=== PATIENT | male | born 1940 | race Caucasian/White ===

== ENCOUNTER 2018-03-02 11:13 | Inpatient (IN) | payer SELFPAY ==
[2018-03-02] VITALS (12 sets, daily range): BP systolic 83–115; BP diastolic 53–70; PULSE 103–160; TEMP 37.1–39.2; O2SAT 93–98; Ht 175.3 cm; Wt 69.4 kg
[~2018-03-02] VITALS: Ht 175.3 cm; Wt 69.4 kg
[2018-03-02] MEDS ORDERED: SODIUM CHLORIDE 0.9% 1000ML 1,000 ML IV STA ×6 (11:33→13:37)
--- NOTE | 2018-03-02 11:37 | EMERGENCY ROOM VISIT NOTE ---
History Report prepared by Ramos: Merline Sawant Under the Supervision of: Dr. Alex Tellez M.D. First contact with patient: 11:31 Chief Complaint: FEVER Stated Complaint: ILLNESS/FEVER History of Present Illness The patient is a 77 year old male who presents to the Emergency Room with complaints of a fever beginning this morning at 0700. Per family, the patient was not talking right this morning and had blood in his urine. His family states that the patient has not had a cough. The patient denies having a headache. Per family, the patient has had a hernia over the last 2-3 years. Per family, the patient has no active medical problems. Source of History: patient, family Onset: this morning at 0700 Position: other (generalized) Quality: other (fever) Associated Symptoms: + urinary symptoms (blood in urine), + weakness (was not talking correctly), No headache, No cough Review of Systems See HPI for pertinent positives and negatives. A total of ten systems were reviewed and were otherwise negative. Past Medical & Surgical Medical Problems: (1) No active medical problems (2) Sepsis Family History Patient reports no known family medical history. Current/Historical Medications No Active Prescriptions or Reported Meds Allergies Coded Allergies: No Known Allergies (Unverified , 03/02/18) Physical Exam Vital Signs Date Time Temp Pulse Resp B/P (MAP) Pulse Ox O2 Delivery O2 Flow Rate FiO2 03/02/18 13:26 109/68 03/02/18 13:23 111 18 93 03/02/18 13:20 99/66 03/02/18 13:19 106/64 03/02/18 13:18 105 28 98 03/02/18 13:16 66/42 03/02/18 13:15 108/59 03/02/18 13:13 102 23 97 03/02/18 13:11 116/61 03/02/18 13:08 113 20 94 03/02/18 13:06 113/62 03/02/18 13:03 154 23 98 03/02/18 13:00 203 03/02/18 12:58 139 22 96 03/02/18 12:53 150 18 94 03/02/18 12:50 152 03/02/18 12:48 116 25 97 03/02/18 12:43 107 23 95 03/02/18 12:40 90 20 114/68 97 Nasal Cannula 2.0 03/02/18 12:38 92 26 97 03/02/18 12:34 161 03/02/18 12:33 88 26 95 03/02/18 12:30 114/69 03/02/18 12:28 84 30 96 03/02/18 12:27 120/65 03/02/18 12:23 84 27 97 03/02/18 12:18 84 27 97 03/02/18 12:13 92 30 96 03/02/18 12:08 87 27 96 03/02/18 12:03 83 21 95 03/02/18 11:58 86 24 95 03/02/18 11:53 85 25 95 03/02/18 11:48 87 26 95 03/02/18 11:43 90 20 95 03/02/18 11:40 93 Nasal Cannula 4.0 03/02/18 11:38 90 29 93 03/02/18 11:33 90 30 93 03/02/18 11:28 92 30 93 03/02/18 11:26 145/70 03/02/18 11:24 40.7 94 24 145/70 93 Nasal Cannula 4.0 03/02/18 11:23 96 23 94 03/02/18 11:21 82 03/02/18 11:15 94 Nasal Cannula 4.0 Physical Exam Physical Exam GENERAL: He does appear distressed. He is alert, not oriented. HENT: Exam performed. Mouth/Throat: The oropharynx is clear and moist. No trismus in the jaw. No dental abscesses or uvula swelling. No oropharyngeal exudate or tonsillar abscesses. EYES: Conjunctivae and EOM are normal. Pupils are equal, round, and reactive to light. Right eye exhibits no discharge. Left eye exhibits no discharge. No scleral icterus. NECK: Normal range of motion. Neck supple. No JVD present. No spinous process tenderness present. No carotid bruit present. No rigidity. No tracheal deviation and normal range of motion present. No Brudzinski's sign and no Kernig 's sign noted. CV: Tachycardic, regular rhythm, normal heart sounds and intact distal pulses. There is no peripheral edema. Palpable radial pulses bue. PULM/CHEST: Effort normal and breath sounds normal. No respiratory distress. No stridor. He has no wheezes. He has no rales. Chest Wall: He exhibits no tenderness. ABD: The abdomen is soft. Bowel sounds are normal. Large left-sided inguinal hernia that is tender to palpation. There is no rebound, no guarding, no Hutton 's sign and no tenderness at McBurney's point. Rovsig negative. MUSC/SKEL: Normal range of motion. There is no peripheral edema, tenderness or deformity. LYMPH: No cervical adenopathy. NEURO: Alert, not oriented. Motor 5 out of 5 bilateral upper and bilateral extremities. Sensation intact. SKIN: Skin is warm and dry. He is not diaphoretic. Medical Decision & Procedures ER Provider Diagnostic Interpretation: Radiology results as stated below per my review and radiologist interpretation: SINGLE VIEW CHEST CLINICAL HISTORY: Sepsis. Fever. FINDINGS: An AP, portable, upright chest radiograph is obtained. No prior studies are available for comparison at the time of dictation. The examination is degraded by portable technique and patient rotation. The heart is enlarged and there is atherosclerotic calcification of the thoracic aorta. The pulmonary vasculature is noncongested. There is minimal dependent atelectasis. No airspace consolidation or large pleural effusion is identified. No pneumothorax is seen. The skeletal structures are osteopenic. The bony thorax is grossly intact. IMPRESSION: Cardiomegaly with no acute cardiopulmonary abnormality. Electronically signed by: Jeanmarie Camacho M.D. 03/02/2018 12:12 PM Dictated Date/Time: 03/02/2018 12:11 PM Laboratory Results 03/02/18 11:25 Red Blood Count 4.85, Mean Corpuscular Volume 92.8, Mean Corpuscular Hemoglobin 31.3, Mean Corpuscular Hemoglobin Concent 33.8, Mean Platelet Volume 9.6, Neutrophils (%) (Auto) 94.7, Lymphocytes (%) (Auto) 4.7, Monocytes (%) (Auto) 0.3, Eosinophils (%) (Auto) 0.0, Basophils (%) (Auto) 0.0, Neutrophils # (Auto) 2.83, Lymphocytes # (Auto) 0.14, Monocytes # (Auto) 0.01, Eosinophils # (Auto) 0.00, Basophils # (Auto) 0.00 03/02/18 11:25 Test 03/02/18 11:25 03/02/18 11:51 03/02/18 11:54 03/02/18 12:00 White Blood Count 2.99 K/uL (4.8-10.8) Red Blood Count 4.85 M/uL (4.7-6.1) Hemoglobin 15.2 g/dL (14.0-18.0) Hematocrit 45.0 % (42-52) Mean Corpuscular Volume 92.8 fL (80-100) Mean Corpuscular Hemoglobin 31.3 pg (25-34) Mean Corpuscular Hemoglobin Concent 33.8 g/dl (32-36) Platelet Count 186 K/uL (130-400) Mean Platelet Volume 9.6 fL (7.4-10.4) Neutrophils (%) (Auto) 94.7 % Lymphocytes (%) (Auto) 4.7 % Monocytes (%) (Auto) 0.3 % Eosinophils (%) (Auto) 0.0 % Basophils (%) (Auto) 0.0 % Neutrophils # (Auto) 2.83 K/uL (1.4-6.5) Lymphocytes # (Auto) 0.14 K/uL (1.2-3.4) Monocytes # (Auto) 0.01 K/uL (0.11-0.59) Eosinophils # (Auto) 0.00 K/uL (0-0.5) Basophils # (Auto) 0.00 K/uL (0-0.2) RDW Standard Deviation 47.6 fL (36.4-46.3) RDW Coefficient of Variation 14.0 % (11.5-14.5) Immature Granulocyte % (Auto) 0.3 % Immature Granulocyte # (Auto) 0.01 K/uL (0.00-0.02) Prothrombin Time 11.6 SECONDS (9.0-12.0) Prothromb Time International Ratio 1.1 (0.9-1.1) Activated Partial Thromboplast Time 25.6 SECONDS (21.0-31.0) Partial Thromboplastin Ratio 1.0 Estimated GFR () 74.4 Estimated GFR (Non- 64.2 BUN/Creatinine Ratio 20.7 (10-20) Calcium Level 8.3 mg/dl (8.5-10.1) Total Bilirubin 0.9 mg/dl (0.2-1) Aspartate Amino Transf (AST/SGOT) 18 U/L (15-37) Alanine Aminotransferase (ALT/SGPT) 16 U/L (12-78) Alkaline Phosphatase 87 U/L (45-117) Total Protein 6.9 gm/dl (6.4-8.2) Albumin 3.0 gm/dl (3.4-5.0) Globulin 3.9 gm/dl (2.5-4.0) Albumin/Globulin Ratio 0.8 (0.9-2) Procalcitonin 29.80 ng/ml (0-0.5) Bedside Lactic Acid Venous 1.60 mmol/L (0.90-1.70) Bedside Hemoglobin 13.3 g/dl (14.0-18.0) Bedside Hematocrit 39 % (42-52) Bedside Sodium 140 mEq/L (135-144) Bedside Potassium 3.9 mEq/L (3.3-5.0) Bedside Chloride 101 mEq/L (101-112) Bedside Total CO2 24 mEq/l (24-31) Anion Gap 20.0 mmol/L (16-25) Bedside Blood Urea Nitrogen 23 mg/dl (7-18) Bedside Creatinine 1.0 mg/dl (0.6-1.3) Bedside Glucose (other) 118 mg/dl (70-99) Bedside Ionized Calcium (Ravinder) 1.10 mmol/l (1.12-1.32) Urine Color YELLOW Urine Appearance CLEAR (CLEAR) Urine pH 6.5 (4.5-7.5) Urine Specific [place] 1.008 (1.000-1.030) Urine Protein NEG (NEG) Urine Glucose (UA) NEG (NEG) Urine Ketones NEG (NEG) Urine Occult Blood 1+ (NEG) Urine Nitrite POS (NEG) Urine Bilirubin NEG (NEG) Urine Urobilinogen NEG (NEG) Urine Leukocyte Esterase LARGE (NEG) Urine WBC (Auto) >30 /hpf (0-5) Urine RBC (Auto) 5-10 /hpf (0-4) Urine Hyaline Casts (Auto) 1-5 /lpf (0-5) Urine Epithelial Cells (Auto) 0-5 /lpf (0-5) Urine Bacteria (Auto) 2+ (NEG) Laboratory results reviewed by me Medications Administered Medications (Trade) Dose Ordered Sig/Mirella Route Start Time Stop Time Status Last Admin Dose Admin Sodium Chloride 1,000 ml @ 999 mls/hr Q1H1M STAT IV 03/02/18 11:33 03/02/18 12:33 DC 03/02/18 11:33 999 MLS/HR Ceftriaxone Sodium (Rocephin Inj) 1 gm NOW STAT IV 03/02/18 12:46 03/02/18 12:47 DC 03/02/18 12:56 1 GM Amiodarone HCl (Cordarone Inj) 150 mg STK-MED ONCE .ROUTE 03/02/18 13:10 03/02/18 13:11 DC 03/02/18 13:13 150 MG Amiodarone HCL/ Dextrose (Nexterone / D5w) 360 mg STK-MED ONCE .ROUTE 03/02/18 13:22 03/02/18 13:23 DC 03/02/18 13:27 360 MG Acetaminophen (Tylenol Tab) 650 mg Q4H PRN PO 03/02/18 13:15 04/01/18 13:14 03/02/18 15:34 650 MG ECG Per My Interpretation Indication: tachycardia Rate (beats per minute): 89 Rhythm: sinus rhythm Findings: RBBB, other (PRN interval is 146, QRS 124, QTC 438, no ST elevation or depression) ED Course 1130: The patient was evaluated in room C9. A complete history and physical exam was performed. Code sepsis and sepsis order set was initiated. 2 large- bore IVs were immediately placed and fluid boluses were immediately initiated. A Blair catheter was placed which removed a large amount of urine. The POC lactate and creatinine were within normal limits. We will obtain a CT scan to rule out an incarcerated hernia. 1133: Ordered Sodium Chloride 1000 ml @ 999 mls/hr IV. 1145: Ordered Tylenol Tab 650 mg PO. Labs show a leukopenia of 2.99 and pro calcitonin of 29.8., further raising the concern for sepsis. POC lactic acid less than 2. 1240: Chest x-ray shows no evidence of pneumonia. I went to go reevaluate the patient. He is in transient atrial fibrillation with RVR on the quality assurance monitor chassis. It is thought to be due to sepsis. His pressure is stable. He received 1.5 L of IV fluid and we will repeat 2 L. His urinalysis is pending. We are sending the patient to CT to rule out any incarcerated hernia. 1246: Urinalysis shows infection. Ordered Rocephin Inj 1 gm IV for urine being the source of sepsis. 1258: Discussed the patient's case with Dr. Clayton-ICU. He agrees that the patient needs to be admitted. He states given that the patient's blood pressure stable, the patient could go to the floor on telemetry however if the hospitalist team prefers that the patient go to ICU he is happy to accept the patient. I discussed with him that given that the patient is in transient atrial fibrillation I prefer that the patient go to the ICU. Dr. Clayton states that he is happy to accept the patient. We will plan on taking the patient to CT prior to bringing the patient to the ICU. 1301: Called to bedside by nursing. Patient's heart rate is fluctuating 140- 200. Rhythm appears narrow on the monitor. EKG shows atrial fibrillation with rapid ventricular rate of 177. Repeat fluid boluses began wide open again as the patients rhythm is thought to be a result of his urosepsis. 1316: Patient's QRS complex on the monitor began to widen and the patient's rate was still elevated. There is concern for the patient developing V. tach as result of his sepsis. Automated blood pressure rate 66/42. Manual blood pressure was repeated and found to be 106/64. Cardioversion was considered however, given that the manual blood pressure was stable, amiodarone 150 milligrams ordered as bolus over 10 minutes. I administered the amiodarone 150mg bolus over 10 mins. 1327: Status post amiodarone bolus, QRS complex narrowed on the monitor. No evidence of V. tach. Repeat EKG status post amiodarone bolus showed narrowing and improvement of the QRS complex. A. fib RVR with a rate of 116. Amiodarone drip ordered for 1 mg/min. Patient's blood pressure stable. IV fluids were continued wide open. Repeat POC lactic acid was less than 2. 1340: Patient continues to be in a narrow complex regular rhythm on the monitor while the amiodarone drip is being continued, appears like A. fib. Blood pressure stable, a total of 5 L of normal saline have been administered with 2 more liters being continued. The blood pressure remains stable with a MAP greater than 65. Given the patient's rhythm control issues we will take the patient to the ICU immediately once the ICU bed is available. Will hold off on sending the patient to CT at this point. Hospitalist was contacted to place admission orders and bed request. Tear Down Man was made aware that the patient will be coming directly to the ICU from the ED. I transported the patient with nursing to the intensive care unit and gave a verbal report to the dietary cook Dr. Clayton who met me at the bedside. He thanked me for helping transport the patient to the ICU and agrees with the decision to defer CT of the abdomen until the patient is more stabilized. Medical Decision 1130: The patient was evaluated in room C9. A complete history and physical exam was performed. Code sepsis and sepsis order set was initiated. 2 large- bore IVs were immediately placed and fluid boluses were immediately initiated. A Blair catheter was placed which removed a large amount of urine. The POC lactate and creatinine were within normal limits. We will obtain a CT scan to rule out an incarcerated hernia. 1133: Ordered Sodium Chloride 1000 ml @ 999 mls/hr IV. 1145: Ordered Tylenol Tab 650 mg PO. Labs show a leukopenia of 2.99 and pro calcitonin of 29.8., further raising the concern for sepsis. POC lactic acid less than 2. 1240: Chest x-ray shows no evidence of pneumonia. I went to go reevaluate the patient. He is in transient atrial fibrillation with RVR on the quality assurance monitor chassis. It is thought to be due to sepsis. His pressure is stable. He received 1.5 L of IV fluid and we will repeat 2 L. His urinalysis is pending. We are sending the patient to CT to rule out any incarcerated hernia. 1246: Urinalysis shows infection. Ordered Rocephin Inj 1 gm IV for urine being the source of sepsis. 1258: Discussed the patient's case with Dr. Clayton-ICU. He agrees that the patient needs to be admitted. He states given that the patient's blood pressure stable, the patient could go to the floor on telemetry however if the hospitalist team prefers that the patient go to ICU he is happy to accept the patient. I discussed with him that given that the patient is in transient atrial fibrillation I prefer that the patient go to the ICU. Dr. Clayton states that he is happy to accept the patient. We will plan on taking the patient to CT prior to bringing the patient to the ICU. 1301: Called to bedside by nursing. Patient's heart rate is fluctuating 140- 200. Rhythm appears narrow on the monitor. EKG shows atrial fibrillation with rapid ventricular rate of 177. Repeat fluid boluses began wide open again as the patients rhythm is thought to be a result of his urosepsis. 1316: Patient's QRS complex on the monitor began to widen and the patient's rate was still elevated. There is concern for the patient developing V. tach as result of his sepsis. Automated blood pressure rate 66/42. Manual blood pressure was repeated and found to be 106/64. Cardioversion was considered however, given that the manual blood pressure was stable, amiodarone 150 milligrams ordered as bolus over 10 minutes. I administered the amiodarone 150mg bolus over 10 mins. 1327: Status post amiodarone bolus, QRS complex narrowed on the monitor. No evidence of V. tach. Repeat EKG status post amiodarone bolus showed narrowing and improvement of the QRS complex. A. fib RVR with a rate of 116. Amiodarone drip ordered for 1 mg/min. Patient's blood pressure stable. IV fluids were continued wide open. Repeat POC lactic acid was less than 2. 1340: Patient continues to be in a narrow complex regular rhythm on the monitor while the amiodarone drip is being continued, appears like A. fib. Blood pressure stable, a total of 5 L of normal saline have been administered with 2 more liters being continued. The blood pressure remains stable with a MAP greater than 65. Given the patient's rhythm control issues we will take the patient to the ICU immediately once the ICU bed is available. Will hold off on sending the patient to CT at this point. Hospitalist was contacted to place admission orders and bed request. Tear Down Man was made aware that the patient will be coming directly to the ICU from the ED. I transported the patient with nursing to the intensive care unit and gave a verbal report to the dietary cook Dr. Clayton who met me at the bedside. He thanked me for helping transport the patient to the ICU and agrees with the decision to defer CT of the abdomen until the patient is more stabilized. Medication Reconcilliation Current Medication List: was personally reviewed by me Blood Pressure Screening Patient's blood pressure: Normal blood pressure Consults Time Called: 1250 Consulting Physician: Dr. Clayton-ICU Returned Call: [phone] Discussed the patient's case with Dr. Clayton-ICU. Additional Consults: Time Called: 1259 Consulted Physician: Dr. Whitman- [facility] Returned Call: [phone] Additional Comments: Discussed the patient's case. The patient will be evaluated for further treatment and disposition. Impression Primary Impression: Sepsis Additional Impressions: Atrial fibrillation with RVR V tach Critical Care I have personally spent greater than 124 minutes of critical care time in the direct management of this patient. This includes bedside care, interpretation of diagnostic studies, and testing, discussion with consultants, patient, and family members, and other required patient management activities. This 124 minutes is in excess of all separately billable procedures. Scribe Attestation The scribe's documentation has been prepared under my direction and personally reviewed by me in its entirety. I confirm that the note above accurately reflects all work, treatment, procedures, and medical decision making performed by me. The chart was completed utilizing [employer] network Speech voice recognition software. Grammatical errors, random word insertions, pronoun errors, and incomplete sentences are an occasional consequence of this system due to software limitations, ambient noise, and hardware issues. Any formal questions or concerns about the content, text, or information contained within the body of this dictation should be directly addressed to the physician for clarification. Departure Information Prescriptions No Active Prescriptions or Reported Meds Patient Instructions My [facility] Sepsis Post Crystalloid Evaluation Date: Mar 02, 2018 Time: 11:30 Capillary Refill Exam Normal (less than 2 seconds) Cardiopulmonary Evaluation Lung Exam: lungs clear Heart Exam: + tachycardia Central Venous Evaluation Pulse Ox %: 98 Peripheral Pulse Evaluation Normal Vitals Last Vital Signs Documentation Date Time Temp Pulse Resp B/P (MAP) Pulse Ox O2 Delivery O2 Flow Rate FiO2 03/02/18 13:26 109/68 03/02/18 13:23 111 18 93 03/02/18 12:40 Nasal Cannula 2.0 03/02/18 11:24 40.7 Presence Of SIRS Problem Qualifiers Primary Impression: Sepsis Sepsis type: sepsis due to unspecified organism Qualified Codes: A41.9 - Sepsis, unspecified organism
[2018-03-02] MEDS ORDERED: ACETAMINOPHEN 325 MG TAB PO ONE (11:45)
[2018-03-02 11:56] LABS: HEMOGLOBIN 15.2 g/dL (14.0-18.0); IG# 0.01 K/uL (0.00-0.02); LYMPH % 4.7 %; LYMPH ABS # 0.14 K/uL (1.2-3.4); MEAN CELL VOLUME 92.8 fL (80-100); MEAN CORPUSCULAR HEMOGLOBIN 31.3 pg (25-34); MEAN CORPUSCULAR HGB CONC 33.8 g/dl (32-36); MEAN PLATELET VOLUME 9.6 fL (7.4-10.4); MONO % 0.3 %; MONO ABS # 0.01 K/uL (0.11-0.59); NEUT % 94.7 %; NEUT ABS # 2.83 K/uL (1.4-6.5); PLATELET COUNT 186 K/uL (130-400); RED CELL DISTRIBUTION WIDTH SD 47.6 fL (36.4-46.3); WHITE BLOOD COUNT 2.99 K/uL (4.8-10.8)
[2018-03-02 12:03] LABS: ISTAT IONIZED CALCIUM 1.1 mmol/l (1.12-1.32); ISTAT POTASSIUM 3.9 mEq/L (3.3-5.0)
[2018-03-02 12:04] LABS: INR 1.1 (0.9-1.1); PTT PATIENT 25.6 SECONDS (21.0-31.0)
--- NOTE | 2018-03-02 12:13 | DIAGNOSTIC IMAGING REPORT ---
SINGLE VIEW CHEST CLINICAL HISTORY: Sepsis. Fever. FINDINGS: An AP, portable, upright chest radiograph is obtained. No prior studies are available for comparison at the time of dictation. The examination is degraded by portable technique and patient rotation. The heart is enlarged and there is atherosclerotic calcification of the thoracic aorta. The pulmonary vasculature is noncongested. There is minimal dependent atelectasis. No airspace consolidation or large pleural effusion is identified. No pneumothorax is seen. The skeletal structures are osteopenic. The bony thorax is grossly intact. IMPRESSION: Cardiomegaly with no acute cardiopulmonary abnormality. Electronically signed by: Jeanmarie Camacho M.D. 03/02/2018 12:12 PM Dictated Date/Time: 03/02/2018 12:11 PM
[2018-03-02 12:22] LABS: ALKALINE PHOSPHATASE 87 U/L (45-117); ALT/SGPT 16 U/L (12-78); AST/SGOT 18 U/L (15-37); BLOOD UREA NITROGEN 23 mg/dl (7-18); CALCIUM 8.3 mg/dl (8.5-10.1); CARBON DIOXIDE 26 mmol/L (21-32); CREATININE 1.11 mg/dl (0.60-1.40); GLUCOSE 106 mg/dl (70-99); POTASSIUM 3.8 mmol/L (3.5-5.1); SODIUM 139 mmol/L (136-145); TOTAL PROTEIN 6.9 gm/dl (6.4-8.2)
[2018-03-02] MEDS ORDERED: OPTIRAY 320 IV PRN (12:45)
[2018-03-02] MEDS ORDERED: CEFTRIAXONE SOD INJ 1 GM ADDVIAL IV STA (12:46)
[2018-03-02] MEDS ORDERED: AMIODARONE HCL INJ 50 MG/ML 3 ML VIAL ONE (13:10)
[2018-03-02] MEDS ORDERED: SODIUM CHLORIDE 0.9% 1000ML 250 ML IV ONE (13:14)
[2018-03-02] MEDS ORDERED: VANCOMYCIN IV 1,000 MG in SODIUM CHLORIDE 0.9% 250ML 250 ML IV ONE (13:14)
[2018-03-02] MEDS ORDERED: CONSULT PHARMACY STA (13:14)
[2018-03-02] MEDS ORDERED: VANCOMYCIN CONSULT ACTIVE PRN (13:15)
[2018-03-02] MEDS ORDERED: MAGNESIUM HYDROXIDE SUSP 30 ML UDC PO PRN (13:15)
[2018-03-02] MEDS ORDERED: ONDANSETRON INJ 2 MG/ML 2 ML VIAL IV PRN (13:15)
[2018-03-02] MEDS ORDERED: NITROGLYCERIN 0.4 MG SL PER TAB CHARGE SL PRN (13:15)
[2018-03-02] MEDS ORDERED: ICU PROTOCOL FOR HYPERGLYCEMIA PRN (13:15)
[2018-03-02] MEDS ORDERED: LORAZEPAM 2 MG/ML 1 ML VIAL ONE (13:19)
[2018-03-02] MEDS ORDERED: AMIODARONE 360MG / 200ML D5W ONE (13:22)
[2018-03-02] MEDS ORDERED: AMIODARONE IV BOLUS / DRIP IV STA (13:23)
[2018-03-02] MEDS ORDERED: AMIODARONE / D5W 200 ML IV SCH (13:30)
[2018-03-02] MEDS: AMIODARONE / D5W 200 ML IV SCH ×2 (13:34→19:25)
[2018-03-02] MEDS ORDERED: PIPERACILL/TAZOBAC CONSULT ACTIVE PRN (13:45)
[2018-03-02] MEDS ORDERED: AMIODARONE HCL INJ 50 MG/ML 3 ML VIAL IV STA (14:05)
[2018-03-02] MEDS ORDERED: AMIODARONE 150MG / 100ML D5W ONE (14:07)
[2018-03-02] MEDS ORDERED: METOPROLOL TARTRATE 1 MG/ML VIAL ONE (14:16)
[2018-03-02] MEDS ORDERED: HEPARIN 25,000 UNIT/500ML D5W 500 ML IV SCH (14:45)
[2018-03-02] MEDS ORDERED: PIPERACILL/TAZOBAC IV 3.375 GM in D5W 100 ML IV ONE (14:45)
[2018-03-02] MEDS ORDERED: VANCOMYCIN IV 1,750 MG in SODIUM CHLORIDE 0.9% 500ML 500 ML IV ONE (14:45)
--- NOTE | 2018-03-02 14:58 | Pharmacy Progress Note ---
Pharmacy Abx Initial Consult Date of Service Mar 02, 2018. Pharmacy Dosing Scope Date of Consult: 03/02/18 Consultation requested by: Dr. Whitman Pharmacy is consulted to initiate Vancomycin & Zosyn IV dosing therapy, order appropriate labs and adjust drug dose/frequency. Subjective The patient is a 77 year old male admitted on Mar 02, 2018 at 13:27. Objective Height (Feet): 5 Height (Inches): 8.00 Weight (Kilograms): 69.000 (BMI 23.1) Vital Signs (Past 12Hrs) Vital Signs Past 12 Hours Date Time Temp Pulse Resp B/P (MAP) Pulse Ox O2 Delivery O2 Flow Rate FiO2 03/02/18 13:58 38.5 78 98 03/02/18 13:55 110/71 03/02/18 13:53 74 88 03/02/18 13:38 114 20 95 03/02/18 13:37 104/75 03/02/18 13:36 108/72 03/02/18 13:33 111 24 95 03/02/18 13:30 109/68 03/02/18 13:28 109 24 94 03/02/18 13:26 109/68 03/02/18 13:23 111 18 93 03/02/18 13:20 99/66 03/02/18 13:19 106/64 03/02/18 13:18 105 28 98 03/02/18 13:16 66/42 03/02/18 13:15 108/59 03/02/18 13:13 102 23 97 03/02/18 13:11 116/61 03/02/18 13:08 113 20 94 03/02/18 13:06 113/62 03/02/18 13:03 154 23 98 03/02/18 13:00 203 03/02/18 12:58 139 22 96 03/02/18 12:53 150 18 94 03/02/18 12:50 152 03/02/18 12:48 116 25 97 03/02/18 12:43 107 23 95 03/02/18 12:40 90 20 114/68 97 Nasal Cannula 2.0 03/02/18 12:38 92 26 97 03/02/18 12:34 161 03/02/18 12:33 88 26 95 03/02/18 12:30 114/69 8/11/18 12:28 84 30 96 03/02/18 12:27 120/65 03/02/18 12:23 84 27 97 03/02/18 12:18 84 27 97 03/02/18 12:13 92 30 96 03/02/18 12:08 87 27 96 03/02/18 12:03 83 21 95 03/02/18 11:58 86 24 95 03/02/18 11:53 85 25 95 03/02/18 11:48 87 26 95 03/02/18 11:43 90 20 95 03/02/18 11:40 93 Nasal Cannula 4.0 03/02/18 11:38 90 29 93 03/02/18 11:33 90 30 93 03/02/18 11:28 92 30 93 03/02/18 11:26 145/70 03/02/18 11:24 40.7 94 24 145/70 93 Nasal Cannula 4.0 03/02/18 11:23 96 23 94 03/02/18 11:21 82 03/02/18 11:15 94 Nasal Cannula 4.0 Lab Results (24Hrs) Laboratory Tests (24 Hours) Test 03/02/18 11:25 03/02/18 14:43 White Blood Count 2.99 K/uL (4.8-10.8) L Red Blood Count 4.85 M/uL (4.7-6.1) Hemoglobin 15.2 g/dL (14.0-18.0) Hematocrit 45.0 % (42-52) Mean Corpuscular Volume 92.8 fL (80-100) Mean Corpuscular Hemoglobin 31.3 pg (25-34) Mean Corpuscular Hemoglobin Concent 33.8 g/dl (32-36) Platelet Count 186 K/uL (130-400) Mean Platelet Volume 9.6 fL (7.4-10.4) Neutrophils (%) (Auto) 94.7 % Lymphocytes (%) (Auto) 4.7 % Monocytes (%) (Auto) 0.3 % Eosinophils (%) (Auto) 0.0 % Basophils (%) (Auto) 0.0 % Neutrophils # (Auto) 2.83 K/uL (1.4-6.5) Lymphocytes # (Auto) 0.14 K/uL (1.2-3.4) L Monocytes # (Auto) 0.01 K/uL (0.11-0.59) L Eosinophils # (Auto) 0.00 K/uL (0-0.5) Basophils # (Auto) 0.00 K/uL (0-0.2) Procalcitonin 29.80 ng/ml (0-0.5) H Item Value Date Time Creatinine 1.11 mg/dl 03/02/18 1125 Micro Results Date/Time Source Procedure Growth Status 03/02/18 11:40 Blood Blood Culture Pending Received 03/02/18 11:25 Blood Blood Culture Pending Received 03/02/18 14:00 Nasal MRSA DNA Surveillance Screen Pending Received 03/02/18 12:00 Urine,Catheterized Urine Culture Pending Received Assessment & Plan Assessment 77 year old male presents with fever beginning this am. Also was weak and had blood in urine. Limited patient history available as of now, other than ER notes. Admitted for complicated UTI (? sepsis) Plan Vancomcyin & Zosyn for treatment of UTI Vancomycin IV * Estimated pkinetic parameters: Vd 0.7L/kg; Johnathan ~0.046 hr-1; T1/2 ~16.1 hr; CrCl ~50 * Loading dose: 1750 mg (~25.4 mg/kg) * Maintenance dose: 1000 mg IV (~14.5 mg/kg) every 20 hours * Goal trough level for UTI(sepsis) : 15 to 20 mcg/mL * Trough/Random level ordered for 03/05/18 Piperacillin/tazobactam * 4.5 g bolus administered over 30 minutes, then 4.5 g IV extended infusion every 8 hours for CrCl greater than 20 mL/min OR every 12 hours for CrCl 20 mL/ min or less and dialysis. * Aggressive dosing selected due to critically ill status/BMI 35 or more/ history of cystic fibrosis. Pharmacy will continue to follow and will adjust dose/frequency as necessary. Thank you.
[2018-03-02] MEDS: SODIUM CHLORIDE 0.9% 1000ML 1,000 ML IV SCH (15:18)
[2018-03-02] MEDS ORDERED: PIPERACILL/TAZOBAC IV 4.5 GM in D5W 100 ML IV ONE (15:30)
[2018-03-02] MEDS: METOPROLOL TARTRATE 1 MG/ML VIAL IV. SCH ×2 (15:34→19:32)
[2018-03-02] MEDS: ACETAMINOPHEN 325 MG TAB PO PRN (15:34)
--- NOTE | 2018-03-02 15:40 | DIAGNOSTIC IMAGING REPORT ---
SINGLE VIEW CHEST CLINICAL HISTORY: PICC placement. FINDINGS: An AP, portable, upright chest radiograph is compared to study performed earlier the same day 03/02/2018. The examination is degraded by portable technique and patient rotation. A right PICC line is been placed. The tip of the catheter projects over the SVC at the level of the melissa. The heart is enlarged and there is atherosclerotic calcification of the thoracic aorta. The pulmonary vasculature is noncongested. Nonspecific interstitial thickening is similar to previous. There is minimal dependent atelectasis. No airspace consolidation or large pleural effusion is identified. No pneumothorax is seen. The skeletal structures are osteopenic. The bony thorax is grossly intact. IMPRESSION: 1. A right PICC line has been placed. The tip of the catheter projects over the superior vena cava. 2. Cardiomegaly with no acute cardiopulmonary abnormality. Electronically signed by: Jeanmarie Camacho M.D. 03/02/2018 3:39 PM Dictated Date/Time: 03/02/2018 3:37 PM
--- NOTE | 2018-03-02 17:49 | DIAGNOSTIC IMAGING REPORT ---
CT SCAN OF THE ABDOMEN AND PELVIS WITH IV CONTRAST CLINICAL HISTORY: Left lower quadrant abdominal pain. COMPARISON STUDY: No priors. TECHNIQUE: Following the IV administration of 115 cc of Optiray 320, CT scan of the abdomen and pelvis is performed from the lung bases to the proximal femora. Images are reviewed in the axial, sagittal, and coronal planes. IV contrast was administered without complication. A dose lowering technique was utilized adhering to the principles of ALARA. The examination is degraded by extensive mesenteric edema. CT DOSE: 370.94 mGy.cm FINDINGS: Lung bases: The heart is enlarged and without pericardial effusion. There are small pleural effusions with bibasilar consolidation. Intralobular septal thickening is noted at the lung bases. Liver: The contrast-enhanced liver is enlarged, measuring 19.3 cm in length. The liver is otherwise normal in contour and attenuation. There is no intrahepatic biliary ductal dilatation. The hepatic veins and portal veins are patent. There is hepatic periportal edema. There is an approximately 9 x 5 cm low-attenuation lesion identified in the right hepatic lobe. Although incompletely characterized, this demonstrates foci of peripheral discontinuous nodular enhancement and almost certainly represents a giant hemangioma. Gallbladder: The gallbladder wall thickening is markedly thickened and edematous. Spleen: Normal in size and attenuation. Pancreas: Moderately atrophic and grossly unremarkable. Adrenal glands: Adrenal glands appear slightly hyperemic. Kidneys: The contrast enhanced kidneys demonstrate mild cortical atrophy and are without hydronephrosis. The kidneys enhance symmetrically. There is nonspecific bilateral perinephric stranding and fluid. Abdominal vasculature: The abdominal aorta is normal in course and caliber noting moderate atherosclerotic calcification. Bowel: A rectal temperature probe is in place. There is rectosigmoid fecal impaction and moderate to severe constipation. No bowel obstruction is identified. There is mild diffuse bowel wall edema. No focally abnormal bowel loops are identified. A large left inguinal hernia contains nonobstructed small bowel loops. The appendix is not identified. Peritoneum: There is diffuse mesenteric edema. Trace abdominopelvic ascites is observed. No intraperitoneal free air is seen. Lymphadenopathy: There are mildly enlarged right external iliac chain lymph nodes which measure up to 2.3 x 1.5 cm as seen on image #[id number]. Prominent right inguinal lymph nodes measure up to 1.4 cm in short axis. Pelvic viscera: The bladder is partially decompressed around a Blair catheter. Foci of internal gas are identified. The bladder wall appears markedly thickened and there is pericystic inflammation. The prostate gland is markedly enlarged and heterogeneous, measuring 6.2 cm transverse diameter. There is a 2.3 cm ovoid low-attenuation lesion within the left aspect of the prostate seen on image #[id number]. There is a large left inguinal hernia which contains bowel. See above. There are scrotal wall edema. Skeletal structures: The skeletal structures are osteopenic. Lumbar sacral spondylosis and scoliosis are observed. No lytic or blastic lesions are seen. IMPRESSION: 1. Cardiomegaly. Intralobular septal thickening is seen at both lung bases and suggests congestive failure. 2. There are small pleural effusions. 3. Bibasilar consolidation is identified. This could represent atelectasis, developing pneumonia, and/or a component of pulmonary edema. Clinical correlation will be essential. 4. There is evidence of fluid overload, including diffuse mesenteric edema, trace abdominopelvic ascites, small pleural effusions, and hepatic periportal edema. 5. There is a large left inguinal hernia which contains nonobstructed small bowel loops. No bowel obstruction is identified. 6. There is nonspecific scrotal wall edema, likely related to volume status. 7. There is mild diffuse mucosal edema of the bowel loops, with no focally abnormal bowel loops identified. 8. The adrenal glands appear hypervascular. This is nonspecific and can be seen in the setting of hypotension. Clinical correlation will be required. 9. There is rectosigmoid fecal impaction and moderate constipation. 10. Although decompressed around a Blair catheter, the bladder wall appears markedly thickened and there is pericystic stranding. Correlate clinically and with urinalysis for evidence of cystitis. 11. The prostate gland is enlarged and heterogeneous. Mild periprostatic stranding is also suggested and nonspecific. Correlate clinically for evidence of prostatitis. 12. There is a 2.3 cm round low-attenuation structure within the left aspect of the prostate gland. This likely represents a utricular cyst. Abscess is considered less likely but would be impossible to exclude. 13. Mildly enlarged right external iliac chain lymph nodes are nonspecific and may be a reactive basis. 14. Hepatomegaly. 15. There is a 9 cm low-attenuation hepatic lesion. Although incompletely characterized, this demonstrates foci of peripheral discontinuous nodular enhancement and almost certainly represents a giant hemangioma. Correlation any prior outside imaging studies is recommended to document stability. If definitive characterization is required a nonemergent follow-up MRI of the liver would be appropriate. 16. There is marked gallbladder wall thickening and edema, likely related to periportal edema and volume status. Clinical correlation will be required. 17. Additional findings as above. Electronically signed by: Jeanmarie Camacho M.D. 03/02/2018 5:48 PM Dictated Date/Time: 03/02/2018 5:29 PM
[2018-03-02] MEDS ORDERED: PIPERACILL/TAZOBAC IV 4.5 GM in DEXTROSE 5% 100ML 100 ML IV SCH (18:00)
--- NOTE | 2018-03-02 18:40 | History and Physical ---
History & Physical Date & Time of Service: Mar 02, 2018 at 18:28 Chief Complaint: Sepsis Primary Care Physician: No Doctor, Assigned History of Present Illness Source: patient, other (alexi) 77 y/o M who was brought to the ED for AMS and urinary issues. Pt was apparently in his usual state of health yesterday. He mowed the lawn last night without issue. Pt was up prior to his wille this AM and had been fine, but suddenly around 7am he became unsteady on his feet and was dribbling urine that had blood in it. Alexi directed him to the bathroom as he was confused. He was incontinent of urine in the bathroom and she noted it was bloody urine. She called the ambulance at that time. Pt apparently had an episode of emesis this AM. He had been tolerating PO without issue yesterday. Pt denies fever, SOB, chest pain, abd pain, n/v/c/d, LE pain or swelling. Pt is s/p IVF and abx. Alexi notes that he is already back to his usual self and has been mentally intact now. Pt states he feels much improved at this time. He does not like hospitals or doctors and is asking when he will be discharged. Alexi says pt has never been to a doctor and takes no medications. He does have a large hernia that he reduces and has no pain. Alexi states that she has pulled many ticks off pt recently. He fell outside about 6 months ago and has redness and swelling that persists on his R LE. Past Medical/Surgical History Medical Problems: (1) No active medical problems (2) Sepsis Family History Family history was reviewed; no changes noted. Social History Smoking Status: Former Smoker (quit at 31 y/o) Alcohol Use: occasionally (a beer a week) Drug Use: none Allergies Coded Allergies: No Known Allergies (Unverified , 03/02/18) Home Medications No Active Prescriptions or Reported Meds Review of Systems Pertinent positives and negatives reviewed in HPI--all others negative Physical Exam Vital Signs Date Time Temp Pulse Resp B/P (MAP) Pulse Ox O2 Delivery O2 Flow Rate FiO2 03/02/18 18:26 38.3 106 20 93/55 (68) 96 Nasal Cannula 2.0 03/02/18 16:00 39.2 114 20 99/57 (71) 95 Nasal Cannula 2.0 03/02/18 15:34 110 97/57 03/02/18 14:00 38.5 160 20 115/61 Nasal Cannula 2.0 03/02/18 13:58 38.5 78 98 03/02/18 13:55 110/71 03/02/18 13:53 74 88 03/02/18 13:38 114 20 95 03/02/18 13:37 104/75 03/02/18 13:36 108/72 03/02/18 13:33 111 24 95 03/02/18 13:30 109/68 03/02/18 13:28 109 24 94 03/02/18 13:26 109/68 03/02/18 13:23 111 18 93 03/02/18 13:20 99/66 03/02/18 13:19 106/64 03/02/18 13:18 105 28 98 03/02/18 13:16 66/42 03/02/18 13:15 108/59 03/02/18 13:13 102 23 97 03/02/18 13:11 116/61 03/02/18 13:08 113 20 94 03/02/18 13:06 113/62 03/02/18 13:03 154 23 98 03/02/18 13:00 203 03/02/18 12:58 139 22 96 03/02/18 12:53 150 18 94 03/02/18 12:50 152 03/02/18 12:48 116 25 97 03/02/18 12:43 107 23 95 03/02/18 12:40 90 20 114/68 97 Nasal Cannula 2.0 03/02/18 12:38 92 26 97 03/02/18 12:34 161 03/02/18 12:33 88 26 95 03/02/18 12:30 114/69 03/02/18 12:28 84 30 96 03/02/18 12:27 120/65 03/02/18 12:23 84 27 97 03/02/18 12:18 84 27 97 03/02/18 12:13 92 30 96 03/02/18 12:08 87 27 96 03/02/18 12:03 83 21 95 03/02/18 11:58 86 24 95 03/02/18 11:53 85 25 95 03/02/18 11:48 87 26 95 03/02/18 11:43 90 20 95 03/02/18 11:40 93 Nasal Cannula 4.0 03/02/18 11:38 90 29 93 03/02/18 11:33 90 30 93 03/02/18 11:28 92 30 93 03/02/18 11:26 145/70 03/02/18 11:24 40.7 94 24 145/70 93 Nasal Cannula 4.0 03/02/18 11:23 96 23 94 03/02/18 11:21 82 03/02/18 11:15 94 Nasal Cannula 4.0 General Appearance: WD/WN, no apparent distress Head: normocephalic, atraumatic Eyes: normal inspection, sclerae normal Respiratory/Chest: normal breath sounds, no respiratory distress Cardiovascular: regular rate, rhythm, normal peripheral pulses Abdomen/GI: non tender, soft Extremities/Musculoskelatal: no calf tenderness, + swelling (R foot) Neurologic/Psych: alert, oriented x 3 Skin: warm/dry, + pertinent finding (R LE redness) Diagnostics Laboratory Results Results Past 24 Hours Test 03/02/18 11:25 03/02/18 11:51 03/02/18 11:54 03/02/18 12:00 Range/Units White Blood Count 2.99 4.8-10.8 K/uL Red Blood Count 4.85 4.7-6.1 M/uL Hemoglobin 15.2 14.0-18.0 g/dL Hematocrit 45.0 42-52 % Mean Corpuscular Volume 92.8 80-100 fL Mean Corpuscular Hemoglobin 31.3 25-34 pg Mean Corpuscular Hemoglobin Concent 33.8 32-36 g/dl Platelet Count 186 130-400 K/uL Mean Platelet Volume 9.6 7.4-10.4 fL Neutrophils (%) (Auto) 94.7 % Lymphocytes (%) (Auto) 4.7 % Monocytes (%) (Auto) 0.3 % Eosinophils (%) (Auto) 0.0 % Basophils (%) (Auto) 0.0 % Neutrophils # (Auto) 2.83 1.4-6.5 K/uL Lymphocytes # (Auto) 0.14 1.2-3.4 K/uL Monocytes # (Auto) 0.01 0.11-0.59 K/uL Eosinophils # (Auto) 0.00 0-0.5 K/uL Basophils # (Auto) 0.00 0-0.2 K/uL RDW Standard Deviation 47.6 36.4-46.3 fL RDW Coefficient of Variation 14.0 11.5-14.5 % Immature Granulocyte % (Auto) 0.3 % Immature Granulocyte # (Auto) 0.01 0.00-0.02 K/uL Prothrombin Time 11.6 9.0-12.0 SECONDS Prothromb Time International Ratio 1.1 0.9-1.1 Activated Partial Thromboplast Time 25.6 21.0-31.0 SECONDS Partial Thromboplastin Ratio 1.0 Sodium Level 139 136-145 mmol/L Potassium Level 3.8 3.5-5.1 mmol/L Chloride Level 106 98-107 mmol/L Carbon Dioxide Level 26 21-32 mmol/L Anion Gap 7.0 20.0 16-25 mmol/L Blood Urea Nitrogen 23 7-18 mg/dl Creatinine 1.11 0.60-1.40 mg/dl Estimated GFR () 74.4 Estimated GFR (Non- 64.2 BUN/Creatinine Ratio 20.7 10-20 Random Glucose 106 70-99 mg/dl Calcium Level 8.3 8.5-10.1 mg/dl Total Bilirubin 0.9 0.2-1 mg/dl Aspartate Amino Transf (AST/SGOT) 18 15-37 U/L Alanine Aminotransferase (ALT/SGPT) 16 12-78 U/L Alkaline Phosphatase 87 45-117 U/L Total Protein 6.9 6.4-8.2 gm/dl Albumin 3.0 3.4-5.0 gm/dl Globulin 3.9 2.5-4.0 gm/dl Albumin/Globulin Ratio 0.8 0.9-2 Procalcitonin 29.80 0-0.5 ng/ml Bedside Lactic Acid Venous 1.60 0.90-1.70 mmol/L Bedside Hemoglobin 13.3 14.0-18.0 g/dl Bedside Hematocrit 39 42-52 % Bedside Sodium 140 135-144 mEq/L Bedside Potassium 3.9 3.3-5.0 mEq/L Bedside Chloride 101 101-112 mEq/L Bedside Total CO2 24 24-31 mEq/l Bedside Blood Urea Nitrogen 23 7-18 mg/dl Bedside Creatinine 1.0 0.6-1.3 mg/dl Bedside Glucose (other) 118 70-99 mg/dl Bedside Ionized Calcium (Ravinder) 1.10 1.12-1.32 mmol/l Urine Color YELLOW Urine Appearance CLEAR CLEAR Urine pH 6.5 4.5-7.5 Urine Specific Keaton 1.008 1.000-1.030 Urine Protein NEG NEG Urine Glucose (UA) NEG NEG Urine Ketones NEG NEG Urine Occult Blood 1+ NEG Urine Nitrite POS NEG Urine Bilirubin NEG NEG Urine Urobilinogen NEG NEG Urine Leukocyte Esterase LARGE NEG Urine WBC (Auto) >30 0-5 /hpf Urine RBC (Auto) 5-10 0-4 /hpf Urine Hyaline Casts (Auto) 1-5 0-5 /lpf Urine Epithelial Cells (Auto) 0-5 0-5 /lpf Urine Bacteria (Auto) 2+ NEG Test 03/02/18 14:10 03/02/18 15:18 Range/Units Lactic Acid Level 1.9 0.4-2.0 mmol/L Microbiology Results 03/02/18 Blood Culture, Received Pending 03/02/18 Blood Culture, Received Pending 03/02/18 MRSA DNA Surveillance Screen - Final, Complete Specimen Negative for MRSA by DNA Probe 03/02/18 Urine Culture, Received Pending CXR normal Impression Assessment and Plan 77 y/o M who was admitted on 03/02 with sepsis/UTI Sepsis/UTI: AMS and hypoTN noted, now improved s/p IVF and abx Vanco/zosyn Elevated WBC, febrile in the ED UA noted, urine and blood cx pending Lactic acid WNL x2, procalcitonin elevated Lyme pending given hx of ticks and LE redness and swelling Afib: noted intermittently in the ED ECHO pending Cardiology c/s pending Amio noted R PICC placed in ICU Diet and DVT proph as per ICU Advanced Directives Existing Living Will: No Existing Power of Sqe: No Resuscitation Status VTE Prophylaxis Will order VTE Prophylaxis: Yes Note Total Time: Critical Care 30 - 74 minutes
[2018-03-02] MEDS ORDERED: PHENYLEPHRINE HCL INJ 20 MG in DEXTROSE 5% 500ML 500 ML IV PRN (18:47)
--- NOTE | 2018-03-02 19:11 | Critical Care Consultation ---
Critical Care Consultation Date of Consultation: Mar 02, 2018. Attending Physician: Meliton Mittal M.D. Reason for Consultation: Sepsis History of Present Illness Dear Dr. Whitman: Thank you for your kind referral Mr. Weiner to critical care service. This is 77-year-old gentleman who has no known past medical history, takes only vitamins and minerals as an outpatient, brought to the hospital due to altered mental status as well as hematuria. The patient was seen by his girlfriend who brought him to the hospital. The patient in the hospital while he was in the ED , went into new onset A. fib with RVR with a rate approximately 150, the patient change his rate of wide-complex requiring placing him on amiodarone. The patient was found also to have retained urine and had a Blair catheter placed which showed over a liter of urinary retention and tested positive for UTI. Patient started empirically on antibiotics and started also on IV fluid to support his blood pressure which was 70 systolic. He responded to the IV fluid but he received total of 5 L of crystalloid while he was in the ED. The patient afterward was transferred to the ICU for further management. In the ICU, the patient was somewhat sarcastic about his answers, he denies any chest pain, shortness of breath, abdominal pain, he does have swelling in his right knee which he claims it has been chronic, for over a year, the patient denies any dysuria, polyuria, denies any history of renal or heart disease, however he feels palpitation occasionally where he was taken on the minerals and magnesium pills according to him. He has not seen a doctor ever in his life. And he has not been placed on prescription medications. No known past medical history at the moment from him. He lives with his girlfriend and he has a daughter but he would like his case to be discussed with his girlfriend first. The patient underwent a workup which include abdominal CT, lab work, which showed leukopenia as well as left inguinal hernia, hemangioma in the liver, diffuse colonic edema as well as minimal ascites with bilateral pleural effusion likely due to aggressive hydration. Family History Patient reports no known family medical history. Social History Smoking Status: Former Smoker (quit at 31 y/o) Alcohol Use: occasionally (a beer a week) Drug Use: none Allergies Coded Allergies: No Known Allergies (Unverified , 03/02/18) Home Medications No Active Prescriptions or Reported Meds Current Inpatient Medications Current Inpatient Medications Medications (Trade) Dose Ordered Sig/Mirella Route Start Time Stop Time Status Last Admin Dose Admin Ioversol (Optiray 320) 100 ml UD PRN IV 03/02/18 12:45 03/06/18 12:44 Amiodarone HCL/ Dextrose 200 ml @ 33.3 mls/hr Q6H1M IV 03/02/18 13:30 03/02/18 19:30 Amiodarone HCL/ Dextrose 200 ml @ 16.7 mls/hr [id number] IV 03/02/18 19:30 04/01/18 19:29 Miscellaneous Information (Consult) 1 ea UD PRN N/A 03/02/18 13:45 04/01/18 13:44 Acetaminophen (Tylenol Tab) 650 mg Q4H PRN PO 03/02/18 13:15 04/01/18 13:14 03/02/18 15:34 650 MG Nitroglycerin (Nitrostat Tab) 0.4 mg UD PRN SL 03/02/18 13:15 04/01/18 13:14 Magnesium Hydroxide (Milk Of Magnesia Susp) 30 ml Q12H PRN PO 03/02/18 13:15 04/01/18 13:14 Ondansetron HCl (Zofran Inj) 4 mg Q6H PRN IV 03/02/18 13:15 04/01/18 13:14 Pantoprazole Sodium 40 mg/ Syringe 10 ml @ 5 mls/min DAILY IV 03/03/18 09:00 04/02/18 08:59 Miscellaneous Information (Icu Protocol For Hyperglycemia) 1 ea PRN PRN N/A 03/02/18 13:15 03/04/18 13:14 Vancomycin HCl (Consult) 1 ea UD PRN N/A 03/02/18 13:15 04/01/18 13:14 Metoprolol Tartrate (Lopressor Iv) 5 mg Q4 IV. 03/02/18 16:00 04/01/18 15:59 Sodium Chloride 1,000 ml @ 150 mls/hr Q6H40M IV 03/02/18 14:15 04/01/18 14:14 03/02/18 15:18 150 MLS/HR Heparin Sodium/ Dextrose 500 ml @ 25 mls/hr Q20H IV 03/02/18 14:45 04/01/18 14:44 03/02/18 15:21 25 MLS/HR Vancomycin HCl 1000 mg/Sodium Chloride 270 ml @ 125 mls/hr Q20H IV 03/03/18 11:00 03/13/18 10:59 Piperacillin Sod/ Tazobactam Sod 4.5 gm/Dextrose 120 ml @ 30 mls/hr Q8H IV 03/02/18 21:00 03/12/18 20:59 Review of Systems Constitutional: No fever, No chills, No sweats, No weight loss, No weakness, No fatigue, No problem reported Eyes: No worsening of vision, No eye pain, No redness, No discharge, No diplopia, No problem reported ENT: No hearing loss, No unusual epistaxis, No nasal symptoms, No sore throat, No tinnitus, No dental problems, No trouble swallowing, No problem reported Respiratory: No cough, No sputum, No wheezing, No shortness of breath, No dyspnea on exertion, No dyspnea at rest, No hemoptysis, No problem reported Cardiovascular: No chest pain, No orthopnea, No PND, No edema, No claudication , No palpitations, No problem reported Abdomen: + problem reported (Chronic inguinal hernia. Not painful and he has no constipation or altered bowel movement.), No pain, No nausea, No vomiting, No diarrhea, No constipation, No GI bleeding Musculoskeletal: + problem reported (Swelling in his right knee according to him for the past year.) Genitourinary - Male: + urinary retention Psychiatric: No depression symptoms, No anhedonism, No anxiety, No insomnia, No substance abuse, No problem reported Endocrine: No fatigue, No excessive thirst, No excessive urination, No problem reported Hematologic / Lymphatic: No abnormal bleeding/bruising, No clotting problems, No swollen lymph nodes, No night sweats, No problem reported Integumentary: No rash, No itch, No new/changing skin lesions, No color change , No bleeding, No problem reported Allergic / Immunologic: No environmental allergies, No seasonal allergies, No pet sensitivities, No food allergies, No hives, No frequent infections, No poor healing, No prolonged convalescence, No problem reported Physical Exam Date Time Temp Pulse Resp B/P (MAP) Pulse Ox O2 Delivery O2 Flow Rate FiO2 03/02/18 18:26 38.3 106 20 93/55 (68) 96 Nasal Cannula 2.0 03/02/18 16:00 39.2 114 20 99/57 (71) 95 Nasal Cannula 2.0 03/02/18 15:34 110 97/57 03/02/18 14:00 38.5 160 20 115/61 Nasal Cannula 2.0 03/02/18 13:58 38.5 78 98 03/02/18 13:55 110/71 03/02/18 13:53 74 88 03/02/18 13:38 114 20 95 03/02/18 13:37 104/75 03/02/18 13:36 108/72 03/02/18 13:33 111 24 95 03/02/18 13:30 109/68 03/02/18 13:28 109 24 94 03/02/18 13:26 109/68 03/02/18 13:23 111 18 93 03/02/18 13:20 99/66 03/02/18 13:19 106/64 03/02/18 13:18 105 28 98 03/02/18 13:16 66/42 03/02/18 13:15 108/59 03/02/18 13:13 102 23 97 03/02/18 13:11 116/61 03/02/18 13:08 113 20 94 03/02/18 13:06 113/62 03/02/18 13:03 154 23 98 03/02/18 13:00 203 03/02/18 12:58 139 22 96 03/02/18 12:53 150 18 94 03/02/18 12:50 152 03/02/18 12:48 116 25 97 03/02/18 12:43 107 23 95 03/02/18 12:40 90 20 114/68 97 Nasal Cannula 2.0 03/02/18 12:38 92 26 97 03/02/18 12:34 161 03/02/18 12:33 88 26 95 03/02/18 12:30 114/69 03/02/18 12:28 84 30 96 03/02/18 12:27 120/65 03/02/18 12:23 84 27 97 03/02/18 12:18 84 27 97 03/02/18 12:13 92 30 96 03/02/18 12:08 87 27 96 03/02/18 12:03 83 21 95 03/02/18 11:58 86 24 95 03/02/18 11:53 85 25 95 03/02/18 11:48 87 26 95 03/02/18 11:43 90 20 95 03/02/18 11:40 93 Nasal Cannula 4.0 03/02/18 11:38 90 29 93 03/02/18 11:33 90 30 93 03/02/18 11:28 92 30 93 03/02/18 11:26 145/70 03/02/18 11:24 40.7 94 24 145/70 93 Nasal Cannula 4.0 03/02/18 11:23 96 23 94 03/02/18 11:21 82 03/02/18 11:15 94 Nasal Cannula 4.0 General Appearance: no apparent distress Eyes: EOMI ENT: normal throat exam, other (Poor dental care) Neck: no tenderness, trachea midline Respiratory: breath sounds normal, clear to auscultation Cardiovasular: normal S1S2, no M/G/R, no murmur Abdomen: non tender, other (Distended with large left-sided inguinal hernia however denies any tenderness, bowel sounds are positive.) Lower Extremities: no edema, other (Suprapatellar right knee large fluid fluctuation noted, the patient claimed he had it for a year.) Neuro: alert, oriented x 3, normal motor exam, normal sensation Psychiatric: normal affect Laboratory Results Last 24 Hours Test 03/02/18 11:25 03/02/18 11:51 03/02/18 11:54 03/02/18 12:00 White Blood Count 2.99 K/uL Red Blood Count 4.85 M/uL Hemoglobin 15.2 g/dL Hematocrit 45.0 % Mean Corpuscular Volume 92.8 fL Mean Corpuscular Hemoglobin 31.3 pg Mean Corpuscular Hemoglobin Concent 33.8 g/dl Platelet Count 186 K/uL Mean Platelet Volume 9.6 fL Neutrophils (%) (Auto) 94.7 % Lymphocytes (%) (Auto) 4.7 % Monocytes (%) (Auto) 0.3 % Eosinophils (%) (Auto) 0.0 % Basophils (%) (Auto) 0.0 % Neutrophils # (Auto) 2.83 K/uL Lymphocytes # (Auto) 0.14 K/uL Monocytes # (Auto) 0.01 K/uL Eosinophils # (Auto) 0.00 K/uL Basophils # (Auto) 0.00 K/uL RDW Standard Deviation 47.6 fL RDW Coefficient of Variation 14.0 % Immature Granulocyte % (Auto) 0.3 % Immature Granulocyte # (Auto) 0.01 K/uL Prothrombin Time 11.6 SECONDS Prothromb Time International Ratio 1.1 Activated Partial Thromboplast Time 25.6 SECONDS Partial Thromboplastin Ratio 1.0 Sodium Level 139 mmol/L Potassium Level 3.8 mmol/L Chloride Level 106 mmol/L Carbon Dioxide Level 26 mmol/L Anion Gap 7.0 mmol/L 20.0 mmol/L Blood Urea Nitrogen 23 mg/dl Creatinine 1.11 mg/dl Estimated GFR () 74.4 Estimated GFR (Non- 64.2 BUN/Creatinine Ratio 20.7 Random Glucose 106 mg/dl Calcium Level 8.3 mg/dl Total Bilirubin 0.9 mg/dl Aspartate Amino Transf (AST/SGOT) 18 U/L Alanine Aminotransferase (ALT/SGPT) 16 U/L Alkaline Phosphatase 87 U/L Total Protein 6.9 gm/dl Albumin 3.0 gm/dl Globulin 3.9 gm/dl Albumin/Globulin Ratio 0.8 Procalcitonin 29.80 ng/ml Bedside Lactic Acid Venous 1.60 mmol/L Bedside Hemoglobin 13.3 g/dl Bedside Hematocrit 39 % Bedside Sodium 140 mEq/L Bedside Potassium 3.9 mEq/L Bedside Chloride 101 mEq/L Bedside Total CO2 24 mEq/l Bedside Blood Urea Nitrogen 23 mg/dl Bedside Creatinine 1.0 mg/dl Bedside Glucose (other) 118 mg/dl Bedside Ionized Calcium (Ravinder) 1.10 mmol/l Urine Color YELLOW Urine Appearance CLEAR Urine pH 6.5 Urine Specific [place] 1.008 Urine Protein NEG Urine Glucose (UA) NEG Urine Ketones NEG Urine Occult Blood 1+ Urine Nitrite POS Urine Bilirubin NEG Urine Urobilinogen NEG Urine Leukocyte Esterase LARGE Urine WBC (Auto) >30 /hpf Urine RBC (Auto) 5-10 /hpf Urine Hyaline Casts (Auto) 1-5 /lpf Urine Epithelial Cells (Auto) 0-5 /lpf Urine Bacteria (Auto) 2+ Test 03/02/18 14:10 03/02/18 15:18 03/02/18 18:35 03/02/18 18:36 Lactic Acid Level mmol/L 1.9 mmol/L Bedside Glucose 129 mg/dl Diagnostic Results His labs were reviewed which were consistent with leukopenia however his lactic acid was normal. His UA was positive sediment. Cultures are pending. Pro calcitonin is 29. CAT scan of the abdomen showed colonic edema as well as adrenal edema all consistent with fluid overload. The patient was hydrated with 5 L of IV fluid. Hemangioma in the liver. Bibasilar atelectasis. Assessment & Plan 1. Septic shock, fluid responsive, the source so far is related to urinary tract infection. 2. Large left-sided inguinal hernia without bowel obstruction. 3. Prostate enlargement with abnormality could represent abscess versus cyst. 4. Large swelling of his right knee the patient claims it has been old but the patient is already on heparin drip and presented with septic picture which would require further investigation. 5. New onset A. fib, although the patient claims having similar palpitations in the past where he took magnesium and [id number] minerals and it helped him. 6. Fluid overload due to aggressive hydration. Plan: 1. Decrease IV fluid to 75 mL an hour of normal saline. 2. Continue with Vanco and Zosyn. 3. Obtain CAT scan to the right lower extremity to rule out abscess versus hematoma. 4. Start heparin drip. 5. Rate controlled with amiodarone. 6. Lopressor every 4 hours. 7. Panculture. 8. Daily labs. 9. Lactic acid appears normal, no ongoing hypoperfusion. 10. Pro-calcitonin is elevated. 11. Obtain serial troponin. 12. Cardiology consult in the morning. 13. Echocardiogram. 14. Clear liquid diet for now. 15. Discussed in details with the staff on rounds, Critical care time spent with the patient was 60 minutes excluding billable procedures time.
--- NOTE | 2018-03-02 19:13 | Procedure Note ---
Procedure Note Procedure Date Mar 02, 2018. Procedure Description Procedure Name: Central line placement. Procedure time out: side/site verified, patient ID confirmed, correct procedure Consent obtained: written Performed by: attending Indications: diagnostic Contraindications: none Description: Central line placement was done. At the bedside. Consent obtained from the patient's risk and benefit explained details, the patient agreed to the procedure. The patient was placed in supine position under strict sterile field using Seldinger technique, the skin was prepped with chlorhexidine, injected with 5 mL 1% lidocaine, a line was placed into the right subclavian area, the tip of the catheter was at the SVC by chest x-ray with no pneumothorax. The line was flushed with normal saline 3 ports, secured with surgical sutures and covered with surgical dressing. The procedure was done under strict sterile field. No immediate complication. The patient tolerated the procedure well. May use a line. Complications: none Patient tolerated procedure: well
[2018-03-02] MEDS ORDERED: PIPERACILL/TAZOBAC IV 3.375 GM in D5W 100ML IV SCH (20:00)
--- NOTE | 2018-03-02 20:11 | Cardiology Consultation ---
Cardiology Consultation Date of Consultation: Mar 02, 2018. Requesting Physician: Forrest Reason for Consultation: Atrial fibrillation, hypotension Pt evaluation today including: conversation w/ patient, physical exam, chart review, lab review, review of studies, review of inpatient medication list, conversation w/ attending History of Present Illness Patient is a 77-year-old gentleman without a known past medical history other than inguinal hernia who presented to [facility] with altered mental status. During his emergency room evaluation the patient was noted be mildly hypotensive and eventually developed a tachycardia. The patient's heart rate became quite elevated at times and he was started on amiodarone infusion for suspected atrial fibrillation. He was transported urgently to the intensive care unit for continued therapy. He was administered significant amount of crystalloid during this period of time. Patient states until yesterday he was in his usual state of health. He claims to be an active individual who was accustomed to routine exercise such as mowing his lawn and carrying heavy objects. He has not report limiting symptoms associated with these activities. He is not reporting limiting dyspnea or dyspnea at rest. He has not had chest pains with exertion or at rest. At 1 point stated he does have occasional palpitations and will take an aspirin. At other times he did not report palpitations. He has not had dizziness or lightheadedness. He cannot recall a syncopal episode. He has not been aware of any lower extremity edema. Past Medical/Surgical History Inguinal hernia Palpitations Family History Patient reports no known family medical history. 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 Patient does feel constipated and wishes to have a bowel movement. Generally does not have abdominal complaints such as nausea or vomiting. He has not noticed any lower extremity edema. He is not sure if he had a fever recently. He does report an inguinal hernia. All Other Systems: Reviewed and Negative Allergies Coded Allergies: No Known Allergies (Unverified , 03/02/18) Medications Current Inpatient Medications Medications (Trade) Dose Ordered Sig/Mirella Route Start Time Stop Time Status Last Admin Dose Admin Ioversol (Optiray 320) 100 ml UD PRN IV 03/02/18 12:45 03/06/18 12:44 Amiodarone HCL/ Dextrose 200 ml @ 16.7 mls/hr [id number] IV 03/02/18 19:30 04/01/18 19:29 03/02/18 19:25 16.7 MLS/HR Miscellaneous Information (Consult) 1 ea UD PRN N/A 03/02/18 13:45 04/01/18 13:44 Acetaminophen (Tylenol Tab) 650 mg Q4H PRN PO 03/02/18 13:15 04/01/18 13:14 03/02/18 15:34 650 MG Nitroglycerin (Nitrostat Tab) 0.4 mg UD PRN SL 03/02/18 13:15 04/01/18 13:14 Magnesium Hydroxide (Milk Of Magnesia Susp) 30 ml Q12H PRN PO 03/02/18 13:15 04/01/18 13:14 Ondansetron HCl (Zofran Inj) 4 mg Q6H PRN IV 03/02/18 13:15 04/01/18 13:14 Pantoprazole Sodium 40 mg/ Syringe 10 ml @ 5 mls/min DAILY IV 03/03/18 09:00 04/02/18 08:59 Miscellaneous Information (Icu Protocol For Hyperglycemia) 1 ea PRN PRN N/A 03/02/18 13:15 03/04/18 13:14 Vancomycin HCl (Consult) 1 ea UD PRN N/A 03/02/18 13:15 04/01/18 13:14 Metoprolol Tartrate (Lopressor Iv) 5 mg Q4 IV. 03/02/18 16:00 04/01/18 15:59 Sodium Chloride 1,000 ml @ 75 mls/hr [id number] IV 03/02/18 14:15 04/01/18 14:14 03/02/18 15:18 150 MLS/HR Heparin Sodium/ Dextrose 500 ml @ 25 mls/hr Q20H IV 03/02/18 14:45 04/01/18 14:44 03/02/18 15:21 25 MLS/HR Vancomycin HCl 1000 mg/Sodium Chloride 270 ml @ 125 mls/hr Q20H IV 03/03/18 11:00 03/13/18 10:59 Piperacillin Sod/ Tazobactam Sod 4.5 gm/Dextrose 120 ml @ 30 mls/hr Q8H IV 03/02/18 21:00 03/12/18 20:59 Phenylephrine HCl 20 mg/Dextrose 502 ml @ 0 mls/hr Q0M PRN IV 03/02/18 18:47 04/01/18 18:46 Pneumococcal Polysaccharide Vaccine (Pneumovax-23 Inj) 25 mcg ONCE ONCE IM. 03/02/18 20:15 03/02/18 20:16 Physical Exam Vital Signs Past 12 Hours Date Time Temp Pulse Resp B/P (MAP) Pulse Ox O2 Delivery O2 Flow Rate FiO2 03/02/18 19:32 107 88/53 03/02/18 18:26 38.3 106 20 93/55 (68) 96 Nasal Cannula 2.0 03/02/18 16:00 39.2 114 20 99/57 (71) 95 Nasal Cannula 2.0 03/02/18 15:34 110 97/57 03/02/18 14:00 38.5 160 20 115/61 Nasal Cannula 2.0 03/02/18 13:58 38.5 78 98 03/02/18 13:55 110/71 03/02/18 13:53 74 88 03/02/18 13:38 114 20 95 03/02/18 13:37 104/75 03/02/18 13:36 108/72 03/02/18 13:33 111 24 95 03/02/18 13:30 109/68 03/02/18 13:28 109 24 94 03/02/18 13:26 109/68 03/02/18 13:23 111 18 93 03/02/18 13:20 99/66 03/02/18 13:19 106/64 03/02/18 13:18 105 28 98 03/02/18 13:16 66/42 03/02/18 13:15 108/59 03/02/18 13:13 102 23 97 03/02/18 13:11 116/61 03/02/18 13:08 113 20 94 03/02/18 13:06 113/62 03/02/18 13:03 154 23 98 03/02/18 13:00 203 03/02/18 12:58 139 22 96 03/02/18 12:53 150 18 94 03/02/18 12:50 152 03/02/18 12:48 116 25 97 03/02/18 12:43 107 23 95 03/02/18 12:40 90 20 114/68 97 Nasal Cannula 2.0 03/02/18 12:38 92 26 97 03/02/18 12:34 161 03/02/18 12:33 88 26 95 03/02/18 12:30 114/69 03/02/18 12:28 84 30 96 03/02/18 12:27 120/65 03/02/18 12:23 84 27 97 03/02/18 12:18 84 27 97 03/02/18 12:13 92 30 96 03/02/18 12:08 87 27 96 03/02/18 12:03 83 21 95 03/02/18 11:58 86 24 95 03/02/18 11:53 85 25 95 03/02/18 11:48 87 26 95 03/02/18 11:43 90 20 95 03/02/18 11:40 93 Nasal Cannula 4.0 03/02/18 11:38 90 29 93 03/02/18 11:33 90 30 93 03/02/18 11:28 92 30 93 03/02/18 11:26 145/70 03/02/18 11:24 40.7 94 24 145/70 93 Nasal Cannula 4.0 03/02/18 11:23 96 23 94 03/02/18 11:21 82 03/02/18 11:15 94 Nasal Cannula 4.0 The patient is alert and oriented. Mood and affect appeared normal. He answered all questions appropriately. HEENT: Pupils are equal and reactive to light and accommodation. Extraocular movements are intact. The sclerae are anicteric. Neuro: Cranial nerves intact Neck: Patient's neck is supple. He has palpable carotid pulses bilaterally without bruits on auscultation. There is no evidence of jugular venous distention. The thyroid is not enlarged. Lungs: Clear to auscultation bilaterally. He has good air movement without use of accessory muscles. No rales wheezes or rhonchi. Cardiac: Heart demonstrates a regular rate and rhythm. Normal S1 and S2. No murmurs on examination. Abdomen: Inguinal hernia noted Pulses: The patient has palpable radial pulses bilaterally that are equal in intensity Extremities: There was no evidence of hypoperfusion. There is no cyanosis or clubbing. There is no edema. Skin: I did not appreciate any rashes on examination today. Data Laboratory Results: Last 24 Hours Test 03/02/18 11:25 03/02/18 11:51 03/02/18 11:54 03/02/18 12:00 White Blood Count 2.99 K/uL Red Blood Count 4.85 M/uL Hemoglobin 15.2 g/dL Hematocrit 45.0 % Mean Corpuscular Volume 92.8 fL Mean Corpuscular Hemoglobin 31.3 pg Mean Corpuscular Hemoglobin Concent 33.8 g/dl Platelet Count 186 K/uL Mean Platelet Volume 9.6 fL Neutrophils (%) (Auto) 94.7 % Lymphocytes (%) (Auto) 4.7 % Monocytes (%) (Auto) 0.3 % Eosinophils (%) (Auto) 0.0 % Basophils (%) (Auto) 0.0 % Neutrophils # (Auto) 2.83 K/uL Lymphocytes # (Auto) 0.14 K/uL Monocytes # (Auto) 0.01 K/uL Eosinophils # (Auto) 0.00 K/uL Basophils # (Auto) 0.00 K/uL RDW Standard Deviation 47.6 fL RDW Coefficient of Variation 14.0 % Immature Granulocyte % (Auto) 0.3 % Immature Granulocyte # (Auto) 0.01 K/uL Prothrombin Time 11.6 SECONDS Prothromb Time International Ratio 1.1 Activated Partial Thromboplast Time 25.6 SECONDS Partial Thromboplastin Ratio 1.0 Sodium Level 139 mmol/L Potassium Level 3.8 mmol/L Chloride Level 106 mmol/L Carbon Dioxide Level 26 mmol/L Anion Gap 7.0 mmol/L 20.0 mmol/L Blood Urea Nitrogen 23 mg/dl Creatinine 1.11 mg/dl Estimated GFR () 74.4 Estimated GFR (Non- 64.2 BUN/Creatinine Ratio 20.7 Random Glucose 106 mg/dl Calcium Level 8.3 mg/dl Total Bilirubin 0.9 mg/dl Aspartate Amino Transf (AST/SGOT) 18 U/L Alanine Aminotransferase (ALT/SGPT) 16 U/L Alkaline Phosphatase 87 U/L Total Protein 6.9 gm/dl Albumin 3.0 gm/dl Globulin 3.9 gm/dl Albumin/Globulin Ratio 0.8 Procalcitonin 29.80 ng/ml Lyme Disease IgG Antibody POS Bedside Lactic Acid Venous 1.60 mmol/L Bedside Hemoglobin 13.3 g/dl Bedside Hematocrit 39 % Bedside Sodium 140 mEq/L Bedside Potassium 3.9 mEq/L Bedside Chloride 101 mEq/L Bedside Total CO2 24 mEq/l Bedside Blood Urea Nitrogen 23 mg/dl Bedside Creatinine 1.0 mg/dl Bedside Glucose (other) 118 mg/dl Bedside Ionized Calcium (Ravinder) 1.10 mmol/l Urine Color YELLOW Urine Appearance CLEAR Urine pH 6.5 Urine Specific [place] 1.008 Urine Protein NEG Urine Glucose (UA) NEG Urine Ketones NEG Urine Occult Blood 1+ Urine Nitrite POS Urine Bilirubin NEG Urine Urobilinogen NEG Urine Leukocyte Esterase LARGE Urine WBC (Auto) >30 /hpf Urine RBC (Auto) 5-10 /hpf Urine Hyaline Casts (Auto) 1-5 /lpf Urine Epithelial Cells (Auto) 0-5 /lpf Urine Bacteria (Auto) 2+ Test 03/02/18 14:10 03/02/18 15:18 03/02/18 18:36 Lactic Acid Level mmol/L 1.9 mmol/L Bedside Glucose 129 mg/dl Imaging: CT scan revealed multiple abnormalities of unclear significance. This included a possible liver hemangioma and prostatic abscess. Number multiple signs of overall volume overload EKG: Initial EKG was normal sinus rhythm with right bundle branch block. Telemetry reviewed: Initially sinus rhythm transitioning to atrial fibrillation and likely 1-1 conducted atrial flutter. Current rhythm appears to be in atrial flutter Assessment & Plan 1. Atrial fibrillation: Patient's presenting rhythm was sinus. He transitioned into an atrial arrhythmia likely atrial fibrillation initially and possibly atrial flutter later on. His extremely high heart rates may have been 1 1 conduction of an atrial flutter. He was placed on amiodarone infusion which may have transitioned him to an atypical flutter. He currently has a very stable heart rate without clear sinus mechanism. I suspect this is an atypical flutter. He would seem reasonable to continue on amiodarone currently. I suspect he will convert at some point. Heparin can be continued but certainly could be stopped if there is any concern about bleeding or need for procedures. The overall chronicity of his atrial arrhythmias and the frequency is unknown. He claims to check his heart rate on occasion without noting any elevation in heart rates. I think we will obtain an echocardiogram. He will likely need some form of ongoing therapy for atrial arrhythmias such as rate control and anticoagulation.
[2018-03-02] MEDS ORDERED: PNEUMOCOCCAL ADMINISTRATION CHARGE ONE (20:15)
[2018-03-02] MEDS ORDERED: PNEUMOCOCCAL POLYSACCHARIDES 25 MCG/0.5 ML VIAL/SYR IM. ONE (20:15)
[2018-03-02] MEDS: PIPERACILL/TAZOBAC IV 4.5 GM in D5W 100 ML IV SCH (20:50)
[2018-03-02] MEDS ORDERED: ETHYL CHLORIDE AER SPR 100 ML CAN EXT STA (21:25)
--- NOTE | 2018-03-02 21:28 | Critical Care Progress Note ---
Critical Care Progress Note Date of Service Mar 02, 2018. Critical Care Progress Note After CT of the lower extremity was obtained, there was concerns listed below per imaging report. I did review the images independently. There is a large area fluid collection concerning for abscess. Given the patient's current presentation with sepsis-like picture and multiple possible locations for source , this certainly needs to be excluded. I did speak with Dr. Shah of [facility] who suggested plain films as well as added labs. He will tap the knee in the morning for further evaluation. I am in agreement with this approach. The patient is maximally treated with antibiotics at this point. We will see how he does throughout the night from a hemodynamic standpoint which, in the setting of possible need for arthrocentesis, it will likely be best to maintain a night of hemodynamic stability prior to proceeding with any intervention. Per discussion with cardiology earlier in the evening, the Heparin drip was discontinued pending large joint arthrocentesis in the AM. I had a lengthy discussion with the patient and family discussing continued management. They are all in agreement.
--- NOTE | 2018-03-02 21:33 | DIAGNOSTIC IMAGING REPORT ---
CT SCAN OF THE RIGHT KNEE WITHOUT IV CONTRAST CLINICAL HISTORY: Suprapatellar fluid collection. Clinical concern for abscess or hematoma. COMPARISON STUDY: No priors. TECHNIQUE: CT scan of the right knee is performed from the distal femur to the proximal tibia and fibula. Images are reviewed in the axial, sagittal, and coronal planes. IV contrast was not administered for this examination. A dose lowering technique was utilized adhering to the principles of ALARA. There is residual IV contrast present from today's earlier abdominal CT scan. CT DOSE: 921.81 mGy.cm FINDINGS: The skeletal structures are osteopenic. No acute fracture is identified. There is mild tricompartmental degenerative joint space narrowing. Large degenerative geodes are present within the medial tibial plateau. Small degenerative cysts are noted within the medial femoral condyle. There is a large complex joint effusion, which measures approximately 14 x 6 x 10 cm. There is complex and layering hyperdense debris within the effusion. Synovial thickening is noted. No gas is seen within the joint space. Numerous tiny calcified joint bodies are seen around the joint spaces. A component of the loculated effusion extends inferiorly to the joint space between the posterior tibia and fibula as seen on axial image #199. This measures 3.5 x 2.4 x 1.1 cm. There is also a large and similar appearing complex popliteal cyst. This measures approximately 8 x 4.5 x 5 cm. No bony erosion or periostitis is clearly identified. The regional musculature demonstrates mild diffuse atrophy. Mild prepatellar soft tissue induration is noted. Foci of atherosclerotic calcification are noted in the popliteal artery. IMPRESSION: 1. No acute bony abnormality is identified in the right knee. 2. The finding of palpable concern corresponds to a large complex joint effusion as detailed above. There is associated synovial thickening, with complex and layering internal hyperdense debris and numerous tiny calcifications. Although this could represent hemarthrosis, the appearance is highly concerning for a septic joint. Surgical assessment is recommended. 3. There is a large and similar appearing complex popliteal cyst. The differential considerations are the same. 4. Osteopenia and degenerative change as above. Electronically signed by: Jeanmarie Camacho M.D. 03/02/2018 8:42 PM Dictated Date/Time: 03/02/2018 8:33 PM
[2018-03-02 21:38] LABS: PTT PATIENT 65.5 SECONDS (21.0-31.0)
--- NOTE | 2018-03-02 21:57 | DIAGNOSTIC IMAGING REPORT ---
RIGHT KNEE 3 VIEWS CLINICAL HISTORY: Right knee swelling. FINDINGS: AP, crosstable lateral, and sunrise views of the right knee are correlated with CT scan of the right knee performed the same day 03/02/2018. The skeletal structures are osteopenic. No fracture is seen. There is mild tricompartment degenerative joint space narrowing, greatest in the medial compartment. Degenerative cyst formation is noted in the medial tibial plateau. No bony erosion or periostitis is identified. Marginal osteophytes and patellar enthesophytes are observed. There is a large joint effusion. Soft tissue edema posterior to the knee is consistent with a large popliteal cyst when correlated with today's CT scan. IMPRESSION: 1. Osteopenia with no acute bony abnormality identified. 2. Large joint effusion and large popliteal cyst. These findings were better characterized on today's CT scan. Electronically signed by: Jeanmarie Camacho M.D. 03/02/2018 9:56 PM Dictated Date/Time: 03/02/2018 9:54 PM
[2018-03-02 22:05] LABS: URIC ACID 3.9 mg/dl (2.6-7.2)
[2018-03-03] VITALS (32 sets, daily range): BP systolic 77–132; BP diastolic 50–89; PULSE 92–111; TEMP 36.4–38.3; O2SAT 91–99
[2018-03-03] MEDS: SODIUM CHLORIDE 0.9% 1000ML 1,000 ML IV SCH ×2 (02:28→18:00)
[2018-03-03] MEDS: AMIODARONE / D5W 200 ML IV SCH ×2 (02:28→13:58)
[2018-03-03] MEDS: METOPROLOL TARTRATE 1 MG/ML VIAL IV. SCH ×6 (04:00→20:54)
[2018-03-03] MEDS: ACETAMINOPHEN 325 MG TAB PO PRN (04:30)
[2018-03-03] MEDS: PIPERACILL/TAZOBAC IV 4.5 GM in D5W 100 ML IV SCH ×3 (04:31→20:56)
[2018-03-03 06:03] LABS: HEMATOCRIT 36.5 % (42-52); HEMOGLOBIN 12.1 g/dL (14.0-18.0); MEAN CELL VOLUME 92.2 fL (80-100); MEAN CORPUSCULAR HEMOGLOBIN 30.6 pg (25-34); MEAN CORPUSCULAR HGB CONC 33.2 g/dl (32-36); MEAN PLATELET VOLUME 10.2 fL (7.4-10.4); PLATELET COUNT 179 K/uL (130-400); RED CELL DISTRIBUTION WIDTH CV 14.7 % (11.5-14.5); RED CELL DISTRIBUTION WIDTH SD 50.2 fL (36.4-46.3); WHITE BLOOD COUNT 20.35 K/uL (4.8-10.8)
[2018-03-03 06:06] LABS: PTT PATIENT 35.2 SECONDS (21.0-31.0)
[2018-03-03 06:18] LABS: CALCIUM 6.7 mg/dl (8.5-10.1); CREATININE 0.95 mg/dl (0.60-1.40); POTASSIUM 3.2 mmol/L (3.5-5.1); TOTAL PROTEIN 5.1 gm/dl (6.4-8.2)
--- NOTE | 2018-03-03 08:33 | Progress Note ---
Subjective Date of Service: Mar 03, 2018. Subjective this pt is without complaints but has lower blood pressure, has some chronic knee effusion on the right s/p arthrocentesis Problem List Medical Problems: (1) Atrial fibrillation with RVR Status: Acute (2) V tach Status: Acute Review of Systems Constitutional: + weakness, No fever, No chills Respiratory: No cough, No shortness of breath Cardiac: No chest pain, No edema Abdomen: No pain, No nausea, No vomiting, No diarrhea Musculoskeletal: + joint pain, + swelling, No muscle pain Neurologic: No memory loss, No weakness Psychiatric: No depression symptoms, No anxiety Objective Vital Signs Date Time Temp Pulse Resp B/P (MAP) Pulse Ox O2 Delivery O2 Flow Rate FiO2 03/03/18 04:14 38.3 109 16 94/57 (69) 96 Nasal Cannula 2.0 03/03/18 04:00 111 96 03/03/18 04:00 111 94/57 03/03/18 03:11 109 100/65 (77) 96 03/03/18 03:01 108 86/58 (67) 96 03/03/18 03:00 108 96 03/03/18 02:01 106 90/51 (64) 91 03/03/18 02:00 111 91 03/03/18 01:14 110 100/66 (77) 93 03/03/18 01:00 108 95 Nasal Cannula 2.0 03/03/18 00:00 37.1 105 16 93/59 (70) 96 Nasal Cannula 2.0 03/03/18 00:00 103 96/59 03/02/18 23:26 109 16 99/69 (79) 94 03/02/18 23:00 105 16 87/56 (66) 94 03/02/18 22:00 37.1 103 16 96/59 (71) 93 Nasal Cannula 2.0 03/02/18 21:00 107 105/67 (80) 96 03/02/18 20:36 113 103/67 (79) 96 03/02/18 20:01 107 102/70 (81) 98 03/02/18 20:00 98 Nasal Cannula 2.0 03/02/18 20:00 106 98 03/02/18 19:32 107 88/53 03/02/18 19:30 38.3 107 88/53 (65) 98 03/02/18 19:00 38.3 108 83/57 (66) 98 03/02/18 18:26 38.3 106 20 93/55 (68) 96 Nasal Cannula 2.0 03/02/18 16:00 39.2 114 20 99/57 (71) 95 Nasal Cannula 2.0 03/02/18 15:34 110 97/57 03/02/18 14:00 38.5 160 20 115/61 Nasal Cannula 2.0 03/02/18 13:58 38.5 78 98 03/02/18 13:55 110/71 03/02/18 13:53 74 88 03/02/18 13:38 114 20 95 03/02/18 13:37 104/75 03/02/18 13:36 108/72 03/02/18 13:33 111 24 95 03/02/18 13:30 109/68 03/02/18 13:28 109 24 94 03/02/18 13:26 109/68 03/02/18 13:23 111 18 93 03/02/18 13:20 99/66 03/02/18 13:19 106/64 03/02/18 13:18 105 28 98 03/02/18 13:16 66/42 03/02/18 13:15 108/59 03/02/18 13:13 102 23 97 03/02/18 13:11 116/61 03/02/18 13:08 113 20 94 03/02/18 13:06 113/62 03/02/18 13:03 154 23 98 03/02/18 13:00 203 03/02/18 12:58 139 22 96 03/02/18 12:53 150 18 94 03/02/18 12:50 152 03/02/18 12:48 116 25 97 03/02/18 12:43 107 23 95 03/02/18 12:40 90 20 114/68 97 Nasal Cannula 2.0 03/02/18 12:38 92 26 97 03/02/18 12:34 161 03/02/18 12:33 88 26 95 03/02/18 12:30 114/69 03/02/18 12:28 84 30 96 03/02/18 12:27 120/65 03/02/18 12:23 84 27 97 03/02/18 12:18 84 27 97 03/02/18 12:13 92 30 96 03/02/18 12:08 87 27 96 03/02/18 12:03 83 21 95 03/02/18 11:58 86 24 95 03/02/18 11:53 85 25 95 03/02/18 11:48 87 26 95 03/02/18 11:43 90 20 95 03/02/18 11:40 93 Nasal Cannula 4.0 03/02/18 11:38 90 29 93 03/02/18 11:33 90 30 93 03/02/18 11:28 92 30 93 03/02/18 11:26 145/70 03/02/18 11:24 40.7 94 24 145/70 93 Nasal Cannula 4.0 03/02/18 11:23 96 23 94 03/02/18 11:21 82 03/02/18 11:15 94 Nasal Cannula 4.0 Physical Exam General Appearance: WD/WN, + mild distress Eyes: normal inspection, sclerae normal Neck: supple, no JVD Respiratory/Chest: chest non-tender, lungs clear, normal breath sounds Cardiovascular: regular rate, rhythm, no murmur Abdomen: normal bowel sounds, non tender, soft Extremities: + pedal edema, + swelling Neurologic/Psychiatric: alert, oriented x 3 Laboratory Results Last 24 Hours Test 03/02/18 11:25 03/02/18 11:51 03/02/18 11:54 03/02/18 12:00 White Blood Count 2.99 K/uL Red Blood Count 4.85 M/uL Hemoglobin 15.2 g/dL Hematocrit 45.0 % Mean Corpuscular Volume 92.8 fL Mean Corpuscular Hemoglobin 31.3 pg Mean Corpuscular Hemoglobin Concent 33.8 g/dl Platelet Count 186 K/uL Mean Platelet Volume 9.6 fL Neutrophils (%) (Auto) 94.7 % Lymphocytes (%) (Auto) 4.7 % Monocytes (%) (Auto) 0.3 % Eosinophils (%) (Auto) 0.0 % Basophils (%) (Auto) 0.0 % Neutrophils # (Auto) 2.83 K/uL Lymphocytes # (Auto) 0.14 K/uL Monocytes # (Auto) 0.01 K/uL Eosinophils # (Auto) 0.00 K/uL Basophils # (Auto) 0.00 K/uL RDW Standard Deviation 47.6 fL RDW Coefficient of Variation 14.0 % Immature Granulocyte % (Auto) 0.3 % Immature Granulocyte # (Auto) 0.01 K/uL Prothrombin Time 11.6 SECONDS Prothromb Time International Ratio 1.1 Activated Partial Thromboplast Time 25.6 SECONDS Partial Thromboplastin Ratio 1.0 Sodium Level 139 mmol/L Potassium Level 3.8 mmol/L Chloride Level 106 mmol/L Carbon Dioxide Level 26 mmol/L Anion Gap 7.0 mmol/L 20.0 mmol/L Blood Urea Nitrogen 23 mg/dl Creatinine 1.11 mg/dl Estimated GFR () 74.4 Estimated GFR (Non- 64.2 BUN/Creatinine Ratio 20.7 Random Glucose 106 mg/dl Calcium Level 8.3 mg/dl Total Bilirubin 0.9 mg/dl Aspartate Amino Transf (AST/SGOT) 18 U/L Alanine Aminotransferase (ALT/SGPT) 16 U/L Alkaline Phosphatase 87 U/L Total Protein 6.9 gm/dl Albumin 3.0 gm/dl Globulin 3.9 gm/dl Albumin/Globulin Ratio 0.8 Procalcitonin 29.80 ng/ml Lyme Disease IgG Antibody POS Bedside Lactic Acid Venous 1.60 mmol/L Bedside Hemoglobin 13.3 g/dl Bedside Hematocrit 39 % Bedside Sodium 140 mEq/L Bedside Potassium 3.9 mEq/L Bedside Chloride 101 mEq/L Bedside Total CO2 24 mEq/l Bedside Blood Urea Nitrogen 23 mg/dl Bedside Creatinine 1.0 mg/dl Bedside Glucose (other) 118 mg/dl Bedside Ionized Calcium (Ravinder) 1.10 mmol/l Urine Color YELLOW Urine Appearance CLEAR Urine pH 6.5 Urine Specific [place] 1.008 Urine Protein NEG Urine Glucose (UA) NEG Urine Ketones NEG Urine Occult Blood 1+ Urine Nitrite POS Urine Bilirubin NEG Urine Urobilinogen NEG Urine Leukocyte Esterase LARGE Urine WBC (Auto) >30 /hpf Urine RBC (Auto) 5-10 /hpf Urine Hyaline Casts (Auto) 1-5 /lpf Urine Epithelial Cells (Auto) 0-5 /lpf Urine Bacteria (Auto) 2+ Test 03/02/18 14:10 03/02/18 15:18 03/02/18 18:36 03/02/18 21:08 Lactic Acid Level mmol/L 1.9 mmol/L Bedside Glucose 129 mg/dl Activated Partial Thromboplast Time 65.5 SECONDS Partial Thromboplastin Ratio 2.5 Troponin I 0.175 ng/ml Test 03/02/18 21:37 03/02/18 21:40 03/03/18 05:24 03/03/18 05:48 Bedside Glucose 93 mg/dl 84 mg/dl Erythrocyte Sedimentation Rate 8 mm/hr Uric Acid 3.9 mg/dl C-Reactive Protein 8.49 mg/dl White Blood Count 20.35 K/uL Red Blood Count 3.96 M/uL Hemoglobin 12.1 g/dL Hematocrit 36.5 % Mean Corpuscular Volume 92.2 fL Mean Corpuscular Hemoglobin 30.6 pg Mean Corpuscular Hemoglobin Concent 33.2 g/dl RDW Standard Deviation 50.2 fL RDW Coefficient of Variation 14.7 % Platelet Count 179 K/uL Mean Platelet Volume 10.2 fL Activated Partial Thromboplast Time 35.2 SECONDS Partial Thromboplastin Ratio 1.4 Sodium Level 138 mmol/L Potassium Level 3.2 mmol/L Chloride Level 108 mmol/L Carbon Dioxide Level 22 mmol/L Anion Gap 8.0 mmol/L Blood Urea Nitrogen 19 mg/dl Creatinine 0.95 mg/dl Est Creatinine Clear Calc Drug Dose 66.2 ml/min Estimated GFR () 89.8 Estimated GFR (Non- 77.4 BUN/Creatinine Ratio 20.3 Random Glucose 83 mg/dl Calcium Level 6.7 mg/dl Magnesium Level 1.5 mg/dl Total Bilirubin 0.4 mg/dl Aspartate Amino Transf (AST/SGOT) 27 U/L Alanine Aminotransferase (ALT/SGPT) 17 U/L Alkaline Phosphatase 50 U/L Troponin I 0.415 ng/ml Total Protein 5.1 gm/dl Albumin 2.0 gm/dl Globulin 3.1 gm/dl Albumin/Globulin Ratio 0.6 Assessment and Plan 77-year-old male admitted with septic shock and metabolic encephalopathy with atrial fibrillation RVR Regard with sepsis determine sources will not found considerations include septic arthritis from his knee swelling, septic from Lyme disease of which he is positive, and possible urinary tract infection or prostatitis as both are abnormal. He is on vancomycin and Zosyn therapy and consideration to initiate either Rocephin or doxycycline for Lyme we discussed with intensive care medicine Atrial fibrillation RVR, the patient was given amiodarone he is now on amiodarone and as needed metoprolol with heparin for thromboembolic prevention Colitis is noted on CT scan this is yet to be determined its impact in this clinical scenario Hypokalemia hypomagnesemia likely impacting the patient's atrial fibrillation these will be replete DVT prevention is heparin drip CODE STATUS will need to be determined
[2018-03-03] MEDS ORDERED: PANTOprazole INJ 40 MG in SYRINGE 0 ML IV SCH (09:00)
[2018-03-03] MEDS ORDERED: CALCIUM GLUCONATE 10% 1,000 MG in SODIUM CHLORIDE 0.9% 50ML 50 ML IV STA (09:12)
[2018-03-03] MEDS: MAGNESIUM SULFATE 1GM / D5W 100 ML IV SCH ×2 (09:27→10:53)
--- NOTE | 2018-03-03 09:53 | ECHOCARDIOGRAM REPORT ---
*NOTICE TO RECEIVING LIBERTARIAN AGENCY This information is strictly Confidential and protected under [place] law. [place] law prohibits you from making any further disclosure of this information unless further disclosure is expressly permitted by the written consent of the person to whom it pertains or is authorized by law. A general authorization for the release of medical or other information is not sufficient for this purpose. Hospital accepts no responsibility if the information is made available to any other person, INCLUDING THE PATIENT. Interpretation Summary * Name: CRISTINA OSEGUERA Study Date: 03/03/2018 06:39 AM BP: 94/57 mmHg * [facility] HR: 106 * : 1940 (M/d/yyyy) Gender: Male Height: 69 in * Age: 77 yrs Ethnicity: [place] Weight: 152 lb * Ordering Physician: Sarabjit Clayton * Referring Physician: Self, Referred * Performed By: Effie Chris RDCS * * Reason For Study: AFIB * BSA: 1.8 m2 * -- Conclusions -- * There is mild concentric left ventricular hypertrophy. * Left ventricular systolic function is normal. * Borderline left atrial enlargement. * The right atrium is severely dilated. * There is mild to moderate tricuspid regurgitation. * Right ventricular systolic pressure is elevated at 30-40mmHg. * The inferior vena cava is mildly dilated. Procedure Details * A complete two-dimensional transthoracic echocardiogram was performed (2D, M-mode, Doppler and color flow Doppler). Left Ventricle * The left ventricle is normal in size. * There is mild concentric left ventricular hypertrophy. * Ejection Fraction = 55-60%. * Left ventricular systolic function is normal. * The left ventricular wall motion is normal. Right Ventricle * The right ventricle is grossly normal size. * The right ventricular systolic function is normal. Atria * Borderline left atrial enlargement. * The right atrium is severely dilated. Mitral Valve * The mitral valve is grossly normal. * Significant mitral regurgitation is absent. Tricuspid Valve * The tricuspid valve is not well visualized, but is grossly normal. * There is mild to moderate tricuspid regurgitation. * Right ventricular systolic pressure is elevated at 30-40mmHg. Aortic Valve * The aortic valve is normal in structure and function. * No hemodynamically significant valvular aortic stenosis. * There is no significant aortic regurgitation. Pulmonic Valve * The pulmonic valve is not well visualized. Great Vessels * The aortic root is normal size. Pericardium/Pleural * There is no pericardial effusion. Great Vessels * The inferior vena cava is mildly dilated. MMode 2D Measurements and Calculations IVSd 1.5 cm IVSs 1.7 cm LVIDd 4.6 cm LVIDs 3.4 cm LVPWd 1.6 cm LVPWs 2.0 cm IVS/LVPW 0.95 FS 25.4 % EDV(Teich) 96.4 ml ESV(Teich) 48.0 ml EF(Teich) 50.2 % EDV(cubed) 96.2 ml ESV(cubed) 39.9 ml EF(cubed) 58.5 % % IVS thick 14.1 % % LVPW thick 26.8 % LV mass(C)d 291.9 grams LV mass(C)dI 158.8 grams/m\S\2 LV mass(C)s 266.4 grams LV mass(C)sI 144.9 grams/m\S\2 SV(Teich) 48.4 ml SI(Teich) 26.3 ml/m\S\2 SV(cubed) 56.3 ml SI(cubed) 30.6 ml/m\S\2 Ao root diam 3.8 cm Ao root area 11.6 cm\S\2 LA dimension 3.7 cm LA/Ao 0.96 LVAd ap4 23.6 cm\S\2 LVLd ap4 7.5 cm EDV(MOD-sp4) 63.7 ml EDV(sp4-el) 62.9 ml LVAs ap4 14.2 cm\S\2 LVLs ap4 6.1 cm ESV(MOD-sp4) 30.7 ml ESV(sp4-el) 28.0 ml EF(MOD-sp4) 51.8 % EF(sp4-el) 55.6 % LVAd ap2 20.2 cm\S\2 LVLd ap2 7.4 cm EDV(MOD-sp2) 46.2 ml EDV(sp2-el) 46.8 ml LVAs ap2 13.1 cm\S\2 LVLs ap2 6.6 cm ESV(MOD-sp2) 26.4 ml ESV(sp2-el) 21.8 ml EF(MOD-sp2) 42.9 % EF(sp2-el) 53.3 % LVLd %diff -1.41 % EDV(MOD-bp) 54.5 ml LVLs %diff 7.5 % ESV(MOD-bp) 28.5 ml EF(MOD-bp) 47.7 % SV(MOD-sp4) 33.0 ml SI(MOD-sp4) 17.9 ml/m\S\2 SV(MOD-sp2) 19.8 ml SI(MOD-sp2) 10.8 ml/m\S\2 SV(MOD-bp) 26.0 ml SI(MOD-bp) 14.1 ml/m\S\2 SV(sp4-el) 35.0 ml SI(sp4-el) 19.0 ml/m\S\2 SV(sp2-el) 24.9 ml SI(sp2-el) 13.6 ml/m\S\2 Doppler Measurements and Calculations MV E max giovanna 63.4 cm/sec MV dec time 0.11 sec Ao V2 max 113.1 cm/sec Ao max PG 5.1 mmHg Ao max PG (full) 2.0 mmHg LV V1 max PG 3.1 mmHg LV V1 max 87.9 cm/sec TR max giovanna 221.5 cm/sec
[2018-03-03] MEDS: POTASSIUM CHLR 20 MEQ / WTR 20 MEQ IV SCH ×2 (09:55→10:53)
[2018-03-03] MEDS ORDERED: LIDOCAINE HCL 1% 20 ML VIAL ONE (10:27)
--- NOTE | 2018-03-03 11:06 | Orthopedic Consultation ---
Orthopedic Consultation Date of Consultation: Mar 03, 2018. Attending Physician: Meliton Mittal M.D. Reason for Consultation: Right knee effusion History of Present Illness 77-year-old male presents with altered mental status subsequently admitted with urosepsis. Doing better however continues to have persistent right knee effusion. Per the patient knee effusion has been present for one years duration. He denies pain or injury. No prior surgery. Denies numbness and tingling right lower extremity. Does have a history of tick bites and a positive Lyme titer. Denies history of gout. Currently denies fevers chills nausea vomiting shortness of breath chest pain. Past Medical/Surgical History Medical Problems: (1) Atrial fibrillation with RVR Status: Acute (2) V tach Status: Acute Family History Patient reports no known family medical history. Social History Smoking Status: Former Smoker (quit at 31 y/o) Alcohol Use: occasionally (a beer a week) Drug Use: none Allergies Coded Allergies: No Known Allergies (Unverified , 03/02/18) Home Medications No Active Prescriptions or Reported Meds Current Inpatient Medications Current Inpatient Medications Medications (Trade) Dose Ordered Sig/Mirella Route Start Time Stop Time Status Last Admin Dose Admin Ioversol (Optiray 320) 100 ml UD PRN IV 03/02/18 12:45 03/06/18 12:44 Amiodarone HCL/ Dextrose 200 ml @ 16.7 mls/hr [id number] IV 03/02/18 19:30 04/01/18 19:29 03/03/18 02:28 16.7 MLS/HR Miscellaneous Information (Consult) 1 ea UD PRN N/A 03/02/18 13:45 04/01/18 13:44 Acetaminophen (Tylenol Tab) 650 mg Q4H PRN PO 03/02/18 13:15 04/01/18 13:14 03/03/18 04:30 650 MG Nitroglycerin (Nitrostat Tab) 0.4 mg UD PRN SL 03/02/18 13:15 04/01/18 13:14 Magnesium Hydroxide (Milk Of Magnesia Susp) 30 ml Q12H PRN PO 03/02/18 13:15 04/01/18 13:14 Ondansetron HCl (Zofran Inj) 4 mg Q6H PRN IV 03/02/18 13:15 04/01/18 13:14 Pantoprazole Sodium 40 mg/ Syringe 10 ml @ 5 mls/min DAILY IV 03/03/18 09:00 04/02/18 08:59 03/03/18 09:27 5 MLS/MIN Miscellaneous Information (Icu Protocol For Hyperglycemia) 1 ea PRN PRN N/A 03/02/18 13:15 03/04/18 13:14 Vancomycin HCl (Consult) 1 ea UD PRN N/A 03/02/18 13:15 04/01/18 13:14 Metoprolol Tartrate (Lopressor Iv) 5 mg Q4 IV. 03/02/18 16:00 04/01/18 15:59 Sodium Chloride 1,000 ml @ 75 mls/hr [id number] IV 03/02/18 14:15 04/01/18 14:14 03/03/18 02:28 75 MLS/HR Vancomycin HCl 1000 mg/Sodium Chloride 270 ml @ 125 mls/hr Q20H IV 03/03/18 11:00 03/13/18 10:59 Piperacillin Sod/ Tazobactam Sod 4.5 gm/Dextrose 120 ml @ 30 mls/hr Q8H IV 03/02/18 21:00 03/12/18 20:59 03/03/18 04:31 30 MLS/HR Phenylephrine HCl 20 mg/Dextrose 502 ml @ 0 mls/hr Q0M PRN IV 03/02/18 18:47 04/01/18 18:46 Potassium Chloride 0 ml @ 0 mls/hr Q2H IV 03/03/18 09:30 03/03/18 11:31 03/03/18 10:53 100 MLS/HR Magnesium Sulfate 100 ml @ 100 mls/hr Q1H IV 03/03/18 09:15 03/03/18 11:14 03/03/18 10:53 100 MLS/HR Review of Systems A complete 10-point Review of Systems was discussed with the patient, with pertinent positives and negatives listed in the History of Present Illness. All remaining Review of Systems questions can be considered negative unless otherwise specified. Physical Exam Date Time Temp Pulse Resp B/P (MAP) Pulse Ox O2 Delivery O2 Flow Rate FiO2 03/03/18 08:01 36.7 109 16 98/63 (75) 97 Room Air 03/03/18 08:00 Room Air 03/03/18 07:01 101 18 108/60 (76) 94 Nasal Cannula 2.0 03/03/18 04:14 38.3 109 16 94/57 (69) 96 Nasal Cannula 2.0 03/03/18 04:00 111 96 03/03/18 04:00 111 94/57 03/03/18 03:11 109 100/65 (77) 96 03/03/18 03:01 108 86/58 (67) 96 03/03/18 03:00 108 96 03/03/18 02:01 106 90/51 (64) 91 03/03/18 02:00 111 91 03/03/18 01:14 110 100/66 (77) 93 03/03/18 01:00 108 95 Nasal Cannula 2.0 03/03/18 00:00 37.1 105 16 93/59 (70) 96 Nasal Cannula 2.0 03/03/18 00:00 103 96/59 03/02/18 23:26 109 16 99/69 (79) 94 03/02/18 23:00 105 16 87/56 (66) 94 03/02/18 22:00 37.1 103 16 96/59 (71) 93 Nasal Cannula 2.0 03/02/18 21:00 107 105/67 (80) 96 03/02/18 20:36 113 103/67 (79) 96 03/02/18 20:01 107 102/70 (81) 98 03/02/18 20:00 98 Nasal Cannula 2.0 03/02/18 20:00 106 98 03/02/18 19:32 107 88/53 03/02/18 19:30 38.3 107 88/53 (65) 98 03/02/18 19:00 38.3 108 83/57 (66) 98 03/02/18 18:26 38.3 106 20 93/55 (68) 96 Nasal Cannula 2.0 03/02/18 16:00 39.2 114 20 99/57 (71) 95 Nasal Cannula 2.0 03/02/18 15:34 110 97/57 03/02/18 14:00 38.5 160 20 115/61 Nasal Cannula 2.0 03/02/18 13:58 38.5 78 98 03/02/18 13:55 110/71 03/02/18 13:53 74 88 03/02/18 13:38 114 20 95 03/02/18 13:37 104/75 03/02/18 13:36 108/72 03/02/18 13:33 111 24 95 03/02/18 13:30 109/68 03/02/18 13:28 109 24 94 03/02/18 13:26 109/68 03/02/18 13:23 111 18 93 03/02/18 13:20 99/66 03/02/18 13:19 106/64 03/02/18 13:18 105 28 98 03/02/18 13:16 66/42 03/02/18 13:15 108/59 03/02/18 13:13 102 23 97 03/02/18 13:11 116/61 03/02/18 13:08 113 20 94 03/02/18 13:06 113/62 03/02/18 13:03 154 23 98 03/02/18 13:00 203 03/02/18 12:58 139 22 96 03/02/18 12:53 150 18 94 03/02/18 12:50 152 03/02/18 12:48 116 25 97 03/02/18 12:43 107 23 95 03/02/18 12:40 90 20 114/68 97 Nasal Cannula 2.0 03/02/18 12:38 92 26 97 03/02/18 12:34 161 03/02/18 12:33 88 26 95 03/02/18 12:30 114/69 03/02/18 12:28 84 30 96 03/02/18 12:27 120/65 03/02/18 12:23 84 27 97 03/02/18 12:18 84 27 97 03/02/18 12:13 92 30 96 03/02/18 12:08 87 27 96 03/02/18 12:03 83 21 95 03/02/18 11:58 86 24 95 03/02/18 11:53 85 25 95 03/02/18 11:48 87 26 95 03/02/18 11:43 90 20 95 03/02/18 11:40 93 Nasal Cannula 4.0 03/02/18 11:38 90 29 93 03/02/18 11:33 90 30 93 03/02/18 11:28 92 30 93 03/02/18 11:26 145/70 03/02/18 11:24 40.7 94 24 145/70 93 Nasal Cannula 4.0 03/02/18 11:23 96 23 94 03/02/18 11:21 82 03/02/18 11:15 94 Nasal Cannula 4.0 No apparent distress, alert and oriented 3 Right lower extremity is neurovascular sensory intact, +2 dorsalis pedis pulse, capillary refill less than 2 seconds, compartments soft nontender, large right knee effusion, no erythema, 0-120 of painless range of motion of the knee. Skin is intact. Laboratory Results Last 24 Hours Test 03/02/18 11:25 03/02/18 11:51 03/02/18 11:54 03/02/18 12:00 White Blood Count 2.99 K/uL Red Blood Count 4.85 M/uL Hemoglobin 15.2 g/dL Hematocrit 45.0 % Mean Corpuscular Volume 92.8 fL Mean Corpuscular Hemoglobin 31.3 pg Mean Corpuscular Hemoglobin Concent 33.8 g/dl Platelet Count 186 K/uL Mean Platelet Volume 9.6 fL Neutrophils (%) (Auto) 94.7 % Lymphocytes (%) (Auto) 4.7 % Monocytes (%) (Auto) 0.3 % Eosinophils (%) (Auto) 0.0 % Basophils (%) (Auto) 0.0 % Neutrophils # (Auto) 2.83 K/uL Lymphocytes # (Auto) 0.14 K/uL Monocytes # (Auto) 0.01 K/uL Eosinophils # (Auto) 0.00 K/uL Basophils # (Auto) 0.00 K/uL RDW Standard Deviation 47.6 fL RDW Coefficient of Variation 14.0 % Immature Granulocyte % (Auto) 0.3 % Immature Granulocyte # (Auto) 0.01 K/uL Prothrombin Time 11.6 SECONDS Prothromb Time International Ratio 1.1 Activated Partial Thromboplast Time 25.6 SECONDS Partial Thromboplastin Ratio 1.0 Sodium Level 139 mmol/L Potassium Level 3.8 mmol/L Chloride Level 106 mmol/L Carbon Dioxide Level 26 mmol/L Anion Gap 7.0 mmol/L 20.0 mmol/L Blood Urea Nitrogen 23 mg/dl Creatinine 1.11 mg/dl Estimated GFR () 74.4 Estimated GFR (Non- 64.2 BUN/Creatinine Ratio 20.7 Random Glucose 106 mg/dl Calcium Level 8.3 mg/dl Total Bilirubin 0.9 mg/dl Aspartate Amino Transf (AST/SGOT) 18 U/L Alanine Aminotransferase (ALT/SGPT) 16 U/L Alkaline Phosphatase 87 U/L Total Protein 6.9 gm/dl Albumin 3.0 gm/dl Globulin 3.9 gm/dl Albumin/Globulin Ratio 0.8 Procalcitonin 29.80 ng/ml Lyme Disease IgG Antibody POS Bedside Lactic Acid Venous 1.60 mmol/L Bedside Hemoglobin 13.3 g/dl Bedside Hematocrit 39 % Bedside Sodium 140 mEq/L Bedside Potassium 3.9 mEq/L Bedside Chloride 101 mEq/L Bedside Total CO2 24 mEq/l Bedside Blood Urea Nitrogen 23 mg/dl Bedside Creatinine 1.0 mg/dl Bedside Glucose (other) 118 mg/dl Bedside Ionized Calcium (Ravinder) 1.10 mmol/l Urine Color YELLOW Urine Appearance CLEAR Urine pH 6.5 Urine Specific [place] 1.008 Urine Protein NEG Urine Glucose (UA) NEG Urine Ketones NEG Urine Occult Blood 1+ Urine Nitrite POS Urine Bilirubin NEG Urine Urobilinogen NEG Urine Leukocyte Esterase LARGE Urine WBC (Auto) >30 /hpf Urine RBC (Auto) 5-10 /hpf Urine Hyaline Casts (Auto) 1-5 /lpf Urine Epithelial Cells (Auto) 0-5 /lpf Urine Bacteria (Auto) 2+ Test 03/02/18 14:10 03/02/18 15:18 03/02/18 18:36 03/02/18 21:08 Lactic Acid Level mmol/L 1.9 mmol/L Bedside Glucose 129 mg/dl Activated Partial Thromboplast Time 65.5 SECONDS Partial Thromboplastin Ratio 2.5 Troponin I 0.175 ng/ml Test 03/02/18 21:37 03/02/18 21:40 03/03/18 05:24 03/03/18 05:48 Bedside Glucose 93 mg/dl 84 mg/dl Erythrocyte Sedimentation Rate 8 mm/hr Uric Acid 3.9 mg/dl C-Reactive Protein 8.49 mg/dl White Blood Count 20.35 K/uL Red Blood Count 3.96 M/uL Hemoglobin 12.1 g/dL Hematocrit 36.5 % Mean Corpuscular Volume 92.2 fL Mean Corpuscular Hemoglobin 30.6 pg Mean Corpuscular Hemoglobin Concent 33.2 g/dl RDW Standard Deviation 50.2 fL RDW Coefficient of Variation 14.7 % Platelet Count 179 K/uL Mean Platelet Volume 10.2 fL Activated Partial Thromboplast Time 35.2 SECONDS Partial Thromboplastin Ratio 1.4 Sodium Level 138 mmol/L Potassium Level 3.2 mmol/L Chloride Level 108 mmol/L Carbon Dioxide Level 22 mmol/L Anion Gap 8.0 mmol/L Blood Urea Nitrogen 19 mg/dl Creatinine 0.95 mg/dl Est Creatinine Clear Calc Drug Dose 66.2 ml/min Estimated GFR () 89.8 Estimated GFR (Non- 77.4 BUN/Creatinine Ratio 20.3 Random Glucose 83 mg/dl Calcium Level 6.7 mg/dl Magnesium Level 1.5 mg/dl Total Bilirubin 0.4 mg/dl Aspartate Amino Transf (AST/SGOT) 27 U/L Alanine Aminotransferase (ALT/SGPT) 17 U/L Alkaline Phosphatase 50 U/L Troponin I 0.415 ng/ml Total Protein 5.1 gm/dl Albumin 2.0 gm/dl Globulin 3.1 gm/dl Albumin/Globulin Ratio 0.6 Test 03/03/18 10:44 03/03/18 10:53 Assessment & Plan Chronic right knee effusion, right knee DJD Given the patient's complicated medical history of recent as well as tick bites , I have indicated the patient for arthrocentesis of the right knee, will send for cell count, Gram stain culture, crystals, Lyme. The risks benefits of the procedure were expanded the patient which include infection, blood loss, injury to surrounding nerves vessels soft tissue bone, need for repeat aspirations, need for additional surgeries. Verbal consent was obtained at this time. The patient is to maintain n.p.o. at this time pending stat labs. Continue IV antibiotics per medical team. With the assistance of a physician graphic design assistant Antwon Rojas PA-C, the patient's right knee was prepped with a combination of Betadine and alcohol. Utilizing sterile techniques, 18 gauge needle and 60cc syringe, an anterolateral arthrocentesis was performed. 100 cc of yellow with sediment synovial fluid was collected. Band-Aid was applied to the knee. The patient tolerated the procedure well. RIGHT KNEE 3 VIEWS CLINICAL HISTORY: Right knee swelling. FINDINGS: AP, crosstable lateral, and sunrise views of the right knee are correlated with CT scan of the right knee performed the same day 03/02/2018. The skeletal structures are osteopenic. No fracture is seen. There is mild tricompartment degenerative joint space narrowing, greatest in the medial compartment. Degenerative cyst formation is noted in the medial tibial plateau. No bony erosion or periostitis is identified. Marginal osteophytes and patellar enthesophytes are observed. There is a large joint effusion. Soft tissue edema posterior to the knee is consistent with a large popliteal cyst when correlated with today's CT scan. IMPRESSION: 1. Osteopenia with no acute bony abnormality identified. 2. Large joint effusion and large popliteal cyst. These findings were better characterized on today's CT scan.
[2018-03-03] MEDS: VANCOMYCIN IV 1,000 MG in SODIUM CHLORIDE 0.9% 250ML 250 ML IV SCH (12:04)
--- NOTE | 2018-03-03 12:34 | Cardiology Follow-Up ---
Subjective Date of Service: Mar 03, 2018. Pt evaluation today including: conversation w/ patient, conversation w/ family , physical exam, chart review, lab review, review of studies, review of inpatient medication list History of Present Illness Today the patient claims to be feeling much better. Denies any breathing difficulty. He denies any pain at any location. He claims if tolerated a regular diet. He is anxious to walk around and go home. Social History Smoking Status: Former Smoker (quit at 31 y/o) History of Alcohol Use: No Review of Systems Respiratory: No cough, No shortness of breath Cardiac: No chest pain, No edema Per HPI. Patient does feel constipated and wishes to have a bowel movement. Generally does not have abdominal complaints such as nausea or vomiting. He has not noticed any lower extremity edema. He is not sure if he had a fever recently. He does report an inguinal hernia. Objective Vital Signs Past 12 Hours Date Time Temp Pulse Resp B/P (MAP) Pulse Ox O2 Delivery O2 Flow Rate FiO2 03/03/18 10:01 99 16 90/50 (63) 94 Room Air 03/03/18 09:01 110 16 92/58 (69) 95 Room Air 03/03/18 08:01 36.7 109 16 98/63 (75) 97 Room Air 03/03/18 08:00 Room Air 03/03/18 07:01 101 18 108/60 (76) 94 Nasal Cannula 2.0 03/03/18 04:14 38.3 109 16 94/57 (69) 96 Nasal Cannula 2.0 03/03/18 04:00 111 96 03/03/18 04:00 111 94/57 03/03/18 03:11 109 100/65 (77) 96 03/03/18 03:01 108 86/58 (67) 96 03/03/18 03:00 108 96 03/03/18 02:01 106 90/51 (64) 91 03/03/18 02:00 111 91 03/03/18 01:14 110 100/66 (77) 93 03/03/18 01:00 108 95 Nasal Cannula 2.0 Last Recorded Weight-Kilograms: 73.700 Intake & Output 8-Hour Column 03/03/18 03/04/18 03/04/18 16:00 00:00 08:00 Output Total 350 ml Balance -350 ml 24-Hour Column 03/04/18 08:00 Output Total 350 ml Balance -350 ml Physical Exam The patient is alert and oriented. Mood and affect appeared normal. He answered all questions appropriately. HEENT: Pupils are equal and reactive to light and accommodation. Extraocular movements are intact. The sclerae are anicteric. Neuro: Cranial nerves intact Neck: Patient's neck is supple. He has palpable carotid pulses bilaterally without bruits on auscultation. There is no evidence of jugular venous distention. The thyroid is not enlarged. Lungs: Clear to auscultation bilaterally. He has good air movement without use of accessory muscles. No rales wheezes or rhonchi. Cardiac: Heart demonstrates a regular rate and rhythm. Normal S1 and S2. No murmurs on examination. Abdomen: Inguinal hernia noted Pulses: The patient has palpable radial pulses bilaterally that are equal in intensity Extremities: There was no evidence of hypoperfusion. There is no cyanosis or clubbing. There is no edema. Skin: I did not appreciate any rashes on examination today. Data Laboratory Results: Last 24 Hours Test 03/02/18 14:10 03/02/18 15:18 03/02/18 18:36 03/02/18 21:08 Lactic Acid Level mmol/L 1.9 mmol/L Bedside Glucose 129 mg/dl Activated Partial Thromboplast Time 65.5 SECONDS Partial Thromboplastin Ratio 2.5 Troponin I 0.175 ng/ml Test 03/02/18 21:37 03/02/18 21:40 03/03/18 05:24 03/03/18 05:48 Bedside Glucose 93 mg/dl 84 mg/dl Erythrocyte Sedimentation Rate 8 mm/hr Uric Acid 3.9 mg/dl C-Reactive Protein 8.49 mg/dl White Blood Count 20.35 K/uL Red Blood Count 3.96 M/uL Hemoglobin 12.1 g/dL Hematocrit 36.5 % Mean Corpuscular Volume 92.2 fL Mean Corpuscular Hemoglobin 30.6 pg Mean Corpuscular Hemoglobin Concent 33.2 g/dl RDW Standard Deviation 50.2 fL RDW Coefficient of Variation 14.7 % Platelet Count 179 K/uL Mean Platelet Volume 10.2 fL Activated Partial Thromboplast Time 35.2 SECONDS Partial Thromboplastin Ratio 1.4 Sodium Level 138 mmol/L Potassium Level 3.2 mmol/L Chloride Level 108 mmol/L Carbon Dioxide Level 22 mmol/L Anion Gap 8.0 mmol/L Blood Urea Nitrogen 19 mg/dl Creatinine 0.95 mg/dl Est Creatinine Clear Calc Drug Dose 66.2 ml/min Estimated GFR () 89.8 Estimated GFR (Non- 77.4 BUN/Creatinine Ratio 20.3 Random Glucose 83 mg/dl Calcium Level 6.7 mg/dl Magnesium Level 1.5 mg/dl Total Bilirubin 0.4 mg/dl Aspartate Amino Transf (AST/SGOT) 27 U/L Alanine Aminotransferase (ALT/SGPT) 17 U/L Alkaline Phosphatase 50 U/L Troponin I 0.415 ng/ml Total Protein 5.1 gm/dl Albumin 2.0 gm/dl Globulin 3.1 gm/dl Albumin/Globulin Ratio 0.6 Test 03/03/18 10:45 03/03/18 11:06 Synovial Fluid Source KNEE Synovial Fluid Color JULISSA Synovial Fluid Appearance HAZY Synovial Fluid WBC 33181 /uL Synovial Fluid RBC 9000 /uL Synovial Fluid Polynuclear WBCs % 75.1 % Synovial Fluid Mononuclear WBCs % 24.9 % Telemetry reviewed: Atrial flutter Echocardiogram performed today revealed preserved LV systolic function with mild -to-moderate tricuspid regurgitation. He has severe dilation of the right atrium. Assessment and Plan 1. Atrial fibrillation: His current rhythm appears to be in atrial flutter. My hope was that he would convert on his own with amiodarone infusion and time. I think there is still a possibility he will convert spontaneously. If he does not I think electro cardioversion is warranted. Will plan on a cardioversion tomorrow morning if he does not convert. Will resume his anticoagulation with oral Eliquis. He has been in the arrhythmia for less than 48 hours and was anticoagulated for good portion of his hospitalization. I think his risk of thromboembolic events with cardioversion is low. Unfortunately, he is at risk of recurrent arrhythmia given his echocardiogram. Very likely will keep him on some form of prophylaxis in the short term. This could include continuation amiodarone for few months. Unclear if he would be a good candidate for catheter based therapy as the current flutter appears somewhat atypical and he did have atrial fibrillation as well.
[2018-03-03] MEDS ORDERED: PROPOFOL IV EMULSION 10 MG/ML 20 ML VIAL ONE ×2 (12:42→14:35)
[2018-03-03] MEDS ORDERED: LIDOCAINE HCL 2% 2 ML VIAL (20MG/ML) ONE ×2 (12:42→15:10)
[2018-03-03] MEDS ORDERED: FENTANYL CITRATE INJ 50 MCG/1 ML 2 ML VIAL ONE (12:43)
[2018-03-03] MEDS ORDERED: MIDAZOLAM HCL 1 MG/ML 2ML VIAL ONE (12:43)
[2018-03-03] MEDS ORDERED: APIXABAN 5 MG TAB PO SCH (12:45)
--- NOTE | 2018-03-03 12:45 | History & Physical Bridge Note ---
H&P Re-Evaluation Bridge Note: I have examined the patient, reviewed the History & Physical and in the interval since the performance of the History & Physical I have noted the following changes of clinical significance: No changes noted
[2018-03-03] MEDS ORDERED: BACITRACIN 50000 UNIT VIAL ONE (13:33)
[2018-03-03] MEDS ORDERED: BUPIVACAINE/EPINEPHRINE 0.5% MPF 1:200,000 30 ML VIAL ONE (13:33)
[2018-03-03] MEDS ORDERED: FENTANYL CITRATE INJ 50 MCG/1 ML 2 ML VIAL IV PRN (13:45)
[2018-03-03] MEDS ORDERED: PHENYLEPHRINE 100MCG/ML 5ML SYR IV PRN (13:45)
[2018-03-03] MEDS ORDERED: ATROPINE SULFATE 0.1 MG/ML 5ML SYR IV PRN (13:45)
[2018-03-03] MEDS ORDERED: LABETALOL HCL IV 5 MG/ML 20ML IV PRN (13:45)
[2018-03-03] MEDS ORDERED: NALOXONE HCL 0.4 MG/1 ML VIAL/CARP IV PRN (13:45)
[2018-03-03] MEDS ORDERED: ONDANSETRON INJ 2 MG/ML 2 ML VIAL IV PRN ×2 (13:45→15:30)
[2018-03-03] MEDS ORDERED: FLUMAZENIL 0.1 MG/1 ML 10 ML VIAL IV PRN (13:45)
[2018-03-03] MEDS ORDERED: EpHEDrine SULFATE INJ 50 MG/ML AMP IV PRN (13:45)
[2018-03-03] MEDS ORDERED: MEPERIDINE HCL 25 MG/ML CARP IV PRN (13:45)
[2018-03-03] MEDS ORDERED: HYDROmorphone INJ 2 MG/ML SYR/VIAL IV PRN (13:45)
[2018-03-03] MEDS ORDERED: ONDANSETRON INJ 2 MG/ML 2 ML VIAL ONE ×2 (14:35→15:10)
--- NOTE | 2018-03-03 15:07 | [facility] Post Operative Brief Note ---
Immediate Operative Summary Operative Date Mar 03, 2018. Pre-Operative Diagnosis Chronic right knee effusion, right knee Degenerative Joint Disease Post-Operative Diagnosis Chronic right knee effusion, right knee Degenerative Joint Disease Procedure(s) Performed Right Knee Arthroscopy, Sub Total Synovectomy, Medial and Lateral partial debridement Surgeon Dr Shah Desktop Operator Surgeon(s) None Estimated Blood Loss 10CC Findings Consistent with Post-Op Diagnosis Fluids (cc crystalloids) 800 Specimens None per surgeon Drains None Anesthesia Type General Complication(s) none Disposition Disposition: Recovery Room / PACU Overlapping Procedure I was present for: the critical portions of procedure. I was immediately available: during the entire case Back up surgeon: was not required during procedure
[2018-03-03] MEDS ORDERED: SUCCINYLCHOLINE CHLORIDE 20 MG/ML 10 ML VIAL IV ONE (15:09)
--- NOTE | 2018-03-03 15:25 | Anesthesiology Progress Note ---
Anesthesia Post Op Note Date & Time Mar 03, 2018 at 15:24 Vital Signs Pain Intensity: 0.0 Vital Signs Past 12 Hours Date Time Temp Pulse Resp B/P (MAP) Pulse Ox O2 Delivery O2 Flow Rate FiO2 03/03/18 14:01 99 18 101/73 (82) 94 Room Air 03/03/18 13:01 108 20 77/67 (70) 98 Room Air 03/03/18 12:01 106 24 84/61 (69) Room Air 03/03/18 10:01 99 16 90/50 (63) 94 Room Air 03/03/18 09:01 110 16 92/58 (69) 95 Room Air 03/03/18 08:01 36.7 109 16 98/63 (75) 97 Room Air 03/03/18 08:00 Room Air 03/03/18 07:01 101 18 108/60 (76) 94 Nasal Cannula 2.0 03/03/18 04:14 38.3 109 16 94/57 (69) 96 Nasal Cannula 2.0 03/03/18 04:00 111 96 03/03/18 04:00 111 94/57 Notes Mental Status: alert / awake / arousable, participated in evaluation Pt Amnestic to Procedure: Yes Nausea / Vomiting: adequately controlled Pain: adequately controlled Airway Patency, RR, SpO2: stable & adequate BP & HR: stable & adequate Hydration State: stable & adequate Anesthetic Complications: no major complications apparent The patient did well. He is being recovered in ICU. His vital signs are stable. I spoke with Dr. Clayton who is following him in the ICU.
[2018-03-03] MEDS ORDERED: OXYCODONE HCL IR 5 MG TAB (IMMEDIATE RELEASE) PO PRN (15:30)
[2018-03-03] MEDS: ACETAMINOPHEN 500 MG TAB PO SCH ×2 (15:30→21:09)
[2018-03-03] MEDS ORDERED: MoRPHine SULFATE 4 MG/ML 1 ML CARP\\VIAL IV PRN (15:30)
[2018-03-03] MEDS ORDERED: MAGNESIUM HYDROXIDE SUSP 30 ML UDC PO PRN (15:30)
[2018-03-03] MEDS ORDERED: POTASSIUM CHLORIDE INJ 10 MEQ in SODIUM CHLORIDE 0.9% 1000ML 1,000 ML IV SCH (16:00)
[2018-03-03] MEDS ORDERED: NURSING VERBAL MED ORDER ONE ×2 (16:00→17:00)
--- NOTE | 2018-03-03 16:10 | Orthopedic Progress Note ---
Orthopedic Progress Note Date of Service Mar 03, 2018. Subjective Additional Notes: Post operative progress note Patient seen in ICU, comfortable, pain well controlled, no acute issues Objective NAD RLE NVSI +EHL/FHL, +2 DP pulse, compartments soft NT, dressing CDI Date Time Temp Pulse Resp B/P (MAP) Pulse Ox O2 Delivery O2 Flow Rate FiO2 03/03/18 15:50 36.3 99 14 118/80 95 Nasal Cannula 2 03/03/18 15:40 36.2 98 15 109/82 98 Nasal Cannula 2 03/03/18 15:30 36.0 98 16 113/81 92 Nasal Cannula 2 03/03/18 15:20 36.3 99 14 104/80 94 Nasal Cannula 2 03/03/18 14:01 99 18 101/73 (82) 94 Room Air 03/03/18 13:01 108 20 77/67 (70) 98 Room Air 03/03/18 12:01 106 24 84/61 (69) Room Air 03/03/18 10:01 99 16 90/50 (63) 94 Room Air 03/03/18 09:01 110 16 92/58 (69) 95 Room Air 03/03/18 08:01 36.7 109 16 98/63 (75) 97 Room Air 03/03/18 08:00 Room Air 03/03/18 07:01 101 18 108/60 (76) 94 Nasal Cannula 2.0 03/03/18 04:14 38.3 109 16 94/57 (69) 96 Nasal Cannula 2.0 03/03/18 04:00 111 96 03/03/18 04:00 111 94/57 03/03/18 03:11 109 100/65 (77) 96 03/03/18 03:01 108 86/58 (67) 96 03/03/18 03:00 108 96 03/03/18 02:01 106 90/51 (64) 91 03/03/18 02:00 111 91 03/03/18 01:14 110 100/66 (77) 93 03/03/18 01:00 108 95 Nasal Cannula 2.0 03/03/18 00:00 37.1 105 16 93/59 (70) 96 Nasal Cannula 2.0 03/03/18 00:00 103 96/59 03/02/18 23:26 109 16 99/69 (79) 94 03/02/18 23:00 105 16 87/56 (66) 94 03/02/18 22:00 37.1 103 16 96/59 (71) 93 Nasal Cannula 2.0 03/02/18 21:00 107 105/67 (80) 96 03/02/18 20:36 113 103/67 (79) 96 03/02/18 20:01 107 102/70 (81) 98 03/02/18 20:00 98 Nasal Cannula 2.0 03/02/18 20:00 106 98 03/02/18 19:32 107 88/53 03/02/18 19:30 38.3 107 88/53 (65) 98 03/02/18 19:00 38.3 108 83/57 (66) 98 03/02/18 18:26 38.3 106 20 93/55 (68) 96 Nasal Cannula 2.0 Laboratory Results 24 Hours: Test 03/03/18 05:24 Hematocrit 36.5 % Hemoglobin 12.1 g/dL Assessment & Plan Assessment: s/p R knee arthroscopy, I+D, partial synovectomy Plan: -continue IV abx per medical team - isatu staton -May restart anticoagulation POD #1, xarelto -WBAT RLE -PT/OT when medially stable -f/u cultures of synovial fluid, crystals, lyme
--- NOTE | 2018-03-03 16:12 | [facility] Operative Report ---
Operative Report Operative Date Mar 03, 2018. Pre-Operative Diagnosis Chronic right knee effusion, right knee Degenerative Joint Disease, septic arthritis Post-Operative Diagnosis Chronic right knee effusion, right knee Degenerative Joint Disease, septic arthritis, degenterative tear medial and lateral mensicus, chronic acl tear/degeneration Procedure(s) Performed Right Knee Arthroscopy, Sub Total Synovectomy, debridement of medial and lateral meniscus Surgeon Dr Shah Baseball Inspector Surgeon(s) None Estimated Blood Loss 10CC Findings see dictated op note Fluids 800 Specimens None per surgeon Drains None Anesthesia Type General Complication(s) none Disposition Recovery Room / PACU Indications 77-year-old male presents with altered mental status subsequently admitted on 06/09 with urosepsis. Doing better however continues to have persistent right knee effusion. Per the patient knee effusion has been present for one years duration. Arthrocentesis performed on 03/03/18. Synovial fluid analysis, Gram stain positive for rare gram-negative bacilli, cell count [id number]. The remaining labs are still pending however due to the presence of gram-negative bacilli on Gram stain which was also found in the patient's blood we can safely assume hematologic seeding of his right knee joint. I have indicated the patient for arthroscopic washout, irrigation and debridement of synovial tissue of the right knee joint. The risks benefits of the procedure were explained to the patient in detail which include but not limited to infection, blood clots, injury to surrounding nerves, vessels, bone, soft tissue, arthrofibrosis, loss of function, need for repeat I&D's, surgery, cardiac and pulmonary events and . The patient wished to proceed with surgical intervention at this time and informed consent was obtained. Description of Procedure The patient was brought to the operating room and placed in supine position and induced into general endotracheal anesthesia per the anesthesia staff. A well- padded tourniquet was placed on the thigh and the Right leg was prepped and draped in the usual standard manner with ChloraPrep. A time out was performed, the patient was on standing IV abx and site tank confirmed. The leg was elevated and tourniquet insufflated to 300 mmHg. I made a standard anterolateral viewing portal made through a stab incision and bluntly entered the suprapatellar pouch. Then under spinal needle localization I established an anteromedial portal. I was immediately met with significant amounts of fibrous synovial tissue, this was chronic in nature. There was significant debris obscuring visualization of the patellofemoral joint, medial and lateral compartments. An extensive synovectomy of hypertrophic fibrous synovium tissue was performed in the suprapatellar pouch, medial and lateral gutters, medial and lateral compartments for improved visualization utilizing the shaver. There was also degenerative tearing and fibrous tissue covering the medial and lateral meniscus which was debrided back utilizing the shaver as well. There was grade 2 cartilage of the patella. There was grade 2 cartilage of the trochlea. There was grade 4 cartilage of the medial femoral condyle. There was grade 3 cartilage of the medial tibial plateau. The ACL was probed which demonstrated some laxity which likely represent an old chronic partial tear versus degeneration and the PCL was probed and was normal. There was grade 1 cartilage of the lateral femoral condyle. There was grade 3 cartilage of the lateral tibial plateau. 6 L of sterile saline solution with bacitracin was ran through the knee in its entirety. All of the instrumentation was removed from the knee. The portal sites were closed with 3-0 nylon. A sterile dressing was applied and the tourniquet was released. All needle and sponge counts were correct at the end of the procedure. The patient was transferred to the PACU in stable condition without apparent complication. I attest to the content of the Intraoperative Record and any orders documented therein. Any exceptions are noted below.
--- NOTE | 2018-03-03 16:26 | Critical Care Progress Note ---
Critical Care Progress Note Date of Service Mar 03, 2018. Attending Dr. Clayton Subjective The patient remains afebrile, off pressors, he continued to be on Vanco and Zosyn, no events occurred overnight, noted that he had swelling in his right knee, status post arthrocentesis done by orthopedic, appreciate input, found to be positive for gram-negative rods, the patient was taken to the OR for arthroscopy and irrigation. Did well postop. And return to the ICU for further management. Heparin has been on hold for several hours prior to the procedure, he would be on hold until tomorrow when this patient started on Eliquis. Objective The patient denies any symptoms as he did in the past as well, no pain, no shortness of breath, no nausea or vomiting, no pain even in his knee after procedure. His physical exam on 03/03/2018 showed no fever, vital signs are stable, O2 sats 97% on nasal cannula, blood pressure 111/82 with heart rate of 99 and respiratory rate is 16. Central line site appears well-maintained. S1-S2 regular rate and rhythm. Distant breath sounds bilaterally and abdomen is benign with large inguinal hernia on the left but nontender and bowel sounds are positive. Right knee surgically wrapped. His labs and imaging were reviewed personally on the day of 03/03/2018. Showing leukocytosis, maintain kidney function, slight hypokalemia was repleted. Assessment & Plan 1. Septic shock. 2. UTI due to urinary retention. 3. Septic joint. 4. Gram-negative bacteremia with comparable finding in the arthritic fluid and the urine. 5. New onset A. fib, rate controlled on amiodarone. 6. Prostate enlargement with small lesion in the which could represent prostatic abscess versus lesion. Can be addressed as an outpatient. 7. Left inguinal hernia, nonincarcerated, no bowel obstruction. 8. Non-ST elevation NE, secondary to above. 9. Hypokalemia, on replacement. Plan: 1. Appreciate orthopedic and cardiology input. 2. We will continue with rate controlled with beta-blockers and amiodarone. 3. Start anticoagulation tomorrow, orthopedic and cardiology in agreement. 4. I will continue with Zosyn and Vanco, likely will stop vancomycin if there is no gram-positive cocci growing in the morning. 5. Continue with IV fluid. 6. Follow the arthritic fluid from the right knee. 7. The patient will need evaluation of the inability to urinate after removing the Blair catheter as he does have prostate enlargement. The prostate showed also a lesion that could represent prostatic abscess versus prostatic nodule. 8. Disposition plan per Dr. Mittal, appreciate his input. 9. The patient wanted to leave the hospital by Sunday however we spoke to him and he is willing to stay until a full course of treatment. The patient recovered from septic shock but he still have significant recovery ahead of him. 10. All labs are reviewed as well as imaging. 11. Case discussed with the staff on rounds and details. Discussed with multiple principles. Critical care time spent with the patient including talking to the family answering their questions was 45 minutes. Data Medications: Current Inpatient Medications Medications (Trade) Dose Ordered Sig/Mirella Route Start Time Stop Time Status Last Admin Dose Admin Ioversol (Optiray 320) 100 ml UD PRN IV 03/02/18 12:45 03/06/18 12:44 Amiodarone HCL/ Dextrose 200 ml @ 16.7 mls/hr [id number] IV 03/02/18 19:30 04/01/18 19:29 03/03/18 13:58 16.7 MLS/HR Miscellaneous Information (Consult) 1 ea UD PRN N/A 03/02/18 13:45 04/01/18 13:44 Acetaminophen (Tylenol Tab) 650 mg Q4H PRN PO 03/02/18 13:15 04/01/18 13:14 Future Hold 03/03/18 04:30 650 MG Nitroglycerin (Nitrostat Tab) 0.4 mg UD PRN SL 03/02/18 13:15 04/01/18 13:14 Miscellaneous Information (Icu Protocol For Hyperglycemia) 1 ea PRN PRN N/A 03/02/18 13:15 03/04/18 13:14 Vancomycin HCl (Consult) 1 ea UD PRN N/A 03/02/18 13:15 04/01/18 13:14 Metoprolol Tartrate (Lopressor Iv) 5 mg Q4 IV. 03/02/18 16:00 04/01/18 15:59 03/03/18 16:07 5 MG Sodium Chloride 1,000 ml @ 75 mls/hr [id number] IV 03/02/18 14:15 04/01/18 14:14 03/03/18 02:28 75 MLS/HR Vancomycin HCl 1000 mg/Sodium Chloride 270 ml @ 125 mls/hr Q20H IV 03/03/18 11:00 03/13/18 10:59 03/03/18 12:04 125 MLS/HR Piperacillin Sod/ Tazobactam Sod 4.5 gm/Dextrose 120 ml @ 30 mls/hr Q8H IV 03/02/18 21:00 03/12/18 20:59 03/03/18 12:04 30 MLS/HR Phenylephrine HCl 20 mg/Dextrose 502 ml @ 0 mls/hr Q0M PRN IV 03/02/18 18:47 04/01/18 18:46 Hydromorphone HCl (Dilaudid Inj) 0.5 mg Q5M PRN IV 03/03/18 13:45 03/03/18 18:45 Fentanyl Citrate (Fentanyl Inj) 25 mcg Q5M PRN IV 03/03/18 13:45 03/03/18 18:45 Naloxone HCl (Narcan Inj) 0.2 mg Q2M PRN IV 03/03/18 13:45 03/03/18 18:45 Meperidine HCl (Demerol Inj) 12.5 mg Q5M PRN IV 03/03/18 13:45 03/03/18 18:45 Ondansetron HCl (Zofran Inj) 4 mg ONE PRN IV 03/03/18 13:45 03/03/18 18:45 Flumazenil (Romazicon Inj) 0.2 mg Q2M PRN IV 03/03/18 13:45 03/03/18 18:45 Labetalol HCl (Normodyne IV) 5 mg Q5M PRN IV 03/03/18 13:45 03/03/18 18:45 Ephedrine Sulfate (EpHEDrine SULFATE INJ) 5 mg Q5M PRN IV 03/03/18 13:45 03/03/18 18:45 Atropine Sulfate (Atropine Sulfate 0.1mg/ml Inj) 0.5 mg Q1M PRN IV 03/03/18 13:45 03/03/18 18:45 Phenylephrine HCl (Shawn-Synephrine 500MCG/5ML Syr) 100 mcg Q5M PRN IV 03/03/18 13:45 03/03/18 18:45 Potassium Chloride 10 meq/ Sodium Chloride 1,005 ml @ 100 mls/hr Q10H3M IV 03/03/18 16:00 04/02/18 15:59 03/03/18 16:06 100 MLS/HR Oxycodone HCl (Roxicodone Immediate Rel Tab) 1-2 TABS FOR PAIN 1 TABLET ... Q4H PRN PO 03/03/18 15:30 03/17/18 15:29 Morphine Sulfate (MoRPHine SULFATE INJ) 3 mg Q4H PRN IV 03/03/18 15:30 03/17/18 15:29 Acetaminophen (Tylenol Tab) 1,000 mg Q8 PO 03/03/18 15:30 04/02/18 15:29 Magnesium Hydroxide (Milk Of Magnesia Susp) 30 ml Q6H PRN PO 03/03/18 15:30 04/02/18 15:29 Docusate Sodium (coLACE CAP) 100 mg BID PO 03/03/18 21:00 04/02/18 20:59 Diphenhydramine HCl (Benadryl Cap) 25 mg Q8H PRN PO 03/03/18 15:30 04/02/18 15:29 Multivitamins (Multivitamin Tab) 1 tab QAM PO 03/04/18 09:00 04/03/18 08:59 Ondansetron HCl (Zofran Inj) 4 mg Q6H PRN IV 03/03/18 15:30 04/02/18 15:29 Pantoprazole Sodium (Protonix Tab) 40 mg QAM PO 03/04/18 09:00 03/07/18 08:59 Apixaban (Eliquis) 5 mg BIDM PO 03/04/18 16:30 04/03/18 16:29 I & O: 24-Hour Column 03/04/18 08:00 Intake Total 1449 ml Output Total 800 ml Balance 649 ml Vital Signs: Date Time Temp Pulse Resp B/P (MAP) Pulse Ox O2 Delivery O2 Flow Rate FiO2 03/03/18 16:07 100 113/85 03/03/18 15:50 36.3 99 14 118/80 95 Nasal Cannula 2 03/03/18 15:40 36.2 98 15 109/82 98 Nasal Cannula 2 03/03/18 15:30 36.0 98 16 113/81 92 Nasal Cannula 2 03/03/18 15:20 36.3 99 14 104/80 94 Nasal Cannula 2 03/03/18 14:01 99 18 101/73 (82) 94 Room Air 03/03/18 13:01 108 20 77/67 (70) 98 Room Air 03/03/18 12:01 106 24 84/61 (69) Room Air 03/03/18 10:01 99 16 90/50 (63) 94 Room Air 03/03/18 09:01 110 16 92/58 (69) 95 Room Air 03/03/18 08:01 36.7 109 16 98/63 (75) 97 Room Air 03/03/18 08:00 Room Air 03/03/18 07:01 101 18 108/60 (76) 94 Nasal Cannula 2.0 03/03/18 04:14 38.3 109 16 94/57 (69) 96 Nasal Cannula 2.0 03/03/18 04:00 111 96 03/03/18 04:00 111 94/57 03/03/18 03:11 109 100/65 (77) 96 03/03/18 03:01 108 86/58 (67) 96 03/03/18 03:00 108 96 03/03/18 02:01 106 90/51 (64) 91 03/03/18 02:00 111 91 03/03/18 01:14 110 100/66 (77) 93 03/03/18 01:00 108 95 Nasal Cannula 2.0 03/03/18 00:00 37.1 105 16 93/59 (70) 96 Nasal Cannula 2.0 03/03/18 00:00 103 96/59 03/02/18 23:26 109 16 99/69 (79) 94 03/02/18 23:00 105 16 87/56 (66) 94 03/02/18 22:00 37.1 103 16 96/59 (71) 93 Nasal Cannula 2.0 03/02/18 21:00 107 105/67 (80) 96 03/02/18 20:36 113 103/67 (79) 96 03/02/18 20:01 107 102/70 (81) 98 03/02/18 20:00 98 Nasal Cannula 2.0 8/11/18 20:00 106 98 03/02/18 19:32 107 88/53 03/02/18 19:30 38.3 107 88/53 (65) 98 03/02/18 19:00 38.3 108 83/57 (66) 98 03/02/18 18:26 38.3 106 20 93/55 (68) 96 Nasal Cannula 2.0 Laboratory Results: Last 24 Hours Test 03/02/18 18:36 03/02/18 21:08 03/02/18 21:37 03/02/18 21:40 Bedside Glucose 129 mg/dl 93 mg/dl Activated Partial Thromboplast Time 65.5 SECONDS Partial Thromboplastin Ratio 2.5 Troponin I 0.175 ng/ml Erythrocyte Sedimentation Rate 8 mm/hr Uric Acid 3.9 mg/dl C-Reactive Protein 8.49 mg/dl Test 03/03/18 05:24 03/03/18 05:48 03/03/18 10:45 03/03/18 11:06 White Blood Count 20.35 K/uL Red Blood Count 3.96 M/uL Hemoglobin 12.1 g/dL Hematocrit 36.5 % Mean Corpuscular Volume 92.2 fL Mean Corpuscular Hemoglobin 30.6 pg Mean Corpuscular Hemoglobin Concent 33.2 g/dl RDW Standard Deviation 50.2 fL RDW Coefficient of Variation 14.7 % Platelet Count 179 K/uL Mean Platelet Volume 10.2 fL Activated Partial Thromboplast Time 35.2 SECONDS Partial Thromboplastin Ratio 1.4 Sodium Level 138 mmol/L Potassium Level 3.2 mmol/L Chloride Level 108 mmol/L Carbon Dioxide Level 22 mmol/L Anion Gap 8.0 mmol/L Blood Urea Nitrogen 19 mg/dl Creatinine 0.95 mg/dl Est Creatinine Clear Calc Drug Dose 66.2 ml/min Estimated GFR () 89.8 Estimated GFR (Non- 77.4 BUN/Creatinine Ratio 20.3 Random Glucose 83 mg/dl Calcium Level 6.7 mg/dl Magnesium Level 1.5 mg/dl Total Bilirubin 0.4 mg/dl Aspartate Amino Transf (AST/SGOT) 27 U/L Alanine Aminotransferase (ALT/SGPT) 17 U/L Alkaline Phosphatase 50 U/L Troponin I 0.415 ng/ml Total Protein 5.1 gm/dl Albumin 2.0 gm/dl Globulin 3.1 gm/dl Albumin/Globulin Ratio 0.6 Bedside Glucose 84 mg/dl Synovial Fluid Source KNEE Synovial Fluid Color JULISSA Synovial Fluid Appearance HAZY Synovial Fluid WBC 81333 /uL Synovial Fluid RBC 9000 /uL Synovial Fluid Polynuclear WBCs % 75.1 % Synovial Fluid Mononuclear WBCs % 24.9 %
[2018-03-03] MEDS: DOCUSATE SODIUM 100 MG CAP PO SCH (21:08)
[2018-03-04] VITALS (25 sets, daily range): BP systolic 114–148; BP diastolic 77–99; PULSE 94–112; TEMP 36.5–37; O2SAT 89–95
[2018-03-04] MEDS: METOPROLOL TARTRATE 1 MG/ML VIAL IV. SCH ×6 (00:11→20:53)
[2018-03-04] MEDS: PIPERACILL/TAZOBAC IV 4.5 GM in D5W 100 ML IV SCH ×3 (04:41→20:52)
[2018-03-04] MEDS: AMIODARONE / D5W 200 ML IV SCH ×2 (04:43→08:58)
[2018-03-04] MEDS: ACETAMINOPHEN 500 MG TAB PO SCH (04:44)
[2018-03-04] MEDS: SODIUM CHLORIDE 0.9% 1000ML 1,000 ML IV SCH (04:44)
[2018-03-04 04:58] LABS: HEMATOCRIT 38.5 % (42-52); MEAN CELL VOLUME 92.1 fL (80-100); MEAN CORPUSCULAR HEMOGLOBIN 31.1 pg (25-34); MEAN CORPUSCULAR HGB CONC 33.8 g/dl (32-36); MEAN PLATELET VOLUME 10.2 fL (7.4-10.4); PLATELET COUNT 160 K/uL (130-400); RED CELL DISTRIBUTION WIDTH CV 14.8 % (11.5-14.5); RED CELL DISTRIBUTION WIDTH SD 50.3 fL (36.4-46.3); WHITE BLOOD COUNT 15.75 K/uL (4.8-10.8)
[2018-03-04 05:06] LABS: INR 1.1 (0.9-1.1); PTT PATIENT 33.7 SECONDS (21.0-31.0)
[2018-03-04 05:24] LABS: CALCIUM 7.6 mg/dl (8.5-10.1); CREATININE 0.88 mg/dl (0.60-1.40); POTASSIUM 3.5 mmol/L (3.5-5.1); TOTAL PROTEIN 5.4 gm/dl (6.4-8.2)
[2018-03-04] MEDS: DOCUSATE SODIUM 100 MG CAP PO SCH ×2 (08:56→20:52)
[2018-03-04] MEDS: MULTIVITAMIN TAB PO SCH (08:56)
[2018-03-04] MEDS: VANCOMYCIN IV 1,000 MG in SODIUM CHLORIDE 0.9% 250ML 250 ML IV SCH (08:56)
[2018-03-04] MEDS: PANTOprazole SOD 40 MG TAB PO SCH (08:56)
--- NOTE | 2018-03-04 09:11 | Cardiology Follow-Up ---
Subjective Date of Service: Mar 04, 2018. Pt evaluation today including: conversation w/ patient, conversation w/ family , physical exam, chart review, lab review, review of studies, conversation w/ chain sales consultant, review of inpatient medication list History of Present Illness Patient is feeling better. He describes minimal pain at his operative site. He denies any breathing difficulty. He is anxious for ambulation. Social History Smoking Status: Former Smoker (quit at 31 y/o) History of Alcohol Use: No Review of Systems Respiratory: No cough, No shortness of breath Cardiac: No chest pain, No edema Per HPI. Patient does feel constipated and wishes to have a bowel movement. Generally does not have abdominal complaints such as nausea or vomiting. He has not noticed any lower extremity edema. He is not sure if he had a fever recently. He does report an inguinal hernia. Objective Vital Signs Past 12 Hours Date Time Temp Pulse Resp B/P (MAP) Pulse Ox O2 Delivery O2 Flow Rate FiO2 03/04/18 08:59 110 125/86 03/04/18 08:00 36.6 112 19 125/86 (99) 94 Nasal Cannula 2.0 03/04/18 08:00 Nasal Cannula 2.0 03/04/18 06:01 96 19 127/81 (96) 91 03/04/18 06:00 94 16 93 03/04/18 05:01 94 14 114/77 (89) 89 03/04/18 05:00 96 10 91 03/04/18 04:14 96 123/86 03/04/18 04:09 108 21 143/99 (114) 95 03/04/18 04:00 36.6 109 20 95 03/04/18 03:01 96 24 123/86 (98) 95 03/04/18 03:00 100 21 95 03/04/18 02:01 97 20 124/89 (101) 94 03/04/18 02:00 97 18 94 03/04/18 01:01 108 17 121/84 (96) 95 03/04/18 01:00 98 24 91 03/04/18 00:11 102 123/80 03/04/18 00:01 105 20 115/78 (90) 95 03/04/18 00:00 36.7 104 20 94 03/03/18 23:01 102 21 123/80 (94) 94 03/03/18 23:00 100 18 94 8/12/18 22:01 92 20 120/79 (93) 97 03/03/18 22:00 94 15 98 Last Recorded Weight-Kilograms: 76.800 Physical Exam The patient is alert and oriented. Mood and affect appeared normal. He answered all questions appropriately. HEENT: Pupils are equal and reactive to light and accommodation. Extraocular movements are intact. The sclerae are anicteric. Neuro: Cranial nerves intact Neck: Patient's neck is supple. He has palpable carotid pulses bilaterally without bruits on auscultation. There is no evidence of jugular venous distention. The thyroid is not enlarged. Lungs: Clear to auscultation bilaterally. He has good air movement without use of accessory muscles. No rales wheezes or rhonchi. Cardiac: Heart demonstrates a regular rate and rhythm. Normal S1 and S2. No murmurs on examination. Pulses: The patient has palpable radial pulses bilaterally that are equal in intensity Extremities: There was no evidence of hypoperfusion. Skin: I did not appreciate any rashes on examination today. Data Laboratory Results: Last 24 Hours Test 03/03/18 10:45 03/03/18 11:06 03/04/18 04:23 Synovial Fluid Source KNEE Synovial Fluid Color JULISSA Synovial Fluid Appearance HAZY Synovial Fluid WBC 56010 /uL Synovial Fluid RBC 9000 /uL Synovial Fluid Polynuclear WBCs % 75.1 % Synovial Fluid Mononuclear WBCs % 24.9 % White Blood Count 15.75 K/uL Red Blood Count 4.18 M/uL Hemoglobin 13.0 g/dL Hematocrit 38.5 % Mean Corpuscular Volume 92.1 fL Mean Corpuscular Hemoglobin 31.1 pg Mean Corpuscular Hemoglobin Concent 33.8 g/dl RDW Standard Deviation 50.3 fL RDW Coefficient of Variation 14.8 % Platelet Count 160 K/uL Mean Platelet Volume 10.2 fL Prothrombin Time 11.8 SECONDS Prothromb Time International Ratio 1.1 Activated Partial Thromboplast Time 33.7 SECONDS Partial Thromboplastin Ratio 1.3 Sodium Level 135 mmol/L Potassium Level 3.5 mmol/L Chloride Level 105 mmol/L Carbon Dioxide Level 20 mmol/L Anion Gap 10.0 mmol/L Blood Urea Nitrogen 18 mg/dl Creatinine 0.88 mg/dl Est Creatinine Clear Calc Drug Dose 71.4 ml/min Estimated GFR () 96.7 Estimated GFR (Non- 83.4 BUN/Creatinine Ratio 20.2 Random Glucose 80 mg/dl Calcium Level 7.6 mg/dl Magnesium Level 1.9 mg/dl Total Bilirubin 0.5 mg/dl Aspartate Amino Transf (AST/SGOT) 26 U/L Alanine Aminotransferase (ALT/SGPT) 16 U/L Alkaline Phosphatase 67 U/L Troponin I 0.163 ng/ml Total Protein 5.4 gm/dl Albumin 2.0 gm/dl Globulin 3.4 gm/dl Albumin/Globulin Ratio 0.6 Procalcitonin 73.30 ng/ml Telemetry reviewed: Persistent atrial flutter Assessment and Plan 1. Atrial fibrillation: His current rhythm appears to be in atrial flutter. He is not very symptomatic. Hemodynamically he is doing much better likely due to treatment of his infection. Yesterday we need to interrupt his anticoagulation to facilitate his operative intervention. We will reinitiate his anticoagulation to day. If he does not convert to sinus over the course of the evening will plan on a cardioversion tomorrow morning. He can be transitioned from intravenous to oral amiodarone. 400 mg daily would seem to be a reasonable starting dose. 2. Elevated cardiac biomarkers: This was in the setting of mild hypotension, acidosis and extreme tachycardia. Do not believe this represents an acute coronary syndrome. The better opportunity to evaluate the patient and his symptoms once his infection and rhythm has resolved.
[2018-03-04] MEDS ORDERED: [UNRECOGNIZED DRUG - REMARK] ONE (10:15)
[2018-03-04] MEDS ORDERED: AMIODARONE 200 MG TAB PO ONE (10:15)
[2018-03-04] MEDS ORDERED: POTASSIUM CHLORIDE 20 MEQ TABCR PO SCH (10:30)
--- NOTE | 2018-03-04 13:47 | Orthopedic Progress Note ---
Orthopedic Progress Note Date of Service Mar 04, 2018. Subjective Post OP Day: 1 Reports: feeling well, pain controlled w PO medications, Denies: complaints, chest pain, SOB, nausea / vomiting, light headedness, calf pain, using SLIP FEEDER Additional Notes: The patient was seen sitting in bed, comfortable, pain well controlled, no acute issues. Objective No apparent distress, alert and oriented 3 Right lower extremity is neurovascular sensory intact, compartments soft nontender, +2 dorsalis pedis pulse, dressing clean dry and intact. Painless range of motion. Date Time Temp Pulse Resp B/P (MAP) Pulse Ox O2 Delivery O2 Flow Rate FiO2 03/04/18 13:06 110 137/68 03/04/18 10:00 100 21 95 03/04/18 09:01 111 23 137/93 (108) 95 03/04/18 09:00 111 21 94 03/04/18 08:59 110 125/86 03/04/18 08:01 104 23 125/86 (99) 94 03/04/18 08:00 36.6 112 19 125/86 (99) 94 Nasal Cannula 2.0 03/04/18 08:00 110 20 94 03/04/18 08:00 Nasal Cannula 2.0 03/04/18 07:01 110 13 137/94 (108) 94 03/04/18 07:00 102 10 95 03/04/18 06:01 96 19 127/81 (96) 91 03/04/18 06:00 94 16 93 03/04/18 05:01 94 14 114/77 (89) 89 03/04/18 05:00 96 10 91 03/04/18 04:14 96 123/86 03/04/18 04:09 108 21 143/99 (114) 95 03/04/18 04:00 36.6 109 20 95 03/04/18 03:01 96 24 123/86 (98) 95 03/04/18 03:00 100 21 95 03/04/18 02:01 97 20 124/89 (101) 94 03/04/18 02:00 97 18 94 03/04/18 01:01 108 17 121/84 (96) 95 03/04/18 01:00 98 24 91 03/04/18 00:11 102 123/80 03/04/18 00:01 105 20 115/78 (90) 95 03/04/18 00:00 36.7 104 20 94 03/03/18 23:01 102 21 123/80 (94) 94 03/03/18 23:00 100 18 94 03/03/18 22:01 92 20 120/79 (93) 97 03/03/18 22:00 94 15 98 03/03/18 21:01 107 17 132/89 (103) 97 03/03/18 21:00 107 20 98 03/03/18 20:54 102 111/81 03/03/18 20:01 105 15 118/82 (94) 96 03/03/18 20:00 98 Nasal Cannula 2.0 03/03/18 20:00 36.9 104 23 97 03/03/18 19:01 102 20 112/79 (90) 97 03/03/18 19:00 103 18 98 03/03/18 18:01 102 17 111/81 (91) 98 Nasal Cannula 2.0 03/03/18 17:01 101 18 112/85 (94) 99 Nasal Cannula 2.0 03/03/18 16:11 36.4 100 19 111/82 (92) 97 Nasal Cannula 2.0 03/03/18 16:07 100 113/85 03/03/18 16:06 100 11 113/85 (94) 97 Nasal Cannula 2.0 03/03/18 16:01 100 14 121/81 (94) 99 Nasal Cannula 2.0 03/03/18 16:00 Room Air 03/03/18 15:50 36.3 99 14 118/80 95 Nasal Cannula 2 03/03/18 15:40 36.2 98 15 109/82 98 Nasal Cannula 2 03/03/18 15:30 36.0 98 16 113/81 92 Nasal Cannula 2 03/03/18 15:20 36.3 99 14 104/80 94 Nasal Cannula 2 03/03/18 14:01 99 18 101/73 (82) 94 Room Air Laboratory Results 24 Hours: Test 03/04/18 04:23 Hematocrit 38.5 % Hemoglobin 13.0 g/dL Prothromb Time International Ratio 1.1 Prothrombin Time 11.8 SECONDS Assessment & Plan Assessment: Right knee septic arthritis, pseudogout s/p R knee arthroscopy, I+D, partial synovectomy Postoperative day #1 Plan: -continue IV abx per medical team - isatu staton -May restart anticoagulation POD #1, xarelto -WBAT RLE -PT/OT when medially stable -f/u cultures of synovial fluid, lyme. Synovial fluid aspirate positive for pseudogout. Treatment per medical team. -Change dressing postoperative day #2
--- NOTE | 2018-03-04 14:49 | Progress Note ---
Subjective Date of Service: Mar 04, 2018. Subjective Pt evaluation today including: conversation w/ patient, conversation w/ family , physical exam, chart review, lab review, review of studies, conversation w/ professional services consultant, review of inpatient medication list Doing okay, out of bed and walk, right knee index, reports generally getting better, denies spiking fever, Problem List Medical Problems: (1) Atrial fibrillation with RVR Status: Acute (2) V tach Status: Acute Review of Systems Constitutional: + weakness, + fatigue, No fever, No chills, No sweats, No weight loss, No problem reported Eyes: No worsening of vision, No eye pain, No redness, No discharge, No diplopia ENT: No hearing loss, No unusual epistaxis, No nasal symptoms, No sore throat, No tinnitus, No dental problems, No trouble swallowing Respiratory: No cough, No sputum, No wheezing, No shortness of breath, No dyspnea on exertion, No dyspnea at rest, No hemoptysis Cardiac: No chest pain, No orthopnea, No PND, No edema, No claudication, No palpitations Abdomen: No pain, No nausea, No vomiting, No diarrhea, No constipation Musculoskeletal: + joint pain, No muscle pain, No swelling, No calf pain Male : No dysuria, No urinary frequency, No incontinence, No nocturia more than once/night, No slowing stream, No hematuria Neurologic: No memory loss, No paralysis, No weakness, No numbness/tingling, No vertigo, No balance problems Psychiatric: No depression symptoms, No anhedonism, No anxiety, No insomnia, No substance abuse Heme: No abnormal bleeding/bruising, No clotting problems, No swollen lymph nodes, No night sweats Endo: No fatigue, No excessive thirst, No excessive urination Skin: No rash, No itch, No new/changing skin lesions, No color change, No bleeding Objective Vital Signs Date Time Temp Pulse Resp B/P (MAP) Pulse Ox O2 Delivery O2 Flow Rate FiO2 03/04/18 13:06 110 137/68 03/04/18 10:00 100 21 95 03/04/18 09:01 111 23 137/93 (108) 95 03/04/18 09:00 111 21 94 03/04/18 08:59 110 125/86 03/04/18 08:01 104 23 125/86 (99) 94 03/04/18 08:00 Nasal Cannula 03/04/18 08:00 36.6 112 19 125/86 (99) 94 Nasal Cannula 2.0 03/04/18 08:00 110 20 94 03/04/18 08:00 Nasal Cannula 2.0 03/04/18 07:01 110 13 137/94 (108) 94 03/04/18 07:00 102 10 95 03/04/18 06:01 96 19 127/81 (96) 91 03/04/18 06:00 94 16 93 03/04/18 05:01 94 14 114/77 (89) 89 03/04/18 05:00 96 10 91 03/04/18 04:14 96 123/86 03/04/18 04:09 108 21 143/99 (114) 95 03/04/18 04:00 36.6 109 20 95 03/04/18 03:01 96 24 123/86 (98) 95 03/04/18 03:00 100 21 95 03/04/18 02:01 97 20 124/89 (101) 94 03/04/18 02:00 97 18 94 03/04/18 01:01 108 17 121/84 (96) 95 03/04/18 01:00 98 24 91 03/04/18 00:11 102 123/80 03/04/18 00:01 105 20 115/78 (90) 95 03/04/18 00:00 36.7 104 20 94 03/03/18 23:01 102 21 123/80 (94) 94 03/03/18 23:00 100 18 94 03/03/18 22:01 92 20 120/79 (93) 97 03/03/18 22:00 94 15 98 03/03/18 21:01 107 17 132/89 (103) 97 03/03/18 21:00 107 20 98 03/03/18 20:54 102 111/81 03/03/18 20:01 105 15 118/82 (94) 96 03/03/18 20:00 98 Nasal Cannula 2.0 03/03/18 20:00 36.9 104 23 97 03/03/18 19:01 102 20 112/79 (90) 97 03/03/18 19:00 103 18 98 03/03/18 18:01 102 17 111/81 (91) 98 Nasal Cannula 2.0 03/03/18 17:01 101 18 112/85 (94) 99 Nasal Cannula 2.0 03/03/18 16:11 36.4 100 19 111/82 (92) 97 Nasal Cannula 2.0 03/03/18 16:07 100 113/85 03/03/18 16:06 100 11 113/85 (94) 97 Nasal Cannula 2.0 03/03/18 16:01 100 14 121/81 (94) 99 Nasal Cannula 2.0 03/03/18 16:00 Room Air 03/03/18 15:50 36.3 99 14 118/80 95 Nasal Cannula 2 03/03/18 15:40 36.2 98 15 109/82 98 Nasal Cannula 2 03/03/18 15:30 36.0 98 16 113/81 92 Nasal Cannula 2 03/03/18 15:20 36.3 99 14 104/80 94 Nasal Cannula 2 Physical Exam General Appearance: WD/WN, no apparent distress, + thin Eyes: normal inspection, PERRL ENT: normal ENT inspection, hearing grossly normal, TMs normal Neck: supple, no adenopathy, thyroid normal Respiratory/Chest: chest non-tender, + decreased breath sounds Cardiovascular: regular rate, rhythm, no edema Abdomen: normal bowel sounds, non tender, soft, no organomegaly Extremities: normal range of motion (Right knee interest,) Neurologic/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: 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, no motor/sensory deficits, alert, normal mood/affect, oriented x 3, + abnormal cerebellar tests Skin: normal color, warm/dry, no rash Laboratory Results Last 24 Hours Test 03/04/18 04:23 White Blood Count 15.75 K/uL Red Blood Count 4.18 M/uL Hemoglobin 13.0 g/dL Hematocrit 38.5 % Mean Corpuscular Volume 92.1 fL Mean Corpuscular Hemoglobin 31.1 pg Mean Corpuscular Hemoglobin Concent 33.8 g/dl RDW Standard Deviation 50.3 fL RDW Coefficient of Variation 14.8 % Platelet Count 160 K/uL Mean Platelet Volume 10.2 fL Prothrombin Time 11.8 SECONDS Prothromb Time International Ratio 1.1 Activated Partial Thromboplast Time 33.7 SECONDS Partial Thromboplastin Ratio 1.3 Sodium Level 135 mmol/L Potassium Level 3.5 mmol/L Chloride Level 105 mmol/L Carbon Dioxide Level 20 mmol/L Anion Gap 10.0 mmol/L Blood Urea Nitrogen 18 mg/dl Creatinine 0.88 mg/dl Est Creatinine Clear Calc Drug Dose 71.4 ml/min Estimated GFR () 96.7 Estimated GFR (Non- 83.4 BUN/Creatinine Ratio 20.2 Random Glucose 80 mg/dl Calcium Level 7.6 mg/dl Magnesium Level 1.9 mg/dl Total Bilirubin 0.5 mg/dl Aspartate Amino Transf (AST/SGOT) 26 U/L Alanine Aminotransferase (ALT/SGPT) 16 U/L Alkaline Phosphatase 67 U/L Troponin I 0.163 ng/ml Total Protein 5.4 gm/dl Albumin 2.0 gm/dl Globulin 3.4 gm/dl Albumin/Globulin Ratio 0.6 Procalcitonin 73.30 ng/ml Assessment and Plan 77-year-old male admitted with septic shock and metabolic encephalopathy associated with with atrial fibrillation RVR sepsis possible from septic arthritis, Gram-negative bacteremia 2 out of 2, possible from septic arthritis, also pseudogout s/p R knee arthroscopy, I+D, partial synovectomy Postoperative day #1, cont vanc, zosyn plan to restart anticoagulation POD #1,Eliquis per ortho WBAT RLE -PT/OT when medially stable -f/u cultures of synovial fluid, lyme. Synovial fluid aspirate positive for pseudogout. 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, possible urinary tract infection or prostatitis as both are abnormal. Continue vancomycin and Zosyn therapy Lyme IgG positive, IgM is pending, consideration to initiate either Rocephin or doxycycline for Lyme we discussed with intensive care medicine Atrial fibrillation RVR, Continue amiodarone and as needed metoprolol Input appreciated, will start Eliquis for thromboembolic prevention Mild elevated troponin, possible demand ischemia, will continue watch Colitis is noted on CT scan this is yet to be determined its impact in this clinical scenario Hypokalemia hypomagnesemia likely impacting the patient's atrial fibrillation these will be replete DVT prevention is eliquis CODE STATUS will need to be determined Transfer to PCU, increase activity, PT OT, Continued [facility] stay due to: multiple IV medications needed Discharge planning: uncertain
[2018-03-04] MEDS: APIXABAN 5 MG TAB PO SCH (16:33)
--- NOTE | 2018-03-04 17:29 | Critical Care Progress Note ---
Critical Care Progress Note Date of Service Mar 04, 2018. Attending Dr. Chaves Subjective No overnight events, significantly improved, desires to do more activities Objective General: Alert. nontoxic. Skin: Warm, dry, Head: Atraumatic Ears, nose, mouth and throat: airway patent Cardiovascular: Normal peripheral perfusion Respiratory: no respiratory distress Gastrointestinal: Non distended Musculoskeletal: Bandage in place Assessment & Plan 1. Septic shock. 2. UTI due to urinary retention. 3. Septic joint. 4. Gram-negative bacteremia with comparable finding in the arthritic fluid and the urine.: Pansensitive E. coli 5. New onset A. fib, rate controlled on amiodarone. 6. Prostate enlargement with small lesion in the which could represent prostatic abscess versus lesion. Can be addressed as an outpatient. 7. Left inguinal hernia, nonincarcerated, no bowel obstruction. 8. Non-ST elevation IA, secondary to above. 9. Hypokalemia, on replacement.: Resolved Plan: 1. Appreciate orthopedic and cardiology input. 2. Transitioned to oral metoprolol and oral amiodarone 400 mg daily. 3. Start anticoagulation later today, orthopedic and cardiology in agreement. 4. I will continue with Zosyn discontinue vancomycin. 5. discontinue with IV fluid. 6. Follow the arthritic fluid from the right knee.: Gram-negative on Gram stain 7. The patient will need evaluation of the inability to urinate after removing the Blair catheter as he does have prostate enlargement. The prostate showed also a lesion that could represent prostatic abscess versus prostatic nodule. 9. The patient wanted to leave the hospital by Sunday however we spoke to him and he is willing to stay until a full course of treatment. The patient recovered from septic shock but he still have significant recovery ahead of him. 9. All labs are reviewed as well as imaging. 10. Case discussed with the staff on rounds and details. 11. Stable for downgrade out of ICU Data Medications: Current Inpatient Medications Medications (Trade) Dose Ordered Sig/Mirella Route Start Time Stop Time Status Last Admin Dose Admin Ioversol (Optiray 320) 100 ml UD PRN IV 03/02/18 12:45 03/06/18 12:44 Miscellaneous Information (Consult) 1 ea UD PRN N/A 03/02/18 13:45 04/01/18 13:44 Nitroglycerin (Nitrostat Tab) 0.4 mg UD PRN SL 03/02/18 13:15 04/01/18 13:14 Metoprolol Tartrate (Lopressor Iv) 5 mg Q4 IV. 03/02/18 16:00 04/01/18 15:59 03/04/18 16:34 5 MG Piperacillin Sod/ Tazobactam Sod 4.5 gm/Dextrose 120 ml @ 30 mls/hr Q8H IV 03/02/18 21:00 03/12/18 20:59 03/04/18 12:32 30 MLS/HR Oxycodone HCl (Roxicodone Immediate Rel Tab) 1-2 TABS FOR PAIN 1 TABLET ... Q4H PRN PO 03/03/18 15:30 03/17/18 15:29 Morphine Sulfate (MoRPHine SULFATE INJ) 3 mg Q4H PRN IV 03/03/18 15:30 03/17/18 15:29 Magnesium Hydroxide (Milk Of Magnesia Susp) 30 ml Q6H PRN PO 03/03/18 15:30 04/02/18 15:29 Docusate Sodium (coLACE CAP) 100 mg BID PO 03/03/18 21:00 04/02/18 20:59 03/04/18 08:56 100 MG Diphenhydramine HCl (Benadryl Cap) 25 mg Q8H PRN PO 03/03/18 15:30 04/02/18 15:29 Multivitamins (Multivitamin Tab) 1 tab QAM PO 03/04/18 09:00 04/03/18 08:59 03/04/18 08:56 1 TAB Ondansetron HCl (Zofran Inj) 4 mg Q6H PRN IV 03/03/18 15:30 04/02/18 15:29 Pantoprazole Sodium (Protonix Tab) 40 mg QAM PO 03/04/18 09:00 03/07/18 08:59 03/04/18 08:56 40 MG Apixaban (Eliquis) 5 mg BIDM PO 03/04/18 16:30 04/03/18 16:29 03/04/18 16:33 5 MG Heparin Sodium (Porcine) (Heparin 10 Unit/ ml 5 ml Flush) 5 ml PRN PRN FLUSH 03/04/18 00:15 04/03/18 00:14 Amiodarone HCl (Cordarone Tab) 400 mg DAILY PO 03/05/18 09:00 04/04/18 08:59 I & O: 24-Hour Column 03/05/18 08:00 Intake Total 963 ml Output Total 300 ml Balance 663 ml Vital Signs: Date Time Temp Pulse Resp B/P (MAP) Pulse Ox O2 Delivery O2 Flow Rate FiO2 03/04/18 16:34 110 136/78 03/04/18 15:40 37.0 108 17 132/87 (102) 94 Room Air 03/04/18 13:06 110 137/68 03/04/18 10:00 100 21 95 03/04/18 09:01 111 23 137/93 (108) 95 03/04/18 09:00 111 21 94 03/04/18 08:59 110 125/86 03/04/18 08:01 104 23 125/86 (99) 94 03/04/18 08:00 Nasal Cannula 03/04/18 08:00 36.6 112 19 125/86 (99) 94 Nasal Cannula 2.0 03/04/18 08:00 110 20 94 03/04/18 08:00 Nasal Cannula 2.0 03/04/18 07:01 110 13 137/94 (108) 94 03/04/18 07:00 102 10 95 03/04/18 06:01 96 19 127/81 (96) 91 03/04/18 06:00 94 16 93 03/04/18 05:01 94 14 114/77 (89) 89 03/04/18 05:00 96 10 91 03/04/18 04:14 96 123/86 03/04/18 04:09 108 21 143/99 (114) 95 03/04/18 04:00 36.6 109 20 95 03/04/18 03:01 96 24 123/86 (98) 95 03/04/18 03:00 100 21 95 03/04/18 02:01 97 20 124/89 (101) 94 03/04/18 02:00 97 18 94 03/04/18 01:01 108 17 121/84 (96) 95 03/04/18 01:00 98 24 91 03/04/18 00:11 102 123/80 03/04/18 00:01 105 20 115/78 (90) 95 03/04/18 00:00 36.7 104 20 94 03/03/18 23:01 102 21 123/80 (94) 94 03/03/18 23:00 100 18 94 03/03/18 22:01 92 20 120/79 (93) 97 03/03/18 22:00 94 15 98 03/03/18 21:01 107 17 132/89 (103) 97 03/03/18 21:00 107 20 98 03/03/18 20:54 102 111/81 03/03/18 20:01 105 15 118/82 (94) 96 03/03/18 20:00 98 Nasal Cannula 2.0 03/03/18 20:00 36.9 104 23 97 03/03/18 19:01 102 20 112/79 (90) 97 03/03/18 19:00 103 18 98 03/03/18 18:01 102 17 111/81 (91) 98 Nasal Cannula 2.0 Laboratory Results: Last 24 Hours Test 03/04/18 04:23 White Blood Count 15.75 K/uL Red Blood Count 4.18 M/uL Hemoglobin 13.0 g/dL Hematocrit 38.5 % Mean Corpuscular Volume 92.1 fL Mean Corpuscular Hemoglobin 31.1 pg Mean Corpuscular Hemoglobin Concent 33.8 g/dl RDW Standard Deviation 50.3 fL RDW Coefficient of Variation 14.8 % Platelet Count 160 K/uL Mean Platelet Volume 10.2 fL Prothrombin Time 11.8 SECONDS Prothromb Time International Ratio 1.1 Activated Partial Thromboplast Time 33.7 SECONDS Partial Thromboplastin Ratio 1.3 Sodium Level 135 mmol/L Potassium Level 3.5 mmol/L Chloride Level 105 mmol/L Carbon Dioxide Level 20 mmol/L Anion Gap 10.0 mmol/L Blood Urea Nitrogen 18 mg/dl Creatinine 0.88 mg/dl Est Creatinine Clear Calc Drug Dose 71.4 ml/min Estimated GFR () 96.7 Estimated GFR (Non- 83.4 BUN/Creatinine Ratio 20.2 Random Glucose 80 mg/dl Calcium Level 7.6 mg/dl Magnesium Level 1.9 mg/dl Total Bilirubin 0.5 mg/dl Aspartate Amino Transf (AST/SGOT) 26 U/L Alanine Aminotransferase (ALT/SGPT) 16 U/L Alkaline Phosphatase 67 U/L Troponin I 0.163 ng/ml Total Protein 5.4 gm/dl Albumin 2.0 gm/dl Globulin 3.4 gm/dl Albumin/Globulin Ratio 0.6 Procalcitonin 73.30 ng/ml
[2018-03-05] VITALS (9 sets, daily range): BP systolic 100–145; BP diastolic 63–102; PULSE 56–113; TEMP 36.4–36.7; O2SAT 2–96
[2018-03-05] MEDS: METOPROLOL TARTRATE 1 MG/ML VIAL IV. SCH ×4 (00:38→10:20)
[2018-03-05] MEDS ORDERED: VANCOMYCIN TROUGH ONE (02:30)
[2018-03-05] MEDS: PIPERACILL/TAZOBAC IV 4.5 GM in D5W 100 ML IV SCH (04:15)
[2018-03-05 06:08] LABS: HEMATOCRIT 39.6 % (42-52); HEMOGLOBIN 13.5 g/dL (14.0-18.0); MEAN CELL VOLUME 90.8 fL (80-100); MEAN CORPUSCULAR HGB CONC 34.1 g/dl (32-36); MEAN PLATELET VOLUME 10.2 fL (7.4-10.4); PLATELET COUNT 179 K/uL (130-400); RED CELL DISTRIBUTION WIDTH CV 14.6 % (11.5-14.5)
[2018-03-05 06:16] LABS: PTT PATIENT 29.9 SECONDS (21.0-31.0)
[2018-03-05 06:47] LABS: ALBUMIN 2.1 gm/dl (3.4-5.0); CREATININE 0.92 mg/dl (0.60-1.40); POTASSIUM 3.2 mmol/L (3.5-5.1); TOTAL PROTEIN 5.8 gm/dl (6.4-8.2)
[2018-03-05] MEDS ORDERED: PROPOFOL IV EMULSION 10 MG/ML 20 ML VIAL ONE (07:23)
--- NOTE | 2018-03-05 07:41 | [facility] Operative Report ---
Operative Report Date of Service Mar 05, 2018. Operative Report Procedure performed: Cardioversion Indication: Atrial flutter Staff construction project administrator: Zeus Raza MD Procedure in detail: The patient was informed of the risks benefits and alternatives to the intended procedure. He understood such which proceed. He was taken to the cardiac catheterization suite holding area. A general anesthetic was administered by the Anesthesiology Service. Once appropriately anesthetized, the patient was cardioverted using 30 joules delivered in a biphasic fashion. This returned the patient to sinus rhythm. The patient tolerated procedure well, there were no immediate complications. Patient was neurologically intact subsequent to the procedure. Impression: Successful cardioversion from atrial flutter to normal sinus rhythm I attest to the content of the Intraoperative Record and any orders documented therein. Any exceptions are noted below.
[2018-03-05] MEDS ORDERED: POTASSIUM CHLORIDE 10 MEQ TABCR PO STA (07:47)
--- NOTE | 2018-03-05 07:51 | Anesthesiology Progress Note ---
Anesthesia Post Op Note Date & Time Mar 05, 2018 at 07:50 Vital Signs Pain Intensity: 0 Vital Signs Past 12 Hours Date Time Temp Pulse Resp B/P (MAP) Pulse Ox O2 Delivery O2 Flow Rate FiO2 03/05/18 07:45 60 15 99/70 (80) 96 Room Air 03/05/18 07:40 61 24 100/63 2 Nasal Cannula 03/05/18 07:37 36.4 113 20 141/102 (115) 94 Room Air 03/05/18 07:35 62 24 112/76 6 Nasal Cannula 03/05/18 07:30 112 24 134/102 6 Nasal Cannula 03/05/18 04:10 109 148/89 03/05/18 03:39 36.7 110 17 139/93 (108) 93 Room Air 03/05/18 00:38 109 148/89 03/04/18 23:04 36.5 109 17 148/89 (108) 95 Room Air 03/04/18 20:53 112 117/82 03/04/18 20:00 95 Room Air Notes Mental Status: alert / awake / arousable, participated in evaluation Pt Amnestic to Procedure: Yes Nausea / Vomiting: adequately controlled Pain: adequately controlled Airway Patency, RR, SpO2: stable & adequate BP & HR: stable & adequate Hydration State: stable & adequate Anesthetic Complications: no major complications apparent
[2018-03-05] MEDS ORDERED: ATROPINE SULFATE 0.1 MG/ML 5ML SYR IV PRN (08:00)
[2018-03-05] MEDS ORDERED: EpHEDrine SULFATE INJ 50 MG/ML AMP IV PRN (08:00)
[2018-03-05] MEDS: AMIODARONE 200 MG TAB PO SCH (09:03)
[2018-03-05] MEDS: APIXABAN 5 MG TAB PO SCH ×2 (09:04→16:27)
[2018-03-05] MEDS: DOCUSATE SODIUM 100 MG CAP PO SCH ×2 (09:04→20:11)
[2018-03-05] MEDS: POTASSIUM CHLR 10 MEQ / WTR 100 ML IV SCH ×2 (09:04→10:00)
[2018-03-05] MEDS: PANTOprazole SOD 40 MG TAB PO SCH (09:04)
[2018-03-05] MEDS: MULTIVITAMIN TAB PO SCH (09:04)
--- NOTE | 2018-03-05 11:20 | Orthopedic Progress Note ---
Orthopedic Progress Note Date of Service Mar 05, 2018. Subjective Post OP Day: 2 Reports: feeling well, Denies: complaints Objective calves soft nontender, N/V intact, A&O x3, toes mobile Dressings removed. Wounds benign. No erythema or swelling. Good ROM of the right knee without pain. redressed with 4x3 gauze and conrado wrap. Date Time Temp Pulse Resp B/P (MAP) Pulse Ox O2 Delivery O2 Flow Rate FiO2 03/05/18 08:00 Room Air 03/05/18 08:00 58 03/05/18 07:59 59 15 97/63 (74) 96 Room Air 03/05/18 07:55 60 15 100/63 (75) 96 Room Air 03/05/18 07:45 60 15 99/70 (80) 96 Room Air 03/05/18 07:40 61 24 100/63 2 Nasal Cannula 03/05/18 07:37 36.4 113 20 141/102 (115) 94 Room Air 03/05/18 07:35 62 24 112/76 6 Nasal Cannula 03/05/18 07:30 112 24 134/102 6 Nasal Cannula 03/05/18 04:10 109 148/89 03/05/18 03:39 36.7 110 17 139/93 (108) 93 Room Air 03/05/18 00:38 109 148/89 03/04/18 23:04 36.5 109 17 148/89 (108) 95 Room Air 03/04/18 20:53 112 117/82 03/04/18 20:00 95 Room Air 03/04/18 19:32 36.8 112 18 117/82 (94) 95 Room Air 03/04/18 16:34 110 136/78 03/04/18 15:40 37.0 108 17 132/87 (102) 94 Room Air 03/04/18 13:06 110 137/68 Laboratory Results 24 Hours: Test 03/05/18 05:21 Hematocrit 39.6 % Hemoglobin 13.5 g/dL Prothromb Time International Ratio 1.0 Prothrombin Time 10.7 SECONDS Assessment & Plan Assessment: Right knee septic arthritis, pseudogout s/p R knee arthroscopy, I+D, partial synovectomy Postoperative day #2 Plan: -continue IV abx per medical team - isatu staton -May restart anticoagulation POD #1, xarelto -WBAT RLE -PT/OT when medially stable -f/u cultures of synovial fluid, lyme. Synovial fluid aspirate positive for pseudogout. Treatment per medical team. May change dressing tomorrow and switch to Band Aids if wounds are dry. Patient seen and examined, agree with above assessment. No further intervention surgically at this time. Patient will need sutures removed in 10- 14 days upon discharge.
--- NOTE | 2018-03-05 12:13 | Progress Note ---
Progress Note Date of Service Mar 05, 2018. Progress Note ID Consult Dictated #[id number] A/P: 1. E. coli Sepsis 2. E. coli UTI 3. Septic arthritis right knee - lyme pcr pending 4. Leukocytosis - resolved -Continue IV abx for now, suggest unasyn -Pt declined further IV abx at d/c would suggest upon d/c change to keflex 500mg po tid x 14 days and doxy 100mg po bid x 28 days -thank you
--- NOTE | 2018-03-05 13:40 | INFECT. DISEASE CONSULTATION ---
DATE OF CONSULTATION: 03/05/2018 HISTORY OF PRESENT ILLNESS: This is a 77-year-old gentleman who was brought to the hospital for acute mental status change and urinary incontinence at home. He did have blood cultures and urine cultures as part of his workup. In the ER, his UA had greater than 30 WBCs and +2 bacteria. His urine cultures as well as his initial blood cultures grew pansensitive E. coli. Repeat blood cultures yesterday are pending. He was initially found to have a low white blood cell count of 2.9, which in 24 hours increased to 20,000 and it was down to 10.8. He has been on Zosyn since admission to the hospital and is tolerating this well. He additionally had high fevers upon admission with a T-max of 40.7 on the . He was persistently febrile throughout the day on the and on the had an intermittent fever of 38.3. Since that time, he has been afebrile. He states he is feeling significantly better. He currently denies any urinary symptoms. He denies any fevers or chills. He denies any chest pain, cough or shortness of breath. He is eating well. He is tolerating Zosyn well. He does admit to an unknown PENICILLIN ALLERGY, but has not had any difficulty with Zosyn during this admission. He also had complaints of a right swollen leg with pain after a fall 6 months prior. An aspiration was obtained on the and had 11,788 white blood cells with 75% neutrophils and aspiration did show pseudogout. Cultures are negative; however, his Gram stain had rare gram-negative rods. An AFB smear is negative. A Lyme PCR is pending. A Lyme screen, however, was positive. He did undergo a CAT scan of the leg in the ER which showed a large complex joint effusion which measured 14 x 6 x 10 cm with popliteal cyst as well. His CAT scan of the abdomen and pelvis on the showed bladder wall thickening with enlarged prostate and a cyst which could not rule out abscess. There was no hydronephrosis or stones. He currently is feeling much better and states he would like to be discharged to home. Also, he states he does not have medical insurance and is not interested in pursuing any additional treatment with intravenous antibiotics upon discharge from the hospital. REVIEW OF SYSTEMS: His remaining review of systems is reviewed and unremarkable. PAST MEDICAL AND SURGICAL HISTORY: He denies any past medical or surgical history. PAST FAMILY HISTORY: Noncontributory. ALLERGIES: He has no known drug allergies recorded, but states he did have a REACTION TO PENICILLIN as a child, but is tolerating Zosyn without difficulty. SOCIAL HISTORY: Significant for history of tobacco use. He occasionally drinks alcohol. He denies any drug use. CURRENT MEDICATIONS: Eliquis, multivitamins, Protonix, subQ heparin, Colace, oxycodone, morphine, milk of magnesia, Benadryl, Zofran, Zosyn, Lopressor. PHYSICAL EXAMINATION: VITAL SIGNS: He is currently afebrile, pulse 56, respiratory rate 19, blood pressure 115/68, oxygen saturation is 96% on room air. GENERAL: He is awake, alert and oriented x3. He is in no acute distress. HEENT: Mucous membranes are moist. Extraocular muscles are intact. Dentition is poor. HEART: Regular. LUNGS: Clear. ABDOMEN: Soft, nontender and nondistended. EXTREMITIES: There is no lower extremity edema. Right knee dressing is clean, dry and intact. LABORATORY STUDIES: CBC today, white blood cell count 10.5, hemoglobin 13.5, platelets 179. Chemistry panel: Sodium 141, potassium 3.2, chloride 107, bicarbonate 23, BUN 19, creatinine 0.9, glucose 77. LFTs are within normal limits. Procalcitonin is 73. UA is as above. Lyme screen is positive. Western blot is pending. Joint PCR is pending. Initial blood cultures from the are growing pansensitive E. coli. Urine culture is growing the same. Aspiration of the knee does have gram-negative rods on Gram stain, but no growth to date. Repeat blood cultures from the are pending. IMAGING DATA: Reviewed as above. ASSESSMENT AND PLAN: 1. Escherichia coli septicemia, likely secondary to urinary source. 2. Septic arthritis versus pseudogout of the right knee. At this time, he will be continued on intravenous antibiotics. I will place him on Rocephin as this will treat the E. coli infection and also any underlying Lyme disease that may be present. His PCR is pending. We did have a long discussion regarding outpatient intravenous antibiotics and he has declined any additional therapy with IV antibiotics secondary to insurance issues and he would like to be transitioned to oral antibiotics on discharge. My recommendation would be oral Keflex 500 mg 3 times daily to complete a 14-day course and on doxycycline 100 mg twice daily to complete a 28-day course for the possibility of underlying Lyme arthritis. Thank you for this consultation.
--- NOTE | 2018-03-05 14:47 | Progress Note ---
Subjective Date of Service: Mar 05, 2018. Subjective Pt evaluation today including: conversation w/ patient, conversation w/ family , physical exam, chart review, lab review, review of studies, conversation w/ senior billing consultant, review of inpatient medication list Feeling good, eating breakfast, no complaint, conversational, denies fever Problem List Medical Problems: (1) Atrial fibrillation with RVR Status: Acute (2) V tach Status: Acute Review of Systems Constitutional: + weakness, + fatigue, No fever, No chills, No sweats, No weight loss, No problem reported Eyes: No worsening of vision, No eye pain, No redness, No discharge, No diplopia ENT: No hearing loss, No unusual epistaxis, No nasal symptoms, No sore throat, No tinnitus, No dental problems, No trouble swallowing Respiratory: + shortness of breath, No cough, No sputum, No wheezing, No dyspnea on exertion, No dyspnea at rest, No hemoptysis Cardiac: No chest pain, No orthopnea, No PND, No edema, No claudication, No palpitations Abdomen: No pain, No nausea, No vomiting, No diarrhea, No constipation Musculoskeletal: + joint pain, No muscle pain, No swelling, No calf pain Male : No dysuria, No urinary frequency, No incontinence, No nocturia more than once/night, No slowing stream, No hematuria Neurologic: No memory loss, No paralysis, No weakness, No numbness/tingling, No vertigo, No balance problems Psychiatric: No depression symptoms, No anhedonism, No anxiety, No insomnia, No substance abuse Heme: No abnormal bleeding/bruising, No clotting problems, No swollen lymph nodes, No night sweats Endo: No fatigue, No excessive thirst, No excessive urination Skin: No rash, No itch, No new/changing skin lesions, No color change, No bleeding Objective Vital Signs Date Time Temp Pulse Resp B/P (MAP) Pulse Ox O2 Delivery O2 Flow Rate FiO2 03/05/18 11:44 36.5 56 19 115/68 (84) 96 Room Air 03/05/18 10:20 80 03/05/18 08:00 Room Air 03/05/18 07:59 59 15 97/63 (74) 96 Room Air 03/05/18 07:55 60 15 100/63 (75) 96 Room Air 03/05/18 07:45 60 15 99/70 (80) 96 Room Air 03/05/18 07:40 61 24 100/63 2 Nasal Cannula 03/05/18 07:37 36.4 113 20 141/102 (115) 94 Room Air 03/05/18 07:35 62 24 112/76 6 Nasal Cannula 03/05/18 07:30 112 24 134/102 6 Nasal Cannula 03/05/18 04:10 109 148/89 03/05/18 03:39 36.7 110 17 139/93 (108) 93 Room Air 03/05/18 00:38 109 148/89 03/04/18 23:04 36.5 109 17 148/89 (108) 95 Room Air 03/04/18 20:53 112 117/82 03/04/18 20:00 95 Room Air 03/04/18 19:32 36.8 112 18 117/82 (94) 95 Room Air 03/04/18 16:34 110 136/78 03/04/18 15:40 37.0 108 17 132/87 (102) 94 Room Air Physical Exam General Appearance: WD/WN, no apparent distress, + thin Eyes: normal inspection, PERRL, EOMI, sclerae normal ENT: normal ENT inspection, hearing grossly normal, pharynx normal Neck: supple, no adenopathy, thyroid normal, no JVD, no carotid bruits, trachea midline Respiratory/Chest: chest non-tender, normal breath sounds, no respiratory distress, no accessory muscle use, + decreased breath sounds Cardiovascular: regular rate, rhythm, no edema, no gallop, no JVD, no murmur Abdomen: normal bowel sounds, non tender, soft, no organomegaly, no pulsatile mass Extremities: non-tender, normal inspection, no pedal edema, normal capillary refill, pelvis stable, + pertinent finding (Right knee in dress) Neurologic/Psychiatric: home health specialist II-XII nml as tested, no motor/sensory deficits, alert, normal mood/affect, oriented x 3 Skin: normal color, warm/dry, no rash Lymphatic: no adenopathy Laboratory Results Last 24 Hours Test 03/05/18 05:21 White Blood Count 10.50 K/uL Red Blood Count 4.36 M/uL Hemoglobin 13.5 g/dL Hematocrit 39.6 % Mean Corpuscular Volume 90.8 fL Mean Corpuscular Hemoglobin 31.0 pg Mean Corpuscular Hemoglobin Concent 34.1 g/dl RDW Standard Deviation 49.0 fL RDW Coefficient of Variation 14.6 % Platelet Count 179 K/uL Mean Platelet Volume 10.2 fL Prothrombin Time 10.7 SECONDS Prothromb Time International Ratio 1.0 Activated Partial Thromboplast Time 29.9 SECONDS Partial Thromboplastin Ratio 1.2 Sodium Level 141 mmol/L Potassium Level 3.2 mmol/L Chloride Level 107 mmol/L Carbon Dioxide Level 23 mmol/L Anion Gap 10.0 mmol/L Blood Urea Nitrogen 19 mg/dl Creatinine 0.92 mg/dl Est Creatinine Clear Calc Drug Dose 68.3 ml/min Estimated GFR () 93.3 Estimated GFR (Non- 80.5 BUN/Creatinine Ratio 20.5 Random Glucose 77 mg/dl Calcium Level 8.0 mg/dl Magnesium Level 1.9 mg/dl Total Bilirubin 0.5 mg/dl Aspartate Amino Transf (AST/SGOT) 17 U/L Alanine Aminotransferase (ALT/SGPT) 16 U/L Alkaline Phosphatase 80 U/L Total Protein 5.8 gm/dl Albumin 2.1 gm/dl Globulin 3.7 gm/dl Albumin/Globulin Ratio 0.6 Assessment and Plan 77-year-old male admitted with septic shock and metabolic encephalopathy associated with with atrial fibrillation RVR sepsis , Sepsis possible from E. coli bacteremia, E. coli UTI possible septic arthritis, or, pseudogout s/p R knee arthroscopy, I+D, partial synovectomy Postoperative day #2 cont vanc, zosyn plan to restart anticoagulation POD #1,Eliquis per ortho WBAT RLE -f/u cultures of synovial fluid, lyme. Synovial fluid aspirate positive for pseudogout. 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, Has been on continue vancomycin and Zosyn therapy, will switch to Unasyn per infectious disease recommendation, Lyme IgG positive, IgM is pending, Planning to discharge home with oral Keflex and oral doxycycline Atrial fibrillation RVR, Continue amiodarone and as needed metoprolol started Eliquis for thromboembolic prevention Mild elevated troponin, possible demand ischemia, will continue watch Colitis is noted on CT scan this is yet to be determined its impact in this clinical scenario Hypokalemia hypomagnesemia likely impacting the patient's atrial fibrillation these will be replete DVT prevention is eliquis CODE STATUS will need to be determined increase activity, PT OT done, PT recommended outpatient PT, possible discharge home tomorrow Continued [facility] stay due to: multiple IV medications needed Discharge planning: home
--- NOTE | 2018-03-05 16:16 | Cardiology Follow-Up ---
Subjective Date of Service: Mar 05, 2018. Pt evaluation today including: conversation w/ patient, conversation w/ family , physical exam, chart review, lab review, review of studies, review of inpatient medication list History of Present Illness Patient underwent successful cardioversion this morning. He is currently denying pain. He states that his breathing is normal. He is anxious to ambulate and go home. Social History Smoking Status: Former Smoker (quit at 31 y/o) History of Alcohol Use: No Review of Systems Respiratory: + shortness of breath, No cough, No sputum, No wheezing, No dyspnea on exertion, No dyspnea at rest, No hemoptysis Cardiac: No chest pain, No orthopnea, No PND, No edema, No claudication, No palpitations Per HPI. Patient does feel constipated and wishes to have a bowel movement. Generally does not have abdominal complaints such as nausea or vomiting. He has not noticed any lower extremity edema. He is not sure if he had a fever recently. He does report an inguinal hernia. Objective Vital Signs Past 12 Hours Date Time Temp Pulse Resp B/P (MAP) Pulse Ox O2 Delivery O2 Flow Rate FiO2 03/05/18 11:44 36.5 56 19 115/68 (84) 96 Room Air 03/05/18 10:20 80 03/05/18 08:00 Room Air 03/05/18 07:59 59 15 97/63 (74) 96 Room Air 03/05/18 07:55 60 15 100/63 (75) 96 Room Air 03/05/18 07:45 60 15 99/70 (80) 96 Room Air 03/05/18 07:40 61 24 100/63 2 Nasal Cannula 03/05/18 07:37 36.4 113 20 141/102 (115) 94 Room Air 03/05/18 07:35 62 24 112/76 6 Nasal Cannula 03/05/18 07:30 112 24 134/102 6 Nasal Cannula Last Recorded Weight-Kilograms: 76.600 Intake & Output 8-Hour Column 03/05/18 03/06/18 03/06/18 16:00 00:00 08:00 Intake Total 744 ml Output Total 175 ml Balance 569 ml 24-Hour Column 03/06/18 08:00 Intake Total 744 ml Output Total 175 ml Balance 569 ml Physical Exam The patient is alert and oriented. Mood and affect appeared normal. He answered all questions appropriately. HEENT: Pupils are equal and reactive to light and accommodation. Extraocular movements are intact. The sclerae are anicteric. Neuro: Cranial nerves intact Neck: Patient's neck is supple. He has palpable carotid pulses bilaterally without bruits on auscultation. There is no evidence of jugular venous distention. The thyroid is not enlarged. Lungs: Clear to auscultation bilaterally. He has good air movement without use of accessory muscles. No rales wheezes or rhonchi. Cardiac: Heart demonstrates a regular rate and rhythm. Normal S1 and S2. No murmurs on examination. Pulses: The patient has palpable radial pulses bilaterally that are equal in intensity Extremities: There was no evidence of hypoperfusion. Skin: I did not appreciate any rashes on examination today. Data Laboratory Results: Last 24 Hours Test 03/05/18 05:21 White Blood Count 10.50 K/uL Red Blood Count 4.36 M/uL Hemoglobin 13.5 g/dL Hematocrit 39.6 % Mean Corpuscular Volume 90.8 fL Mean Corpuscular Hemoglobin 31.0 pg Mean Corpuscular Hemoglobin Concent 34.1 g/dl RDW Standard Deviation 49.0 fL RDW Coefficient of Variation 14.6 % Platelet Count 179 K/uL Mean Platelet Volume 10.2 fL Prothrombin Time 10.7 SECONDS Prothromb Time International Ratio 1.0 Activated Partial Thromboplast Time 29.9 SECONDS Partial Thromboplastin Ratio 1.2 Sodium Level 141 mmol/L Potassium Level 3.2 mmol/L Chloride Level 107 mmol/L Carbon Dioxide Level 23 mmol/L Anion Gap 10.0 mmol/L Blood Urea Nitrogen 19 mg/dl Creatinine 0.92 mg/dl Est Creatinine Clear Calc Drug Dose 68.3 ml/min Estimated GFR () 93.3 Estimated GFR (Non- 80.5 BUN/Creatinine Ratio 20.5 Random Glucose 77 mg/dl Calcium Level 8.0 mg/dl Magnesium Level 1.9 mg/dl Total Bilirubin 0.5 mg/dl Aspartate Amino Transf (AST/SGOT) 17 U/L Alanine Aminotransferase (ALT/SGPT) 16 U/L Alkaline Phosphatase 80 U/L Total Protein 5.8 gm/dl Albumin 2.1 gm/dl Globulin 3.7 gm/dl Albumin/Globulin Ratio 0.6 EKG: Sinus bradycardia Telemetry reviewed: Sinus rhythm and sinus bradycardia Assessment and Plan 1. Atrial fibrillation: He was cardioverted from atrial flutter normal sinus rhythm this morning. He has not required any additional beta-karen. He is on amiodarone I think would be reasonable to continue him on low-dose amiodarone for at least 6 weeks possibly a little longer and attempt to prevent recurrent atrial flutter as he recovers from this hospitalization. Long-term this is not a great option for him due to the potential side effects. I think if he has recurrent arrhythmia is we would consider catheter based therapies. He should be continued on Eliquis for at least 1 month. He should follow-up in the Cardiology Clinic around that time for re-evaluation and discussion regarding ongoing treatment for this arrhythmia. 2. Elevated cardiac biomarkers: This was in the setting of mild hypotension, acidosis and extreme tachycardia. Do not believe this represents an acute coronary syndrome. We will consider an outpatient evaluation for coronary disease once he has resolved his acute illness.
[2018-03-05] MEDS: AMPICILLIN/SULBACTAM SOD INJ 3,000 MG in SODIUM CHLORIDE 0.9% 100ML 100 ML IV SCH ×2 (16:27→22:00)
[2018-03-06] VITALS (15 sets, daily range): BP systolic 121–173; BP diastolic 73–107; PULSE 59–110; TEMP 36.4–36.8; O2SAT 92–96
[2018-03-06] MEDS ORDERED: METOPROLOL TARTRATE 1 MG/ML VIAL IV STA (02:05)
[2018-03-06] MEDS ORDERED: METOPROLOL TARTRATE 1 MG/ML VIAL ONE (02:12)
[2018-03-06] MEDS: AMPICILLIN/SULBACTAM SOD INJ 3,000 MG in SODIUM CHLORIDE 0.9% 100ML 100 ML IV SCH (04:24)
[2018-03-06 06:30] LABS: PTT PATIENT 28.3 SECONDS (21.0-31.0)
[2018-03-06 06:43] LABS: CALCIUM 8.1 mg/dl (8.5-10.1); CREATININE 0.97 mg/dl (0.60-1.40); POTASSIUM 3.6 mmol/L (3.5-5.1)
[2018-03-06] MEDS: APIXABAN 5 MG TAB PO SCH (08:57)
[2018-03-06] MEDS: DOCUSATE SODIUM 100 MG CAP PO SCH ×2 (08:58→21:06)
[2018-03-06] MEDS: AMIODARONE 200 MG TAB PO SCH (08:58)
[2018-03-06] MEDS: CEPHALEXIN MONOHYDRATE 500 MG CAP PO SCH ×4 (08:58→21:06)
[2018-03-06] MEDS: METOPROLOL TARTRATE 25 MG TAB PO SCH ×2 (08:59→21:06)
[2018-03-06] MEDS: DOXYCYCLINE HYCLATE 100 MG CAP PO SCH ×2 (08:59→21:06)
[2018-03-06] MEDS: PANTOprazole SOD 40 MG TAB PO SCH (08:59)
[2018-03-06] MEDS: MULTIVITAMIN TAB PO SCH (08:59)
--- NOTE | 2018-03-06 09:10 | Anesthesiology Progress Note ---
Anesthesia Post Op Note Date & Time Mar 06, 2018 at 09:10 Vital Signs Pain Intensity: 0.0 Vital Signs Past 12 Hours Date Time Temp Pulse Resp B/P (MAP) Pulse Ox O2 Delivery O2 Flow Rate FiO2 03/06/18 07:16 36.7 110 18 131/94 (106) 94 Room Air 03/06/18 03:10 36.6 104 17 150/102 (118) 94 03/06/18 02:57 105 148/105 (119) 03/06/18 02:42 104 152/107 (122) 03/06/18 02:30 103 145/98 (114) 03/06/18 02:23 102 16 153/102 (119) 92 Room Air 03/06/18 02:16 105 146/95 03/06/18 01:54 108 160/101 (120) 03/06/18 01:53 36.8 109 19 173/106 (128) 93 Room Air 03/06/18 00:16 36.8 59 17 129/76 (93) 94 Room Air 03/06/18 00:00 Room Air Notes Mental Status: alert / awake / arousable, participated in evaluation Pt Amnestic to Procedure: Yes Nausea / Vomiting: adequately controlled Pain: adequately controlled Airway Patency, RR, SpO2: stable & adequate BP & HR: stable & adequate Hydration State: stable & adequate Anesthetic Complications: no major complications apparent
--- NOTE | 2018-03-06 12:00 | Cardiology Follow-Up ---
Subjective Date of Service: Mar 06, 2018. Pt evaluation today including: conversation w/ patient, conversation w/ family , physical exam, chart review, lab review, review of studies, review of inpatient medication list History of Present Illness Patient is feeling well this morning. He did have recurrence of his atrial flutter early this morning. He is not overtly aware of racing heartbeat. He has been ambulatory without significant dyspnea. He denies any symptoms of chest discomfort. He has not had dizziness or lightheadedness. He is anxious to go home. Social History Smoking Status: Former Smoker (quit at 31 y/o) History of Alcohol Use: No Review of Systems Respiratory: + shortness of breath, No cough, No sputum, No wheezing, No dyspnea on exertion, No dyspnea at rest, No hemoptysis Cardiac: No chest pain, No orthopnea, No PND, No edema, No claudication, No palpitations Per HPI. Patient does feel constipated and wishes to have a bowel movement. Generally does not have abdominal complaints such as nausea or vomiting. He has not noticed any lower extremity edema. He is not sure if he had a fever recently. He does report an inguinal hernia. Objective Vital Signs Past 12 Hours Date Time Temp Pulse Resp B/P (MAP) Pulse Ox O2 Delivery O2 Flow Rate FiO2 03/06/18 11:20 36.6 109 22 134/92 (106) 96 Room Air 03/06/18 08:00 94 Room Air 03/06/18 07:16 36.7 110 18 131/94 (106) 94 Room Air 03/06/18 03:10 36.6 104 17 150/102 (118) 94 03/06/18 02:57 105 148/105 (119) 03/06/18 02:42 104 152/107 (122) 03/06/18 02:30 103 145/98 (114) 03/06/18 02:23 102 16 153/102 (119) 92 Room Air 03/06/18 02:16 105 146/95 03/06/18 01:54 108 160/101 (120) 03/06/18 01:53 36.8 109 19 173/106 (128) 93 Room Air 03/06/18 00:16 36.8 59 17 129/76 (93) 94 Room Air 03/06/18 00:00 Room Air Last Recorded Weight-Kilograms: 74.400 Physical Exam The patient is alert and oriented. Mood and affect appeared normal. He answered all questions appropriately. HEENT: Pupils are equal and reactive to light and accommodation. Extraocular movements are intact. The sclerae are anicteric. Neuro: Cranial nerves intact Neck: Patient's neck is supple. He has palpable carotid pulses bilaterally without bruits on auscultation. There is no evidence of jugular venous distention. The thyroid is not enlarged. Lungs: Clear to auscultation bilaterally. He has good air movement without use of accessory muscles. No rales wheezes or rhonchi. Cardiac: Heart demonstrates a regular rate and rhythm. Normal S1 and S2. No murmurs on examination. Pulses: The patient has palpable radial pulses bilaterally that are equal in intensity Extremities: There was no evidence of hypoperfusion. Skin: I did not appreciate any rashes on examination today. Data Laboratory Results: Last 24 Hours Test 03/06/18 05:17 Prothrombin Time 10.9 SECONDS Prothromb Time International Ratio 1.0 Activated Partial Thromboplast Time 28.3 SECONDS Partial Thromboplastin Ratio 1.1 Sodium Level 142 mmol/L Potassium Level 3.6 mmol/L Chloride Level 108 mmol/L Carbon Dioxide Level 27 mmol/L Anion Gap 6.0 mmol/L Blood Urea Nitrogen 18 mg/dl Creatinine 0.97 mg/dl Est Creatinine Clear Calc Drug Dose 64.8 ml/min Estimated GFR () 87.5 Estimated GFR (Non- 75.5 BUN/Creatinine Ratio 18.1 Random Glucose 87 mg/dl Calcium Level 8.1 mg/dl Phosphorus Level 2.0 mg/dl Magnesium Level 1.9 mg/dl EKG: Atrial flutter with rapid ventricular response Telemetry reviewed: Sinus rhythm converting atrial flutter and approximately 1: 30 a.m. Assessment and Plan 1. Atrial fibrillation: Patient did undergo cardioversion yesterday but has recurrence of his atrial flutter to day. We discussed additional options for treatment of this atrial flutter. One option would be continuation of the amiodarone for longer period of time with reassessment of his rhythm in the outpatient setting. There is a possibility will convert after being on amiodarone for a slightly longer. If he has is not return to sinus rhythm spontaneously on medical therapy he will require another cardioversion. With more amiodarone there is a higher chance that he will maintain sinus rhythm. However, he is known to have severely enlarged right atrium is likely the origin of his atrial flutter. I did discuss with him the option of ablation for a permanent 6 of his arrhythmia. Undergoing ablation with successful treatment would obviate the need for continued antiarrhythmic and anticoagulation. Patient seems very intent on going home today. If he elects to go home I would recommend continuing on amiodarone and Eliquis with follow- up in our clinic in the next week or 2 for assessment of his rhythm. Tolerates the arrhythmia quite well and generally does not have severely elevated ventricular rates. .
--- NOTE | 2018-03-06 14:40 | Progress Note ---
Subjective Date of Service: Mar 06, 2018. Subjective Pt evaluation today including: conversation w/ patient, conversation w/ family , physical exam, chart review, lab review, review of studies, conversation w/ customer service consultant, review of inpatient medication list Generally doing okay no fevers, was having cardioversion yesterday but today back to arrhythmia, with A. fib, heart rate has been up to 104 -110, patient is asymptomatic, denies chest pain palpitation, Problem List Medical Problems: (1) Atrial fibrillation with RVR Status: Acute (2) V tach Status: Acute Review of Systems Constitutional: + weakness, + fatigue, No fever, No chills, No sweats, No weight loss, No problem reported Eyes: No worsening of vision, No eye pain, No redness, No discharge, No diplopia ENT: No hearing loss, No unusual epistaxis, No nasal symptoms, No sore throat, No tinnitus, No dental problems, No trouble swallowing Respiratory: No cough, No sputum, No wheezing, No shortness of breath, No dyspnea on exertion, No dyspnea at rest, No hemoptysis Cardiac: No chest pain, No orthopnea, No PND, No edema, No claudication, No palpitations Abdomen: No pain, No nausea, No vomiting, No diarrhea, No constipation Musculoskeletal: No joint pain, No muscle pain, No swelling, No calf pain Male : No dysuria, No urinary frequency, No incontinence, No nocturia more than once/night, No slowing stream, No hematuria Neurologic: No memory loss, No paralysis, No weakness, No numbness/tingling, No vertigo, No balance problems Psychiatric: No depression symptoms, No anhedonism, No anxiety, No insomnia, No substance abuse Heme: No abnormal bleeding/bruising, No clotting problems, No swollen lymph nodes, No night sweats Endo: No fatigue, No excessive thirst, No excessive urination Skin: No rash, No itch, No new/changing skin lesions, No color change, No bleeding Objective Vital Signs Date Time Temp Pulse Resp B/P (MAP) Pulse Ox O2 Delivery O2 Flow Rate FiO2 03/06/18 11:20 36.6 109 22 134/92 (106) 96 Room Air 03/06/18 08:00 94 Room Air 03/06/18 07:16 36.7 110 18 131/94 (106) 94 Room Air 03/06/18 03:10 36.6 104 17 150/102 (118) 94 03/06/18 02:57 105 148/105 (119) 03/06/18 02:42 104 152/107 (122) 03/06/18 02:30 103 145/98 (114) 03/06/18 02:23 102 16 153/102 (119) 92 Room Air 03/06/18 02:16 105 146/95 03/06/18 01:54 108 160/101 (120) 03/06/18 01:53 36.8 109 19 173/106 (128) 93 Room Air 03/06/18 00:16 36.8 59 17 129/76 (93) 94 Room Air 03/06/18 00:00 Room Air 03/05/18 20:00 94 Room Air 03/05/18 19:23 36.4 60 20 145/85 (105) 95 Room Air 03/05/18 16:42 36.6 57 16 134/77 (96) 96 Room Air 03/05/18 16:00 Room Air Physical Exam General Appearance: WD/WN, no apparent distress, + thin Eyes: normal inspection, PERRL, EOMI, sclerae normal ENT: normal ENT inspection, hearing grossly normal, pharynx normal Neck: supple, no adenopathy, thyroid normal, no JVD, no carotid bruits, trachea midline Respiratory/Chest: chest non-tender, normal breath sounds, no respiratory distress, no accessory muscle use, + decreased breath sounds Cardiovascular: regular rate, rhythm, no edema, no gallop, no JVD, no murmur, + irregularly irregular Abdomen: normal bowel sounds, non tender, soft, no organomegaly, no pulsatile mass Extremities: normal range of motion, non-tender, normal inspection, no pedal edema, no calf tenderness, normal capillary refill, pelvis stable, + pertinent finding (Two places with 2 stitches each in the right anterior knee) Neurologic/Psychiatric: 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 as tested, no motor/sensory deficits, alert, normal mood/affect, oriented x 3 Skin: normal color, warm/dry, no rash Lymphatic: no adenopathy Laboratory Results Last 24 Hours Test 03/06/18 05:17 Prothrombin Time 10.9 SECONDS Prothromb Time International Ratio 1.0 Activated Partial Thromboplast Time 28.3 SECONDS Partial Thromboplastin Ratio 1.1 Sodium Level 142 mmol/L Potassium Level 3.6 mmol/L Chloride Level 108 mmol/L Carbon Dioxide Level 27 mmol/L Anion Gap 6.0 mmol/L Blood Urea Nitrogen 18 mg/dl Creatinine 0.97 mg/dl Est Creatinine Clear Calc Drug Dose 64.8 ml/min Estimated GFR () 87.5 Estimated GFR (Non- 75.5 BUN/Creatinine Ratio 18.1 Random Glucose 87 mg/dl Calcium Level 8.1 mg/dl Phosphorus Level 2.0 mg/dl Magnesium Level 1.9 mg/dl Assessment and Plan 77-year-old male admitted with septic shock and metabolic encephalopathy associated with with atrial fibrillation RVR sepsis , Sepsis possible from E. coli bacteremia, E. coli UTI possible septic arthritis, or, pseudogout s/p R knee arthroscopy, I+D, partial synovectomy Postoperative day #3 per ortho WBAT RLE f/u cultures of synovial fluid, lyme. Synovial fluid aspirate positive for pseudogout. 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, Has been on vancomycin and Zosyn therapy, has switched to oral Keflex, Lyme IgG positive, IgM is pending, has started doxycycline per ID recommendation Atrial fibrillation RVR, had a cardioversion yesterday however back to a flutter / A. fib Cardiology on the case, possible treat medication and anticoagulation for up. Then try cardioversion again, will talk to behavioral health specialist Continue amiodarone and metoprolol , Continue Eliquis for thromboembolic prevention Mild elevated troponin, possible demand ischemia, will continue watch Colitis is noted on CT scan We will follow-up cardiology for the discharge plan DVT prevention is eliquis CODE STATUS will need to be determined increase activity, PT OT done, PT recommended outpatient PT, possible discharge home tomorrow Continued [facility] stay due to: home environment unsafe for pt Discharge planning: uncertain
--- NOTE | 2018-03-06 16:01 | Consultant Recommendations ---
Shoemaking Finisher Recommendations Date of Service Mar 06, 2018. Shoemaking Finisher Recommendations ACTIVITY RECOMMENDATIONS: * You may walk on the leg with or without crutches as comfort permits. * Bending of the knee should start at once. * Do not shower for 48 hours following surgery. SPECIAL CARE INSTRUCTIONS: * You may cleanse the skin adjacent to the small wounds with soap and water at the time of the first dressing change. * The application of an ice bag to the front and sides of the knee will decrease swelling and discomfort for the first 48 hours. * The small incisions may be sore and develop bruising. This bruising does not require any special care. SPECIAL PRECAUTIONS: * If you experience unusual pain unrelieved by prescriptions, temperature elevation (100 degrees F. or above) or progressive swelling or bleeding, you should contact our office at for further evaluation. * You may have been prescribed pain medication. If you experience nausea and/or fine skin rash, discontinue this medication and contact our office at for an alternate medication. DRESSING: * Dressing should be comfortable and absorb any leakage of fluid and/or blood. * The dressing may become moist or bloodstained. * Dressing may be removed at this time and bandaids placed over the small surgical incisions. If can be removed sooner if it becomes very soiled or loose. * Bandaids may be used over next several days as needed and can be discontinued when there is not further drainage from the wounds. FOLLOW UP VISIT: If appointment is not already scheduled: Please call [facility] to make a follow-up appointment to see Dr Shah 10-14 days after the day of your surgery at .
[2018-03-07] VITALS (14 sets, daily range): BP systolic 122–169; BP diastolic 81–116; PULSE 56–114; TEMP 36.3–36.9; O2SAT 93–98
[2018-03-07 05:54] LABS: HEMATOCRIT 38.5 % (42-52); MEAN CELL VOLUME 90.2 fL (80-100); MEAN CORPUSCULAR HEMOGLOBIN 30.4 pg (25-34); MEAN CORPUSCULAR HGB CONC 33.8 g/dl (32-36); MEAN PLATELET VOLUME 9.9 fL (7.4-10.4); PLATELET COUNT 226 K/uL (130-400); RED CELL DISTRIBUTION WIDTH CV 14.6 % (11.5-14.5); RED CELL DISTRIBUTION WIDTH SD 48.1 fL (36.4-46.3); WHITE BLOOD COUNT 6.09 K/uL (4.8-10.8)
[2018-03-07 06:05] LABS: INR 1.1 (0.9-1.1); PTT PATIENT 27.2 SECONDS (21.0-31.0)
[2018-03-07] MEDS: MULTIVITAMIN TAB PO SCH (08:37)
[2018-03-07] MEDS: CEPHALEXIN MONOHYDRATE 500 MG CAP PO SCH ×4 (08:38→20:44)
[2018-03-07] MEDS: DOXYCYCLINE HYCLATE 100 MG CAP PO SCH ×2 (08:38→20:44)
[2018-03-07] MEDS: DOCUSATE SODIUM 100 MG CAP PO SCH ×2 (08:39→20:44)
[2018-03-07] MEDS: PANTOprazole SOD 40 MG TAB PO SCH (08:39)
[2018-03-07] MEDS: METOPROLOL TARTRATE 25 MG TAB PO SCH (08:40)
[2018-03-07] MEDS ORDERED: FENTANYL CITRATE INJ 50 MCG/1 ML 2 ML VIAL ONE ×2 (09:27→10:31)
[2018-03-07] MEDS ORDERED: MIDAZOLAM HCL 5 MG/ML 1 ML VIAL ONE ×2 (09:27→10:47)
[2018-03-07] MEDS ORDERED: HEPARIN SOD (PORCINE) 1000 UNIT/ML 10 ML VIAL ONE (09:44)
--- NOTE | 2018-03-07 09:45 | Pre Sedation Assessment ---
Pre Sedation Assessment General Date of Sedation: Mar 07, 2018. Vital Signs Past 12 Hours Date Time Temp Pulse Resp B/P (MAP) Pulse Ox O2 Delivery O2 Flow Rate FiO2 03/07/18 08:40 56 03/07/18 08:00 36.9 56 20 157/85 (109) 95 Room Air 03/07/18 03:48 36.4 59 17 122/81 (95) 98 Room Air 03/06/18 23:29 36.5 96 18 121/73 (89) 95 Room Air 03/06/18 23:22 Room Air Review Cardiovascular: regular rate, rhythm Lungs: lungs clear Pre-Sedation Airway Assessment Smoking Status: Former Smoker (quit at 31 y/o) Hx of Sleep Apnea: No Short Thick Neck: No Thyro-mental Distance: > 3 Finger Breadths Oral Cavity: Dental Abnormalities Mallampati Classification: Class IV ASA Classification: Class III NPO Status Date of Last Intake of Fluids: Mar 06, 2018 Time of Last Intake of Fluids: 1900 Date of Last Intake of Solids: Mar 06, 2018 Time of Last Intake of Solids: 1899 Procedure Planning Contraindications for Sedation: None Current Medications Reviewed: Yes Notes The planned sedation has been discussed with the patient. Informed Consent was obtained. I have identified the patient, determined the appropriateness of sedation and have assessed the patient immediately prior to the procedure. All medicine(s) and interventions are by my order.
--- NOTE | 2018-03-07 11:01 | Cardiology Procedure Brief Nt ---
Preliminary Cardiology Note Procedure Date Mar 07, 2018. Pre-Procedure Diagnosis Atrial flutter Post-Procedure Diagnosis Atrial flutter, atrial fibrillation, ectopic atrial tachycardia Procedure(s) Performed Electrophysiologic testing, 3D electro anatomical mapping, ablation, cardioversion x2 Semiconductor Engineer Luz Marina Web Machine Tender(s) None Estimated Blood Loss 10 cc Medication(s) Versed, fentanyl Preliminary Findings Multiple atrial arrhythmias Recommendations Continue medical therapy Specimens None Complication(s) None Disposition PCU
[2018-03-07] MEDS ORDERED: AMIODARONE 200 MG TAB PO ONE (11:30)
--- NOTE | 2018-03-07 15:02 | Progress Note ---
Subjective Date of Service: Mar 07, 2018. Subjective Pt evaluation today including: conversation w/ patient, conversation w/ family , physical exam, chart review, lab review, review of studies, conversation w/ bridal stylist sales consultant, review of inpatient medication list Cardioversion done, feeling weak, denies chest pain Problem List Medical Problems: (1) Atrial fibrillation with RVR Status: Acute (2) V tach Status: Acute Review of Systems Constitutional: No fever, No chills, No sweats, No weight loss, No weakness, No fatigue, No problem reported Eyes: No worsening of vision, No eye pain, No redness, No discharge, No diplopia ENT: No hearing loss, No unusual epistaxis, No nasal symptoms, No sore throat, No tinnitus, No dental problems, No trouble swallowing Respiratory: No cough, No sputum, No wheezing, No shortness of breath, No dyspnea on exertion, No dyspnea at rest, No hemoptysis Cardiac: + chest pain, No orthopnea, No PND, No edema, No claudication, No palpitations Abdomen: No pain, No nausea, No vomiting, No diarrhea, No constipation Musculoskeletal: No joint pain, No muscle pain, No swelling, No calf pain Male : No dysuria, No urinary frequency, No incontinence, No nocturia more than once/night, No slowing stream, No hematuria Neurologic: No memory loss, No paralysis, No weakness, No numbness/tingling, No vertigo, No balance problems Psychiatric: No depression symptoms, No anhedonism, No anxiety, No insomnia, No substance abuse Heme: No abnormal bleeding/bruising, No clotting problems, No swollen lymph nodes, No night sweats Endo: No fatigue, No excessive thirst, No excessive urination Skin: No rash, No itch, No new/changing skin lesions, No color change, No bleeding Objective Vital Signs Date Time Temp Pulse Resp B/P (MAP) Pulse Ox O2 Delivery O2 Flow Rate FiO2 03/07/18 14:24 108 18 158/107 (124) 98 03/07/18 13:38 110 163/101 (121) 97 03/07/18 13:02 111 161/105 (123) 95 03/07/18 12:28 111 154/109 (124) 98 03/07/18 11:43 111 169/116 (133) 03/07/18 11:37 36.3 111 18 152/105 (121) 94 8/16/18 11:28 111 18 156/104 (121) 93 03/07/18 11:15 105 16 145/75 (98) 96 Room Air 03/07/18 08:40 56 03/07/18 08:00 36.9 56 20 157/85 (109) 95 Room Air 03/07/18 08:00 Room Air 03/07/18 03:48 36.4 59 17 122/81 (95) 98 Room Air 03/06/18 23:29 36.5 96 18 121/73 (89) 95 Room Air 03/06/18 23:22 Room Air 03/06/18 21:00 96 130/80 (97) 03/06/18 19:52 36.8 90 18 134/84 (101) 95 Room Air 03/06/18 19:30 Room Air 03/06/18 15:34 36.4 109 18 136/92 (107) 96 Room Air Physical Exam General Appearance: WD/WN, no apparent distress, + thin, + pertinent finding ( Mild anxious,) Eyes: normal inspection, PERRL, EOMI, sclerae normal ENT: normal ENT inspection, hearing grossly normal, pharynx normal Neck: supple, no adenopathy, thyroid normal, no JVD, no carotid bruits, trachea midline Respiratory/Chest: chest non-tender, lungs clear, normal breath sounds, no respiratory distress, no accessory muscle use Cardiovascular: regular rate, rhythm, no edema, no gallop, no JVD, no murmur Abdomen: normal bowel sounds, non tender, soft, no organomegaly, no pulsatile mass Extremities: normal range of motion, non-tender, normal inspection, no pedal edema, no calf tenderness, normal capillary refill, pelvis stable Neurologic/Psychiatric: director business travel II-XII nml as tested, no motor/sensory deficits, alert, normal mood/affect, oriented x 3 Skin: normal color, warm/dry, no rash Lymphatic: no adenopathy Laboratory Results Last 24 Hours Test 03/07/18 05:28 White Blood Count 6.09 K/uL Red Blood Count 4.27 M/uL Hemoglobin 13.0 g/dL Hematocrit 38.5 % Mean Corpuscular Volume 90.2 fL Mean Corpuscular Hemoglobin 30.4 pg Mean Corpuscular Hemoglobin Concent 33.8 g/dl RDW Standard Deviation 48.1 fL RDW Coefficient of Variation 14.6 % Platelet Count 226 K/uL Mean Platelet Volume 9.9 fL Prothrombin Time 11.2 SECONDS Prothromb Time International Ratio 1.1 Activated Partial Thromboplast Time 27.2 SECONDS Partial Thromboplastin Ratio 1.0 Assessment and Plan 77-year-old male admitted with septic shock and metabolic encephalopathy associated with with atrial fibrillation RVR sepsis upon admission, stable improving resolved Sepsis possible from E. coli bacteremia, E. coli UTI possible septic arthritis, or, pseudogout s/p R knee arthroscopy, I+D, partial synovectomy Postoperative day #4 per ortho WBAT RLE f/u cultures of synovial fluid, lyme. Synovial fluid aspirate positive for pseudogout. 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, Has been on vancomycin and Zosyn therapy, has switched to oral Keflex since March 06, 2018 will continue Lyme IgG positive, IgM is pending, has started doxycycline per ID recommendation started March 06, 2018 will continue Atrial fibrillation RVR, had a cardioversion Currently has accelerated hypertension and tachycardia, Cardiology adjust medication, Continue Eliquis for thromboembolic prevention Mild elevated troponin, possible demand ischemia, will continue watch Colitis is noted on CT scan We will follow-up cardiology for the discharge plan DVT prevention is eliquis CODE STATUS will need to be determined increase activity, PT OT done, PT recommended outpatient PT, possible discharge home tomorrow Continued [facility] stay due to: home environment unsafe for pt Discharge planning: uncertain
--- NOTE | 2018-03-07 18:10 | Cardiology Follow-Up ---
Subjective Date of Service: Mar 07, 2018. Pt evaluation today including: conversation w/ patient, conversation w/ family , physical exam, chart review, lab review, review of studies, review of inpatient medication list History of Present Illness Overall the patient is feeling well. He is convinced that a change in his diet and a higher sodium intake may improve his clinical situation. He is not aware of palpitations. He has been ambulatory without symptoms of dizziness. He has not report chest pain or breathing trouble.. Social History Smoking Status: Former Smoker (quit at 31 y/o) History of Alcohol Use: No Review of Systems Respiratory: No cough, No sputum, No wheezing, No shortness of breath, No dyspnea on exertion, No dyspnea at rest, No hemoptysis Cardiac: + chest pain, No orthopnea, No PND, No edema, No claudication, No palpitations Per HPI. Patient does feel constipated and wishes to have a bowel movement. Generally does not have abdominal complaints such as nausea or vomiting. He has not noticed any lower extremity edema. He is not sure if he had a fever recently. He does report an inguinal hernia. Objective Vital Signs Past 12 Hours Date Time Temp Pulse Resp B/P (MAP) Pulse Ox O2 Delivery O2 Flow Rate FiO2 03/07/18 16:05 36.5 114 18 157/107 (124) 98 Room Air 03/07/18 16:00 Room Air 03/07/18 14:24 108 18 158/107 (124) 98 03/07/18 13:38 110 163/101 (121) 97 03/07/18 13:02 111 161/105 (123) 95 03/07/18 12:28 111 154/109 (124) 98 03/07/18 11:43 111 169/116 (133) 03/07/18 11:37 36.3 111 18 152/105 (121) 94 03/07/18 11:28 111 18 156/104 (121) 93 03/07/18 11:15 105 16 145/75 (98) 96 Room Air 03/07/18 08:40 56 03/07/18 08:00 36.9 56 20 157/85 (109) 95 Room Air 03/07/18 08:00 Room Air Last Recorded Weight-Kilograms: 75.000 Intake & Output 8-Hour Column 03/07/18 03/08/18 03/08/18 16:00 00:00 08:00 Output Total 525 ml Balance -525 ml 24-Hour Column 03/08/18 08:00 Output Total 525 ml Balance -525 ml Physical Exam The patient is alert and oriented. Mood and affect appeared normal. He answered all questions appropriately. HEENT: Pupils are equal and reactive to light and accommodation. Extraocular movements are intact. The sclerae are anicteric. Neuro: Cranial nerves intact Neck: Patient's neck is supple. He has palpable carotid pulses bilaterally without bruits on auscultation. There is no evidence of jugular venous distention. The thyroid is not enlarged. Lungs: Clear to auscultation bilaterally. He has good air movement without use of accessory muscles. No rales wheezes or rhonchi. Cardiac: Heart demonstrates a regular rate and rhythm. Normal S1 and S2. No murmurs on examination. Pulses: The patient has palpable radial pulses bilaterally that are equal in intensity Extremities: There was no evidence of hypoperfusion. Right groin access site without hematoma or bleeding Skin: I did not appreciate any rashes on examination today. Data Laboratory Results: Last 24 Hours Test 03/07/18 05:28 White Blood Count 6.09 K/uL Red Blood Count 4.27 M/uL Hemoglobin 13.0 g/dL Hematocrit 38.5 % Mean Corpuscular Volume 90.2 fL Mean Corpuscular Hemoglobin 30.4 pg Mean Corpuscular Hemoglobin Concent 33.8 g/dl RDW Standard Deviation 48.1 fL RDW Coefficient of Variation 14.6 % Platelet Count 226 K/uL Mean Platelet Volume 9.9 fL Prothrombin Time 11.2 SECONDS Prothromb Time International Ratio 1.1 Activated Partial Thromboplast Time 27.2 SECONDS Partial Thromboplastin Ratio 1.0 EKG: Atypical atrial flutter Telemetry reviewed: Patient did convert from an atrial flutter to normal sinus rhythm this morning. During his ablation he has additional episodes of atrial arrhythmias now appears to be in atrial flutter. Assessment and Plan 1. Atrial fibrillation: After the patient's cardioversion earlier this week he had transitioned back to an atrial flutter. We discussed options yesterday and he elected to undergo an electrophysiologic study and ablation today. However, the patient did convert to a sinus rhythm overnight. We took him to the EP lab with the intention of treating what was believed to be a typical isthmus dependent right atrial flutter. However, in the EP lab without any provocation the patient demonstrated several different atrial arrhythmias. For a good portion of the study he was in atrial fibrillation. This compromised our efforts to elucidate the true clinical arrhythmia. Patient did undergo an ablation through the caval tricuspid isthmus. However, due to persistent atrial fibrillation despite 2 cardioversions in the lab could not evaluate the success of the procedure. Patient left the laboratory in atrial flutter. At this point is not clear catheter based therapy will be successful in the oil heaterman given the variety of atrial arrhythmias seen during his EP study. I think we will continue him on amiodarone currently. Will continue on anticoagulation. He appears to be asymptomatic. Two options would include rate control or continued antiarrhythmic with monitoring of the arrhythmia.. .
[2018-03-07] MEDS: APIXABAN 5 MG TAB PO SCH (20:44)
[2018-03-08 03:40] VITALS: BP 158/74; PULSE 58; TEMP 36.5; O2SAT 93
[2018-03-08 07:36] LABS: INR 1.1 (0.9-1.1)
[2018-03-08] MEDS: APIXABAN 5 MG TAB PO SCH ×2 (07:47→21:06)
[2018-03-08] MEDS: DOCUSATE SODIUM 100 MG CAP PO SCH ×2 (07:47→21:07)
[2018-03-08] MEDS: DOXYCYCLINE HYCLATE 100 MG CAP PO SCH ×2 (07:48→21:06)
[2018-03-08] MEDS: MULTIVITAMIN TAB PO SCH (07:48)
[2018-03-08] MEDS: CEPHALEXIN MONOHYDRATE 500 MG CAP PO SCH ×4 (07:48→21:05)
[2018-03-08 07:59] VITALS: BP 166/86; PULSE 61; TEMP 36.7; O2SAT 97
[2018-03-08] MEDS ORDERED: TAMSULOSIN HCL 0.4 MG CAP PO SCH (09:00)
--- NOTE | 2018-03-08 10:13 | Cardiology Follow-Up ---
Subjective Date of Service: Mar 08, 2018. Pt evaluation today including: conversation w/ patient, physical exam, chart review, lab review, review of studies, review of inpatient medication list, conversation w/ attending History of Present Illness This morning patient claims to be feeling well. He reports being ambulatory without significant dizziness or lightheadedness. He has no symptoms and his access site from yesterday. No sense of palpitation. Social History Smoking Status: Former Smoker (quit at 31 y/o) History of Alcohol Use: No Review of Systems Respiratory: No cough, No sputum, No wheezing, No shortness of breath, No dyspnea on exertion, No dyspnea at rest, No hemoptysis Cardiac: + chest pain, No orthopnea, No PND, No edema, No claudication, No palpitations Per HPI. Patient does feel constipated and wishes to have a bowel movement. Generally does not have abdominal complaints such as nausea or vomiting. He has not noticed any lower extremity edema. He is not sure if he had a fever recently. He does report an inguinal hernia. Objective Vital Signs Past 12 Hours Date Time Temp Pulse Resp B/P (MAP) Pulse Ox O2 Delivery O2 Flow Rate FiO2 03/08/18 08:00 Room Air 03/08/18 07:59 36.7 61 20 166/86 (112) 97 03/08/18 03:40 36.5 58 19 158/74 (102) 93 Room Air 03/07/18 23:32 36.4 63 16 164/89 (114) 94 Room Air Last Recorded Weight-Kilograms: 74.800 Physical Exam The patient is alert and oriented. Mood and affect appeared normal. He answered all questions appropriately. HEENT: Pupils are equal and reactive to light and accommodation. Extraocular movements are intact. The sclerae are anicteric. Neuro: Cranial nerves intact Neck: Patient's neck is supple. He has palpable carotid pulses bilaterally without bruits on auscultation. There is no evidence of jugular venous distention. The thyroid is not enlarged. Lungs: Clear to auscultation bilaterally. He has good air movement without use of accessory muscles. No rales wheezes or rhonchi. Cardiac: Heart demonstrates a regular rate and rhythm. Normal S1 and S2. No murmurs on examination. Pulses: The patient has palpable radial pulses bilaterally that are equal in intensity Extremities: There was no evidence of hypoperfusion. Right groin access site without hematoma or bleeding. Skin: I did not appreciate any rashes on examination today. Data Laboratory Results: Last 24 Hours Test 03/07/18 18:51 03/08/18 06:17 Prostate Specific Antigen 9.870 ng/ml Free Prostate Specific Antigen 0.87 ng/ml Percent Free Prostate Specific Ag 8.8 % Prothrombin Time 11.4 SECONDS Prothromb Time International Ratio 1.1 Activated Partial Thromboplast Time 28.0 SECONDS Partial Thromboplastin Ratio 1.1 Imaging: EKG: Telemetry reviewed: Assessment and Plan 1. Atrial fibrillation: The patient underwent the EP study and attempted ablation yesterday. The our efforts to limit his arrhythmias were frustrated by recurrent atrial fibrillation in the lab. I do not think that his rhythm problems could be successfully eliminated with catheter based therapy based on the variety of rhythm abnormalities we saw during his study. However, he has returned to a sinus rhythm. I think we will maintain him on amiodarone for the time being. He will stay on Eliquis as well. We will reassess his rhythm and need for continued antiarrhythmic therapy in the outpatient setting. No lifting anything over 10 lb or strenuous activity for the next 5 days. .
[2018-03-08] MEDS: AMIODARONE 200 MG TAB PO SCH (10:38)
[2018-03-08 12:46] VITALS: BP 180/94; PULSE 63; TEMP 36.6; O2SAT 99
--- NOTE | 2018-03-08 14:42 | Progress Note ---
Subjective Date of Service: Mar 08, 2018. Subjective Pt evaluation today including: conversation w/ patient, conversation w/ family , physical exam, chart review, lab review, review of studies, review of inpatient medication list Voiding: no voiding problems Blood pressure was high, patient anxious, otherwise doing okay, Problem List Medical Problems: (1) Atrial fibrillation with RVR Status: Acute (2) V tach Status: Acute Review of Systems Constitutional: No fever, No chills, No sweats, No weight loss, No weakness, No fatigue, No problem reported Eyes: No worsening of vision, No eye pain, No redness, No discharge, No diplopia ENT: No hearing loss, No unusual epistaxis, No nasal symptoms, No sore throat, No tinnitus, No dental problems, No trouble swallowing Respiratory: No cough, No sputum, No wheezing, No shortness of breath, No dyspnea on exertion, No dyspnea at rest, No hemoptysis Cardiac: No chest pain, No orthopnea, No PND, No edema, No claudication, No palpitations Abdomen: No pain, No nausea, No vomiting, No diarrhea, No constipation Musculoskeletal: No joint pain, No muscle pain, No swelling, No calf pain Male : No dysuria, No urinary frequency, No incontinence, No nocturia more than once/night, No slowing stream, No hematuria Neurologic: No memory loss, No paralysis, No weakness, No numbness/tingling, No vertigo, No balance problems Psychiatric: No depression symptoms, No anhedonism, No anxiety, No insomnia, No substance abuse Heme: No abnormal bleeding/bruising, No clotting problems, No swollen lymph nodes, No night sweats Endo: No fatigue, No excessive thirst, No excessive urination Skin: No rash, No itch, No new/changing skin lesions, No color change, No bleeding Objective Vital Signs Date Time Temp Pulse Resp B/P (MAP) Pulse Ox O2 Delivery O2 Flow Rate FiO2 03/08/18 12:46 36.6 63 20 180/94 (122) 99 03/08/18 08:00 Room Air 03/08/18 07:59 36.7 61 20 166/86 (112) 97 03/08/18 03:40 36.5 58 19 158/74 (102) 93 Room Air 03/07/18 23:32 36.4 63 16 164/89 (114) 94 Room Air 03/07/18 20:00 Room Air 03/07/18 19:36 36.7 61 20 158/89 (112) 96 Room Air 03/07/18 18:37 63 159/89 (112) 03/07/18 16:05 36.5 114 18 157/107 (124) 98 Room Air 03/07/18 16:00 Room Air Physical Exam General Appearance: WD/WN, no apparent distress, + thin Eyes: normal inspection, PERRL, EOMI, sclerae normal ENT: normal ENT inspection, hearing grossly normal, pharynx normal Neck: supple, no adenopathy, thyroid normal, no JVD, no carotid bruits, trachea midline Respiratory/Chest: chest non-tender, lungs clear, normal breath sounds, no respiratory distress, no accessory muscle use Cardiovascular: regular rate, rhythm, no edema, no gallop, no JVD, no murmur Abdomen: normal bowel sounds, non tender, soft, no organomegaly, no pulsatile mass, + pertinent finding (Left scrotal peak hernia) Extremities: normal range of motion, non-tender, normal inspection, no pedal edema, no calf tenderness, normal capillary refill, pelvis stable Neurologic/Psychiatric: escort service attendant II-XII nml as tested, no motor/sensory deficits, alert, normal mood/affect, oriented x 3 Skin: normal color, warm/dry, no rash Lymphatic: no adenopathy Laboratory Results Last 24 Hours Test 03/07/18 18:51 03/08/18 06:17 Prostate Specific Antigen 9.870 ng/ml Free Prostate Specific Antigen 0.87 ng/ml Percent Free Prostate Specific Ag 8.8 % Prothrombin Time 11.4 SECONDS Prothromb Time International Ratio 1.1 Activated Partial Thromboplast Time 28.0 SECONDS Partial Thromboplastin Ratio 1.1 Assessment and Plan 77-year-old male admitted with septic shock and metabolic encephalopathy associated with with atrial fibrillation RVR sepsis upon admission, resolved Sepsis possible from E. coli bacteremia, E. coli UTI Was thinking possible septic arthritis, synovial fluid culture finalized no growth, therefore no septic arthritis, Possible pseudogout in the right knee s/p R knee arthroscopy, I+D, partial synovectomy Postoperative day #5 per ortho WBAT RLE Synovial fluid aspirate positive for pseudogout. Synovial fluid culture no growth for now Orthopedic has special instructions, will need to print out upon discharge, need to call [facility] to make a follow-up appointment to see Dr Shah 10-14 days after the day of your surgery at . 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, Had been on vancomycin and Zosyn therapy, has switched to oral Keflex since March 06, 2018 will continue Lyme IgG positive, IgM is pending, has started doxycycline per ID recommendation started March 06, 2018 will continue Keflex need to be 14 days total and doxycycline need to be total 28 days Atrial fibrillation RVR, had a cardioversion which was done March 06, 2018 Currently has accelerated hypertension and tachycardia, Cardiology adjust medication, Continue Eliquis for thromboembolic prevention Mild elevated troponin, possible demand ischemia, will continue watch BPH, elevated PSA, possible prostate abscess, cystitis, UTI upon admission, which cause the bacteremia upon admission, start Flomax, continue antibiotic, follow-up urology consultation left inguinal significant hernia, recommend patient to be seen by surgeon and procedure if needed, patient declined and he is think about it Colitis is noted on CT scan DVT prevention is eliquis CODE STATUS will need to be determined increase activity, PT OT done, PT recommended outpatient PT, possible discharge home tomorrow Continued [facility] stay due to: home environment unsafe for pt Discharge planning: home
[2018-03-08 15:23] VITALS: BP 167/83; PULSE 66; TEMP 36.4; O2SAT 98
[2018-03-08 16:00] VITALS: O2SAT 98
--- NOTE | 2018-03-08 19:53 | Urology Consultation ---
History General Date of Service: Mar 08, 2018. Primary Care Physician: [facility] Pt seen a urologist before?: No History of Present Illness 77-year-old male admitted with septic shock and metabolic encephalopathy associated with with atrial fibrillation RVR. Urine and Blood Cx upon admission grew E. Coli. CT scan done. Pertinent findings include: The bladder is partially decompressed around a Blair catheter. Foci of internal gas are identified. The bladder wall appears markedly thickened and there is pericystic inflammation. The prostate gland is markedly enlarged and heterogeneous, measuring 6.2 cm transverse diameter. There is a 2.3 cm ovoid low-attenuation lesion within the left aspect of the prostate seen on image #370. There is a large left inguinal hernia which contains bowel. See above. There are scrotal wall edema. Prior to this admission pt states that he rarely saw doctors. He had a slow urinary stream, but overall felt like he was emptying his bladder. Occ dysuria. Urge. Freq. Nocturia. No urinary incont. NO hx of kidney stones. NO hx of UTIs prior to this. Currently he is voiding well and feels like he is emptying his bladder. No dysuria. PSA checked at this visit. 9 - Free 8% Imaging Imaging: CT Laboratory Labs were reviewed and are within normal limits unless listed below. Labs are available in the chart and at [facility] Problem List Medical Problems: (1) Atrial fibrillation with RVR Status: Acute (2) V tach Status: Acute Past History A Fib, other Pt had a problem w anesthesia?: No Past Surgical History: other Family History Patient reports no known family medical history. Social History Hx Tobacco Use In Past Year?: No Smoking: other Alcohol: other Marital status: in relationship Allergies Coded Allergies: No Known Allergies (Unverified , 03/02/18) Medications Home Medications: Home Meds and Scripts Medications Dose Route/Sig Max Daily Dose Days Date Category No Active Prescriptions or Reported Medications Rx Inpatient Medications: Current Inpatient Medications Medications (Trade) Dose Ordered Sig/Mirella Route Start Time Stop Time Status Last Admin Dose Admin Nitroglycerin (Nitrostat Tab) 0.4 mg UD PRN SL 03/02/18 13:15 04/01/18 13:14 Oxycodone HCl (Roxicodone Immediate Rel Tab) 1-2 TABS FOR PAIN 1 TABLET ... Q4H PRN PO 03/03/18 15:30 8/26/18 15:29 Morphine Sulfate (MoRPHine SULFATE INJ) 3 mg Q4H PRN IV 03/03/18 15:30 03/17/18 15:29 Magnesium Hydroxide (Milk Of Magnesia Susp) 30 ml Q6H PRN PO 03/03/18 15:30 04/02/18 15:29 Docusate Sodium (coLACE CAP) 100 mg BID PO 03/03/18 21:00 04/02/18 20:59 03/08/18 07:47 100 MG Diphenhydramine HCl (Benadryl Cap) 25 mg Q8H PRN PO 03/03/18 15:30 04/02/18 15:29 Multivitamins (Multivitamin Tab) 1 tab QAM PO 03/04/18 09:00 04/03/18 08:59 03/08/18 07:48 1 TAB Ondansetron HCl (Zofran Inj) 4 mg Q6H PRN IV 03/03/18 15:30 04/02/18 15:29 Heparin Sodium (Porcine) (Heparin 10 Unit/ ml 5 ml Flush) 5 ml PRN PRN FLUSH 03/04/18 00:15 04/03/18 00:14 Cephalexin Monohydrate (Keflex Cap) 500 mg QID PO 03/06/18 09:00 03/16/18 08:59 03/08/18 16:29 500 MG Doxycycline Hyclate (Vibramycin Cap) 100 mg BID PO 03/06/18 09:00 03/16/18 08:59 03/08/18 07:48 100 MG Apixaban (Eliquis) 5 mg BID PO 03/07/18 21:00 04/06/18 20:59 03/08/18 07:47 5 MG Tamsulosin HCl (Flomax Cap) 0.4 mg QAM PO 03/08/18 09:00 04/07/18 08:59 Amiodarone HCl (Cordarone Tab) 400 mg QAM PO 03/08/18 10:15 04/07/18 10:14 03/08/18 10:38 400 MG Review of Systems Review of Systems All Other Systems: Reviewed and Negative Physical Exam Vital Signs: Vital Signs Past 12 Hours Date Time Temp Pulse Resp B/P (MAP) Pulse Ox O2 Delivery O2 Flow Rate FiO2 03/08/18 16:00 98 Room Air 03/08/18 15:23 36.4 66 18 167/83 (111) 98 Room Air 03/08/18 12:46 36.6 63 20 180/94 (122) 99 03/08/18 08:00 Room Air 03/08/18 07:59 36.7 61 20 166/86 (112) 97 Physical Exam: General Appearance: WD/WN ENT: normal ENT inspection Neck: supple Respiratory/Chest: lungs clear Cardiovascular: regular rate, rhythm, no edema Extremities: non-tender Neurologic/Psychiatric: no motor/sensory deficits, alert, oriented x 3 Skin: normal color Lymphatic: no adenopathy Assessment & Plan Assessment & Plan (1) BPH (benign prostatic hyperplasia) (2) Sepsis Pt is currently voiding well. UTI w/ sepsis. Treated with abx. On Flomax. Min lower urinary tract sxs. Rec discharge home on Flomax 0.4mg daily. Continue therapy until seen as outpatient. At that time we will perform PVR to eval bladder emptying. PSA slightly elevated for age, but this is expected given UTI. Prostatic Cyst likely benign and non infectious. If it appears to continue to inhibit his flow and cause additional infx, will then consider cysto and possible TURP.
[2018-03-08 23:21] VITALS: BP 167/88; PULSE 59; TEMP 36.5; O2SAT 93
[2018-03-09 04:00] VITALS: BP 178/94; PULSE 59; TEMP 36.7; O2SAT 94
[2018-03-09 05:36] VITALS: BP 180/91; PULSE 64
[2018-03-09 06:06] LABS: HEMATOCRIT 38.5 % (42-52); HEMOGLOBIN 12.9 g/dL (14.0-18.0); MEAN CELL VOLUME 90.6 fL (80-100); MEAN CORPUSCULAR HEMOGLOBIN 30.4 pg (25-34); MEAN CORPUSCULAR HGB CONC 33.5 g/dl (32-36); MEAN PLATELET VOLUME 9.9 fL (7.4-10.4); PLATELET COUNT 269 K/uL (130-400); RED CELL DISTRIBUTION WIDTH CV 14.3 % (11.5-14.5); RED CELL DISTRIBUTION WIDTH SD 47.2 fL (36.4-46.3); WHITE BLOOD COUNT 5.34 K/uL (4.8-10.8)
[2018-03-09 06:18] LABS: PTT PATIENT 28.6 SECONDS (21.0-31.0)
[2018-03-09 07:21] VITALS: BP 155/78; PULSE 57; TEMP 36.8; O2SAT 98
[2018-03-09 08:15] VITALS: PULSE 64
[2018-03-09] MEDS: APIXABAN 5 MG TAB PO SCH (08:20)
[2018-03-09] MEDS: CEPHALEXIN MONOHYDRATE 500 MG CAP PO SCH (08:21)
[2018-03-09] MEDS: AMIODARONE 200 MG TAB PO SCH (08:21)
[2018-03-09] MEDS: DOCUSATE SODIUM 100 MG CAP PO SCH (08:21)
[2018-03-09] MEDS: DOXYCYCLINE HYCLATE 100 MG CAP PO SCH (08:22)
[2018-03-09] MEDS: MULTIVITAMIN TAB PO SCH (08:22)
[2018-03-09] MEDS ORDERED: DXY100 PO (08:32)
[2018-03-09] MEDS ORDERED: KFL500 PO (08:32)
[2018-03-09] MEDS ORDERED: CRD200 PO (08:32)
[2018-03-09] MEDS ORDERED: FLM4 PO (08:32)
[2018-03-09] MEDS ORDERED: RXC5 PO (08:32)
[2018-03-09] MEDS ORDERED: CLC100 PO (08:32)
[2018-03-09] MEDS ORDERED: APIX1TAB3 PO (08:32)
--- NOTE | 2018-03-09 08:32 | Discharge Instructions ---
Discharge Instructions Date of Service Mar 09, 2018. Admission Reason for Admission: Sepsis Discharge Discharge Diagnosis / Problem: Sepsis possible from E. coli bacteremia, E. coli UTI Discharge Goals Goal(s): Decrease discomfort, Improve function, Increase independence, Improve disease control, Improve nutritional status, Learn about illness, Diagnostic testing, Therapeutic intervention, Prevent Disease Progression, Specific goals Activity Recommendations Activity Limitations: per Instructions/Follow-up section . Instructions / Follow-Up Instructions / Follow-Up you have Sepsis possible from E. coli bacteremia, E. coli UTI Possible pseudogout in the right knee you had R knee arthroscopy, I+D, partial synovectomy , Postoperative day #6 you need follow up with the Orthopedic they have special instructions, they need to be print out upon discharge, you need to call [facility] [place] to make a follow-up appointment to see Dr Shah 10-14 days after the day of your surgery at . you possible have Lyme disease Keflex need to be 1o days more and doxycycline need to be total 24 days more you have Atrial fibrillation RVR, had a cardioversion which was done March 06, 2018, need to follow up with Dr. Raza as instructed you have possible BPH/elevated PSA, you need to follow up with urology as instructed, RN please give phone number for pt to call to get appt - you need to follow up with your primary care physician in 1 week, - take medication as instructed, never overdose or any misuse, or take with alcohol, because misuse of medicine may cause organ damage or , call me , or your primary care physician if have questions of discharge medicaitons. - call your primary care physician, or go to local emergency room if has any fever/chill, chest pain, shortness of breathing, nausea/vomiting/abdominal pain , facial droop/slurry speech/local weakness, or if has any questions. - fall precaution - diet as instructed - you need to follow up with your subspecialists as mentioned in the above Current Hospital Diet Patient's current hospital diet: AHA Diet (Heart Healthy), Regular Diet Discharge Diet Recommended Diet: Regular Diet Procedures Procedures Performed: Right Knee Arthroscopy, Sub Total Synovectomy, debridement of medial and lateral meniscus Pending Studies Studies pending at discharge: no Laboratory Results Meds Administered (Past 24Hrs) Medications (Trade) Dose Ordered Sig/Mirella Route Start Time Stop Time Status Last Admin Dose Admin Amiodarone HCl (Cordarone Tab) 400 mg 1130 ONCE PO 03/07/18 11:30 03/07/18 11:31 DC 03/07/18 12:02 400 MG Hydralazine HCl (Apresoline Tab) 50 mg NOW ONCE PO 03/07/18 18:15 03/07/18 18:32 DC 03/07/18 19:09 50 MG Apixaban (Eliquis) 5 mg BID PO 03/07/18 21:00 04/06/18 20:59 03/09/18 08:20 5 MG Tamsulosin HCl (Flomax Cap) 0.4 mg QAM PO 03/08/18 09:00 04/07/18 08:59 03/09/18 08:21 0.4 MG Amiodarone HCl (Cordarone Tab) 400 mg QAM PO 03/08/18 10:15 04/07/18 10:14 03/09/18 08:21 400 MG Medical Emergencies . Who to Call and When: Medical Emergencies: If at any time you feel your situation is an emergency, please call 911 immediately. . Non-Emergent Contact Non-Emergency issues call your: Primary Care Provider . . "Provider Documentation" section prepared by Maged Jean. . Pot Fisher Recommendations Pot Fisher Recommendations: ACTIVITY RECOMMENDATIONS: * You may walk on the leg with or without crutches as comfort permits. * Bending of the knee should start at once. * Do not shower for 48 hours following surgery. SPECIAL CARE INSTRUCTIONS: * You may cleanse the skin adjacent to the small wounds with soap and water at the time of the first dressing change. * The application of an ice bag to the front and sides of the knee will decrease swelling and discomfort for the first 48 hours. * The small incisions may be sore and develop bruising. This bruising does not require any special care. SPECIAL PRECAUTIONS: * If you experience unusual pain unrelieved by prescriptions, temperature elevation (100 degrees F. or above) or progressive swelling or bleeding, you should contact our office at for further evaluation. * You may have been prescribed pain medication. If you experience nausea and/or fine skin rash, discontinue this medication and contact our office at for an alternate medication. DRESSING: * Dressing should be comfortable and absorb any leakage of fluid and/or blood. * The dressing may become moist or bloodstained. * Dressing may be removed at this time and bandaids placed over the small surgical incisions. If can be removed sooner if it becomes very soiled or loose. * Bandaids may be used over next several days as needed and can be discontinued when there is not further drainage from the wounds. FOLLOW UP VISIT: If appointment is not already scheduled: Please call [facility] [place] to make a follow-up appointment to see Dr Shah 10-14 days after the day of your surgery at .
[2018-03-09 09:11] VITALS: BP 155/78; PULSE 64; TEMP 36.8; O2SAT 98
--- NOTE | 2018-03-09 15:12 | Discharge Summary ---
Discharge Summary Date of Service Mar 09, 2018. Discharge Summary Admission Date: Mar 02, 2018 at 13:27 Discharge Date: Mar 09, 2018 Discharge Disposition: Home Principal Diagnosis: Sepsis possible from E. coli bacteremia, E. coli UTI Problems/Secondary Diagnoses: Sepsis possible from E. coli bacteremia, E. coli UTI Possible pseudogout in the right knee R knee arthroscopy, I+D, partial synovectomy , possible have Lyme disease Atrial fibrillation RVR, possible BPH/elevated PSA, Procedures: Right knee I&D Consultations: Cardiology, orthopedic, urologist, Medication Reconciliation New Medications: Amiodarone HCl (Amiodarone HCl) 200 Mg Tab 400 MG PO QAM for 30 Days, #60 TAB Apixaban (Eliquis) 5 Mg Tab 5 MG PO BID for 30 Days, #60 TAB Cephalexin Monohydrate (Cephalexin) 500 Mg Cap 500 MG PO QID for 10 Days, #40 CAP Docusate Sodium (Docusate Sodium) 100 Mg Cap 100 MG PO BID for 30 Days, #60 CAP Doxycycline Hyclate (Doxycycline Hyclate) 100 Mg Cap 100 MG PO BID for 24 Days, #48 CAP Oxycodone HCl (Oxycodone HCl) 5 Mg Tab 5-10 MG PO Q4H PRN for Pain for 3 Days, #6 TAB Tamsulosin HCl (Tamsulosin HCl) 0.4 Mg Cap 0.4 MG PO QAM for 30 Days, #30 CAP Discharge Exam Feeling good, up and walk, no complaint, Review of Systems: Constitutional: No fever, No chills, No sweats, No weight loss, No weakness , No fatigue, No problem reported Eyes: No worsening of vision, No eye pain, No redness, No discharge, No diplopia, No problem reported ENT: No hearing loss, No unusual epistaxis, No nasal symptoms, No sore throat, No tinnitus, No dental problems, No trouble swallowing, No problem reported Respiratory: No cough, No sputum, No wheezing, No shortness of breath, No dyspnea on exertion, No dyspnea at rest, No hemoptysis, No problem reported Cardiovascular: No chest pain, No orthopnea, No PND, No edema, No claudication, No palpitations, No problem reported Abdomen: No pain, No nausea, No vomiting, No diarrhea, No constipation, No GI bleeding, No problem reported Musculoskeletal: No joint pain, No muscle pain, No swelling, No calf pain, No problem reported Genitourinary - Male: No hematuria, No dysuria, No urinary frequency, No urinary urgency, No urinary hesitancy, No urinary retention, No urinary incontinence, No penile discharge, No lesions, No impotence, No problem reported Neurologic: No memory loss, No paralysis, No weakness, No numbness/tingling , No vertigo, No balance problems, No problem reported Psychiatric: No depression symptoms, No anhedonism, No anxiety, No insomnia , No substance abuse, No problem reported Physical Exam: General Appearance: WD/WN, no apparent distress, + thin Eyes: normal inspection, PERRL ENT: normal ENT inspection, hearing grossly normal Neck: supple, no adenopathy, thyroid normal Respiratory/Chest: chest non-tender, lungs clear, normal breath sounds Cardiovascular: regular rate, rhythm, no edema, no gallop Abdomen / GI: normal bowel sounds, non tender, soft, no organomegaly, no pulsatile mass Extremities: normal inspection, no calf tenderness, normal capillary refill 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 coli bacteremia, E. coli UTI Was thinking possible septic arthritis, synovial fluid culture finalized no growth, therefore no septic arthritis, Possible pseudogout in the right knee s/p R knee arthroscopy, I+D, partial synovectomy Postoperative day #5 per ortho WBAT RLE Synovial fluid aspirate positive for pseudogout. Synovial fluid culture no growth for now Orthopedic has special instructions, will need to print out upon discharge, need to call [facility] [place] to make a follow-up appointment to see Dr Shah 10-14 days after the day of your surgery at . 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, Had been on vancomycin and Zosyn therapy, has switched to oral Keflex since March 06, 2018 will continue Lyme IgG positive, IgM is pending, has started doxycycline per ID recommendation started March 06, 2018 will continue Keflex need to be 14 days total and doxycycline need to be total 28 days Atrial fibrillation RVR, had a cardioversion which was done March 06, 2018 Currently has accelerated hypertension and tachycardia, Cardiology adjust medication, Continue Eliquis for thromboembolic prevention Mild elevated troponin, possible demand ischemia, BPH, elevated PSA, possible prostate abscess, cystitis, UTI upon admission, which cause the bacteremia upon admission, start Flomax, continue antibiotic, Urologist saw patient, continue current care, outpatient follow-up Colitis is noted on CT scan DVT prevention is eliquis CODE STATUS will need to be determined increase activity, PT OT done, PT recommended outpatient PT, Discharge patient home today in stable condition, Instructions / Follow-Up you have Sepsis possible from E. coli bacteremia, E. coli UTI Possible pseudogout in the right knee you had R knee arthroscopy, I+D, partial synovectomy , Postoperative day #6 you need follow up with the Orthopedic they have special instructions, they need to be print out upon discharge, you need to call [facility] [place] to make a follow-up appointment to see Dr Shah 10-14 days after the day of your surgery at . you possible have Lyme disease Keflex need to be 1o days more and doxycycline need to be total 24 days more you have Atrial fibrillation RVR, had a cardioversion which was done March 06, 2018, need to follow up with Dr. Raza as instructed you have possible BPH/elevated PSA, you need to follow up with urology as instructed, RN please give phone number for pt to call to get appt - you need to follow up with your primary care physician in 1 week, - take medication as instructed, never overdose or any misuse, or take with alcohol, because misuse of medicine may cause organ damage or , call me , or your primary care physician if have questions of discharge medicaitons. - call your primary care physician, or go to local emergency room if has any fever/chill, chest pain, shortness of breathing, nausea/vomiting/abdominal pain , facial droop/slurry speech/local weakness, or if has any questions. - fall precaution - diet as instructed - you need to follow up with your subspecialists as mentioned in the above Total Time Spent: Greater than 30 minutes This includes examination of the patient, discharge planning, medication reconciliation, and communication with other providers. Discharge Instructions Please refer to the electronic Patient Visit Report (Discharge Instructions) for additional information. Additional Copies To Mati Shah D.O.; [facility]; Meliton Samson MD ; Zeus Raza MD
--- NOTE | 2018-03-10 07:23 | [facility] Operative Report ---
Operative Report Date of Service Mar 07, 2018. Operative Report Procedure performed: EP testing, 3-D electro-anatomical mapping, ablation of SVT , cardioversion x2 Findings: Multipla atrial arrhythmias including atrial fibrillation I attest to the content of the Intraoperative Record and any orders documented therein. Any exceptions are noted below.
== END 2018-03-09 12:54 | disposition home or self-care (01) | DRG 853 ==
LOC: C.EDC 11:16 → C.MSICU 13:27 → ENRESERV 13:35 → C.2T 03-04 11:56
PROVIDERS: ADMIT Family Medicine; ATTEND Hospitalist
PROC: 02HV33Z Insertion of Infusion Device into Superior Vena Cava, Percutaneous Approach (ICD-10-PCS; 2018-03-02)
PROC: 0MBN4ZZ Excision of Right Knee Bursa and Ligament, Percutaneous Endoscopic Approach (ICD-10-PCS; principal; 2018-03-03 13:30)
PROC: 5A2204Z Restoration of Cardiac Rhythm, Single (ICD-10-PCS; 2018-03-05)
PROC: 02K83ZZ Map Conduction Mechanism, Percutaneous Approach (ICD-10-PCS; 2018-03-07)
PROC: 5A2204Z Restoration of Cardiac Rhythm, Single (ICD-10-PCS; 2018-03-07)
PROC: 02583ZZ Destruction of Conduction Mechanism, Percutaneous Approach (ICD-10-PCS; 2018-03-07)
DX: A41.51 Sepsis due to Escherichia coli [E. coli] (principal); R65.21 Severe sepsis with septic shock; N39.0 Urinary tract infection, site not specified; I48.92 Unspecified atrial flutter; I47.2 Ventricular tachycardia; Z87.891 Personal history of nicotine dependence; G93.41 Metabolic encephalopathy; M11.061 Hydroxyapatite deposition disease, right knee; M00.861 Arthritis due to other bacteria, right knee; A69.20 Lyme disease, unspecified; N40.1 Benign prostatic hyperplasia with lower urinary tract symptoms; K52.9 Noninfective gastroenteritis and colitis, unspecified; R32 Unspecified urinary incontinence; K40.90 Unilateral inguinal hernia, without obstruction or gangrene, not specified as recurrent; I48.91 Unspecified atrial fibrillation; M25.461 Effusion, right knee; M17.11 Unilateral primary osteoarthritis, right knee; E87.6 Hypokalemia; E83.42 Hypomagnesemia; N41.2 Abscess of prostate

== ENCOUNTER 2019-02-21 21:19 | Inpatient (IN) ==
[2019-02-21 21:53] LABS: Basophils % (auto) 0.8 %; Eosinophils % (auto) 2.8 %; Hematocrit (blood only) 47.9 % (42-52); Lymphocytes % (auto) 42.9 %; Mean Corpuscular Hgb Conc 33.4 g/dL (32-36); Mean Corpuscular Volume 92.6 fL (80-100); Mean Platelet Volume 10.5 fL (7.4-10.4); Monocytes % (auto) 7.6 %; Neutrophils % (auto) 45.9 %; Platelet Count 230 K/uL (130-400); RDW Coefficient of Variation 14.5 % (11.5-14.5); RDW Standard Deviation 49.2 fL (36.4-46.3); Red Blood Count 5.17 M/uL (4.7-6.1); White Blood Count 3.94 K/uL (4.8-10.8)
[2019-02-21 21:54] LABS: Basophils # (auto) 0.03 K/uL (0-0.2); Eosinophils # (auto) 0.11 K/uL (0-0.5); Lymphocytes # (auto) 1.69 K/uL (1.2-3.4); Neutrophils # (auto) 1.81 K/uL (1.4-6.5)
[2019-02-21] MEDS ORDERED: SODIUM CHLORIDE 0.9% 500 ML IV SCH (22:00)
[2019-02-21 22:02] LABS: INR 1.1 (0.9-1.1); Prothrombin Time 11.5 Seconds (9.0-12.0)
[2019-02-21 22:10] LABS: Alanine Aminotransferase 52 U/L (12-78); Albumin Level 3.1 gm/dl (3.4-5.0); Aspartate Aminotransferase 21 U/L (15-37); BUN Creatinine Ratio 15.9 (10-20); Blood Urea Nitrogen 19 mg/dl (7-18); Calcium 9.2 mg/dl (8.5-10.1); Carbon Dioxide 29 mmol/L (21-32); Chloride 110 mmol/L (98-107); Creatinine Clr Calc Pharmacy 48.5 ml/min; Est GFR (African American) 67.2; Glucose 144 mg/dl (70-99); Magnesium 2.3 mg/dl (1.8-2.4); Potassium 3.9 mmol/L (3.5-5.1); Sodium 143 mmol/L (136-145)
--- NOTE | 2019-02-21 22:15 | XRay Report ---
XR chest 1V portable HISTORY: near syncope COMPARISON: Chest 01/26/2019. FINDINGS: The lungs are mildly hyperexpanded. The heart is normal in size. No focal lung consolidatio ns to suggest pneumonia. No evidence for pulmonary edema. No pleural effusions. No pneumothorax. IMPRESSION: No acute process. Electronically signed by: Abdoul Tucker M.D. 02/21/2019 10:13 PM
[2019-02-21 22:20] LABS: Albumin Globulin Ratio 0.9 (0.9-2); Alkaline Phosphatase 108 U/L (45-117); Bilirubin,Total 0.5 mg/dl (0.2-1); Creatine Kinase 131 U/L (39-308); Globulin 3.3 gm/dl (2.5-4.0); Total Protein 6.4 gm/dl (6.4-8.2); Troponin I < 0.015 ng/ml (0-0.045)
--- NOTE | 2019-02-21 23:29 | Emergency Department Note ---
Entered by Leigh Arora acting as a scribe for History of Present Illness General Chief complaint: Syncope (Near Syncope) Stated complaint: FEELING FAINT Time Seen by Provider: 02/21/19 21:34 Source: patient and family ( ) History of Present Illness Provider complaint: Near syncope/faint Onset (ago): day(s) (All day) Location: head (faint) Pain Consistency: + intermittent Quality: + constant Associated symptoms: + syncope (near syncope) and + other (positive: feeling faint) The patient is a 78 year old male who presents to the ED with complaints of intermittent near syncope episodes that have been happening all day long. The patient notes he has never felt faint before. The reports she called the doctors office and was told to go to the care center and ended up going to [facility]. She reports his heart would go fast then slow at the care center. The reports she called cardiology and was told it could either be due to a side effect from the Multaq, low blood pressure, or mini stroke at the back of his brain. Home Medications Home Medications Medication Instructions Recorded Confirmed Type Probiotic 2 cap PO PM 10/25/18 02/21/19 History atorvastatin 10 mg PO PM 10/25/18 02/21/19 History coenzyme Q10 [Co Q-10] 100 mg PO BID 10/25/18 02/21/19 History cyanocobalamin (vitamin B-12) 1,000 mcg PO QAM 10/25/18 02/21/19 History [Vitamin B-12] docusate sodium [Colace] 100 mg PO BID 10/25/18 02/21/19 History apixaban [Eliquis] 5 mg PO BID 11/19/18 02/21/19 History cholecalciferol (vitamin D3) 1,000 unit PO PM 01/26/19 02/21/19 History [Vitamin D3] levothyroxine 88 mcg PO QAM 01/26/19 02/21/19 History ascorbic acid (vitamin C) [Vitamin 500 mg PO QPM 02/17/19 02/21/19 History C] dronedarone [Multaq] 400 mg PO BID 02/17/19 02/21/19 History folic acid 400 mcg PO DAILY 02/21/19 02/21/19 History vitamin A 2,400 mcg PO QAM 02/21/19 02/21/19 History Allergies Allergy/AdvReac Type Severity Reaction Status Date / Time No Known Allergies Allergy Verified 02/21/19 23:32 Past Med/Surg History Medical History Hyperlipidemia Atrial fibrillation Dyslipidemia History of sepsis 02/2018 "RESOLVED" STARTED IN LEG BPH (benign prostatic hyperplasia) Hypothyroidism Hernia "LARGE" UMBILICAL/VENTRAL HERNIA PER PT Systolic heart failure Mildly reduced EF of 48% per 01/2019 echo Surgical History History of transurethral resection of prostate 11/06/18 = LMA #5 x 1 attempt, good seal, atraumatic. History of cystoscopy History of arthroscopy RT KNEE H/O cardiac radiofrequency ablation Attempted CTI ablation, 02/2018 BY MAHENDRA History of tooth extraction Family History Other No significant family history Social History Preferred Language: Georgian Communication Ability: Effective Racebook Writer Required: No Beliefs That Will Affect Care: None Current Living Situation: Significant Other Feels Safe at Home: Yes Smoking Status: Never smoker Tobacco Type: cigarettes ; Cigarettes Per Day: QUIT 40 YEARS AGO. ; Second Hand Exposure: No ; Hx Alcohol Use: No Hx Substance Use: No Review of Systems See HPI for pertinent positives & negatives. and A total of 10 systems reviewed and were otherwise negative Physical Exam Vital Signs Vital Signs - 24 hr 02/21/19 21:27 02/21/19 21:36 02/21/19 21:47 Temperature 36.4 C L Temperature Source Oral Sepsis Recent Fever Within 48 Hours No Sepsis Action Taken by Nursing No Action Required Pulse Rate - Lying Pulse Rate - Sitting Pulse Rate 163 H 104 H 117 H Pulse Rate from SpO2 Sensor 53 L 40 L Respiratory Rate 18 19 14 Respiratory Effort / Characteristics Non-Labored Spontaneous Respiratory Depth Normal Blood Pressure - Lying Blood Pressure - Sitting Blood Pressure 97/66 L 126/74 Blood Pressure Mean 76 91 Blood Pressure Position Sitting Pulse Oximetry 100 96 96 Oxygen Delivery Method Room Air 02/21/19 21:51 02/21/19 21:52 02/21/19 21:54 Temperature Temperature Source Sepsis Recent Fever Within 48 Hours Sepsis Action Taken by Nursing Pulse Rate - Lying 83 Pulse Rate - Sitting 158 H Pulse Rate 115 H 136 H 107 H Pulse Rate from SpO2 Sensor 132 H 49 L Respiratory Rate 16 17 20 Respiratory Effort / Characteristics Respiratory Depth Blood Pressure - Lying 113/67 Blood Pressure - Sitting 69/50 L Blood Pressure 113/67 69/50 L 116/63 Blood Pressure Mean 82 56 80 Blood Pressure Position Pulse Oximetry 96 97 95 Oxygen Delivery Method Room Air 02/21/19 21:56 02/21/19 22:00 02/21/19 22:02 Temperature Temperature Source Sepsis Recent Fever Within 48 Hours Sepsis Action Taken by Nursing Pulse Rate - Lying Pulse Rate - Sitting Pulse Rate 105 H 122 H 105 H Pulse Rate from SpO2 Sensor 52 L 47 L 53 L Respiratory Rate 15 15 18 Respiratory Effort / Characteristics Respiratory Depth Blood Pressure - Lying Blood Pressure - Sitting Blood Pressure 105/65 113/62 126/80 Blood Pressure Mean 78 79 95 Blood Pressure Position Pulse Oximetry 95 99 95 Oxygen Delivery Method 02/21/19 22:15 02/21/19 22:30 02/21/19 22:45 Temperature Temperature Source Sepsis Recent Fever Within 48 Hours Sepsis Action Taken by Nursing Pulse Rate - Lying Pulse Rate - Sitting Pulse Rate 103 H 102 H 77 Pulse Rate from SpO2 Sensor 53 L 59 L 76 Respiratory Rate 16 16 13 Respiratory Effort / Characteristics Respiratory Depth Blood Pressure - Lying Blood Pressure - Sitting Blood Pressure 107/71 109/73 110/73 Blood Pressure Mean 83 85 85 Blood Pressure Position Pulse Oximetry 95 95 94 Oxygen Delivery Method 02/21/19 23:00 02/21/19 23:16 02/21/19 23:30 Temperature Temperature Source Sepsis Recent Fever Within 48 Hours Sepsis Action Taken by Nursing Pulse Rate - Lying Pulse Rate - Sitting Pulse Rate 77 103 H 78 Pulse Rate from SpO2 Sensor 77 74 Respiratory Rate 21 20 17 Respiratory Effort / Characteristics Respiratory Depth Blood Pressure - Lying Blood Pressure - Sitting Blood Pressure 120/80 144/74 H 126/81 Blood Pressure Mean 93 97 96 Blood Pressure Position Pulse Oximetry 96 96 Oxygen Delivery Method 02/21/19 23:45 02/22/19 00:00 02/22/19 00:15 Temperature Temperature Source Sepsis Recent Fever Within 48 Hours Sepsis Action Taken by Nursing Pulse Rate - Lying Pulse Rate - Sitting Pulse Rate 79 78 78 Pulse Rate from SpO2 Sensor 79 79 78 Respiratory Rate 17 19 18 Respiratory Effort / Characteristics Respiratory Depth Blood Pressure - Lying Blood Pressure - Sitting Blood Pressure 129/88 133/90 143/94 H Blood Pressure Mean 101 104 110 Blood Pressure Position Pulse Oximetry 96 95 96 Oxygen Delivery Method CONSTITUTIONAL/VITAL SIGNS: Reviewed / noted above. GENERAL: Non-toxic in appearance. INTEGUMENTARY: Warm, dry, and [place]. HEAD: Normocephalic. EYES: without scleral icterus or trauma. ENT/OROPHARYNX: clear and moist. LYMPHADENOPATHY/NECK: Is supple without lymphadenopathy or meningismus. RESPIRATORY: Lungs clear and equal. CARDIOVASCULAR: Regular rate and rhythm. GI/ABDOMEN: Soft and nontender. No organomegaly or pulsatile mass. No rebound or guarding. Normal bowel sounds. EXTREMITIES: Warm and well perfused. BACK: No CVA tenderness. NEUROLOGICAL: Intact without focal deficits. PSYCHIATRIC: normal affect. MUSCULOSKELETAL: Normally developed with good muscle tone. Course 2135: The patient was evaluated in room C10. A complete history and physical exam was performed. 4: Upon reevaluation, the patient is resting comfortably. I discussed laboratory and radiographic results with him. The patient verbalized agreement of the treatment plan. The patient will be evaluated for further management and care. 2334: I discussed the patients case with Dr. Hall, [facility] Hospitalist. He will evaluate the patient for further management. Administered Medications Discontinued Medications Sodium Chloride (Nss) 500 mls @ 999 mls/hr IV .Q31M MIGUEL ANGEL Stop: 02/21/19 22:30 Last Infusion: 02/21/19 22:43 Dose: 0 mls/hr Documented by: [id number] Admin: 02/21/19 22:04 Dose: 999 mls/hr Documented by: [id number] Medical Decision Making Differential Diagnosis Differential diagnosis: Etiologies such as vasovagal event, infection, anemia, hypoglycemia, hypovolemia, electrolyte abnormalities, dysrhythmias, cardiac ischemia, cardiac tamponade, valvular heart disease, structural heart disease, seizure, vascular stenosis/dissection, pulmonary embolism, intracerebral event, toxicological process, neurologic event, as well as others were entertained. Medical Records Attestation: I reviewed the patient's medical records. Home Medications Current Medication List: was personally reviewed by me Laboratory Data Attestation: I reviewed the patient's lab results. Result diagrams: 02/21/19 21:40 02/21/19 21:40 Lab Results 02/21/19 02/21/19 02/21/19 Range/Units 21:40 21:40 21:40 WBC 3.94 L (4.8-10.8) K/uL RBC 5.17 (4.7-6.1) M/uL Hgb 16.0 (14.0-18.0) g/dL Hct 47.9 (42-52) % MCV 92.6 (80-100) fL MCH 30.9 (25-34) pg MCHC 33.4 (32-36) g/dL RDW Std Deviation 49.2 H (36.4-46.3) fL RDW Coeff of Cheng 14.5 (11.5-14.5) % Plt Count 230 (130-400) K/uL MPV 10.5 H (7.4-10.4) fL Immature Gran % (Auto) 0.0 % Neut % (Auto) 45.9 % Lymph % (Auto) 42.9 % [place] % (Auto) 7.6 % Eos % (Auto) 2.8 % Baso % (Auto) 0.8 % Immature Gran # (Auto) 0.00 (0.00-0.02) K/uL Neut # (Auto) 1.81 (1.4-6.5) K/uL Lymph # (Auto) 1.69 (1.2-3.4) K/uL [place] # (Auto) 0.30 (0.11-0.59) K/uL Eos # (Auto) 0.11 (0-0.5) K/uL Baso # (Auto) 0.03 (0-0.2) K/uL PT 11.5 (9.0-12.0) Seconds INR 1.1 (0.9-1.1) Sodium 143 (136-145) mmol/L Potassium 3.9 (3.5-5.1) mmol/L Chloride 110 H (98-107) mmol/L Carbon Dioxide 29 (21-32) mmol/L Anion Gap 4.0 (3-11) BUN 19 H (7-18) mg/dl Creatinine 1.20 (0.6-1.4) mg/dl Est Cr Clr Drug Dosing 48.5 ml/min Est GFR ( Amer) 67.2 Est GFR (Non-Af Amer) 58.0 BUN/Creatinine Ratio 15.9 (10-20) Glucose 144 H (70-99) mg/dl Calcium 9.2 (8.5-10.1) mg/dl Magnesium 2.3 (1.8-2.4) mg/dl Total Bilirubin 0.5 (0.2-1) mg/dl AST 21 (15-37) U/L ALT 52 (12-78) U/L Alkaline Phosphatase 108 (45-117) U/L Total Creatine Kinase 131 (39-308) U/L Troponin I < 0.015 (0-0.045) ng/ml Total Protein 6.4 (6.4-8.2) gm/dl Albumin 3.1 L (3.4-5.0) gm/dl Globulin 3.3 (2.5-4.0) gm/dl Albumin/Globulin Ratio 0.9 (0.9-2) TSH 7.350 H (0.300-4.500) uIu/ml Free T4 1.20 (0.8-1.6) ng/dl Imaging Data Radiologist's Impression: Radiology results as stated below per my review and the radiologist's interpretation: XR chest 1V portable HISTORY: near syncope COMPARISON: Chest 01/26/2019. FINDINGS: The lungs are mildly hyperexpanded. The heart is normal in size. No focal lung consolidations to suggest pneumonia. No evidence for pulmonary edema. No pleural effusions. No pneumothorax. IMPRESSION: No acute process. Electronically signed by: Abdoul Tucker M.D. 02/21/2019 10:13 PM ECG Data Attestation: I personally reviewed and interpreted this ECG as follows: Indication: syncope Rate (beats per minute): 89 Rhythm: sinus rhythm Findings: + other (Second degree heart block type 2); no PAC and no ST elevation Blood Pressure Blood Pressure Findings: Normal blood pressure Blood Pressure Disposition: did not require urgent referral MDM Narrative This is an 81-year-old male who presents to the ED with a chief complaint of feeling faint all day. The patient has recently been started on Multaque. The patient was started on this recently for A. fib. About 1 or 2 weeks ago. The patient reports that he has been feeling lightheaded and faint all day today. He went to a walk-in clinic where he was found to have a rapid heart rate and then a short while later a slow heart rate. The patient was referred here for further evaluation and care. The patient initially had a heart rate of 163 on triage. When I saw him in the ED, his heart rate was 108 and he appears to have a second-degree heart block with 2-1 conduction. The patient then had an SVT with a rate of 160 while sitting up doing orthostatics. His blood pressure dropped to around 70 systolic. The patient was then laid flat and his heart rate improved. His CBC is unremarkable. The BUN is 19, glucose is 144, troponin was negative. Thyroid function appears to be normal. Chest x-ray was negative for acute disease. The patient was treated with normal saline IV. Was given 500 cc bolus. Because the erratic heart rates associated with hypotension and near syncope, the patient will be seen by the hospitalist for further inpatient evaluation and care. The symptoms could be related to the Multaque. Impression & Plan SVT (supraventricular tachycardia), Second degree heart block, Acute hypotension, Near syncope Discharge Plan Visit Data Chief Complaint: Syncope (Near Syncope) Stated Complaint: FEELING FAINT ED Provider: Farhan Tavares Discharge Problem: SVT (supraventricular tachycardia), Second degree heart block, Acute hypotension, Near syncope Forms Stand Alone Forms: My [facility] Prescriptions Prescriptions: No Action atorvastatin 10 mg Tablet 10 mg PO PM RF: 0 cyanocobalamin (vitamin B-12) [Vitamin B-12] 1,000 mcg Tablet 1,000 mcg PO QAM RF: 0 docusate sodium [Colace] 100 mg Capsule 100 mg PO BID RF: 0 coenzyme Q10 [Co Q-10] 100 mg Capsule 100 mg PO BID RF: 0 Probiotic 10 billion cell Capsule 2 cap PO PM RF: 0 Eliquis 5 mg Tablet 5 mg PO BID RF: 0 levothyroxine 88 mcg tablet 88 mcg PO QAM RF: 0 cholecalciferol (vitamin D3) [Vitamin D3] 1,000 unit Capsule 1,000 unit PO PM RF: 0 vitamin A 2,400 mcg PO QAM RF: 0 folic acid 400 mcg Tablet 400 mcg PO DAILY RF: 0 Multaq 400 mg Tablet 400 mg PO BID RF: 0 ascorbic acid (vitamin C) [Vitamin C] 500 mg Tablet 500 mg PO QPM RF: 0 The scribe's documentation has been prepared under my direction and personally reviewed by me in its entirety. I confirm that the note above accurately reflects all work, treatment, procedures, and medical decision making performed by me.
--- NOTE | 2019-02-22 00:46 | History & Physical Report ---
Date of Service February 22, 2019 Assessment & Plan (1) Dizziness: Episodic near syncopal episodes hx A. fib/a flutter status post ablation on Eliquis ? Secondary to recent Multaq Rx ? Tachybrady syndrome Patient currently NSR and asymptomatic post IVF administration at the ER. hypothyroidism, TSH slightly elevated Home levothyroxine currently on hold by PCP given possible adverse reaction ("fuzzy head sensation" as per patient account) hyperlipidemia, home statin currently on hold due to possible adverse reaction Hyperglycemia rule out DM past tobacco abuse Lyme arthritis status post Rx OBS PCU Hold Multaq for now Cardiology consult RE episodic bradycardia, hx AFib/AFl Check hemoglobin A1c DVT prophylaxis. IV heparin while Eliquis on hold until SSS ruled out (PPM procedure may be required) Full code History of Present Illness Chief Complaint: Lightheadedness Primary Care Provider: Pricilla Rojas MD History obtained from patient, family, and records. Medical history significant for A. fib/a flutter status post ablation on Eliquis, hypothyroidism, hyperlipidemia, past tobacco abuse, history Lyme arthritis status post Rx. Recent confinement February 2018 for sepsis secondary to E. coli UTI. Patient also found to have new onset A. fib during confinement. Patient sent home on Amiodarone and Eliquis on discharge. Patient weaned off amiodarone about 3 months ago with normal sinus rhythm. 3 weeks ago, patient started on diltiazem for uncontrolled heart rate. 2 weeks ago, patient started on Multitak in place of Diltiazem by range examiner following [facility] ER visit for tachycardia. Patient hesitant to resume prior amiodarone given side effect profile. Home statin and levothyroxine medications held recently by PCP due to patient concerns about fuzzy head sensation noted by patient as a possible medication side effect profile. Yesterday morning, patient noted intermittent dizziness described as ligh theadedness especially on getting up, near syncopal episodes at home associated with palpitations - heartbeat noted to be going fast and later slow. Patient denies chest pain, S OB, headache. Cardiac rate noted to be 50s at urgent care center. Patient directed to the emergency room from urgent care center. At the ER, patient initially noted to be in SVT, cardiac rate 160s. Patient later noted to have second-degree AV block on the monitor as per ER provider. Recurrent SVT cardiac rate 160s, SBP 70s noted on orthostatic vitals. IV fluid bolus administered. Patient SBP 140s, cardiac rate 70s currently. Patient comfortable. 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 Allergies Allergy/AdvReac Type Severity Reaction Status Date / Time No Known Allergies Allergy Verified 02/21/19 23:32 Home Medications Home Medications Medication Instructions Recorded Confirmed Type Probiotic 2 cap PO PM 10/25/18 02/21/19 History atorvastatin 10 mg PO PM 10/25/18 02/21/19 History coenzyme Q10 [Co Q-10] 100 mg PO BID 10/25/18 02/21/19 History cyanocobalamin (vitamin B-12) 1,000 mcg PO QAM 10/25/18 02/21/19 History [Vitamin B-12] docusate sodium [Colace] 100 mg PO BID 10/25/18 02/21/19 History apixaban [Eliquis] 5 mg PO BID 11/19/18 02/21/19 History cholecalciferol (vitamin D3) 1,000 unit PO PM 01/26/19 02/21/19 History [Vitamin D3] levothyroxine 88 mcg PO QAM 01/26/19 02/21/19 History ascorbic acid (vitamin C) [Vitamin 500 mg PO QPM 02/17/19 02/21/19 History C] dronedarone [Multaq] 400 mg PO BID 02/17/19 02/21/19 History folic acid 400 mcg PO DAILY 02/21/19 02/21/19 History vitamin A 2,400 mcg PO QAM 02/21/19 02/21/19 History Past Med/Surg History Medical History Hyperlipidemia Atrial fibrillation Dyslipidemia History of sepsis 02/2018 "RESOLVED" STARTED IN LEG BPH (benign prostatic hyperplasia) Hypothyroidism Hernia "LARGE" UMBILICAL/VENTRAL HERNIA PER PT Systolic heart failure Mildly reduced EF of 48% per 01/2019 echo Surgical History History of transurethral resection of prostate 11/06/18 = LMA #5 x 1 attempt, good seal, atraumatic. History of cystoscopy History of arthroscopy RT KNEE H/O cardiac radiofrequency ablation Attempted CTI ablation, 02/2018 BY MAHENDRA History of tooth extraction Family History Other No significant family history Social History Preferred Language: Sami Communication Ability: Effective Director Of Event Management Required: No Beliefs That Will Affect Care: None Current Living Situation: Spouse Current Living Situation Comment: lives with fiance Feels Safe at Home: Yes Safety Concerns: Feels Safe At This Time Smoking Status: Former smoker Tobacco Type: cigarettes ; Cigarettes Per Day: QUIT 40 YEARS AGO. ; Smoking End Date: 1969 ; Second Hand Exposure: No ; Hx Alcohol Use: Yes Alcohol type: beer Hx Substance Use: No Review of Systems Review of Systems: As per HPI, all 10 systems reviewed, all other ROS negative Physical Exam Physical Exam: GENERAL: Comfortable, no respiratory distress SKIN: Normal color, warm HEENT: [place] palpebral conjunctivae, no ptosis, dry buccal mucosa NECK : Supple, no tenderness CHEST : CTA, no tenderness HEART : RRR, no obvious murmurs ABDOMEN: No overt distention , nontender EXTREMITIES : No LE swelling/tenderness, no other conspicuous deformities noted NEUROLOGIC : Coherent, no facial asymmetry, no other gross focality Results & Data Vital Signs (Past 12 Hours) Vital Signs Temp Pulse Resp BP Pulse Ox 02/22/19 00:15 78 18 143/94 H 96 02/22/19 00:00 78 19 133/90 95 02/21/19 23:45 79 17 129/88 96 02/21/19 23:30 78 17 126/81 96 02/21/19 23:16 103 H 20 144/74 H 02/21/19 23:00 77 21 120/80 96 02/21/19 22:45 77 13 110/73 94 02/21/19 22:30 102 H 16 109/73 95 02/21/19 22:15 103 H 16 107/71 95 02/21/19 22:02 105 H 18 126/80 95 02/21/19 22:00 122 H 15 113/62 99 02/21/19 21:56 105 H 15 105/65 95 02/21/19 21:54 107 H 20 116/63 95 02/21/19 21:52 136 H 17 69/50 L 97 02/21/19 21:51 115 H 16 113/67 96 02/21/19 21:47 117 H 14 96 02/21/19 21:36 104 H 19 126/74 96 02/21/19 21:27 36.4 C L 163 H 18 97/66 L 100 Laboratory Results Laboratory Results WBC 3.94 K/uL (4.8-10.8) L 02/21/19 21:40 RBC 5.17 M/uL (4.7-6.1) 02/21/19 21:40 Hgb 16.0 g/dL (14.0-18.0) 02/21/19 21:40 Hct 47.9 % (42-52) 02/21/19 21:40 MCV 92.6 fL (80-100) 02/21/19 21:40 MCH 30.9 pg (25-34) 02/21/19 21:40 MCHC 33.4 g/dL (32-36) 02/21/19 21:40 RDW Std Deviation 49.2 fL (36.4-46.3) H 02/21/19 21:40 RDW Coeff of Cheng 14.5 % (11.5-14.5) 02/21/19 21:40 Plt Count 230 K/uL (130-400) 02/21/19 21:40 MPV 10.5 fL (7.4-10.4) H 02/21/19 21:40 Immature Gran % (Auto) 0.0 % 02/21/19 21:40 Neut % (Auto) 45.9 % 02/21/19 21:40 Lymph % (Auto) 42.9 % 02/21/19 21:40 Sac % (Auto) 7.6 % 02/21/19 21:40 Eos % (Auto) 2.8 % 02/21/19 21:40 Baso % (Auto) 0.8 % 02/21/19 21:40 Immature Gran # (Auto) 0.00 K/uL (0.00-0.02) 02/21/19 21:40 Neut # (Auto) 1.81 K/uL (1.4-6.5) 02/21/19 21:40 Lymph # (Auto) 1.69 K/uL (1.2-3.4) 02/21/19 21:40 Sac # (Auto) 0.30 K/uL (0.11-0.59) 02/21/19 21:40 Eos # (Auto) 0.11 K/uL (0-0.5) 02/21/19 21:40 Baso # (Auto) 0.03 K/uL (0-0.2) 02/21/19 21:40 PT 11.5 Seconds (9.0-12.0) 02/21/19 21:40 INR 1.1 (0.9-1.1) 02/21/19 21:40 Sodium 143 mmol/L (136-145) 02/21/19 21:40 Potassium 3.9 mmol/L (3.5-5.1) 02/21/19 21:40 Chloride 110 mmol/L (98-107) H 02/21/19 21:40 Carbon Dioxide 29 mmol/L (21-32) 02/21/19 21:40 Anion Gap 4.0 (3-11) 02/21/19 21:40 BUN 19 mg/dl (7-18) H 02/21/19 21:40 Creatinine 1.20 mg/dl (0.6-1.4) 02/21/19 21:40 Est Cr Clr Drug Dosing 48.5 ml/min 02/21/19 21:40 Est GFR ( Amer) 67.2 02/21/19 21:40 Est GFR (Non-Af Amer) 58.0 02/21/19 21:40 BUN/Creatinine Ratio 15.9 (10-20) 02/21/19 21:40 Glucose 144 mg/dl (70-99) H 02/21/19 21:40 Calcium 9.2 mg/dl (8.5-10.1) 02/21/19 21:40 Magnesium 2.3 mg/dl (1.8-2.4) 02/21/19 21:40 Total Bilirubin 0.5 mg/dl (0.2-1) 02/21/19 21:40 AST 21 U/L (15-37) 02/21/19 21:40 ALT 52 U/L (12-78) 02/21/19 21:40 Alkaline Phosphatase 108 U/L (45-117) 02/21/19 21:40 Total Creatine Kinase 131 U/L (39-308) 02/21/19 21:40 Troponin I < 0.015 ng/ml (0-0.045) 02/21/19 21:40 Total Protein 6.4 gm/dl (6.4-8.2) 02/21/19 21:40 Albumin 3.1 gm/dl (3.4-5.0) L 02/21/19 21:40 Globulin 3.3 gm/dl (2.5-4.0) 02/21/19 21:40 Albumin/Globulin Ratio 0.9 (0.9-2) 02/21/19 21:40 TSH 7.350 uIu/ml (0.300-4.500) H 02/21/19 21:40 Free T4 1.20 ng/dl (0.8-1.6) 02/21/19 21:40 Diagnostic Findings Chest x-ray showed no acute process EKG as per my interpretation : Rate 105, sinus tachycardia, 1 AVB, incomplete right bundle branch block, T wave flattening lateral leads CT head initial read: No acute intracranial process; involutional change
[2019-02-22 01:35] LABS: Lyme Ab IgM w/WB Rflx Negative (Negative)
[2019-02-22] MEDS ORDERED: NITROGLYCERIN SL 0.4 MG/TAB TAB SL PRN (01:46)
[2019-02-22] MEDS ORDERED: ACETAMINOPHEN 325 MG TAB PO PRN (01:46)
[2019-02-22] MEDS ORDERED: LACTATED RINGER'S 1,000 ML IV ONE (01:46)
[2019-02-22 02:09] LABS: Lyme Ab IgG w/WB Rflx Positive (Negative)
[2019-02-22 06:26] LABS: Estimated Average Glucose 120 mg/dl; Hemoglobin A1C 5.8 % (4.5-5.6)
[2019-02-22 06:49] LABS: Basophils # (auto) 0.02 K/uL (0-0.2); Basophils % (auto) 0.6 %; Eosinophils # (auto) 0.15 K/uL (0-0.5); Eosinophils % (auto) 4.3 %; Hematocrit (blood only) 45.3 % (42-52); Hemoglobin 15.2 g/dL (14.0-18.0); Lymphocytes # (auto) 1.46 K/uL (1.2-3.4); Lymphocytes % (auto) 41.8 %; Mean Corpuscular Hgb Conc 33.6 g/dL (32-36); Mean Corpuscular Volume 92.3 fL (80-100); Mean Platelet Volume 10.4 fL (7.4-10.4); Monocytes # (auto) 0.31 K/uL (0.11-0.59); Monocytes % (auto) 8.9 %; Neutrophils # (auto) 1.55 K/uL (1.4-6.5); Neutrophils % (auto) 44.4 %; Platelet Count 210 K/uL (130-400); RDW Coefficient of Variation 14.4 % (11.5-14.5); RDW Standard Deviation 48.6 fL (36.4-46.3); Red Blood Count 4.91 M/uL (4.7-6.1); White Blood Count 3.49 K/uL (4.8-10.8)
[2019-02-22 07:00] LABS: Partial Thromboplastin Time 27.7 Seconds (21.0-31.0)
--- NOTE | 2019-02-22 07:04 | CT Scan Report ---
HEAD CT NONCONTRAST CT DOSE: 614.27 mGy.cm HISTORY: dizziness, eliquis use TECHNIQUE: Multiaxial CT images of the head were performed without the use of intravenous contrast. A utomated exposure control was utilized for this study. A dose lowering technique was utilized adheri ng to the principles of ALARA. Comparison: None. Findings: The paranasal sinuses and mastoid air cells are clear. The calvarium and skull base are int act. There is no mass, hematoma, midline shift, acute infarct. White matter hypodensity is nonspecifi c but suggestive of microvascular ischemic change. The ventricles and sulci demonstrate mild age-rela mateus involutional changes. Impression: No acute intracranial abnormality. Atrophy and microvascular ischemic changes. Electronically signed by: Abdoul Tucker M.D. 02/22/2019 7:02 AM
[2019-02-22] MEDS ORDERED: Heparin IV Standard *NO* Bolus IV SCH (07:44)
[2019-02-22] MEDS ORDERED: HEPARIN SODIUM/DEXTROSE 25,000 UNITS/500 ML BAG IV SCH (08:45)
[2019-02-22] MEDS ORDERED: APIXABAN 5 MG TABLET PO SCH (09:00)
[2019-02-22] MEDS: DOCUSATE SODIUM 100 MG CAP PO SCH ×2 (09:56→20:47)
[2019-02-22] MEDS: FOLIC ACID 400 MCG TAB PO SCH (09:57)
[2019-02-22] MEDS: CYANOCOBALAMIN 500 MCG TABLET (VITAMIN B-12) PO SCH (09:57)
--- NOTE | 2019-02-22 14:25 | Hospitalist Progress Note ---
Date of Service February 22, 2019 Assessment & Plan (1) Dizziness: Near Syncope AV Diane Block ? Tachybradycardia syndrome H/O A. fib/flutter S/P ablation Was on Eliquis for anticoagulation Recently completed doxycycline course for Lyme's disease 1 month ago Multaq on hold Held Eliquis as well for possible intervention Continue IV heparin Heart rate is controlled Monitor on Telemetry Await for Cardiology recommendations Hypothyroidism Levothyroxine currently held by PCP due to possible adverse reaction TSH: 7.35 Free T4: 1.20 Continue to hold levothyroxine Hyperlipidemia Atorvastatin held by PCP due to possible adverse reaction Prediabetes Hemoglobin A1c: 5.8 Land [employer] diet/exercise Lyme arthritis Completed doxycycline course recently DVT Px: IV Heparin Code Status Full code Disposition: Expect to discharge home when stable Subjective Patient is seen and examined at bedside Less dizzy today Reports chronic perioral paresthesias Denies any chest pain, SOB, nausea, abd pain On IV Heparin Family at bedside No other complaints Review of Systems Review of Systems: All systems reviewed & are unremarkable except as noted in HPI & below Physical Exam Physical Exam: Physical Exam: Vitals signs as noted above General Appearance:Thin, no apparent distress Head: normocephalic, Atraumatic Eyes: normal inspection, EOMI Neck: supple, Trachea midline Respiratory/Chest: Normal breath sounds, CTA Cardiovascular: S1, S2, No murmur Abdomen/GI:Soft, Non tender, Bowel sounds present Extremities/Musculoskelatal:normal inspection, no edema Neurologic/Psych:AAOX3, grossly no focal neurological deficits Skin: normal color, warm Results & Data Vital Signs (Past 12 Hours) Vital Signs Temp Pulse Resp BP Pulse Ox 02/22/19 11:13 36.7 C 74 17 137/105 H 96 02/22/19 08:00 36.6 C 63 18 123/89 97 Laboratory Results Short CBC 02/21/19 02/22/19 Range/Units 21:40 06:26 WBC 3.94 L 3.49 L (4.8-10.8) K/uL Hgb 16.0 15.2 (14.0-18.0) g/dL Hct 47.9 45.3 (42-52) % Plt Count 230 210 (130-400) K/uL BMP 02/21/19 21:40 Sodium 143 Potassium 3.9 Chloride 110 H Carbon Dioxide 29 BUN 19 H Creatinine 1.20 Glucose 144 H Calcium 9.2 Cardiac Enzymes 02/21/19 Range/Units 21:40 Total Creatine Kinase 131 (39-308) U/L Troponin I < 0.015 (0-0.045) ng/ml Liver Function 02/21/19 Range/Units 21:40 Total Bilirubin 0.5 (0.2-1) mg/dl AST 21 (15-37) U/L ALT 52 (12-78) U/L Alkaline Phosphatase 108 (45-117) U/L Albumin 3.1 L (3.4-5.0) gm/dl
[2019-02-22] MEDS ORDERED: METOPROLOL TARTRATE 25 MG TAB PO ONE (16:48)
[2019-02-22] MEDS ORDERED: METOPROLOL TARTRATE 1 MG/ML VIAL IV PRN (16:52)
[2019-02-22] MEDS ORDERED: METOPROLOL TARTRATE 1 MG/ML VIAL IV ONE (16:57)
[2019-02-22] MEDS: APIXABAN 5 MG TABLET PO SCH (18:48)
[2019-02-22] MEDS ORDERED: ATORVASTATIN 10 MG TAB PO SCH (21:00)
[2019-02-22] MEDS ORDERED: METOPROLOL TARTRATE 25 MG TAB PO SCH (21:00)
--- NOTE | 2019-02-23 03:22 | Hospitalist Progress Note ---
Date of Service February 23, 2019 Subjective Made aware by RN around 3 AM of cardiac rate 40s lasting 40 seconds while patient asleep. SBP currently 150s. AP Episodic bradycardia hx AFib/flutter ? SSS Hold Metoprolol for now. Initiate lisinopril for BP control. Will relay to AM provider. Results & Data Vital Signs (Past 12 Hours) Vital Signs Temp Pulse Pulse Pulse Resp BP Pulse Ox 02/23/19 01:46 02/22/19 23:12 36.5 C 66 17 137/94 97 02/22/19 22:59 67 02/22/19 20:00 36.8 C 63 18 121/77 94 02/22/19 16:36 36.6 C 72 20 187/93 H 95 Pulse Ox 02/23/19 01:46 97 02/22/19 23:12 02/22/19 22:59 02/22/19 20:00 02/22/19 16:36
[2019-02-23] MEDS ORDERED: ACETAMINOPHEN 325 MG TAB PO STA (05:24)
[2019-02-23] MEDS ORDERED: LACTATED RINGER'S 1,000 ML IV ONE (05:26)
[2019-02-23] MEDS: APIXABAN 5 MG TABLET PO SCH ×2 (05:39→17:13)
[2019-02-23 06:21] LABS: Hematocrit (blood only) 47.3 % (42-52); Mean Corpuscular Hgb Conc 33.8 g/dL (32-36); Mean Corpuscular Volume 92.2 fL (80-100); Mean Platelet Volume 10.4 fL (7.4-10.4); Platelet Count 206 K/uL (130-400); RDW Coefficient of Variation 14.3 % (11.5-14.5); RDW Standard Deviation 48.1 fL (36.4-46.3); Red Blood Count 5.13 M/uL (4.7-6.1); White Blood Count 3.39 K/uL (4.8-10.8)
[2019-02-23] MEDS: LISINOPRIL 2.5 MG TAB PO SCH (06:34)
[2019-02-23 06:54] LABS: BUN Creatinine Ratio 20.7 (10-20); Calcium 8.6 mg/dl (8.5-10.1); Creatinine Clr Calc Pharmacy 58.3 ml/min; Est GFR (African American) 83.8; Est GFR (Non-African American) 72.3; Magnesium 2.2 mg/dl (1.8-2.4); Potassium 4.1 mmol/L (3.5-5.1)
[2019-02-23] MEDS: DOCUSATE SODIUM 100 MG CAP PO SCH ×2 (08:23→20:16)
[2019-02-23] MEDS: CYANOCOBALAMIN 500 MCG TABLET (VITAMIN B-12) PO SCH (08:23)
[2019-02-23] MEDS: FOLIC ACID 400 MCG TAB PO SCH (08:23)
[2019-02-23] MEDS ORDERED: LISINOPRIL 2.5 MG TAB PO SCH (09:00)
--- NOTE | 2019-02-23 11:27 | Hospitalist Progress Note ---
Date of Service February 23, 2019 Assessment & Plan (1) Dizziness: Near Syncope AV Diane Block Possible Tachybradycardia syndrome H/O A. fib/flutter S/P ablation On Eliquis for anticoagulation Recently completed doxycycline course for Lyme's disease 1 month ago Rctaraul discontinued IV heparin>>> Resumed to Eliquis Heart rate is controlled currently Monitor on Telemetry Cardiology consulted Metoprolol held for now due to bradycardia Dizziness resolved Fever: No obvious source of infection Chest x-ray: No acute process UA not suggestive of UTI, denies dysuria Blood cultures: Pending No plan to start antibiotics for now Normal procalcitonin Hypothyroidism Levothyroxine currently held by PCP due to possible adverse reaction TSH: 7.35 Free T4: 1.20 Continue to hold levothyroxine as per patient's preference Hyperlipidemia Atorvastatin held by PCP due to possible adverse reaction Prediabetes Hemoglobin A1c: 5.8 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 Lyme arthritis Completed doxycycline course recently Serological work up pending DVT Px: Eliquis Code Status Full code Disposition: Expect to discharge home when stable Subjective Patient is seen and examined at bedside Febrile this morning which currently resolved Dizziness resolved Bradycardic in 40s overnight while asleep Currently rate controlled, sinus Metoprolol held for now Denies any chest pain, SOB, nausea, abd pain, diarrhea, dysuria Eager to get discharged Offers no other complaints Review of Systems Review of Systems: All systems reviewed & are unremarkable except as noted in HPI & below Physical Exam Physical Exam: Physical Exam: Vitals signs as noted above General Appearance:Thin, no apparent distress Head: normocephalic, Atraumatic Eyes: normal inspection, EOMI Neck: supple, Trachea midline Respiratory/Chest: Normal breath sounds, CTA Cardiovascular: S1, S2, No murmur Abdomen/GI:Soft, Non tender, Bowel sounds present Extremities/Musculoskelatal:normal inspection, no edema Neurologic/Psych:AAOX3, grossly no focal neurological deficits Skin: normal color, warm Results & Data Vital Signs (Past 12 Hours) Vital Signs Temp Pulse Pulse Resp BP Pulse Ox Pulse Ox 02/23/19 08:12 37.1 C 69 18 136/93 97 02/23/19 08:00 62 02/23/19 04:14 37.6 C H 64 18 153/92 H 95 02/23/19 01:46 97 Laboratory Results Short CBC 02/23/19 Range/Units 05:59 WBC 3.39 L (4.8-10.8) K/uL Hgb 16.0 (14.0-18.0) g/dL Hct 47.3 (42-52) % Plt Count 206 (130-400) K/uL BMP 02/23/19 05:59 Sodium 143 Potassium 4.1 Chloride 110 H Carbon Dioxide 28 BUN 21 H Creatinine 1.00 Glucose 86 Calcium 8.6
--- NOTE | 2019-02-23 13:00 | Consultation Report ---
DATE OF CONSULTATION: 02/23/2019 REQUESTING: Dr. Hall. HEALTH AND SAFETY TECHNICIAN: Rojas De La Cruz DO, [facility] for Dr. 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 REASON FOR CONSULTATION: Atrial arrhythmias. Dear Dr. Hall: Thank you for requesting cardiology consultation on Bradford with regards to his atrial arrhythmias. He underwent EP study by Dr. Raza and at that time he was found to have not only atrial flutter, but also atrial fibrillation and his EKGs here looked like atrial flutter as well as even runs of paroxysmal atrial tachycardia. His outpatient note was reviewed from 01/31/2019. He was having ongoing atrial arrhythmias. He previously was on amiodarone. There was a concern about side effects related to amiodarone and it sounds like the patient became hypothyroid secondary to amiodarone. He was started on Multaq. He had been on it about 2 weeks or so. His called Sunday night, noting that he was lightheaded and dizzy and did not feel well and thought it may be related to the Multaq. He also had a borderline low blood pressure. He came to the Emergency Room. His initial EKGs suggest atrial flutter, frequent PACs, what looks like periods of atrial fibrillation and even possible paroxysmal atrial tachycardia. He is on chronic anticoagulation. He is feeling better overall. He was started on beta blockers as his Multaq was discontinued. His nighttime metoprolol dose was held last night for a low heart rate. This morning, the patient feels better. He denies any chest pain or chest pressure, lightheadedness or dizziness. He is unaware of any palpitations or fluttering. He denies any lower extremity edema. He is known to have a mild ischemic cardiomyopathy. He describes his functional capacity is relatively stable in the last couple of weeks before Brayden's episode. The rest of a complete review of systems is otherwise negative. PAST MEDICAL HISTORY: 1. Multiple atrial arrhythmias including atrial flutter, atrial fibrillation, and possible paroxysmal atrial tachycardia. 2. Lightheadedness, dizziness and presyncope, possibly related to Multaq, possibly related to his underlying atrial arrhythmias. 3. Hypothyroidism. 4. Hyperlipidemia. 5. History of tobacco abuse. 6. History of Lyme arthritis. 7. Mild nonischemic cardiomyopathy. FAMILY HISTORY: Negative for heart disease. SOCIAL HISTORY: He smoked in the past. He denies any alcohol. 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 ALLERGIES: No known drug allergies. OUTPATIENT MEDICATIONS: Reviewed in detail. PHYSICAL EXAMINATION: GENERAL: He is awake, alert, oriented x3. He is in no acute distress. He looks much younger than his stated age. VITAL SIGNS: His heart rate is 69, respirations 18, blood pressure 136/93, his temperature 37.1, his sats 97% on room air. HEENT: Mild to moderately reduced carotid upstrokes, no evidence of carotid bruits. Jugular venous pressure appeared normal. His sclerae is anicteric. His hearing is normal. LUNGS: Clear to auscultation bilaterally. No rales, rhonchi or wheezing. HEART: Regular rate and rhythm with occasional ectopy. No appreciable murmurs, rubs or gallops. ABDOMEN: Soft, nontender, nondistended. Positive bowel sounds. EXTREMITIES: No clubbing, cyanosis or edema. PSYCHIATRIC: His affect appeared appropriate. DIAGNOSTIC STUDIES: As discussed above, head CT, no acute abnormalities. LABORATORY DATA: Hemoglobin of 16, platelet count of 206. Sodium 143, potassium 4.1, BUN 21, creatinine 1. Troponins are negative. TSH is 7.35. Free T4 is normal at 1.2. IMPRESSION: 1. Lightheadedness, dizziness, possibly related to recurrent atrial arrhythmias, possibly related to Multaq, now resolved. 2. History of multiple atrial arrhythmias including atrial flutter and atrial fibrillation and possibly runs of PAT. 3. Chronic anticoagulation with apixaban. 4. Mild nonischemic cardiomyopathy. I did discuss with Bradford whether he wanted to consider going back on amiodarone to suppress his atrial arrhythmias, he is rather adamant that he does not, as he is upset that amiodarone causes hypothyroidism. It does not appear Multaq was effective for him. He was started on low-dose beta blockers, 25 mg of metoprolol b.i.d. As long as his heart rate is above 50 while awake, I would not hold his beta blockers. If his heart rates in the 40s at night, I would not be concerned unless he is lightheaded or dizzy. Ultimately, he likely will have recurrent atrial arrhythmias and this is just a short term solution as Dr. Raza discussed in his last note, he may need to consider a different antiarrhythmic specifically Tikosyn with his LV dysfunction or an Afib ablation. Thank you for allowing me to participate in his care. MORTEZA
[2019-02-23] MEDS: METOPROLOL TARTRATE 25 MG TAB PO SCH ×2 (13:20→20:16)
[2019-02-24 05:50] LABS: Hemoglobin 14.8 g/dL (14.0-18.0); Mean Corpuscular Hgb Conc 33.6 g/dL (32-36); Mean Corpuscular Volume 93.4 fL (80-100); Mean Platelet Volume 10.1 fL (7.4-10.4); Platelet Count 197 K/uL (130-400); RDW Coefficient of Variation 14.1 % (11.5-14.5); RDW Standard Deviation 48.1 fL (36.4-46.3); Red Blood Count 4.71 M/uL (4.7-6.1); White Blood Count 3.99 K/uL (4.8-10.8)
[2019-02-24] MEDS: APIXABAN 5 MG TABLET PO SCH ×2 (05:58→17:15)
[2019-02-24 06:24] LABS: BUN Creatinine Ratio 18.9 (10-20); Calcium 8.5 mg/dl (8.5-10.1); Creatinine Clr Calc Pharmacy 59.4 ml/min; Est GFR (African American) 86.9; Potassium 3.9 mmol/L (3.5-5.1)
[2019-02-24] MEDS ORDERED: METOPROLOL TARTRATE 1 MG/ML VIAL IV ONE (07:52)
[2019-02-24] MEDS: LISINOPRIL 2.5 MG TAB PO SCH (08:06)
[2019-02-24] MEDS: CYANOCOBALAMIN 500 MCG TABLET (VITAMIN B-12) PO SCH (08:06)
[2019-02-24] MEDS: METOPROLOL TARTRATE 25 MG TAB PO SCH ×2 (08:06→20:52)
[2019-02-24] MEDS: FOLIC ACID 400 MCG TAB PO SCH (08:06)
[2019-02-24] MEDS: DOCUSATE SODIUM 100 MG CAP PO SCH ×2 (08:07→20:52)
--- NOTE | 2019-02-24 08:27 | Hospitalist Progress Note ---
Date of Service February 24, 2019 Assessment & Plan (1) Atrial fibrillation: Continue metoprolol for rate control strategy per discussion with cardiology will be seeing him today and deciding on a more long-term plan. Heart rate was controlled with Lopressor 5 mg IV this morning. Continue to monitor on telemetry. Multitak has been discontinued. Continue Eliquis. (2) Elevated blood pressure reading: Blood pressure elevated to the 140s to 150 systolic. Per cardiology discussion the patient is sticking to a high salt diet. He was placed on lisinopril 2.5 mill grams p.o. daily this hospitalization. Will discuss with cardiology if they think this is needed going home. (3) Lyme disease: History of Lyme disease 1 year ago and again reinfected this year. Recently finished a course of doxycycline. Serology is pending. Of note patient was febrile on admission. No antibiotics were administered. He is doing well clinically today. (4) Hyperlipidemia: On atorvastatin at home, however, held by PCP as outpatient for potential for adverse reaction. Continue to hold atorvastatin. (5) Hypothyroidism: Levothyroxine has been held by primary care doctor to rule out adverse reaction by the medication. Continue to hold levothyroxine at this time. (6) DVT prophylaxis: Eliquis Full code Disposition-continue PCU monitoring. Awaiting definitive cardiology plan. Rose Elizabeth DO [facility] Hospitalist Subjective 78-year-old man presented with lightheadedness and dizziness known to have atrial fibrillation/atrial flutter with both bradycardia and tachycardia this hospitalization. This morning I was notified by the nurse and his heart rate was in the 180s. EKG revealed sinus tachycardia and blood pressure was 125/80. At the bedside he was well-appearing but reported feeling somewhat lightheaded and dizzy. He denied any chest pain and was mentating normally. Carotid massage was attempted unsuccessfully. Lopressor 5 mg IV was administered and his heart rate returned to approximately 100 and maintained around 100-1 15. Symptoms resolved and he again denied chest pain, shortness of breath or other issue. He reported feeling back to baseline. Metoprolol 25 mg p.o. was administered. A repeat EKG was performed revealing sinus rhythm. Overnight his heart rate was in the 30s and he was asymptomatic per nursing report. Cardiology was made aware of the event. Review of Systems Review of Systems: All systems reviewed & are unremarkable except as noted in HPI & below Physical Exam Physical Exam: CONSTITUTIONAL: WNWD, vitals as above, generally well- appearing EYES: normal conjunctivae, no scleral icterus ENT: MMM RESPIRATORY: clear to auscultation bilaterally, no crackles, rales or wheezes, normal respiratory effort CARDIOVASCULAR: tachy rate and reg rhythm, S1 and 2 heard without murmurs, gallops or rubs, no JVD GASTROINTESTINAL: soft, nontender, nondistended MUSCULOSKELETAL: head is normocephalic and atraumatic, no gross focal deficits. SKIN: warm and dry NEUROLOGIC: CN 2-12 grossly intact, no sensory deficit, normal cognition, normal speech, no tremor, no gross focal deficits. PSYCHIATRIC: alert cooperative and oriented Results & Data Vital Signs (Past 12 Hours) Vital Signs Temp Pulse Pulse Resp BP Pulse Ox 02/24/19 08:06 180 H 02/24/19 07:08 36.5 C 85 16 155/102 H 95 02/24/19 03:35 36.7 C 61 18 136/90 96 02/23/19 23:18 36.5 C 60 18 130/92 94 02/23/19 22:20 64 Laboratory Results Short CBC 02/24/19 Range/Units 05:33 WBC 3.99 L (4.8-10.8) K/uL Hgb 14.8 (14.0-18.0) g/dL Hct 44.0 (42-52) % Plt Count 197 (130-400) K/uL BMP 02/24/19 05:33 Sodium 142 Potassium 3.9 Chloride 109 H Carbon Dioxide 27 BUN 18 Creatinine 0.97 Glucose 79 Calcium 8.[address] NONCONTRAST CT DOSE: 614.27 mGy.cm HISTORY: dizziness, eliquis use TECHNIQUE: Multiaxial CT images of the head were performed without the use of intravenous contrast. Automated exposure control was utilized for this study. A dose lowering technique was utilized adhering to the principles of ALARA. Comparison: None. Findings: The paranasal sinuses and mastoid air cells are clear. The calvarium and skull base are intact. There is no mass, hematoma, midline shift, acute infarct. White matter hypodensity is nonspecific but suggestive of microvascular ischemic change. The ventricles and sulci demonstrate mild age-related involutional changes. Impression: No acute intracranial abnormality. Atrophy and microvascular ischemic changes. Medications Administered Current Inpatient Medications Acetaminophen (Tylenol) 650 mg PO Q4H PRN PRN Reason: Pain or Fever Stop: 03/24/19 01:45 Apixaban (Eliquis) 5 mg PO DAILY@0600,1800 [facility] Stop: 03/24/19 17:59 Last Admin: 02/24/19 05:58 Dose: 5 mg Documented by: Cyanocobalamin (Vitamin B-12) 1,000 mcg PO QAM [facility] Stop: 03/24/19 08:59 Last Admin: 02/24/19 08:06 Dose: 1,000 mcg Documented by: Docusate Sodium (Colace) 100 mg PO BID [facility] Stop: 03/24/19 08:59 Last Admin: 02/24/19 08:07 Dose: 100 mg Documented by: Folic Acid (Folvite) 400 mcg PO DAILY [facility] Stop: 03/24/19 08:59 Last Admin: 02/24/19 08:06 Dose: 400 mcg Documented by: Sodium Chloride (Nss) 500 mls @ 100 mls/hr IV .Q5H [facility] Stop: 02/24/19 13:29 Lisinopril (Zestril) 2.5 mg PO QAM [facility] Stop: 03/25/19 05:29 Last Admin: 02/24/19 08:06 Dose: 2.5 mg Documented by: Metoprolol Tartrate (Lopressor) 25 mg PO BID [facility] Stop: 03/25/19 12:59 Last Admin: 02/24/19 08:06 Dose: 25 mg Documented by: Nitroglycerin (Nitrostat) 0.4 mg SL UD PRN PRN Reason: Chest Pain Stop: 03/24/19 01:45
[2019-02-24] MEDS ORDERED: SODIUM CHLORIDE 0.9% 500 ML IV SCH (08:30)
[2019-02-24] MEDS ORDERED: METOPROLOL TARTRATE 1 MG/ML VIAL IV STA (14:42)
--- NOTE | 2019-02-24 15:57 | Cardiology Progress Note ---
Date of Service February 24, 2019 Assessment & Plan (1) Atrial fibrillation: He has a variety of atrial arrhythmias. He cycles between sinus bradycardia, multiple forms of atrial flutter and possibly atrial fibrillation. His heart rate is high at times likely due to increased adrenergic tone as well as a change in rhythm. We have had great difficulty on outpatient basis controlling his rhythm and rates lately. I would agree with discontinuation of the Multaq as it does not appear to have had any significant efficacy. I did discuss several options with the patient and his fiancee. I think that consideration of a pacemaker would be a good idea. He clearly has episodes of bradycardia when in sinus rhythm and was known to have episodes of bradycardia 1 year ago when he initially presented with atrial arrhythmias. I think placement of a pacemaker would make more aggressive rate control a possibility and may obviate the need for any form of rhythm control. The patient is contemplating this option. I provided him with some literature today will continue to discuss this topic hopefully proceeding with implantation during this hospitalization. Alternatively, a more complete catheter ablation could prove efficacious in this setting. However, he does have multiple arrhythmias in whether a pulmonary vein isolation or left atrial flutter ablation would help is unclear. I would agree with continue on his current dose of beta-karen and some form of anticoagulation. May need to temporarily interrupt his Eliquis in order to facilitate pacemaker implantation. (2) Cardiomyopathy: He is known to have mildly reduced LV systolic function. He appears to be well compensated currently. The thought has been that his LV function is reduced due to recurrent and sustained episodes of tachycardia. Hopefully with better control of his rhythm issues we will see improvement in his LV function. I think we can wait and see what he decides regarding treatment of his atrial arrhythmias before recommending any additional agents for his cardiomyopathy. Subjective This morning the patient did report some episodes of dizziness associated with activity. According to his fiancee who was present for the interview was heart rate was quite high when he attempted ambulate out of bed earlier this morning. Currently he is feeling well. He denies significant breathing difficulty. No symptoms of chest discomfort. No sense of palpitation. Review of Systems Review of Systems: Per HPI Physical Exam Physical Exam: The patient is alert and oriented. Mood and affect appeared normal. He answered all questions appropriately. HEENT: Pupils are equal and reactive to light and accommodation. Extraocular movements are intact. The sclerae are anicteric. Neuro: Cranial nerves intact Neck: Patient's neck is supple. He has palpable carotid pulses bilaterally without bruits on auscultation. There is Lungs: Clear to auscultation bilaterally. He has good air movement without use of accessory muscles. No rales wheezes or rhonchi. Cardiac: Regular rhythm but tachycardic Pulses: The patient has palpable radial pulses bilaterally that are equal in intensity Extremities: There was no evidence of hypoperfusion. There is no cyanosis or clubbing. There is no edema. Skin: I did not appreciate any rashes on examination today. Results & Data Vital Signs (Past 12 Hours) Vital Signs Temp Pulse Pulse Resp BP Pulse Ox 02/24/19 10:53 36.8 C 99 H 17 121/78 94 02/24/19 08:06 180 H 02/24/19 08:00 180 H 02/24/19 07:08 36.5 C 85 16 155/102 H 95 Laboratory Results Abnormal Lab Results 02/24/19 02/24/19 05:33 05:33 WBC 3.99 L RBC 4.71 Hgb 14.8 Hct 44.0 MCV 93.4 MCH 31.4 MCHC 33.6 RDW Std Deviation 48.1 H RDW Coeff of Cheng 14.1 Plt Count 197 MPV 10.1 Sodium 142 Potassium 3.9 Chloride 109 H Carbon Dioxide 27 Anion Gap 6.0 BUN 18 Creatinine 0.97 Est Cr Clr Drug Dosing 59.4 Est GFR ( Amer) 86.9 Est GFR (Non-Af Amer) 75.0 BUN/Creatinine Ratio 18.9 Glucose 79 Calcium 8.5
--- NOTE | 2019-02-24 17:26 | Discharge Summary ---
Date of Service February 24, 2019 Admission HPI Per Admitting Provider History obtained from patient, family, and records. Medical history significant for A. fib/a flutter status post ablation on Eliquis, hypothyroidism, hyperlipidemia, past tobacco abuse, history Lyme arthritis status post Rx. Recent confinement February 2018 for sepsis secondary to E. coli UTI. Patient also found to have new onset A. fib during confinement. Patient sent home on Amiodarone and Eliquis on discharge. Patient weaned off amiodarone about 3 months ago with normal sinus rhythm. 3 weeks ago, patient started on diltiazem for uncontrolled heart rate. 2 weeks ago, patient started on Multitak in place of Diltiazem by wool batting worker following [facility] ER visit for tachycardia. Patient hesitant to resume prior amiodarone given side effect profile. Home statin and levothyroxine medications held recently by PCP due to patient concerns about fuzzy head sensation noted by patient as a possible medication side effect profile. Yesterday morning, patient noted intermittent dizziness described as lightheadedness especially on getting up, near syncopal episodes at home associated with palpitations - heartbeat noted to be going fast and later slow. Patient denies chest pain, S OB, headache. Cardiac rate noted to be 50s at urgent care center. Patient directed to the emergency room from urgent care center. At the ER, patient initially noted to be in SVT, cardiac rate 160s. Patient later noted to have second-degree AV block on the monitor as per ER provider. Recurrent SVT cardiac rate 160s, SBP 70s noted on orthostatic vitals. IV fluid bolus administered. Patient SBP 140s, cardiac rate 70s currently. Patient comfortable. 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 Admission Exam Per Admitting Provider GENERAL: Comfortable, no respiratory distress SKIN: Normal color, warm HEENT: [place] palpebral conjunctivae, no ptosis, dry buccal mucosa NECK : Supple, no tenderness CHEST : CTA, no tenderness HEART : RRR, no obvious murmurs ABDOMEN: No overt distention , nontender EXTREMITIES : No LE swelling/tenderness, no other conspicuous deformities noted NEUROLOGIC : Coherent, no facial asymmetry, no other gross focality Principal Diagnosis atrial fibrillation tachycardia bradycardia cardiomyopathy dizziness Discharge Data Allergies Allergy/AdvReac Type Severity Reaction Status Date / Time No Known Allergies Allergy Verified 02/21/19 23:32 Consultations 02/21/19 23:36 ED Decision to Admit Stat 02/22/19 01:46 Consult Cardiology Routine Ordered Studies 02/22/19 00:39 CT head/brain wo con Stat Hospital Course (1) Dizziness: (2) Atrial fibrillation: (3) Cardiomyopathy: (4) Lyme disease: (5) Hyperlipidemia: (6) Bradycardia: (7) Hypothyroidism: 78-year-old man with a history of atrial fibrillation and systolic heart failure presented to the emergency room reporting lightheadedness. He had been hospitalized in February 2018 for sepsis secondary to an E. coli UTI. He had been found at that time to have new onset atrial fibrillation and was sent home on amiodarone and Eliquis at discharge. He had been weaned off amiodarone 3 months ago and was started on diltiazem when heart rate became uncontrolled. One week later he was started on Multaq in place of diltiazem by a wool batting worker following a [facility] ER visit for tachycardia. However, the patient was hesitant of this drug given side the effect profile. Notably the primary care stefanie aguillon had seen him for lightheadedness and it held his Lipitor and Synthroid for concerns of side effects. Subsequently the patient was noticing intermittent dizziness and lightheadedness especially with changing position, and having near syncopal episodes associated with palpitations. In the ER he was initially noted to be in SVT with a heart rate in the 160s and later noted to have second-degree AV block on the monitor per ER provider. Recurrent SVT was noted and hypotension was seen with an IV fluid bolus administered an improvement in blood pressure while in the ER. He was admitted to the hospitalist service and cardiology was consulted. Presyncopal episodes were thought related to recurrent atrial arrhythmias versus Multaq. Runs of paroxysmal atrial tachycardia were noted on telemetry. Second degree block resolved and became sinus rhythm with intermittent sinus bradycardia. Discussion ensued about going back on amiodarone and the patient declined. He was started on a low-dose beta- karen, metoprolol 25 mg p.o. twice daily. Heart rates were lower than 40 at night and although asymptomatic, metoprolol was held at some points during the hospitalization per protocol. The next day his heart rate spiked up into the 190s and he was given Lopressor 5 mgs IV with return of heart rate into the low 100s. He was in sinus rhythm at this time. Metoprolol was continued. Several treatment options were reviewed with him including consideration of pacemaker placement. He clearly had episodes of bradycardia when in sinus rhythm and was noted to have episodes of bradycardia 1 year ago when he initially presented with atrial arrhythmias. Placement of the pacemaker would allow more aggressive rate control and may obviate the need for any form of rhythm control. Additio yasir, his reduced LV systolic function was likely from recurrent and sustained episodes of tachycardia. Better control of his rhythm issues would likely improve this LV function. Further medical management for systolic heart failure was not given at this juncture while he was contemplating his next step in treatment. Alternative options including a more complete catheter ablation could prove efficacious. However, he does have multiple arrhythmias and it is unclear whether a pulmonary vein isolation or left atrial flutter ablation would help him. All these options were explained to the patient by cardiology and he was given literature regarding these options. At time of discharge the wool batting worker explained we did not have good control of his rhythm at this point and he was likely to have recurrent episodes of dizziness, bradycardia and high heart rates which may lead to a return to the hospital. Additionally, he strongly recommended against driving while he was still having or at high risk for these symptoms. The patient was anxious to go home and decided to follow-up with cardiology as an outpatient. He will go home on metoprolol twice daily and indefinite anticoagulation. At time of discharge he was mentating and ambulating at baseline and tolerating p.o. He was hemodynamically stable and afebrile for 24 hours prior to discharge. Physical exam was unremarkable inc luding clear lungs to auscultation and normal heart sounds including S1 and S2 heard with no evidence of murmurs, gallops or rubs. A regular rate and rhythm was auscultated. The patient was euvolemic on exam. He was discharged in stable condition with close primary care follow-up recommended. Of note, a repeat Lyme panel was pending at discharge after recent treatment for active Lyme. However, IgM was negative and IgG was positive indicating known prior, but not active, infection. Also of note, he was put on lisinopril 2.5mg daily for a couple of days while he was here for elevated blood pressure. This was not continued at discharge, and will defer to the PCP to monitor and treat his blood pressure moving forward. Total Time Total Time Spent Total Time Spent (In Minutes): 60 Total Time Includes: Examination of the Patient, Discharge Planning, Medication Reconciliation, Communication With Other Providers and Other (Follow-up with primary care appointment arranged) Discharge Plan Discharge Items Patient Disposition: Home - Self-Care Reason For Visit: FEELING FAINT Discharge Diagnosis: atrial fibrillation tachycardia bradycardia cardiomyopathy dizziness Condition: Good Discharge Goals: Improve disease control Activity: Resume your previous activity Driving/Machine Use Comment: Driving not recommended while symptoms persist Non-emergency contact: Primary Care Provider Call non-emergency contact if: you have any medication questions and your symptoms worsen Follow-up/Referrals: Prciilla Rojas MD [Primary Care Provider] - Diet: Heart Healthy Addtl Provider Instructions: Please take all medications as instructed on discharge list below. You are being started on a beta-karen to better control your heart rate called METOPROLOL. You will need to have a close follow-up with [facility] Cardiology group regarding your decision to undergo pacemaker or not. Please make a follow-up appointment with them in the next two weeks to discuss this further. You have the following appointment: 03/04/2019 1:00 PM Pricilla Rojas MD General Internal Medicine [facility] Lyme disease panel is pending at time of discharge. This can be reviewed at t his follow-up appointment. It was a pleasure taking care of you! Please call if you have any questions or problems. You can reach a [facility] hospitalist on duty at [facility] 24 hours a day by calling [phone]. Take care of yourself. Rose Elizabeth, DO [facility] Hospitalist Prescriptions: New metoprolol tartrate 25 mg Tablet 25 mg PO BID Qty: 60 RF: 1 Continued cyanocobalamin (vitamin B-12) [Vitamin B-12] 1,000 mcg Tablet 1,000 mcg PO QAM RF: 0 docusate sodium [Colace] 100 mg Capsule 100 mg PO BID RF: 0 coenzyme Q10 [Co Q-10] 100 mg Capsule 100 mg PO BID RF: 0 Probiotic 10 billion cell Capsule 2 cap PO PM RF: 0 Eliquis 5 mg Tablet 5 mg PO BID RF: 0 cholecalciferol (vitamin D3) [Vitamin D3] 1,000 unit Capsule 1,000 unit PO PM RF: 0 vitamin A 2,400 mcg PO QAM RF: 0 folic acid 400 mcg Tablet 400 mcg PO DAILY RF: 0 ascorbic acid (vitamin C) [Vitamin C] 500 mg Tablet 500 mg PO QPM RF: 0 Discontinued atorvastatin 10 mg Tablet 10 mg PO PM RF: 0 levothyroxine 88 mcg tablet 88 mcg PO QAM RF: 0 Multaq 400 mg Tablet 400 mg PO BID RF: 0 Stand-Alone Forms: [facility]/Other Patient Handouts: Pacemaker, AFL/Afib Discharge Orders: Discharge Order (Routine); Ordered 02/25/19 Ordered By: Rose Elizabeth Admission Data Admit Date/Time: 02/24/19 08:37 Attending Provider: Rose Elizabeth Admit Provider: Eliud Hall Primary Care Provider: Priiclla Rojas Other Providers: Eliud Hall ; Mathew Raza Service: Telemetry Other Interventions: Discharge Summary Assessment (RN) Last Done: 02/25/19 11:02 DC Date/Time DO NOT enter until pt leaves facility: 02/25/19 12:06
[2019-02-25] MEDS: APIXABAN 5 MG TABLET PO SCH (05:11)
[2019-02-25 07:10] LABS: BUN Creatinine Ratio 25.2 (10-20); Creatinine Clr Calc Pharmacy 52.9 ml/min; Est GFR (African American) 77.2; Est GFR (Non-African American) 66.6; Potassium 3.6 mmol/L (3.5-5.1)
[2019-02-25] MEDS: METOPROLOL TARTRATE 25 MG TAB PO SCH (09:00)
[2019-02-25] MEDS: CYANOCOBALAMIN 500 MCG TABLET (VITAMIN B-12) PO SCH (09:00)
[2019-02-25] MEDS: DOCUSATE SODIUM 100 MG CAP PO SCH (09:00)
[2019-02-25] MEDS: FOLIC ACID 400 MCG TAB PO SCH (09:00)
--- NOTE | 2019-02-25 09:24 | Cardiology Progress Note ---
Date of Service February 25, 2019 Assessment & Plan (1) Atrial fibrillation: He has a variety of atrial arrhythmias. For the past 24 hours he has done better. He seems to be in unusual atrial flutter versus fibrillation. Overall rate control has been better recently. He has not had significant bradycardia although he has not been in sinus rhythm since yesterday. He is anxious to go home today. I explained to the patient and his fiancee that I do not believe we have good control his rhythm problem at this point. I do believe he is likely to have recurrent episodes of dizziness, bradycardia and high heart rates. I encouraged him to consider pacemaker implantation and provided him with literature yesterday. I think with the pacemaker we may have good success at controlling his heart rates and this may be an adequate solution given his multiple atrial arrhythmias. Again, he was adamant about leaving the hospital today. Do not believe this poses a threat to his life although it is likely that he will have recurrent symptoms and possibly readmission at some point. I encouraged him not to drive given the episodes of dizziness he has had. Pacemaker could be implanted on an outpatient basis and I encouraged the patient to consider this option. Will continue anticoagulation indefinitely. (2) Cardiomyopathy: He is known to have mildly reduced LV systolic function. He appears to be well compensated currently. The thought has been that his LV function is reduced due to recurrent and sustained episodes of tachycardia. Hopefully with better control of his rhythm issues we will see improvement in his LV function. I think we can wait and see what he decides regarding treatment of his atrial arrhythmias before recommending any additional agents for his cardiomyopathy. I think we can continue his current dose of metoprolol tartrate at this point. In the long we could consider switch to us long-acting agent such as succinate. Subjective This morning the patient claims to be feeling well. He did notice a slight increase in his heart rate after he drank some juice this morning. He has been monitoring his heart rate since he had some coffee this morning. Claims to have ambulated frequently yesterday without symptoms of recurrent dizziness or sense of palpitation. Review of Systems Review of Systems: Per HPI Physical Exam Physical Exam: The patient is alert and oriented. Mood and affect appeared normal. He answered all questions appropriately. HEENT: Pupils are equal and reactive to light and accommodation. Extraocular movements are intact. The sclerae are anicteric. Neuro: Cranial nerves intact Lungs: Clear to auscultation bilaterally. He has good air movement without use of accessory muscles. No rales wheezes or rhonchi. Cardiac: Heart demonstrates an irregular rate and rhythm. Normal S1 and S2. No murmurs on examination. Pulses: The patient has palpable radial pulses bilaterally that are equal in intensity Extremities: There was no evidence of hypoperfusion. There is no cyanosis or clubbing. Skin: I did not appreciate any rashes on examination today. Results & Data Vital Signs (Past 12 Hours) Vital Signs Temp Pulse Pulse Resp BP Pulse Ox 02/25/19 07:10 36.5 C 69 18 114/73 97 02/25/19 03:32 36.5 C 78 18 102/68 95 02/25/19 00:00 36.5 C 68 18 111/65 97 02/24/19 22:46 68 Laboratory Results Abnormal Lab Results 02/25/19 06:05 Sodium 142 Potassium 3.6 Chloride 110 H Carbon Dioxide 27 Anion Gap 6.0 BUN 27 H Creatinine 1.07 Est Cr Clr Drug Dosing 52.9 Est GFR ( Amer) 77.2 Est GFR (Non-Af Amer) 66.6 BUN/Creatinine Ratio 25.2 H Glucose 87 Calcium 9.0 ECG Additional Comments: Time to demonstrated persistent atrial flutter versus fibrillation and variable ventricular rates.
[2019-02-28 04:40] LABS: 18KDIGG Band REACTIVE (NONREACTIVE); 23KDIGG Band REACTIVE (NONREACTIVE); 23KDIGM Band NONREACTIVE (NONREACTIVE); 28KDIGG Band REACTIVE (NONREACTIVE); 30KDIGG Band REACTIVE (NONREACTIVE); 39KDIGG Band REACTIVE (NONREACTIVE); 39KDIGM Band NONREACTIVE (NONREACTIVE); 41KDIGG Band REACTIVE (NONREACTIVE); 41KDIGM Band NONREACTIVE (NONREACTIVE); 45KDIGG Band REACTIVE (NONREACTIVE); 58KDIGG Band REACTIVE (NONREACTIVE); 66KDIGG Band REACTIVE (NONREACTIVE); 93KDIGG Band REACTIVE (NONREACTIVE); Lyme Antibodies, WB IgG POSITIVE (NEGATIVE); Lyme Antibodies, WB IgM NEGATIVE (NEGATIVE)
== END 2019-02-25 12:06 | disposition home or self-care (01) | DRG 309 ==
LOC: ED 21:19 → 2E 21:19 → SUATTDRO 02-22 01:07 → 2E 02-22 01:27

== ENCOUNTER 2019-04-02 09:33 | Inpatient (IN) ==
[2019-04-02] MEDS ORDERED: SODIUM CHLORIDE 0.9% 1000ML 1,000 ML IV SCH ×2 (10:00→14:15)
[2019-04-02 10:14] LABS: Basophils # (auto) 0.02 K/uL (0-0.2); Basophils % (auto) 0.7 %; Eosinophils # (auto) 0.08 K/uL (0-0.5); Eosinophils % (auto) 2.7 %; Hematocrit (blood only) 46.3 % (42-52); Hemoglobin 15.4 g/dL (14.0-18.0); Lymphocytes # (auto) 0.78 K/uL (1.2-3.4); Lymphocytes % (auto) 26.1 %; Mean Corpuscular Hgb Conc 33.3 g/dL (32-36); Mean Corpuscular Volume 93.5 fL (80-100); Mean Platelet Volume 10.7 fL (7.4-10.4); Monocytes # (auto) 0.31 K/uL (0.11-0.59); Monocytes % (auto) 10.4 %; Neutrophils % (auto) 60.1 %; Platelet Count 201 K/uL (130-400); RDW Coefficient of Variation 14.5 % (11.5-14.5); RDW Standard Deviation 49.3 fL (36.4-46.3); Red Blood Count 4.95 M/uL (4.7-6.1); White Blood Count 2.99 K/uL (4.8-10.8)
--- NOTE | 2019-04-02 10:28 | XRay Report ---
XR chest 1V portable CLINICAL HISTORY: Chest Pain dyspnea COMPARISON STUDY: 03/30/2019 FINDINGS: Mild stable cardiomegaly. Mild stable emphysematous change. No focal infiltrate. Diaphragms are slightly flattened. IMPRESSION: Chronic change. No acute process. The above report was generated using voice recognition software. It may contain grammatical, syntax or spelling errors. Electronically signed by: Calderon Cunha M.D. 04/02/2019 10:27 AM
[2019-04-02 10:32] LABS: Alanine Aminotransferase 45 U/L (12-78); Aspartate Aminotransferase 20 U/L (15-37); BUN Creatinine Ratio 18.9 (10-20); Blood Urea Nitrogen 19 mg/dl (7-18); Carbon Dioxide 27 mmol/L (21-32); Chloride 109 mmol/L (98-107); Est GFR (African American) 83.8; Est GFR (Non-African American) 72.3; Glucose 103 mg/dl (70-99); Potassium 4.3 mmol/L (3.5-5.1); Sodium 142 mmol/L (136-145)
[2019-04-02 10:36] LABS: Albumin Globulin Ratio 0.9 (0.9-2); Alkaline Phosphatase 109 U/L (45-117); Bilirubin,Total 0.7 mg/dl (0.2-1); Globulin 3.3 gm/dl (2.5-4.0); Total Protein 6.3 gm/dl (6.4-8.2); Troponin I < 0.015 ng/ml (0-0.045)
--- NOTE | 2019-04-02 12:20 | Emergency Department Note ---
Entered by Maru Guo acting as a scribe for Farahn Tavares DO History of Present Illness General Chief complaint: Tachycardia Stated complaint: TACHYCARDIA Time Seen by Provider: 04/02/19 09:35 Source: patient and family (fiance ) History of Present Illness Onset (ago): minute(s) (prior to arrival) Location: chest Pain Consistency: + other (episode) Maximum Pain Intensity: 0 Quality: + other (increased heart rate) Associated symptoms: + denies other symptoms The patient is a 78 year old male who presents to the Emergency Room with complaints of an episode of increased heart rate that began prior to arrival. The finance of the patient notes the patient's blood pressure was good this morning, but she states the patient's heart rate was at 143. The fiance reports they have been checking the patient's blood pressure multiple times a day for the last few weeks under the advice of Dr. Raza. The fiance states the patient is scheduled to have a pacemaker placed in tomorrow due to the patient having issues with increased heart rate in the past. The fiance states the patient did not take his normal dosage of Eliquis today due to the scheduled pacemaker tomorrow. The fiance reports the patient is originally on Eliquis due to A Fib. The patient does not report any other symptoms. Home Medications Home Medications Medication Instructions Recorded Confirmed Type Eliquis 5 mg PO BID 11/19/18 04/02/19 History folic acid 400 mcg PO DAILY 02/21/19 04/02/19 History metoprolol tartrate 25 mg PO BID #60 tab 02/24/19 04/02/19 Rx ascorbic acid (vitamin C) [Vitamin 500 mg PO HS 03/30/19 04/02/19 History C] cholecalciferol (vitamin D3) 1,000 unit PO HS 03/30/19 04/02/19 History [Vitamin D3] coenzyme Q10 [CoQ-10] 100 mg PO BID 03/30/19 04/02/19 History cyanocobalamin (vitamin B-12) 1,000 mcg PO DAILY 03/30/19 04/02/19 History [Vitamin B-12] docusate sodium 100 mg PO BID 03/30/19 04/02/19 History hydralazine 10 mg PO QID PRN #20 tab 03/30/19 04/02/19 Rx lactobacillus combination no.4 3,000 mmu cells PO DAILY 03/30/19 04/02/19 History [Probiotic] vitamin A 2,400 unit PO DAILY 03/30/19 04/02/19 History levothyroxine 44 mcg PO DAILY 04/02/19 04/02/19 History losartan 50 mg PO PM 04/02/19 04/02/19 History Allergies Allergy/AdvReac Type Severity Reaction Status Date / Time No Known Allergies Allergy Verified 03/30/19 13:14 Past Med/Surg History Medical History Hyperlipidemia Atrial fibrillation Dyslipidemia History of sepsis 02/2018 "RESOLVED" STARTED IN LEG BPH (benign prostatic hyperplasia) Hypothyroidism Hernia "LARGE" UMBILICAL/VENTRAL HERNIA PER PT Systolic heart failure Mildly reduced EF of 48% per 01/2019 echo Surgical History History of transurethral resection of prostate 11/06/18 = LMA #5 x 1 attempt, good seal, atraumatic. History of cystoscopy History of arthroscopy RT KNEE H/O cardiac radiofrequency ablation Attempted CTI ablation, 02/2018 BY MAHENDRA History of tooth extraction Family History Other No significant family history Social History Preferred Language: Latvian Communication Ability: Effective Equipment Inspector Required: No Beliefs That Will Affect Care: None Current Living Situation: Spouse Current Living Situation Comment: lives with fiance Feels Safe at Home: Yes Smoking Status: Never smoker Tobacco Type: cigarettes ; Cigarettes Per Day: QUIT 40 YEARS AGO. ; Second Hand Exposure: No ; Hx Alcohol Use: Yes Alcohol type: beer Hx Substance Use: No Review of Systems See HPI for pertinent positives & negatives. and A total of 10 systems reviewed and were otherwise negative Physical Exam Vital Signs Vital Signs - 24 hr 04/02/19 09:39 04/02/19 09:50 04/02/19 09:53 Temperature 36.6 C Temperature Source Oral Sepsis Recent Fever Within 48 Hours No Sepsis Action Taken by Nursing No Action Required Pulse Rate 130 H 130 H Pulse Rate from SpO2 Sensor 130 H Pulse Rhythm Regular Pulse Strength Normal Respiratory Rate 20 15 Respiratory Effort / Characteristics Non-Labored Spontaneous Respiratory Depth Normal Respiratory Pattern Regular Blood Pressure 90/62 L 92/68 L Blood Pressure Mean 71 76 Blood Pressure Position Sitting Pulse Oximetry 97 94 96 Oxygen Delivery Method Room Air Room Air Room Air 04/02/19 10:06 04/02/19 10:55 04/02/19 11:01 Temperature Temperature Source Sepsis Recent Fever Within 48 Hours Sepsis Action Taken by Nursing Pulse Rate 128 H 129 H Pulse Rate from SpO2 Sensor 128 H 130 H Pulse Rhythm Pulse Strength Respiratory Rate 17 21 Respiratory Effort / Characteristics Respiratory Depth Respiratory Pattern Blood Pressure 86/68 L 85/69 L Blood Pressure Mean 74 74 Blood Pressure Position Pulse Oximetry 96 95 98 Oxygen Delivery Method Room Air 04/02/19 11:31 Temperature Temperature Source Sepsis Recent Fever Within 48 Hours Sepsis Action Taken by Nursing Pulse Rate 128 H Pulse Rate from SpO2 Sensor 132 H Pulse Rhythm Pulse Strength Respiratory Rate 13 Respiratory Effort / Characteristics Respiratory Depth Respiratory Pattern Blood Pressure 86/66 L Blood Pressure Mean 72 Blood Pressure Position Pulse Oximetry 97 Oxygen Delivery Method CONSTITUTIONAL/VITAL SIGNS: Reviewed / noted above. GENERAL: Non-toxic in appearance. INTEGUMENTARY: Warm, dry, and [place]. HEAD: Normocephalic. EYES: without scleral icterus or trauma. ENT/OROPHARYNX: clear and moist. LYMPHADENOPATHY/NECK: Is supple without lymphadenopathy or meningismus. RESPIRATORY: Lungs clear and equal. CARDIOVASCULAR: Tachycardic rate and regular rhythm. GI/ABDOMEN: Soft and nontender. No organomegaly or pulsatile mass. No rebound or guarding. Normal bowel sounds. EXTREMITIES: Warm and well perfused. BACK: No CVA tenderness. NEUROLOGICAL: Intact without focal deficits. PSYCHIATRIC: normal affect. MUSCULOSKELETAL: Normally developed with good muscle tone. Course 947: Past medical records reviewed. The patient was evaluated in room A3. A complete history and physical exam was performed. 1130: I reevaluated and updated the patient on the patient's case. 1150: I discussed the case with Dr. Raza-Cardiology. Dr. Raza states he will evaluate the patient tomorrow when the patient is scheduled to have a pacemaker put in. 1205: I reviewed the patient's case with Hermila Guerrero. Dr. Wild- Shirin Guerrero will evaluate the patient for further management. Consultations Consultation #1: I discussed the case with Dr. Raza-Cardiology. Dr. Raza states he will evaluate the patient tomorrow when the patient is scheduled to have a pacemaker put in. Time: 11:50 Consultation #2: I reviewed the patient's case with Hermila Aleman-CONCEPCION Guerrero. Dr. Wild-Hospitalist Yolanda will evaluate the patient for further management. Time: 12:05 Administered Medications Discontinued Medications Sodium Chloride (Nss 1000ml) 1,000 mls @ 999 mls/hr IV .Q1H1M MIGUEL ANGEL Stop: 04/02/19 11:00 Last Infusion: 04/02/19 11:27 Dose: 0 mls/hr Documented by: [id number] Admin: 04/02/19 10:12 Dose: 999 mls/hr Documented by: [id number] Medical Decision Making Differential Diagnosis Differential diagnosis: Etiologies such as cardiac ischemia, aortic dissection, pulmonary embolism, pneumonia, pneumothorax, musculoskeletal, infections, pericarditis, myocarditis, esophageal rupture, gastrointestinal, as well as others were entertained. Medical Records Attestation: I reviewed the patient's medical records. Home Medications Current Medication List: was personally reviewed by me Laboratory Data Attestation: I reviewed the patient's lab results. Result diagrams: 04/02/19 10:02 04/02/19 10:02 Lab Results 04/02/19 04/02/19 Range/Units 10:02 10:02 WBC 2.99 L (4.8-10.8) K/uL RBC 4.95 (4.7-6.1) M/uL Hgb 15.4 (14.0-18.0) g/dL Hct 46.3 (42-52) % MCV 93.5 (80-100) fL MCH 31.1 (25-34) pg MCHC 33.3 (32-36) g/dL RDW Std Deviation 49.3 H (36.4-46.3) fL RDW Coeff of Cheng 14.5 (11.5-14.5) % Plt Count 201 (130-400) K/uL MPV 10.7 H (7.4-10.4) fL Immature Gran % (Auto) 0.0 % Neut % (Auto) 60.1 % Lymph % (Auto) 26.1 % [place] % (Auto) 10.4 % Eos % (Auto) 2.7 % Baso % (Auto) 0.7 % Immature Gran # (Auto) 0.00 (0.00-0.02) K/uL Neut # (Auto) 1.80 (1.4-6.5) K/uL Lymph # (Auto) 0.78 L (1.2-3.4) K/uL [place] # (Auto) 0.31 (0.11-0.59) K/uL Eos # (Auto) 0.08 (0-0.5) K/uL Baso # (Auto) 0.02 (0-0.2) K/uL Sodium 142 (136-145) mmol/L Potassium 4.3 (3.5-5.1) mmol/L Chloride 109 H (98-107) mmol/L Carbon Dioxide 27 (21-32) mmol/L Anion Gap 6.0 (3-11) BUN 19 H (7-18) mg/dl Creatinine 1.00 (0.6-1.4) mg/dl Est Cr Clr Drug Dosing 59.0 ml/min Est GFR ( Amer) 83.8 Est GFR (Non-Af Amer) 72.3 BUN/Creatinine Ratio 18.9 (10-20) Glucose 103 H (70-99) mg/dl Calcium 9.0 (8.5-10.1) mg/dl Total Bilirubin 0.7 (0.2-1) mg/dl AST 20 (15-37) U/L ALT 45 (12-78) U/L Alkaline Phosphatase 109 (45-117) U/L Troponin I < 0.015 (0-0.045) ng/ml Total Protein 6.3 L (6.4-8.2) gm/dl Albumin 3.0 L (3.4-5.0) gm/dl Globulin 3.3 (2.5-4.0) gm/dl Albumin/Globulin Ratio 0.9 (0.9-2) Lipase 103 (73-393) U/L Imaging Data Radiologist's Impression: Radiology results as stated below per my review and the radiologist's interpretation: XR chest 1V portable CLINICAL HISTORY: Chest Pain dyspnea COMPARISON STUDY: 03/30/2019 FINDINGS: Mild stable cardiomegaly. Mild stable emphysematous change. No focal infiltrate. Diaphragms are slightly flattened. IMPRESSION: Chronic change. No acute process. The above report was generated using voice recognition software. It may contain grammatical, syntax or spelling errors. Electronically signed by: Calderon Cunha M.D. 04/02/2019 10:27 AM ECG Data Attestation: I personally reviewed and interpreted this ECG as follows: Indication: tachycardia Rate (beats per minute): 130 Rhythm: sinus tachycardia Findings: + RBBB; no PAC, no PVC, no ST elevation and no ectopy Blood Pressure Blood Pressure Findings: Elevated blood pressure Blood Pressure Disposition: further management by hospitalist MAYE Narrative This is a 78-year-old male who presents to the ED with a chief complaint of tachycardia. The patient checked his blood pressure and heart rate this morning and his heart rate was 143. He came in to be evaluated for this. The patient's twelve-lead EKG here shows what appears to be a sinus tach at a rate of 130, however I believe this is likely atrial flutter the 2-1 conduction. The patient's blood pressure initially was 90 systolic. I did provide 1 L of normal saline for the patient. This did not decrease the heart rate or improve the blood pressure. His repeat blood pressure and vital signs looked similar to the first. The patient does report that he took an extra dose of losartan last night. His PCP recommended that he take 50 mg as opposed to his typical 25 mg of losartan for his blood pressure as his blood pressure has been running high at home. The patient also is due to have a pacemaker tomorrow by Dr. Raza. He did not take his Eliquis this morning. The patient's blood work including a CBC and chemistry panel was unremarkable. The BUN was 19. Troponin was negative and lipase was negative. Chest x-ray did not show acute process. I reassessed the patient after the liter of normal saline. He is asymptomatic at this time. Denies any chest pains, lightheadedness or dizziness. I spoke with Dr. Raza about the patient who recommends the patient be admitted to the hospital. He did not recommend any additional rate control medication of blood pressure medication as the patient is asymptomatic. He will see the patient when the patient is in the hospital. Impression & Plan Atrial flutter, Acute hypotension, Atrial flutter with rapid ventricular response Discharge Plan Visit Data Chief Complaint: Tachycardia Stated Complaint: TACHYCARDIA ED Provider: Farhan Tavares Discharge Problem: Atrial flutter, Acute hypotension, Atrial flutter with rapid ventricular response Patient Disposition: Being Evaluated by Hospitalist Forms Stand Alone Forms: My [facility] Prescriptions Prescriptions: No Action Eliquis 5 mg Tablet 5 mg PO BID RF: 0 folic acid 400 mcg Tablet 400 mcg PO DAILY RF: 0 metoprolol tartrate 25 mg Tablet 25 mg PO BID Qty: 60 RF: 1 vitamin A 8,000 unit Capsule 2,400 unit PO DAILY RF: 0 cyanocobalamin (vitamin B-12) [Vitamin B-12] 1,000 mcg Tablet 1,000 mcg PO DAILY RF: 0 ascorbic acid (vitamin C) [Vitamin C] 500 mg Tablet 500 mg PO HS RF: 0 docusate sodium 100 mg Capsule 100 mg PO BID RF: 0 cholecalciferol (vitamin D3) [Vitamin D3] 1,000 unit Capsule 1,000 unit PO HS RF: 0 coenzyme Q10 [CoQ-10] 100 mg Capsule 100 mg PO BID RF: 0 Probiotic 3 billion cell Capsule 3,000 mmu cells PO DAILY RF: 0 hydralazine 10 mg tablet 10 mg PO QID PRN (Reason: hypertension) Qty: 20 RF: 0 levothyroxine 88 mcg tablet 44 mcg PO DAILY RF: 0 losartan 50 mg tablet 50 mg PO PM RF: 0 Referrals Referrals: Pricilla Rojas MD [Primary Care Provider] - Discharge Problem: Atrial flutter Qualifiers: Atrial flutter type: unspecified Qualified Code(s): I48.92 - Unspecified atrial flutter The scribe's documentation has been prepared under my direction and personally reviewed by me in its entirety. I confirm that the note above accurately reflects all work, treatment, procedures, and medical decision making performed by me.
--- NOTE | 2019-04-02 12:24 | History & Physical Report ---
Date of Service April 02, 2019 Assessment & Plan (1) Atrial flutter with rapid ventricular response: This is a 78 yo M with a PMH of A fib/flutter on Eliquis with h/o ablation in Feb 2018, systolic heart failure 2/2 cardiomyopathy, hypothyroidism, HLD, BPH s/p TURP and other medical problems listed below who presents with atrial tachycardia was found to have a flutter with RVR. -HR variable from 70s to 140s since arrival, EKG with sinus tachycardia with 1st degree AV block at 130 but rhythm on monitor more variable rhythm, evidence of transient 2nd degree heart block -Scheduled pacemaker implantation tomorrow per Dr. Raza. Since patient is currently asymptomatic, will not change time of procedure -Currently with HR of 133, BP of 104/75. Monitor closely on telemetry. Holding home Lopressor now, appreciate cardiology recommendations -NPO after midnight, gentle IV fluids (2) Acute hypotension: Initially SBP high 80s-low 90s but improved to 104/75 after 1 L NSS bolus -Will continue with gentle IV fluids -Holding Lopressor, Losartan and hydralazine for now (3) Systolic heart failure: Noted to have mild cardiomyopathy with EF 48% on January 22 2D echo -Thought to be due to recurrent sustained episodes of tachycardia -Appears euvolemic on exam (4) BPH (benign prostatic hyperplasia): S/p TURP in October 2018, follows with Dr. Bowman -Denies any urinary symptoms or decreased output -UA pending. Bladder scan PRN DVT Ppx: Did not take morning Eliquis dose due to pacemaker procedure tomorrow Code status: FULL PCP: Bob Dispo: Admitted to telemetry. Plan to return home once medically stable. Patient seen in collaboration with Dr. Wild. Please see addendum. History of Present Illness Chief Complaint: tachycardia Primary Care Provider: Pricilla Rojas MD This is a 78 yo M with a PMH of A fib/flutter on Eliquis with h/o ablation in Feb 2018, systolic heart failure 2/2 cardiomyopathy, hypothyroidism, HLD, BPH s/p TURP and other medical problems listed below who presents with atrial tachycardia. Was recently admitted from 02/22-02/24 for pre-syncope and was found to have SVT with HR in 160s with some second degree AV block with intermittent hypotension. Had variable heart rate from 40s to 160s during inpatient and Dr. Raza discussed possibility of pacemaker placement to allow for more aggressive rate control. Was also noted to have mild cardiomyopathy thought to be due to recurrent sustained episodes of tachycardia. He was discharged home on indefinite anticoagulation on Eliquis and Lopressor twice daily. Multaq, Atorvastatin and Levothyroxine were discontinued upon discharge. Since discharge, patient was encouraged to keep a daily log of blood pressure and heart rate. At PCP follow up appointment, patient's Losartan dose was increased to 50mg at bedtime and levothyroxine was resumed at 44 mcg daily. Was also seen in the ED on March 30 for continued hypertension and was started on hydralazine 10 mg QID with instructions to take only if systolic blood pressure above 150. Patient took this medication twice since then, in the morning of 03/31 and 04/01. This morning, patient's blood pressure was normal but pulse was 142. Patient was asymptomatic. Denies any lightheadedness, visual changes, palpitations or chest pain. Bryan brought patient into ED for further evaluation in setting of pacemaker placement scheduled for tomorrow. In ED, BP was initially 90/62 but improved to 104/75 after 1 L NSS. EKG with sinus tachycardia with 1st degree AV block at 130 but rhythm on monitor more variable. CXR with chronic process, no acute changes. No leukocytosis or electrolyte abnormalities. TSH, magnesium and UA added. Allergies Allergy/AdvReac Type Severity Reaction Status Date / Time No Known Allergies Allergy Verified 03/30/19 13:14 Home Medications Home Medications Medication Instructions Recorded Confirmed Type Eliquis 5 mg PO BID 11/19/18 04/02/19 History folic acid 400 mcg PO DAILY 02/21/19 04/02/19 History metoprolol tartrate 25 mg PO BID #60 tab 02/24/19 04/02/19 Rx ascorbic acid (vitamin C) [Vitamin 500 mg PO HS 03/30/19 04/02/19 History C] cholecalciferol (vitamin D3) 1,000 unit PO HS 03/30/19 04/02/19 History [Vitamin D3] coenzyme Q10 [CoQ-10] 100 mg PO BID 03/30/19 04/02/19 History cyanocobalamin (vitamin B-12) 1,000 mcg PO DAILY 03/30/19 04/02/19 History [Vitamin B-12] docusate sodium 100 mg PO BID 03/30/19 04/02/19 History hydralazine 10 mg PO QID PRN #20 tab 03/30/19 04/02/19 Rx lactobacillus combination no.4 3,000 mmu cells PO DAILY 03/30/19 04/02/19 History [Probiotic] vitamin A 2,400 unit PO DAILY 03/30/19 04/02/19 History levothyroxine 44 mcg PO DAILY 04/02/19 04/02/19 History losartan 50 mg PO PM 04/02/19 04/02/19 History Past Med/Surg History Medical History Systolic heart failure (Chronic) Mildly reduced EF of 48% per 01/2019 echo Atrial fibrillation (Chronic) Dyslipidemia (Chronic) BPH (benign prostatic hyperplasia) (Chronic) Hypothyroidism (Chronic) Hernia (Chronic) "LARGE" UMBILICAL/VENTRAL HERNIA PER PT Surgical History H/O cardiac radiofrequency ablation (Resolved) Attempted CTI ablation, 02/2018 BY MAHENDRA History of transurethral resection of prostate (Chronic) 11/06/18 = LMA #5 x 1 attempt, good seal, atraumatic. History of arthroscopy (Chronic) RT KNEE History of tooth extraction (Chronic) Family History Other No significant family history Social History Preferred Language: Montserratian Communication Ability: Effective Break Out Worker Required: No Beliefs That Will Affect Care: None Current Living Situation: Significant Other Current Living Situation Comment: lives with fijudit Other Information That Helps Us Care for You: No Feels Safe at Home: Yes Safety Concerns: Feels Safe At This Time Smoking Status: Former smoker Tobacco Type: cigarettes ; Cigarettes Per Day: QUIT 40 YEARS AGO. ; Do You Dip or Chew Tobacco: No ; Second Hand Exposure: No ; Tobacco Cessation Education Requested by Patient: No Hx Alcohol Use: Yes Alcohol type: beer Hx Substance Use: No Review of Systems Review of Systems: At least ten systems reviewed and negative except as noted in the HPI. Physical Exam Physical Exam: General Appearance: WD/WN, vitals as above, NAD, sitting up in bed, appears fatigued but pleasant and alert Head: normocephalic, atraumatic Eyes: normal inspection, PERRL, conjunctivae normal, anicteric sclerae ENT: external ear and nose normal, oropharynx normal Neck: trachea midline, no thyromegaly normal visual inspection Respiratory: normal respiratory effort, lungs clear to auscultation, no wheeze, rales, rhonchi. Normal insp/exp effort, no accessory muscle use Cardiovascular: irregular rate & rhythm, no murmur appreciated, normal peripheral pulses. Vessels: no JVD or carotid bruit Chest: normal inspection of chest Abdomen/GI: normal bowel sounds, soft, nontender, no hepatosplenomegaly Extremities/Musculoskelatal: no cyanosis or clubbing, extremities motor strength 5/5 Neurologic: PERRL, EOMI, accommodation nl, no face palsy, no dysarthria CN's II-XI intact bilaterally and moves all extremities Psychiatric: A+Ox3, euthymic affect Skin: no rashes, normal color, warm/dry Results & Data Vital Signs (Past 12 Hours) Vital Signs Temp Pulse Resp BP Pulse Ox 04/02/19 11:31 128 H 13 86/66 L 97 04/02/19 11:01 129 H 21 85/69 L 98 04/02/19 10:55 128 H 17 86/68 L 95 04/02/19 10:06 96 04/02/19 09:53 130 H 15 92/68 L 96 04/02/19 09:50 94 04/02/19 09:39 36.6 C 130 H 20 90/62 L 97 Laboratory Results Short CBC 04/02/19 Range/Units 10:02 WBC 2.99 L (4.8-10.8) K/uL Hgb 15.4 (14.0-18.0) g/dL Hct 46.3 (42-52) % Plt Count 201 (130-400) K/uL BMP 04/02/19 10:02 Sodium 142 Potassium 4.3 Chloride 109 H Carbon Dioxide 27 BUN 19 H Creatinine 1.00 Glucose 103 H Calcium 9.0 Cardiac Enzymes 04/02/19 Range/Units 10:02 Troponin I < 0.015 (0-0.045) ng/ml Liver Function 04/02/19 Range/Units 10:02 Total Bilirubin 0.7 (0.2-1) mg/dl AST 20 (15-37) U/L ALT 45 (12-78) U/L Alkaline Phosphatase 109 (45-117) U/L Albumin 3.0 L (3.4-5.0) gm/dl Diagnostic Findings CXR: IMPRESSION: Chronic change. No acute process. Supervising Physician Co-Signing Physician Notes I, Dr. Chris Wild, have seen and examined the patient with physician medical assistant internal medicine and agree with the assessment and plan and would like to comment that patient currently under telemetry monitoring and is tachycardic with heart rates becoming more consistent between 120 to 130s beats per minutes. Despite this heart rate, while the patient's blood pressure is low to low normotensive the patient is appears comfortable, baseline mental status, not in distress, speaking in full sentences and mentating well. He does not express acute chest discomfort or of unease of palpitations. breathing on room air. no shortness of breath. and able to eat the lunch which circular knitter helper Dr. Raza permitted after nurse discussed with him. Patient is awaiting evaluation by Dr. Raza and likely patient may need pacemaker device for tomorrow on 04/03/19. will give IV fluids to support blood pressure and perhaps hydration may slow down the heart rate. holding anti-hypertensives. a concern on review of the patient's telemetry and EKGs is whether or not there is a heart block for which AV rashaad blocking a gents may be potentially detrimental. hospitalist medicine team awaiting further cardiology recommendations on further heart rate control strategy in the interim while patient may be due for cardiology procedure. Patient has been anticoagulated on Eliquis but he had held his dosing prior to hospital presentation because he had previously anticipated pacemaker placement on an outpatient basis. Patient also has history of HYPOTHYROIDISM but TSH is normal which suggests patient's thyroid regimen is not contributory to the tachycardia and patient has been on less Levothyroxine compared to the recent past by his family medical doctor. Will add on total T4 and free T [address] Elizabeth will be taking over the care of the patient as hospitalist physician starting tomorrow on 04/03/19. agree with assessment of plan of physician medical assistant internal medicine for other health issues as described in the history and physical
[2019-04-02 12:47] LABS: Magnesium 2.2 mg/dl (1.8-2.4)
[2019-04-02] MEDS ORDERED: ACETAMINOPHEN 325 MG TAB PO PRN (13:08)
[2019-04-02] MEDS ORDERED: ONDANSETRON INJ 2 MG/ML 2 ML VIAL IV PRN (13:08)
[2019-04-02] MEDS ORDERED: POLYETHYLENE (MIRALAX) 17 GM PACK PO PRN (13:08)
[2019-04-02 14:33] LABS: Appearance Urine Clear (Clear); Bacteria Urine Automated Negative (Negative); Bilirubin Urine Negative (Negative); Blood Urine Negative (Negative); Color Urine Yellow; Glucose Urine UA Negative (Negative); Ketones Urine Trace (Negative); Leukocyte Esterase Urine Negative (Negative); Nitrite Urine Negative (Negative); Protein Urine Trace (Negative); RBC Urine Automated 0-4 /hpf (0-4); Specific Gravity Urine 1.015 (1.000-1.030); Urobilinogen Urine Negative (Negative); pH Urine 6.5 (4.5-7.5)
--- NOTE | 2019-04-02 19:44 | Cardiology Progress Note ---
Date of Service April 02, 2019 Assessment & Plan (1) Atrial flutter with rapid ventricular response: He has had frequent episodes of atrial arrhythmias and associated high ventricular rates. I think we can start dofetilide in addition to more aggressive rate control. Additional catheter-based therapy may be an option if all else is not efficacious. 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 (3) Cardiomyopathy: He is known to have reduced LV systolic function. Likely related to his high heart rates at times. Well-compensated currently. Subjective The patient is well known to me form the outpatient setting. He has a long history of multiple atrial arrhythmias. He has been on amiodarone in the past with good result, but this was an unsatisfactory long-term treatment due to the potential for toxicity. Off of amiodarone he continues to have rapid periods of SVT (both atypical atrial flutters, atrial fibrillation and atrial tachycardias). He also has periods of sinus bradycardia. We have elected to pursue a more aggressive rate control strategy subsequent to pacemaker placement which was previously scheduled for tomorrow. Today, he was noticed by his partner to have an elevated heart rate. He was not symptomatic, but based on the high heart rates he was brought to [facility] and admitted due to some lower BP and high heart rates. He continues to feel well. No dizziness. No chest pain. No dyspnea. He reports working outside yesterday without exertional sx. Review of Systems Review of Systems: Per HPI. He continues to have some tingling and "fuzziness" on his face throughout the morning. This resolves in the afternoon. Some anorexia yesterday. Results & Data Vital Signs (Past 12 Hours) Vital Signs Temp Pulse Pulse Resp BP BP BP 04/02/19 19:03 36.6 C 137 H 18 109/81 04/02/19 15:42 36.6 C 132 H 16 111/88 04/02/19 14:19 135 H 04/02/19 13:00 36.5 C 127 H 19 79/65 L 95/77 L 04/02/19 12:34 133 H 23 104/75 04/02/19 12:01 137 H 25 H 86/66 L 04/02/19 11:31 128 H 13 86/66 L 04/02/19 11:01 129 H 21 85/69 L 04/02/19 10:55 128 H 17 86/68 L 04/02/19 10:06 04/02/19 09:53 130 H 15 92/68 L 04/02/19 09:50 04/02/19 09:39 36.6 C 130 H 20 90/62 L Pulse Ox Pulse Ox 04/02/19 19:03 94 04/02/19 15:42 96 96 04/02/19 14:19 04/02/19 13:00 96 04/02/19 12:34 95 04/02/19 12:01 93 04/02/19 11:31 97 04/02/19 11:01 98 04/02/19 10:55 95 04/02/19 10:06 96 04/02/19 09:53 96 04/02/19 09:50 94 04/02/19 09:39 97 Laboratory Results Abnormal Lab Results 04/02/19 04/02/19 04/02/19 10:02 10:02 10:02 WBC 2.99 L RBC 4.95 Hgb 15.4 Hct 46.3 MCV 93.5 MCH 31.1 MCHC 33.3 RDW Std Deviation 49.3 H RDW Coeff of Cheng 14.5 Plt Count 201 MPV 10.7 H Immature Gran % (Auto) 0.0 Neut % (Auto) 60.1 Lymph % (Auto) 26.1 [place] % (Auto) 10.4 Eos % (Auto) 2.7 Baso % (Auto) 0.7 Immature Gran # (Auto) 0.00 Neut # (Auto) 1.80 Lymph # (Auto) 0.78 L [place] # (Auto) 0.31 Eos # (Auto) 0.08 Baso # (Auto) 0.02 Sodium 142 Potassium 4.3 Chloride 109 H Carbon Dioxide 27 Anion Gap 6.0 BUN 19 H Creatinine 1.00 Est Cr Clr Drug Dosing 59.0 Est GFR ( Amer) 83.8 Est GFR (Non-Af Amer) 72.3 BUN/Creatinine Ratio 18.9 Glucose 103 H Calcium 9.0 Magnesium 2.2 Total Bilirubin 0.7 AST 20 ALT 45 Alkaline Phosphatase 109 Troponin I < 0.015 Total Protein 6.3 L Albumin 3.0 L Globulin 3.3 Albumin/Globulin Ratio 0.9 Lipase 103 TSH 2.890 Free T4 Thyroxine (T4) Urine Color Urine Appearance Urine pH Ur Specific [place] Urine Protein Urine Glucose (UA) Urine Ketones Urine Blood Urine Nitrite Urine Bilirubin Urine Urobilinogen Ur Leukocyte Esterase Urine WBC (Auto) Urine RBC (Auto) U Hyaline Cast (Auto) U Epithel Cells (Auto) Urine Bacteria (Auto) 04/02/19 04/02/19 04/02/19 12:28 14:51 14:51 WBC RBC Hgb Hct MCV MCH MCHC RDW Std Deviation RDW Coeff of Cheng Plt Count MPV Immature Gran % (Auto) Neut % (Auto) Lymph % (Auto) [place] % (Auto) Eos % (Auto) Baso % (Auto) Immature Gran # (Auto) Neut # (Auto) Lymph # (Auto) [place] # (Auto) Eos # (Auto) Baso # (Auto) Sodium Potassium Chloride Carbon Dioxide Anion Gap BUN Creatinine Est Cr Clr Drug Dosing Est GFR ( Amer) Est GFR (Non-Af Amer) BUN/Creatinine Ratio Glucose Calcium Magnesium Total Bilirubin AST ALT Alkaline Phosphatase Troponin I Total Protein Albumin Globulin Albumin/Globulin Ratio Lipase TSH Free T4 1.11 Thyroxine (T4) 7.6 Urine Color Yellow Urine Appearance Clear Urine pH 6.5 Ur Specific [place] 1.015 Urine Protein Trace H Urine Glucose (UA) Negative Urine Ketones Trace H Urine Blood Negative Urine Nitrite Negative Urine Bilirubin Negative Urine Urobilinogen Negative Ur Leukocyte Esterase Negative Urine WBC (Auto) 1-5 Urine RBC (Auto) 0-4 U Hyaline Cast (Auto) 1-5 U Epithel Cells (Auto) 10-20 H Urine Bacteria (Auto) Negative ECG Additional Comments: Atrial flutter. Telemetry reveals likely atrial tachycardia. PG Care Time/CCT Total # of Minutes Spent Total Time Spent with Patient: Total time spent is greater than 50% in coordination of care (as documented) at patient's floor/unit and/or counseling patient:
[2019-04-02] MEDS: ASCORBIC ACID 500 MG TAB PO SCH (19:51)
[2019-04-02] MEDS: DOCUSATE SODIUM 100 MG CAP PO SCH (19:51)
[2019-04-02] MEDS: CHOLECALCIFEROL 1,000 UNITS TAB PO SCH (19:51)
[2019-04-02] MEDS: DOFETILIDE 125 MCG CAPSULE PO SCH (21:43)
[2019-04-03] MEDS: LEVOTHYROXINE SODIUM 88 MCG TABLET PO SCH (06:11)
[2019-04-03 07:13] LABS: Hematocrit (blood only) 47.8 % (42-52); Mean Corpuscular Hgb Conc 33.5 g/dL (32-36); Mean Corpuscular Volume 94.1 fL (80-100); Mean Platelet Volume 10.9 fL (7.4-10.4); Platelet Count 193 K/uL (130-400); RDW Coefficient of Variation 14.5 % (11.5-14.5); RDW Standard Deviation 50.2 fL (36.4-46.3); Red Blood Count 5.08 M/uL (4.7-6.1); White Blood Count 6.31 K/uL (4.8-10.8)
[2019-04-03 07:49] LABS: BUN Creatinine Ratio 19.8 (10-20); Calcium 8.4 mg/dl (8.5-10.1); Creatinine Clr Calc Pharmacy 63.5 ml/min; Est GFR (African American) 92.7; Est GFR (Non-African American) 79.9
[2019-04-03] MEDS: DOFETILIDE 125 MCG CAPSULE PO SCH ×2 (09:00→20:56)
--- NOTE | 2019-04-03 09:16 | Pre Anesthesia Assessment ---
Date of Service April 03, 2019 Pre Sedation Assessment Vital Signs Temp Pulse Pulse Resp BP BP BP 04/03/19 08:16 36.5 C 64 18 138/77 04/03/19 04:19 36.8 C 139 H 16 104/76 04/02/19 23:00 36.5 C 67 16 109/75 04/02/19 19:03 36.6 C 137 H 18 109/81 04/02/19 15:42 36.6 C 132 H 16 111/88 04/02/19 14:19 135 H 04/02/19 13:00 36.5 C 127 H 19 79/65 L 95/77 L 04/02/19 12:34 133 H 23 104/75 04/02/19 12:01 137 H 25 H 86/66 L 04/02/19 11:31 128 H 13 86/66 L 04/02/19 11:01 129 H 21 85/69 L 04/02/19 10:55 128 H 17 86/68 L 04/02/19 10:06 04/02/19 09:53 130 H 15 92/68 L 04/02/19 09:50 04/02/19 09:39 36.6 C 130 H 20 90/62 L Pulse Ox Pulse Ox 04/03/19 08:16 99 04/03/19 04:19 94 04/02/19 23:00 94 04/02/19 19:03 94 04/02/19 15:42 96 96 04/02/19 14:19 04/02/19 13:00 96 04/02/19 12:34 95 04/02/19 12:01 93 04/02/19 11:31 97 04/02/19 11:01 98 04/02/19 10:55 95 04/02/19 10:06 96 04/02/19 09:53 96 04/02/19 09:50 94 04/02/19 09:39 97 Cardiovascular + regular rate Respiratory + respiratory effort normal Pre-Sedation Airway Assessment Smoking Status: Former smoker Hx Sleep Apnea: No Hx Difficult Intubation: No Short, Thick Neck: No Thyromental Distance: > or= 3.5 Finger Breadths Oral Cavity: + WNL Mallampati Class: III ASA: ASA3 Procedure Planning Contraindications for Sedation: none Current Medications Reviewed: Yes Notes The planned sedation has been discussed with the patient. Informed Consent was obtained. I have identified the patient, determined the appropriateness of sedation and have assessed the patient immediately prior to the procedure. All medicine(s) and interventions are by my order.
[2019-04-03] MEDS ORDERED: fentaNYL citrate 100 MCG/2 ML VIAL ONE (09:38)
[2019-04-03] MEDS ORDERED: BACITRACIN INJ 50,000 UNIT VIAL ONE (09:38)
[2019-04-03] MEDS ORDERED: LIDOCAINE HCL 1% 20 ML VIAL ONE (09:38)
[2019-04-03] MEDS ORDERED: CEFAZOLIN 250 MG/ML 1 GM VIAL ONE (09:38)
[2019-04-03] MEDS ORDERED: MIDAZOLAM HCL 5 MG/ML 1 ML VIAL IV ONE (10:00)
[2019-04-03] MEDS ORDERED: Nursing to Pharmacy Communication ONE (10:23)
[2019-04-03] MEDS ORDERED: ACETAMINOPHEN 325 MG TAB PO PRN (10:27)
[2019-04-03] MEDS ORDERED: OXYCODONE HCL IR 5 MG TAB (IMMEDIATE RELEASE) PO PRN (10:27)
--- NOTE | 2019-04-03 10:27 | Procedure Note ---
Procedure Note Date of Service April 03, 2019 Coding
--- NOTE | 2019-04-03 10:29 | Post Anesthesia Assessment ---
Date of Service April 03, 2019 Post Sedation Assessment Vital Signs Temp Pulse Pulse Resp BP BP BP 04/03/19 08:16 36.5 C 64 18 138/77 04/03/19 06:20 66 04/03/19 04:19 36.8 C 139 H 16 104/76 04/02/19 23:00 36.5 C 67 16 109/75 04/02/19 19:03 36.6 C 137 H 18 109/81 04/02/19 15:42 36.6 C 132 H 16 111/88 04/02/19 14:19 135 H 04/02/19 13:00 36.5 C 127 H 19 79/65 L 95/77 L 04/02/19 12:34 133 H 23 104/75 04/02/19 12:01 137 H 25 H 86/66 L 04/02/19 11:31 128 H 13 86/66 L 04/02/19 11:01 129 H 21 85/69 L 04/02/19 10:55 128 H 17 86/68 L Pulse Ox Pulse Ox 04/03/19 08:16 99 04/03/19 06:20 04/03/19 04:19 94 04/02/19 23:00 94 04/02/19 19:03 94 04/02/19 15:42 96 96 04/02/19 14:19 04/02/19 13:00 96 04/02/19 12:34 95 04/02/19 12:01 93 04/02/19 11:31 97 04/02/19 11:01 98 04/02/19 10:55 95 Recovery Score Activity: Moves 4 extremities Respiration: Deep Breath/Cough Circulation: +/-20% PreAnes Value Consciousness: Fully Awake Oxygen Saturation: > 92% On Room Air Post Sedation Plan On clinical assessment, the patient appears to have tolerated the sedation without complications. Patient is recovering as anticipated. Patient will continue to be monitored by nursing and may be discharged when sedation discharge criteria are met per below protocol. Upon Completions of procedure and additional 15 minutes continue every 5 minute vital signs and the P.A.R. score; then discharge to a Phase I or Fast Track to Phase II per the following guidelines: * Discharge Patient to appropriate Phase II area if PAR is 8 or greater or return to pre- procedure baseline. The post - procedure orders will be as directed. * If PAR score is less than 8 or not return to pre-procedure baseline then patient will follow Phase I monitoring till PAR is reached for Phase II. The Phase I may be done in procedure room or may call to secure a Phase I area. * If naloxone or flumazenil are used for reversal, hold in Phase I for continued monitoring from when last reversal dose was given for a minimum of 60 minutes or longer pending the nurse and/or physician discretion of patient condition before discharge to Phase II. Please call the Sedation Physician to re-evaluate and complete post-note for discharge to Phase II area. Do NOT discharge from procedure sedation or Phase 1 until post- sedation evaluation note is complete by procedure /sedation MD Sedation Discharge Instructions to be given to the patient at discharge to home.
[2019-04-03] MEDS ORDERED: MIDAZOLAM HCL 5 MG/ML 1 ML VIAL IV SCH (10:30)
[2019-04-03] MEDS: LACTOBACILLUS ACIDOPHILUS (FLORANEX) TAB PO SCH (10:50)
[2019-04-03] MEDS: DOCUSATE SODIUM 100 MG CAP PO SCH ×2 (10:50→20:56)
[2019-04-03] MEDS: FOLIC ACID 400 MCG TAB PO SCH (10:50)
[2019-04-03] MEDS: CYANOCOBALAMIN 500 MCG TABLET (VITAMIN B-12) PO SCH (10:50)
--- NOTE | 2019-04-03 11:26 | Procedure Note ---
Procedure Note Date of Service April 03, 2019 Note Procedure performed: Implantation of dual-chamber permanent pacemaker Staff popcorn attendant: Zeus Raza MD Indication: The patient is a 78-year-old gentleman with a history of atrial tach arrhythmias and sinus bradycardia. He does require more aggressive rate control and also be a good candidate for permanent pacemaker due to tachybradycardia syndrome. Pacemaker being implanted for symptomatic nonreversible sinus node dy sfunction. A dual-chamber device was selected as the patient is currently in sinus rhythm and wish to maintain AV synchrony. Procedure in detail: The patient was informed of the risks benefits and alternatives to the intended procedure and she wished to proceed. He was taken to the electrophysiology suite in a fasting state. A preoperative antibiotic had been administered. The patient was monitored electrocardiographically throughout today's procedure and conscious sedation was administered per protocol. The left upper pectoral area is prepped and draped in usual sterile fashion. This area was anesthetized using subcutaneous administration of a xylocaine solution. An incision was made at this site and carried down to the prepectoralis fascia using sharp dissection. Electrocautery was also employed for dissection as well as for hemostasis. A device pocket was fashioned tissues above the pectoralis muscle. Subsequent to this maneuver the left axillary vein was accessed using modified Seldinger technique. Sheaths were placed over guidewires at this site and used to facilitate passage of the pacing leads to the respective chambers under fluoroscopic guidance. This included right atrial and right ventricular leads. Adequate sensing and threshold parameters were obtained prior to Active fixation of the leads to the endocardial surface. The proximal portion leads were then sutured the prepectoral fascia using nonabsorbable suture. The device pocket was irrigated with antibiotic solution. The leads were then attached to the device. The device and leads were then placed in the pocket and pocket was closed in 3 layers of absorbable suture. Steri-Strips and sterile dressing were applied. The device was tested noninvasively prior to conclusion the procedure. The patient tolerated procedure well there no immediate complications. Equipment used: New pulse generator: Zookeeper [employer]Rocke[employer]. Model number: [id number] serial number [id number] Right atrial lead: Zookeeper [employer]RockeTalk. Model number: 5076 serial number [id number] Right ventricular lead: Zookeeper Medtronic. Model number: 5076 serial number [id number] Measured data: Right atrial lead: P waves measured 2.1 mV. Pacing threshold 1.25 V at 0.4 ms with a pacing impedance of 475 ohms Right ventricular lead: R waves measured 2.9 V. Pacing threshold 1 V at 0.4 ms with a pacing impedance of 722 ohms Impression: Successful implantation of dual-chamber permanent pacemaker Coding
--- NOTE | 2019-04-03 12:18 | Hospitalist Progress Note ---
Date of Service April 03, 2019 Assessment & Plan (1) Atrial flutter with rapid ventricular response: Pacemaker placement today per cardiology. Eliquis on hold joseph- procedurally. BB increased per Cardiology. Dofetilide load with trial on discharge of this. (2) Acute hypotension: Losartan and hydralazine per home regimen are on hold. (3) Systolic heart failure: Noted to have mild cardiomyopathy with EF 48% on January 22 2D echo -Thought to be due to recurrent sustained episodes of tachycardia -Appears euvolemic on exam (4) Tachy-joseph syndrome: s/p pacemaker. (5) DVT prophylaxis: SCDs for now post-procedure. Full Code Dispo-to home when medically stable. Rose Elizabeth DO [facility] Hospitalist Subjective doing well post PM placement. HR around 110-120 bpm and patient has no symptoms denies pain tolerating PO Review of Systems Review of Systems: All systems reviewed & are unremarkable except as noted in HPI & below Physical Exam Physical Exam: CONSTITUTIONAL: WNWD, vitals as above, generally well- appearing EYES: normal conjunctivae, no scleral icterus ENT: MMM RESPIRATORY: clear to auscultation bilaterally, no crackles, rales or wheezes, normal respiratory effort CARDIOVASCULAR: regular rate and rhythm, S1 and 2 heard without murmurs, gallops or rubs, no JVD, no peripheral edema CHEST:Left anterior chest covered with dressing that is clean, dry and intact GASTROINTESTINAL: soft, nontender, nondistended MUSCULOSKELETAL: strength 5/5 throughout, head is normocephalic and atraumatic, ambulatory SKIN: warm and dry, incision site above not visualized as dressing is in place. NEUROLOGIC: CN 2-12 grossly intact, normal cognition, normal speech, no tremor, no gross focal deficits. PSYCHIATRIC: alert cooperative and oriented to person, place and time. LYMPHATIC: no LAD Results & Data Vital Signs (Past 12 Hours) Vital Signs Temp Pulse Pulse Resp BP Pulse Ox 04/03/19 12:03 71 19 171/103 H 98 04/03/19 11:32 85 23 149/93 H 04/03/19 11:30 64 20 156/100 H 96 04/03/19 11:12 36.6 C 76 18 158/98 H 98 04/03/19 10:47 69 16 147/93 H 98 04/03/19 08:16 36.5 C 64 18 138/77 99 04/03/19 06:20 66 04/03/19 04:19 36.8 C 139 H 16 104/76 94 Laboratory Results Short CBC 04/03/19 Range/Units 06:46 WBC 6.31 (4.8-10.8) K/uL Hgb 16.0 (14.0-18.0) g/dL Hct 47.8 (42-52) % Plt Count 193 (130-400) K/uL BMP 04/03/19 06:46 Sodium 142 Potassium 4.0 Chloride 109 H Carbon Dioxide 25 BUN 18 Creatinine 0.92 Glucose 84 Calcium 8.4 L Urine 04/02/19 Range/Units 12:28 Urine Color Yellow Urine Appearance Clear (Clear) Urine pH 6.5 (4.5-7.5) Ur Specific [place] 1.015 (1.000-1.030) Urine Protein Trace H (Negative) Urine Glucose (UA) Negative (Negative) Medications Administered Current Inpatient Medications Acetaminophen (Tylenol) 650 mg PO Q4H PRN PRN Reason: Mild pain (rating 1,2,3) Stop: 05/03/19 10:26 Ascorbic Acid (Vitamin C) 500 mg PO HS [facility] Stop: 05/02/19 20:59 Last Admin: 04/02/19 19:51 Dose: 500 mg Documented by: Cyanocobalamin (Vitamin B-12) 1,000 mcg PO DAILY [facility] Stop: 05/03/19 08:59 Last Admin: 04/03/19 10:50 Dose: 1,000 mcg Documented by: Docusate Sodium (Colace) 100 mg PO BID [facility] Stop: 05/02/19 20:59 Last Admin: 04/03/19 10:50 Dose: 100 mg Documented by: Dofetilide (Tikosyn) 500 mcg PO BID [facility] Stop: 05/02/19 20:59 Last Admin: 04/02/19 21:43 Dose: 500 mcg Documented by: Folic Acid (Folvite) 400 mcg PO DAILY [facility] Stop: 05/03/19 08:59 Last Admin: 04/03/19 10:50 Dose: 400 mcg Documented by: Cefazolin Sodium (Ancef 1000mg) 1,000 mg in 7.5 mls @ 2.5 mls/min IV Q8H [facility]; Protocol Stop: 04/04/19 17:59 Lactobacillus Acidophilus (Floranex) 4 tab PO DAILY [facility] Stop: 05/03/19 08:59 Last Admin: 04/03/19 10:50 Dose: 4 tab Documented by: Levothyroxine Sodium (Synthroid) 44 mcg PO DAILYBB [facility] Stop: 05/03/19 06:29 Last Admin: 04/03/19 06:11 Dose: 44 mcg Documented by: Metoprolol Tartrate (Lopressor) 25 mg PO Q6 [facility] Stop: 05/03/19 11:59 Oxycodone HCl (Roxicodone Immediate Rel) 5 mg PO Q4 PRN PRN Reason: Pain Stop: 04/17/19 10:26 Polyethylene Glycol (Miralax Powder Packet) 17 gm PO DAILY PRN PRN Reason: Constipation Stop: 05/02/19 13:07 Vitamin D (Vitamin D3) 1,000 units PO HS [facility] Stop: 05/02/19 20:59 Last Admin: 04/02/19 19:51 Dose: 1,000 units Documented by:
[2019-04-03] MEDS: METOPROLOL TARTRATE 25 MG TAB PO SCH ×3 (12:44→23:45)
--- NOTE | 2019-04-03 16:59 | Cardiology Progress Note ---
Date of Service April 03, 2019 Assessment & Plan (1) Atrial flutter with rapid ventricular response: He continue to cycle in and out of sinus rhythm and atrial arrhythmias. Will continue dofetilide load. QTC appears adequate for continuation of 500 mcg daily. Will also intensify his beta-karen regimen now that he has a pacemaker placed. (2) Tachy-joseph syndrome: Status post successful placement of dual-chamber permanent pacemaker today (3) Cardiomyopathy: He is known to have reduced LV systolic function. Will attempt more aggressive rate control with increased beta-karen dose. Will convert him to Toprol XL prior to discharge. He appears well compensated currently. (4) Hypertension: His blood pressures were slightly low at the time of admission. Today they are much higher. His losartan has been held yesterday. I think his blood pressure continues to be elevated reinstitution of losartan at 25 mg daily could be considered. Subjective This afternoon the patient did complain of some mild discomfort at the device implant site. Otherwise he claims to be feeling well. He is anxious to get out of bed and uses are more vigorously. Review of Systems Review of Systems: Per HPI Physical Exam Physical Exam: Device implant site without hematoma or significant erythema. Results & Data Vital Signs (Past 12 Hours) Vital Signs Temp Pulse Pulse Resp BP Pulse Ox 04/03/19 16:27 102 H 147/105 H 96 04/03/19 16:14 36.7 C 111 H 18 147/106 H 97 04/03/19 14:15 77 04/03/19 12:41 68 18 165/99 H 97 04/03/19 12:03 71 19 171/103 H 98 04/03/19 11:32 85 23 149/93 H 04/03/19 11:30 64 20 156/100 H 96 04/03/19 11:12 36.6 C 76 18 158/98 H 98 04/03/19 10:47 69 16 147/93 H 98 04/03/19 08:16 36.5 C 64 18 138/77 99 04/03/19 06:20 66 Laboratory Results Abnormal Lab Results 04/03/19 04/03/19 06:46 06:46 WBC 6.31 RBC 5.08 Hgb 16.0 Hct 47.8 MCV 94.1 MCH 31.5 MCHC 33.5 RDW Std Deviation 50.2 H RDW Coeff of Cheng 14.5 Plt Count 193 MPV 10.9 H Sodium 142 Potassium 4.0 Chloride 109 H Carbon Dioxide 25 Anion Gap 8.0 BUN 18 Creatinine 0.92 Est Cr Clr Drug Dosing 63.5 Est GFR ( Amer) 92.7 Est GFR (Non-Af Amer) 79.9 BUN/Creatinine Ratio 19.8 Glucose 84 Calcium 8.4 L (1) Hypertension Hypertension type: unspecified Qualified Code(s): I10 - Essential (primary) hypertension
[2019-04-03] MEDS: CEFAZOLIN 1000MG 1,000 MG/7.5 ML SYR IV SCH (18:39)
[2019-04-03] MEDS: CHOLECALCIFEROL 1,000 UNITS TAB PO SCH (20:56)
[2019-04-03] MEDS: ASCORBIC ACID 500 MG TAB PO SCH (20:56)
[2019-04-04] MEDS: CEFAZOLIN 1000MG 1,000 MG/7.5 ML SYR IV SCH ×2 (02:26→10:43)
[2019-04-04] MEDS: METOPROLOL TARTRATE 25 MG TAB PO SCH (06:05)
[2019-04-04] MEDS: LEVOTHYROXINE SODIUM 88 MCG TABLET PO SCH (06:06)
[2019-04-04 06:26] LABS: Hematocrit (blood only) 46.7 % (42-52); Hemoglobin 16.1 g/dL (14.0-18.0); Mean Corpuscular Hgb Conc 34.5 g/dL (32-36); Mean Corpuscular Volume 91.4 fL (80-100); Mean Platelet Volume 10.4 fL (7.4-10.4); Platelet Count 178 K/uL (130-400); Red Blood Count 5.11 M/uL (4.7-6.1); White Blood Count 4.06 K/uL (4.8-10.8)
[2019-04-04 06:55] LABS: BUN Creatinine Ratio 17.7 (10-20); Calcium 8.7 mg/dl (8.5-10.1); Creatinine Clr Calc Pharmacy 64.9 ml/min; Est GFR (African American) 95.1; Est GFR (Non-African American) 82.1; Potassium 3.9 mmol/L (3.5-5.1)
--- NOTE | 2019-04-04 07:17 | XRay Report ---
TWO VIEW CHEST CLINICAL HISTORY: Status post pacemaker implantation. FINDINGS: PA and lateral chest radiographs are compared to study dated 04/02/2019. A 2-lead cardiac pa cemaker has been placed and partially obscures the left upper chest. Leads project over the right atr ial appendage and the right ventricle. The heart is enlarged and there is atherosclerotic calcificati on of the thoracic aorta. The pulmonary vasculature is noncongested. Emphysematous change and chronic interstitial thickening are similar to previous. No airspace consolidation is seen typical for pneum onia. Trace pleural effusions are noted on the lateral projection. There is no pneumothorax. The skel etal structures are osteopenic. The bony thorax appears intact. IMPRESSION: 1. A 2-lead cardiac pacemaker has been placed as detailed above. No pneumothorax is identified post p rocedure. 2. Cardiomegaly and emphysema. There is no radiographic evidence of congestive failure. 3. Trace pleural effusions are noted. Electronically signed by: Jeanmarie Camacho M.D. 04/04/2019 7:16 AM
[2019-04-04] MEDS: LACTOBACILLUS ACIDOPHILUS (FLORANEX) TAB PO SCH (09:32)
[2019-04-04] MEDS: DOCUSATE SODIUM 100 MG CAP PO SCH (09:32)
[2019-04-04] MEDS: DOFETILIDE 125 MCG CAPSULE PO SCH (09:32)
[2019-04-04] MEDS: FOLIC ACID 400 MCG TAB PO SCH (09:33)
[2019-04-04] MEDS: CYANOCOBALAMIN 500 MCG TABLET (VITAMIN B-12) PO SCH (09:33)
--- NOTE | 2019-04-04 11:03 | Cardiology Progress Note ---
Date of Service April 04, 2019 Assessment & Plan (1) Atrial flutter with rapid ventricular response: He continues to have some episodes of atrial arrhythmia. Most of this appears to be atrial ectopy possibly atrial tachycardia. I think we can continue his current medical therapy at the time of discharge I would recommend dofetilide 500 milligrams twice daily and Toprol XL 100 milligrams daily. He can restart his Eliquis at 5 milligrams twice daily tomorrow morning He should refrain from lifting left arm above the shoulder behind the neck for 6 weeks. He should keep the wound dry in the Steri-Strips intact until follow-up in our clinic next week (2) Tachy-joseph syndrome: Status post successful placement of dual-chamber permanent pacemaker (3) Cardiomyopathy: He is known to have reduced LV systolic function. Will attempt more aggressive rate control with increased beta-karen dose. I think can be discharged on Toprol XL 100 milligrams daily (4) Hypertension: For persistently high blood pressures we could consider reinstitution of his losartan. Subjective This morning the patient claims to be feeling well. The pacemaker implant site does not hurt much. He is anxious for discharge. Review of Systems Review of Systems: Per HPI Physical Exam Physical Exam: Device implant site appears to be healing well. No hematoma or significant erythema. No significant ecchymosis. No drainage. Results & Data Vital Signs (Past 12 Hours) Vital Signs Temp Pulse Resp BP Pulse Ox 04/04/19 07:27 36.7 C 73 19 144/103 H 96 04/04/19 03:00 37.1 C 78 20 142/95 H 95 04/03/19 23:50 36.7 C 89 20 149/89 H 96 Laboratory Results Abnormal Lab Results 04/04/19 04/04/19 06:11 06:11 WBC 4.06 L RBC 5.11 Hgb 16.1 Hct 46.7 MCV 91.4 MCH 31.5 MCHC 34.5 RDW Std Deviation 47.0 H RDW Coeff of Cheng 14.0 Plt Count 178 MPV 10.4 Sodium 139 Potassium 3.9 Chloride 107 Carbon Dioxide 25 Anion Gap 7.0 BUN 16 Creatinine 0.90 Est Cr Clr Drug Dosing 64.9 Est GFR ( Amer) 95.1 Est GFR (Non-Af Amer) 82.1 BUN/Creatinine Ratio 17.7 Glucose 87 Calcium 8.7 Diagnostic Findings Chest x-ray this morning demonstrated good lead position without evidence of pneumothorax Device interrogation revealed slightly small R-waves in the bipolar sensing configuration but good sensing in the unipolar configuration. There was normal function. (1) Hypertension Hypertension type: unspecified Qualified Code(s): I10 - Essential (primary) hypertension
--- NOTE | 2019-04-04 11:05 | Discharge Summary ---
Date of Service April 04, 2019 Admission HPI Per Admitting Provider This is a 78 yo M with a PMH of A fib/flutter on Eliquis with h/o ablation in Feb 2018, systolic heart failure 2/2 cardiomyopathy, hypothyroidism, HLD, BPH s/p TURP and other medical problems listed below who presents with atrial tachycardia. Was recently admitted from 02/22-02/24 for pre-syncope and was found to have SVT with HR in 160s with some second degree AV block with intermittent hypotension. Had variable heart rate from 40s to 160s during inpatient and Dr. Raza discussed possibility of pacemaker placement to allow for more aggressive rate control. Was also noted to have mild cardiomyopathy thought to be due to recurrent sustained episodes of tachycardia. He was discharged home on indefinite anticoagulation on Eliquis and Lopressor twice daily. Multaq, Atorvastatin and Levothyroxine were discontinued upon discharge. Since discharge, patient was encouraged to keep a daily log of blood pressure and heart rate. At PCP follow up appointment, patient's Losartan dose was increased to 50mg at bedtime and levothyroxine was resumed at 44 mcg daily. Was also seen in the ED on March 30 for continued hypertension and was started on hydralazine 10 mg QID with instructions to take only if systolic blood pressure above 150. Patient took this medication twice since then, in the morning of 03/31 and 04/01. This morning, patient's blood pressure was normal but pulse was 142. Patient was asymptomatic. Denies any lightheadedness, visual changes, palpitations or chest pain. Bryan brought patient into ED for further evaluation in setting of pacemaker placement scheduled for tomorrow. In ED, BP was initially 90/62 but improved to 104/75 after 1 L NSS. EKG with sinus tachycardia with 1st degree AV block at 130 but rhythm on monitor more variable. CXR with chronic process, no acute changes. No leukocytosis or electrolyte abnormalities. TSH, magnesium and UA added. Admission Exam Per Admitting Provider General Appearance: WD/WN, vitals as above, NAD, sitting up in bed, appears fatigued but pleasant and alert Head: normocephalic, atraumatic Eyes: normal inspection, PERRL, conjunctivae normal, anicteric sclerae ENT: external ear and nose normal, oropharynx normal Neck: trachea midline, no thyromegaly normal visual inspection Respiratory: normal respiratory effort, lungs clear to auscultation, no wheeze, rales, rhonchi. Normal insp/exp effort, no accessory muscle use Cardiovascular: irregular rate & rhythm, no murmur appreciated, normal peripheral pulses. Vessels: no JVD or carotid bruit Chest: normal inspection of chest Abdomen/GI: normal bowel sounds, soft, nontender, no hepatosplenomegaly Extremities/Musculoskelatal: no cyanosis or clubbing, extremities motor strength 5/5 Neurologic: PERRL, EOMI, accommodation nl, no face palsy, no dysarthria CN's II-XI intact bilaterally and moves all extremities Psychiatric: A+Ox3, euthymic affect Skin: no rashes, normal color, warm/dry Principal Diagnosis Atrial flutter with rapid ventricular response Tachybradycardia syndrome status post pacemaker placement Cardiomyopathy Hypertension Discharge Data Allergies Allergy/AdvReac Type Severity Reaction Status Date / Time No Known Allergies Allergy Verified 03/30/19 13:14 Consultations 04/02/19 12:18 Consult Cardiology Routine Procedures Performed Operation Date: 04/03/19 09:00 Actual Procedures p Pacer with A/V Leads (Dual) - Mathew Raza MD Ordered Studies 04/03/19 06:37 CL Cath Imgs for PACS use only Routine Hospital Course (1) Tachy-joseph syndrome: (2) S/P cardiac pacemaker procedure: (3) Atrial fibrillation: (4) Cardiomyopathy: (5) Hypertension: 78-year-old man presented to the emergency room with an elevated heart rate. He has a history of atrial fibrillation in the past on Eliquis with a history of an ablation in February 2018. In addition he has systolic heart failure that is chronic. He was admitted to the hospitalist service in atrial flutter with rapid ventricular response. Although an EKG revealed sinus tachycardia with first-degree AV block at 130 bpm, the rhythm on the student assistant was more variable with evidence of a transient second-degree heart block. He subsequently had atrial fibrillation. His imaging science professor who knows him well, Dr. Raza from [facility], was consulted and planed a pacemaker for the following morning. This was performed without issue and he recovered well. Dr. Raza recommended dofetilide for rhythm control and intensified his beta-karen regimen after the pacemaker. He continued to do well without issue and the following day was discharged in stable condition with close primary care follow-up recommended. Postoperative instructions were given and he will follow-up with cardiology group next week. At time of discharge a [id number] examination was performed revealing hemodynamically stable and afebrile patient in no acute distress. Lungs were clear to auscultation heart exam revealed S1/S2 without evidence of murmurs, gallops, rubs. Left anterior chest wall revealed no evidence of seroma or other postoperative change. Incision site appeared closed without surrounding erythema or drainage. He had no edema peripherally and was ambulating and mentating at baseline and tolerating p.o. Close primary care follow-up was recommended. Total Time Total Time Spent Total Time Spent (In Minutes): 60 Total Time Includes: Examination of the Patient, Discharge Planning, Medication Reconciliation, Communication With Other Providers and Other (arranged follow-up post discharge) Discharge Plan Discharge Items Patient Disposition: Home - Self-Care Reason For Visit: ATRIAL TACHYCARDIA Discharge Diagnosis: Atrial flutter with rapid ventricular response Tachybradycardia syndrome status post pacemaker placement Cardiomyopathy Hypertension Condition on Discharge: Good Activity: Per Instructions section Lifting: No more than 10 pounds Lifting Comment: do not raise arm above your shoulder x 2 weeks Bathing: Keep incision dry Exercise/Sports: Wait until after follow-up appointment Non-emergency contact: Primary Care Provider and Respiratory Care Practitioner Call non-emergency contact if: you have any medication questions, your symptoms worsen, your pain is not controlled, your pain is worsening, your pain is unusual for you, your pain is concerning for you and you have a fever Follow-up/Referrals: Mathew Raza MD [Physician] - Pricilla Rojas MD [Primary Care Provider] - Diet: Heart Healthy Addtl Attending Provider Instructions: Please take all medications as instructed. Please hold on taking the Eliquis until tomorrow morning, then resume your original dosing. Please follow-up with [facility] group as instructed next week for a post- operative follow-up. Please adhere to all post-operative instructions as given. You should refrain from lifting left arm above the shoulder behind the neck for 6 weeks. You should keep the wound dry and the Steri-Strips intact until follow-up in our clinic next week It is recommended that you followup with your primary care provider within one week to ensure you are doing well on your new medications and for a post- operative check. 04/07/2019 11:00 AM Pricilla Rojas MD General Internal Medicine [facility] It was a pleasure taking care of you! Please call if you have any questions or problems. You can reach a [facility] hospitalist on duty at [facility] 24 hours a day by calling [phone]. Take care of yourself. Rose Elizabeth DO [facility] Hospitalist Pending Studies at Discharge: No Stand-Alone Forms: My [facility] Medications and DC Order Prescriptions: New dofetilide 500 mcg capsule 500 mcg PO BID Qty: 30 RF: 0 metoprolol tartrate [Lopressor] 50 mg tablet 50 mg PO BID Qty: 60 RF: 1 Continued Eliquis 5 mg Tablet 5 mg PO BID RF: 0 folic acid 400 mcg Tablet 400 mcg PO DAILY RF: 0 vitamin A 8,000 unit Capsule 2,400 unit PO DAILY RF: 0 cyanocobalamin (vitamin B-12) [Vitamin B-12] 1,000 mcg Tablet 1,000 mcg PO DAILY RF: 0 ascorbic acid (vitamin C) [Vitamin C] 500 mg Tablet 500 mg PO HS RF: 0 docusate sodium 100 mg Capsule 100 mg PO BID RF: 0 cholecalciferol (vitamin D3) [Vitamin D3] 1,000 unit Capsule 1,000 unit PO HS RF: 0 coenzyme Q10 [CoQ-10] 100 mg Capsule 100 mg PO BID RF: 0 Probiotic 3 billion cell Capsule 3,000 mmu cells PO DAILY RF: 0 hydralazine 10 mg tablet 10 mg PO QID PRN (Reason: hypertension) Qty: 20 RF: 0 levothyroxine 88 mcg tablet 44 mcg PO DAILY RF: 0 losartan 50 mg tablet 50 mg PO PM RF: 0 Discontinued metoprolol tartrate 25 mg Tablet 25 mg PO BID Qty: 60 RF: 1 Discharge Orders: Discharge Order (Routine); Ordered 04/04/19 Ordered By: Rose Elizabeth Admission Data Admit Date/Time: 04/02/19 12:18 Attending Provider: Rose Elizabeth Admit Provider: Chris Wild Primary Care Provider: Pricilla Rojas Other Providers: Mathew Raza
== END 2019-04-04 12:36 | disposition home or self-care (01) | DRG 243 ==
LOC: ED 09:33 → 2E 12:18

== ENCOUNTER 2019-04-07 11:10 | Inpatient (IN) ==
[2019-04-07 12:26] LABS: Basophils # (auto) 0.05 K/uL (0-0.2); Basophils % (auto) 1.5 %; Eosinophils # (auto) 0.06 K/uL (0-0.5); Eosinophils % (auto) 1.8 %; Hematocrit (blood only) 41.9 % (42-52); Hemoglobin 14.3 g/dL (14.0-18.0); Immature Granulocytes # (auto) 0.01 K/uL (0.00-0.02); Immature Granulocytes % (auto) 0.3 %; Lymphocytes % (auto) 26.5 %; Mean Corpuscular Hemoglobin 31.8 pg (25-34); Mean Corpuscular Hgb Conc 34.1 g/dL (32-36); Mean Corpuscular Volume 93.1 fL (80-100); Mean Platelet Volume 10.2 fL (7.4-10.4); Monocytes # (auto) 0.29 K/uL (0.11-0.59); Monocytes % (auto) 8.5 %; Neutrophils # (auto) 2.09 K/uL (1.4-6.5); Neutrophils % (auto) 61.4 %; Platelet Count 188 K/uL (130-400); RDW Coefficient of Variation 14.3 % (11.5-14.5); RDW Standard Deviation 48.5 fL (36.4-46.3)
[2019-04-07 12:34] LABS: INR 1.1 (0.9-1.1); Prothrombin Time 11.1 Seconds (9.0-12.0)
[2019-04-07 12:44] LABS: Alanine Aminotransferase 35 U/L (12-78); Albumin Level 2.8 gm/dl (3.4-5.0); Aspartate Aminotransferase 38 U/L (15-37); BUN Creatinine Ratio 24.8 (10-20); Blood Urea Nitrogen 19 mg/dl (7-18); Calcium 8.8 mg/dl (8.5-10.1); Carbon Dioxide 25 mmol/L (21-32); Chloride 112 mmol/L (98-107); Creatinine Clr Calc Pharmacy 77.1 ml/min; Glucose 83 mg/dl (70-99); Magnesium 2.1 mg/dl (1.8-2.4); Potassium 4.6 mmol/L (3.5-5.1); Sodium 145 mmol/L (136-145)
--- NOTE | 2019-04-07 12:50 | XRay Report ---
XR chest 1V portable CLINICAL HISTORY: weakness COMPARISON STUDY: 04/04/2019 FINDINGS: The bones soft tissues and hemidiaphragms are normal. The cardiomediastinal silhouette is n ormal. The lungs are clear. The pulmonary vasculature is normal. Minimal chronic atelectatic change l eft base. Permanent bipolar cardiac pacemaker with leads in good position. IMPRESSION: Chronic and postoperative change. No acute process. The above report was generated using voice recognition software. It may contain grammatical, syntax or spelling errors. Electronically signed by: Calderon Cunha M.D. 04/07/2019 12:48 PM
[2019-04-07 12:55] LABS: Albumin Globulin Ratio 0.9 (0.9-2); Alkaline Phosphatase 114 U/L (45-117); Bilirubin,Total 0.3 mg/dl (0.2-1); Globulin 3.3 gm/dl (2.5-4.0); Total Protein 6.1 gm/dl (6.4-8.2); Troponin I < 0.015 ng/ml (0-0.045)
--- NOTE | 2019-04-07 14:02 | History & Physical Report ---
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 S/P PPM 04/04/[address] Raaz, incision healing well Pacemaker interrogated, report on chart, noted multiple variable atrial tachy arrhythmias HR max 180s Upon arrival in ED he was noted to be in afib with RVR and bp 93/66 HR and BP has now improved CBC, CMP, TSH mostly unremarkable except for mild elevation of BUN, consistent with mild dehydration CXR w/o acute process ED Physician Dr. Strange spoke with cardiology Dr. Elizabeth who recommended increased metoprolol 100mg bid and admission admit to PCU consult cardiology Dr. Elizabeth Increase metoprolol 100mg bid with parameters continue tikosyn as prescribed pacemaker precautions monitor on telemetry (3) Dehydration: mild elevation of BUN 19 Cr normal at 0.76 with ratio 24.8 Pt slightly on dry side will give IVF x 1 L monitor bmp (4) Tachy-joseph syndrome: s/p PPM 04/04/19 Dr. Raza (5) S/P cardiac pacemaker procedure: s/p PPM placed 04/04/[address] Raza pacer interrogation reviewed incision site healing well (6) Systolic heart failure: currently euvolemic Echo 01/2019 revealed EF 48% with dilated r and L atria - felt 2/2 to tachycardia induced continue metoprolol and losartan therapy daily weights heart healthy diet/low sodium (7) Hypertension: blood pressure previously has been labile on Losartan (recently increased to 50mg daily), metoprolol and prn hydralazine (has not had to use since pacemaker placement) monitor (8) Dyslipidemia: Pt was previously on atorvastatin This has since been stopped (9) Hypothyroidism: continue levothyroxine TSH 2.85 (10) DVT prophylaxis: continue eliquis SCD/TEDS Disposition: Admit to PCU Follow up: PCP Dr. Biggs upon discharge along with appropriate follow up with Dr. Raza Patient was seen and examined in collaboration with Dr. 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 Pt recently admitted 2/2 PPM placement on 04/03/19 due to atrial fib/flutter with difficult rate control due to hypotension. He tolerated procedure well and post operatively his metoprolol was increased to 50mg bid and tikosyn was added to regimen by Dr. Raaz. Pt had been doing well post operatively when he was getting ready to drive to work his morning when he got extremely light headed, dizzy and felt like he could pass out. He did not lose consciousness. Sx lasted several minutes and because of this patient called ex to be brought to ED. Currently sx have resolved and he feels okay. He denies any chest pain, SOB, palpitations with lig htheadedness. He denies f/c/s, current dizziness, chest pain, palpitations, SOB, MCCABE, hemopytsis, n/v/d, abdominal pain, change in bowel or urinary habits. Family member at bedside has made sure patient has taken all of his medications correctly and appropriately, specifically metoprolol and tikosyn. Prior to pacemaker patient was having labile blood pressure, but this had stabilized since discharge. He has not required his prn hydralazine. Allergies Allergy/AdvReac Type Severity Reaction Status Date / Time No Known Allergies Allergy Verified 04/07/19 12:52 Home Medications Home Medications Medication Instructions Recorded Confirmed Type Eliquis 5 mg PO BID 11/19/18 04/07/19 History folic acid 400 mcg PO QAM 02/21/19 04/07/19 History Probiotic 0 mmu cells PO HS 03/30/19 04/07/19 History ascorbic acid (vitamin C) [Vitamin 500 mg PO HS 03/30/19 04/07/19 History C] cholecalciferol (vitamin D3) 1,000 unit PO HS 03/30/19 04/07/19 History [Vitamin D3] coenzyme Q10 [CoQ-10] 100 mg PO BID 03/30/19 04/07/19 History cyanocobalamin (vitamin B-12) 1,000 mcg PO QAM 03/30/19 04/07/19 History [Vitamin B-12] docusate sodium 100 mg PO BID 03/30/19 04/07/19 History hydralazine 10 mg PO QID PRN #20 tab 03/30/19 04/07/19 Rx vitamin A 2,400 unit PO QAM 03/30/19 04/07/19 History levothyroxine 44 mcg PO QAM 04/02/19 04/07/19 History losartan 50 mg PO HS 04/02/19 04/07/19 History dofetilide 500 mcg PO BID #30 cap 04/04/19 04/07/19 Rx metoprolol tartrate [Lopressor] 50 mg PO BID #60 tab 04/04/19 04/07/19 Rx Past Med/Surg History Medical History Systolic heart failure (Chronic) Mildly reduced EF of 48% per 01/2019 echo Atrial fibrillation (Chronic) Dyslipidemia (Chronic) BPH (benign prostatic hyperplasia) (Chronic) Hypothyroidism (Chronic) Hernia (Chronic) "LARGE" UMBILICAL/VENTRAL HERNIA PER PT Surgical History H/O cardiac radiofrequency ablation (Resolved) Attempted CTI ablation, 02/2018 BY MAHENDRA History of transurethral resection of prostate (Chronic) 11/06/18 = LMA #5 x 1 attempt, good seal, atraumatic. History of arthroscopy (Chronic) RT KNEE History of tooth extraction (Chronic) Family History Mother Senile Father Pulmonary embolism Social History Preferred Language: Eritrean Communication Ability: Effective Logistics Specialist Required: No Beliefs That Will Affect Care: None Current Living Situation: Significant Other Other Information That Helps Us Care for You: No Feels Safe at Home: Yes Safety Concerns: Feels Safe At This Time Smoking Status: Former smoker Tobacco Type: cigarettes ; Cigarettes Per Day: QUIT 40 YEARS AGO. ; Do You Dip or Chew Tobacco: No ; Second Hand Exposure: No ; Tobacco Cessation Education Requested by Patient: No Hx Alcohol Use: No Hx Substance Use: No Review of Systems Review of Systems: All systems reviewed & are unremarkable except as noted in HPI & below Physical Exam Physical Exam: Constitutional: WD/WN, vitals as above, NAD, sitting up in bed, pleasant, conversing easily Head: Normocephalic, Atraumatic Eyes: PERRL, conjunctivae normal, anicteric sclerae ENMT: external ear and nose normal, oropharynx normal Neck: trachea midline, no thyromegaly normal visual inspection Respiratory: normal respiratory effort, lungs clear to auscultation, no wheeze, rales, rhonchi. Normal insp/exp effort, no accessory muscle use Cardiovascular: irregular rhythm, rate controlled, no murmur, no edema Vessels: no JVD or carotid bruit LACW Pacer incision site healing well, steri strips clean and dry Chest: normal inspection of chest Abdomen: normal bowel sounds, soft, nontender, no hepatosplenomegaly Musculoskeletal: no cyanosis or clubbing, extremities motor strength 5/5 Skin: no rashes, warm normal turgor Neurologic: PERRL, EOMI, accommodation nl, no face palsy, no dysarthria CN's II-XI intact bilaterally and moves all extremities Psychiatric: A+Ox3, euthymic affect Lymphatic: no cervical or axillary lymphadenopathy : deferred Results & Data Vital Signs (Past 12 Hours) Vital Signs Temp Pulse Pulse Resp BP BP Pulse Ox 04/07/19 13:32 84 18 117/77 98 04/07/19 12:46 76 18 130/86 95 04/07/19 11:41 115 H 16 105/80 97 04/07/19 11:17 36.6 C 85 16 93/66 L 97 Laboratory Results Short CBC 04/07/19 04/07/19 04/07/19 Range/Units 12:17 12:17 12:17 WBC 3.40 L (4.8-10.8) K/uL RBC 4.50 L (4.7-6.1) M/uL Hgb 14.3 (14.0-18.0) g/dL Hct 41.9 L (42-52) % MCV 93.1 (80-100) fL MCH 31.8 (25-34) pg MCHC 34.1 (32-36) g/dL RDW Std Deviation 48.5 H (36.4-46.3) fL RDW Coeff of Cheng 14.3 (11.5-14.5) % Plt Count 188 (130-400) K/uL MPV 10.2 (7.4-10.4) fL Immature Gran % (Auto) 0.3 % Neut % (Auto) 61.4 % Lymph % (Auto) 26.5 % Dickenson % (Auto) 8.5 % Eos % (Auto) 1.8 % Baso % (Auto) 1.5 % Immature Gran # (Auto) 0.01 (0.00-0.02) K/uL Neut # (Auto) 2.09 (1.4-6.5) K/uL Lymph # (Auto) 0.90 L (1.2-3.4) K/uL Dickenson # (Auto) 0.29 (0.11-0.59) K/uL Eos # (Auto) 0.06 (0-0.5) K/uL Baso # (Auto) 0.05 (0-0.2) K/uL PT 11.1 (9.0-12.0) Seconds INR 1.1 (0.9-1.1) Sodium 145 (136-145) mmol/L Potassium 4.6 (3.5-5.1) mmol/L Chloride 112 H (98-107) mmol/L Carbon Dioxide 25 (21-32) mmol/L Anion Gap 7.0 (3-11) BUN 19 H (7-18) mg/dl Creatinine 0.76 (0.6-1.4) mg/dl Est Cr Clr Drug Dosing 77.1 ml/min Est GFR ( Amer) 102.0 Est GFR (Non-Af Amer) 88.0 BUN/Creatinine Ratio 24.8 H (10-20) Glucose 83 (70-99) mg/dl Calcium 8.8 (8.5-10.1) mg/dl Magnesium 2.1 (1.8-2.4) mg/dl Total Bilirubin 0.3 (0.2-1) mg/dl AST 38 H (15-37) U/L ALT 35 (12-78) U/L Alkaline Phosphatase 114 (45-117) U/L Troponin I < 0.015 (0-0.045) ng/ml Total Protein 6.1 L (6.4-8.2) gm/dl Albumin 2.8 L (3.4-5.0) gm/dl Globulin 3.3 (2.5-4.0) gm/dl Albumin/Globulin Ratio 0.9 (0.9-2) TSH 2.850 (0.300-4.500) uIu/ml Specimen Hemolysis BMP 04/07/19 12:17 Sodium 145 Potassium 4.6 Chloride 112 H Carbon Dioxide 25 BUN 19 H Creatinine 0.76 Glucose 83 Calcium 8.8 Cardiac Enzymes 04/07/19 Range/Units 12:17 Troponin I < 0.015 (0-0.045) ng/ml Liver Function 04/07/19 Range/Units 12:17 Total Bilirubin 0.3 (0.2-1) mg/dl AST 38 H (15-37) U/L ALT 35 (12-78) U/L Alkaline Phosphatase 114 (45-117) U/L Albumin 2.8 L (3.4-5.0) gm/dl Diagnostic Findings CXR: IMPRESSION: Chronic and postoperative change. No acute process. [employer] pacer interrogation: reveals variable atrial arrhythmias HR max 180s ECG Rate (beats per minute): 102 Rhythm: atrial fibrillation Code Status & VTE Plan Code Status Full Code VTE Prophylaxis Plan VTE Prophylaxis will be ordered: Yes Supervising Physician Co-Signing Physician Notes I have seen and examined the patient and have discussed the case with the provider above. I agree with the assessment and plan as stated. Mr. Weiner was recently under my care in the hospital and is known to me from that. He reports intermittent lightheadedness episodes which may be correlating with these episodes of rapid atrial fibrillation on the pacemaker interrogation today. His beta-karen has been increased and he remains on the Tikosyn. He denies any other symptoms such as chest pain, fevers or other issues and is in good spirits overall. Physical exam above reflects my findings, also with clear lungs to auscultation and an irregular rhythm with a controlled rate on cardiac auscultation. The patient is not in any kind of distress. Will monitor overnight on telemetry and await cardiology recommendations in the morning. DO Glenn (1) Hypertension Hypertension type: unspecified Qualified Code(s): I10 - Essential (primary) hypertension
[2019-04-07] MEDS ORDERED: SODIUM CHLORIDE 0.9% 1000ML 1,000 ML IV SCH (14:32)
[2019-04-07] MEDS ORDERED: MAGNESIUM HYDROXIDE SUSP 30 ML UDC PO PRN (15:12)
[2019-04-07] MEDS ORDERED: POLYETHYLENE (MIRALAX) 17 GM PACK PO PRN (15:12)
[2019-04-07] MEDS ORDERED: ACETAMINOPHEN 325 MG TAB PO PRN (15:12)
[2019-04-07] MEDS ORDERED: ALUMINUM/MAGNESIUM SUSP 30 ML UDC PO PRN (15:12)
--- NOTE | 2019-04-07 20:19 | Emergency Department Note ---
Entered by Sheri Sims acting as a scribe for Ubaldo Strange MD History of Present Illness General Chief complaint: Hypotension Stated complaint: PACEMAKER PUT IN 04/03 BP LOW Time Seen by Provider: 04/07/19 12:02 Source: patient History of Present Illness Provider complaint: Dizziness Onset (ago): week(s) 1 Location: head Maximum Pain Intensity: 0 Relieved By: + none Exacerbated By: + none Associated symptoms: + denies other symptoms (Pedal edema) and + other (Lightheaded, lip and tongue numbness); no chest pain and no shortness of breath The patient is a 78 year old white male w/ PMHx of A fib/flutter on Eliquis with h/o ablation in Feb 2018, systolic heart failure 2/2 cardiomyopathy, hypothyroidism, HLD, BPH s/p TURP and other medical problems listed below who presents with atrial tachycardia who presents to the ED w/ CC of dizziness that began 1 week prior. The patient states the symptoms are not relieved nor exacerbated by anything. The patient reports he began taking thyroid medication about a month ago and believed the medication was causing his lips and tongue to go numb. However, even when taken off the medication he was still experiencing these symptoms. The patient states he has been lightheaded and feels like he is going to pass out. The patient denies any pedal edema, chest pain, or shortness of breath. The patient mentioned his Metoprolol from 25mg to 50mg and he is on Dofetilide. Home Medications Home Medications Medication Instructions Recorded Confirmed Type Eliquis 5 mg PO BID 11/19/18 04/07/19 History folic acid 400 mcg PO QAM 02/21/19 04/07/19 History Probiotic 0 mmu cells PO 03/30/19 04/07/19 History ascorbic acid (vitamin C) [Vitamin 500 mg PO HS 03/30/19 04/07/19 History C] cholecalciferol (vitamin D3) 1,000 unit PO 03/30/19 04/07/19 History [Vitamin D3] coenzyme Q10 [CoQ-10] 100 mg PO BID 03/30/19 04/07/19 History cyanocobalamin (vitamin B-12) 1,000 mcg PO QAM 03/30/19 04/07/19 History [Vitamin B-12] docusate sodium 100 mg PO BID 03/30/19 04/07/19 History hydralazine 10 mg PO QID PRN #20 tab 03/30/19 04/07/19 Rx vitamin A 2,400 unit PO QAM 03/30/19 04/07/19 History levothyroxine 44 mcg PO QAM 04/02/19 04/07/19 History losartan 50 mg PO HS 04/02/19 04/07/19 History dofetilide 500 mcg PO BID #30 cap 04/04/19 04/07/19 Rx metoprolol tartrate [Lopressor] 50 mg PO BID #60 tab 04/04/19 04/07/19 Rx Allergies Allergy/AdvReac Type Severity Reaction Status Date / Time No Known Allergies Allergy Verified 04/07/19 12:52 Past Med/Surg History Medical History Systolic heart failure (Chronic) Mildly reduced EF of 48% per 01/2019 echo Atrial fibrillation (Chronic) Dyslipidemia (Chronic) BPH (benign prostatic hyperplasia) (Chronic) Hypothyroidism (Chronic) Hernia (Chronic) "LARGE" UMBILICAL/VENTRAL HERNIA PER PT Surgical History H/O cardiac radiofrequency ablation (Resolved) Attempted CTI ablation, 02/2018 BY MAHENDRA History of transurethral resection of prostate (Chronic) 11/06/18 = LMA #5 x 1 attempt, good seal, atraumatic. History of arthroscopy (Chronic) RT KNEE History of tooth extraction (Chronic) Family History Mother Senile Father Pulmonary embolism Social History Preferred Language: Estonian Communication Ability: Effective Director Volunteer Services Required: No Beliefs That Will Affect Care: None Current Living Situation: Significant Other Other Information That Helps Us Care for You: No Feels Safe at Home: Yes Safety Concerns: Feels Safe At This Time Smoking Status: Former smoker Tobacco Type: cigarettes ; Cigarettes Per Day: QUIT 40 YEARS AGO. ; Do You Dip or Chew Tobacco: No ; Second Hand Exposure: No ; Tobacco Cessation Education Requested by Patient: No Hx Alcohol Use: No Hx Substance Use: No Review of Systems See HPI for pertinent positives & negatives. and A total of 10 systems reviewed and were otherwise negative Physical Exam Vital Signs Vital Signs - 24 hr 04/07/19 11:17 04/07/19 11:41 04/07/19 12:46 Temperature 36.6 C Temperature Source Oral Sepsis Recent Fever Within 48 Hours No Sepsis New/Unexplained Change in Mental Status No Sepsis Action Taken by Nursing No Action Required Pulse Rate 85 Pulse Rate [Left Finger] 115 H 76 Pulse Rhythm [Left Finger] Irregular Pulse Strength [Left Finger] Normal Respiratory Rate 16 16 18 Respiratory Effort / Characteristics Non-Labored Spontaneous Respiratory Depth Normal Respiratory Pattern Regular Blood Pressure 93/66 L Blood Pressure [Left Arm] 105/80 130/86 Blood Pressure Mean 75 Blood Pressure Mean [Left Arm] 88 100 Blood Pressure Position [Left Arm] Sitting Pulse Oximetry 97 97 95 Oxygen Delivery Method Room Air Room Air Room Air 04/07/19 13:32 Temperature Temperature Source Sepsis Recent Fever Within 48 Hours Sepsis New/Unexplained Change in Mental Status Sepsis Action Taken by Nursing Pulse Rate Pulse Rate [Left Finger] 84 Pulse Rhythm [Left Finger] Pulse Strength [Left Finger] Respiratory Rate 18 Respiratory Effort / Characteristics Respiratory Depth Normal Respiratory Pattern Blood Pressure Blood Pressure [Left Arm] 117/77 Blood Pressure Mean Blood Pressure Mean [Left Arm] 90 Blood Pressure Position [Left Arm] Pulse Oximetry 98 Oxygen Delivery Method Room Air GENERAL: Well appearing, well nourished, NAD, non-toxic. Edentulous. EYE EXAM: Normal conjunctiva. PERRL, no anisocoria and EOM's grossly intact w/o pain. OROPHARYNX: Moist mucous membranes. Grossly normal dentition. NECK: Supple, no nuchal rigidity, no adenopathy, non-tender. No signs of meningismus. LUNGS: Clear to auscultation. Normal chest wall mechanics. HEART: NSR, no MRG. CHEST: Device in left chest. Bruising. Site clean, dry, and intact. ABDOMEN: Abdomen soft, non-tender, normo-active bowel sounds, no masses, no rosa ound or guarding. BACK: No CVA TTP. SKIN: No rashes and no bruising. UPPER EXTREMITIES: Upper extremities are grossly normal. LOWER EXTREMITIES: No pitting edema. No calf pain. NEURO EXAM: A&O x3, cranial nerves II-XII grossly intact, normal speech, moves all 4 extremities on command w/o issue. Course 1221: Past medical records reviewed. The patient was evaluated in room A02. A complete history and physical exam was performed. 1309: I spoke with Mariela Boucher about the patient's case and the patient will be further evaluated by Dr. Suarez. 1320: I spoke [place]. Elizabeth, [facility] [facility], and he would like to double the patient's Metoprolol intake. Administered Medications Sodium Chloride (Nss 1000ml) 1,000 mls @ 75 mls/hr IV .[id number] MIGUEL ANGEL Stop: 04/08/19 03:51 Last Admin: 04/07/19 15:54 Dose: 75 mls/hr Documented by: [id number] Medical Decision Making Differential Diagnosis Differential diagnosis: Etiologies such as benign positional vertigo, labrynthitis, dehydration, hypovolemia, anemia, tumor, infection, hypoglycemia, electrolyte abnormalities, cardiac sources, toxicological sources, central neurologic process, as well as others were entertained. Medical Records Attestation: I reviewed the patient's medical records. Home Medications Current Medication List: was personally reviewed by me Laboratory Data Attestation: I reviewed the patient's lab results. Result diagrams: 04/07/19 12:17 04/07/19 12:17 Lab Results 04/07/19 04/07/19 04/07/19 Range/Units 12:17 12:17 12:17 WBC 3.40 L (4.8-10.8) K/uL RBC 4.50 L (4.7-6.1) M/uL Hgb 14.3 (14.0-18.0) g/dL Hct 41.9 L (42-52) % MCV 93.1 (80-100) fL MCH 31.8 (25-34) pg MCHC 34.1 (32-36) g/dL RDW Std Deviation 48.5 H (36.4-46.3) fL RDW Coeff of Cheng 14.3 (11.5-14.5) % Plt Count 188 (130-400) K/uL MPV 10.2 (7.4-10.4) fL Immature Gran % (Auto) 0.3 % Neut % (Auto) 61.4 % Lymph % (Auto) 26.5 % [place] % (Auto) 8.5 % Eos % (Auto) 1.8 % Baso % (Auto) 1.5 % Immature Gran # (Auto) 0.01 (0.00-0.02) K/uL Neut # (Auto) 2.09 (1.4-6.5) K/uL Lymph # (Auto) 0.90 L (1.2-3.4) K/uL [place] # (Auto) 0.29 (0.11-0.59) K/uL Eos # (Auto) 0.06 (0-0.5) K/uL Baso # (Auto) 0.05 (0-0.2) K/uL PT 11.1 (9.0-12.0) Seconds INR 1.1 (0.9-1.1) Sodium 145 (136-145) mmol/L Potassium 4.6 (3.5-5.1) mmol/L Chloride 112 H (98-107) mmol/L Carbon Dioxide 25 (21-32) mmol/L Anion Gap 7.0 (3-11) BUN 19 H (7-18) mg/dl Creatinine 0.76 (0.6-1.4) mg/dl Est Cr Clr Drug Dosing 77.1 ml/min Est GFR ( Amer) 102.0 Est GFR (Non-Af Amer) 88.0 BUN/Creatinine Ratio 24.8 H (10-20) Glucose 83 (70-99) mg/dl Calcium 8.8 (8.5-10.1) mg/dl Magnesium 2.1 (1.8-2.4) mg/dl Total Bilirubin 0.3 (0.2-1) mg/dl AST 38 H (15-37) U/L ALT 35 (12-78) U/L Alkaline Phosphatase 114 (45-117) U/L Troponin I < 0.015 (0-0.045) ng/ml Total Protein 6.1 L (6.4-8.2) gm/dl Albumin 2.8 L (3.4-5.0) gm/dl Globulin 3.3 (2.5-4.0) gm/dl Albumin/Globulin Ratio 0.9 (0.9-2) TSH 2.850 (0.300-4.500) uIu/ml Specimen Hemolysis Imaging Data Radiologist's Impression: Radiology results as stated below per my review and the radiologist's interpretation: XR chest 1V portable CLINICAL HISTORY: weakness COMPARISON STUDY: 04/04/2019 FINDINGS: The bones soft tissues and hemidiaphragms are normal. The cardiomediastinal silhouette is normal. The lungs are clear. The pulmonary vasculature is normal. Minimal chronic atelectatic change left base. Permanent bipolar cardiac pacemaker with leads in good position. IMPRESSION: Chronic and postoperative change. No acute process. The above report was generated using voice recognition software. It may contain grammatical, syntax or spelling errors. Electronically signed by: Calderon Cunha M.D. 04/07/2019 12:48 PM ECG Data Attestation: I personally reviewed and interpreted this ECG as follows: Indication: other (Dizziness) Rate (beats per minute): 102 Rhythm: atrial fibrillation Findings: + T-wave inversion (Inferior); no ST depression and no ST elevation Comparison ECG Date: from (04/04/2019) Change: the following changes noted (No longer in normal sinus, now in afib. Rate has increased.) Blood Pressure Blood Pressure Findings: Normal blood pressure Blood Pressure Disposition: further management by hospitalist [facility] Narrative Patient was seen and evaluated the bedside. The patient recently did have a pacemaker placed for history of A. fib a flutter status post ablation. The patient is on chronic anticoagulation. The patient is presenting with some lightheadedness and feelings that he is going to pass out. Patient recently did have his pacemaker placed on . Patient's prior EKG notes a sinus rhythm but currently is in an atrial arrhythmia or atrial fibrillation. Patient is only occasionally symptomatic. The patient did have a [employer] interrogation which does show that the patient does have a 2-1 sometimes 1 1 conduction with a ventricular rate up to 170. The patient was recently initiated on dofetilide and increase his metoprolol from 25-50. Given the patient's recent device implantation with associated new medications and associated with arrhythmia causing his lightheadedness I believe he would benefit from further inpatient treatment. The patient was admitted to the medicine service. I did speak with the on-call potato sorter who recommended up titrating the patient's metoprolol to 100 mg twice daily. Impression & Plan Lightheaded, Arrhythmia Discharge Plan Visit Data *Final* Discharge Date/Time: 04/07/19 14:34 Chief Complaint: Hypotension Stated Complaint: PACEMAKER PUT IN 04/03 BP LOW ED Provider: Ubaldo Strange Discharge Problem: Lightheaded, Arrhythmia Patient Disposition: Admitted As Inpatient Discharge Instructions Interventions: ED Discharge Assessment Last Done: 04/07/19 14:34 Discharge Problem: Arrhythmia Qualifiers: Arrhythmia type: unspecified cardiac arrhythmia Qualified Code(s): I49.9 - Cardiac arrhythmia, unspecified The scribe's documentation has been prepared under my direction and personally reviewed by me in its entirety. I confirm that the note above accurately reflects all work, treatment, procedures, and medical decision making performed by me.
[2019-04-07] MEDS: APIXABAN 5 MG TABLET PO SCH (20:38)
[2019-04-07] MEDS: DOCUSATE SODIUM 100 MG CAP PO SCH (20:39)
[2019-04-07] MEDS: DOFETILIDE 125 MCG CAPSULE PO SCH (20:39)
[2019-04-07] MEDS: METOPROLOL TARTRATE 100 MG TAB PO SCH (20:41)
[2019-04-07] MEDS ORDERED: CHOLECALCIFEROL 1,000 UNITS TAB PO SCH (21:00)
[2019-04-07] MEDS ORDERED: LOSARTAN POTASSIUM 50 MG TAB PO SCH (21:00)
[2019-04-07] MEDS ORDERED: ASCORBIC ACID 500 MG TAB PO SCH (21:00)
[2019-04-07] MEDS ORDERED: NON-FORMULARY MEDICATION (Coenzyme Q10 [Coq-10] 100 MG) PO SCH (21:00)
[2019-04-08] MEDS ORDERED: LEVOTHYROXINE SODIUM 88 MCG TABLET PO SCH (06:30)
[2019-04-08 06:31] LABS: Hemoglobin 14.2 g/dL (14.0-18.0); Mean Corpuscular Hemoglobin 31.6 pg (25-34); Mean Corpuscular Hgb Conc 33.8 g/dL (32-36); Mean Corpuscular Volume 93.3 fL (80-100); Mean Platelet Volume 10.4 fL (7.4-10.4); Platelet Count 184 K/uL (130-400); RDW Coefficient of Variation 14.2 % (11.5-14.5); RDW Standard Deviation 48.1 fL (36.4-46.3); White Blood Count 2.86 K/uL (4.8-10.8)
[2019-04-08 06:59] LABS: Albumin Level 2.7 gm/dl (3.4-5.0); BUN Creatinine Ratio 27.4 (10-20); Calcium 8.5 mg/dl (8.5-10.1); Magnesium 1.9 mg/dl (1.8-2.4); Potassium 3.9 mmol/L (3.5-5.1)
[2019-04-08 07:00] LABS: Albumin Globulin Ratio 0.9 (0.9-2); Bilirubin,Total 0.7 mg/dl (0.2-1); Globulin 3.1 gm/dl (2.5-4.0); Total Protein 5.8 gm/dl (6.4-8.2)
[2019-04-08] MEDS: DOFETILIDE 125 MCG CAPSULE PO SCH (08:37)
[2019-04-08] MEDS: METOPROLOL TARTRATE 100 MG TAB PO SCH (08:37)
[2019-04-08] MEDS: DOCUSATE SODIUM 100 MG CAP PO SCH (08:38)
[2019-04-08] MEDS: APIXABAN 5 MG TABLET PO SCH (08:38)
[2019-04-08] MEDS ORDERED: CYANOCOBALAMIN 500 MCG TABLET (VITAMIN B-12) PO SCH (09:00)
[2019-04-08] MEDS ORDERED: FOLIC ACID 400 MCG TAB PO SCH (09:00)
[2019-04-08] MEDS ORDERED: VITAMIN A 2400 UNIT PO SCH (09:00)
--- NOTE | 2019-04-08 10:11 | Cardiology Progress Note ---
Date of Service April 08, 2019 Assessment & Plan (1) Atrial flutter with rapid ventricular response: He did appear to be in atrial flutter at the time of admission. Overall rate control seems adequate. He has some variable ventricular response is. He seemed to convert back to a sinus rhythm or at least a paced atrial rhythm last evening. No symptoms related to the arrhythmia. Unclear whether dofetilide will have the desired effect but some point will be able to add an atrial tac hycardia therapies as a function of his device. I think we can continue his dofetilide and increase his metoprolol to 100 milligrams twice daily. (2) Systolic heart failure: He is known to have element of reduced LV systolic function. However, his lung examination is clear. Appears to be well compensated. Hopefully with time it control these arrhythmias will see some improvement in the LV function. 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 Once the leads have matured we will plan on activating atrial therapies as well. (4) Lightheaded: He did seem to have some hypotension. Perhaps this was related. Unclear if this was related to the arrhythmia. He has presented in the past with rapid heart rates lower blood pressures. I think we can reduce his losartan and increase his metoprolol. Subjective Patient is well known to me from both the outpatient and inpatient setting. Briefly, a 78-year-old gentle with a history of multiple atrial arrhythmias and tachy-joseph syndrome who presented to the emergency room yesterday for symptoms of dizziness and lightheadedness. This did appear to be associated with some lower blood pressures. The patient's symptoms seemed to resolve without any specific intervention and he was admitted for observation. Over the course of the evening he did undergo a saline infusion. This morning he is feeling quite well. He has ambulated multiple times around the hoyt. He does not have any sense of palpitation or did have any sense of palpitation yesterday. He has not experienced symptoms of chest pain. He did have some presyncope but no actual syncope. This morning he is not dizzy and is anxious for discharge. Review of Systems Review of Systems: Per HPI. Physical Exam Physical Exam: The patient is alert and oriented. Mood and affect appeared normal. He answered all questions appropriately. HEENT: Pupils are equal and reactive to light and accommodation. Extraocular movements are intact. The sclerae are anicteric. Neuro: Cranial nerves intact Neck: Patient's neck is supple. He has palpable carotid pulses bilaterally without bruits on auscultation. There is no evidence of jugular venous distention. The thyroid is not enlarged. Lungs: Clear to auscultation bilaterally. He has good air movement without use of accessory muscles. No rales wheezes or rhonchi. Cardiac: Heart demonstrates a regular rate and rhythm. Normal S1 and S2. No murmurs on examination. Chest: Pacemaker implant site healing well without ecchymosis, hematoma or drainage. No erythema. Pulses: The patient has palpable radial pulses bilaterally that are equal in intensity Extremities: There was no evidence of hypoperfusion. There is no cyanosis or clubbing. There is no edema. Skin: I did not appreciate any rashes on examination today. Results & Data Vital Signs (Past 12 Hours) Vital Signs Temp Pulse Resp BP Pulse Ox 04/08/19 07:44 36.7 C 66 16 162/90 H 98 04/08/19 04:23 36.9 C 62 18 150/86 H 97 04/08/19 00:00 36.8 C 62 18 137/88 95 Laboratory Results Abnormal Lab Results 04/07/19 04/07/19 04/07/19 12:17 12:17 12:17 WBC 3.40 L RBC 4.50 L Hgb 14.3 Hct 41.9 L MCV 93.1 MCH 31.8 MCHC 34.1 RDW Std Deviation 48.5 H RDW Coeff of Cheng 14.3 Plt Count 188 MPV 10.2 Immature Gran % (Auto) 0.3 Neut % (Auto) 61.4 Lymph % (Auto) 26.5 [place] % (Auto) 8.5 Eos % (Auto) 1.8 Baso % (Auto) 1.5 Immature Gran # (Auto) 0.01 Neut # (Auto) 2.09 Lymph # (Auto) 0.90 L [place] # (Auto) 0.29 Eos # (Auto) 0.06 Baso # (Auto) 0.05 PT 11.1 INR 1.1 Sodium 145 Potassium 4.6 Chloride 112 H Carbon Dioxide 25 Anion Gap 7.0 BUN 19 H Creatinine 0.76 Est Cr Clr Drug Dosing 77.1 Est GFR ( Amer) 102.0 Est GFR (Non-Af Amer) 88.0 BUN/Creatinine Ratio 24.8 H Glucose 83 Calcium 8.8 Magnesium 2.1 Total Bilirubin 0.3 AST 38 H ALT 35 Alkaline Phosphatase 114 Troponin I < 0.015 Total Protein 6.1 L Albumin 2.8 L Globulin 3.3 Albumin/Globulin Ratio 0.9 TSH 2.850 Specimen Hemolysis 04/08/19 04/08/19 06:07 06:07 WBC 2.86 L RBC 4.50 L Hgb 14.2 Hct 42.0 MCV 93.3 MCH 31.6 MCHC 33.8 RDW Std Deviation 48.1 H RDW Coeff of Cheng 14.2 Plt Count 184 MPV 10.4 Immature Gran % (Auto) Neut % (Auto) Lymph % (Auto) [place] % (Auto) Eos % (Auto) Baso % (Auto) Immature Gran # (Auto) Neut # (Auto) Lymph # (Auto) [place] # (Auto) Eos # (Auto) Baso # (Auto) PT INR Sodium 143 Potassium 3.9 D Chloride 110 H Carbon Dioxide 29 Anion Gap 4.0 BUN 21 H Creatinine 0.76 Est Cr Clr Drug Dosing 75.0 Est GFR ( Amer) 102.0 Est GFR (Non-Af Amer) 88.0 BUN/Creatinine Ratio 27.4 H Glucose 83 Calcium 8.5 Magnesium 1.9 Total Bilirubin 0.7 AST 19 ALT 28 Alkaline Phosphatase 93 Troponin I Total Protein 5.8 L Albumin 2.7 L Globulin 3.1 Albumin/Globulin Ratio 0.9 TSH Specimen Hemolysis Diagnostic Findings Chest x-ray obtained at the time admission diarrhea any acute cardiopulmonary findings. Pacemaker leads appear to be stable
--- NOTE | 2019-04-08 13:02 | Discharge Summary ---
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 Pt recently admitted 2/2 PPM placement on 04/03/19 due to atrial fib/flutter with difficult rate control due to hypotension. He tolerated procedure well and post operatively his metoprolol was increased to 50mg bid and tikosyn was added to regimen by Dr. Raza. Pt had been doing well post operatively when he was getting ready to drive to work his morning when he got extremely light headed, dizzy and felt like he could pass out. He did not lose consciousness. Sx lasted several minutes and because of this patient called ex to be brought to ED. Currently sx have resolved and he feels okay. He denies any chest pain, SOB, palpitations with lightheadedness. He denies f/c/s, current dizziness, chest pain, palpitations, SOB, MCCABE, hemopytsis, n/v/d, abdominal pain, change in bowel or urinary habits. Family member at bedside has made sure patient has taken all of his medications correctly and appropriately, specifically metoprolol and tikosyn. Prior to pacemaker patient was having labile blood pressure, but this had stabilized since discharge. He has not required his prn hydralazine. Admission Exam Per Admitting Provider Constitutional: WD/WN, vitals as above, NAD, sitting up in bed, pleasant, conversing easily Head: Normocephalic, Atraumatic Eyes: PERRL, conjunctivae normal, anicteric sclerae ENMT: external ear and nose normal, oropharynx normal Neck: trachea midline, no thyromegaly normal visual inspection Respiratory: normal respiratory effort, lungs clear to auscultation, no wheeze, rales, rhonchi. Normal insp/exp effort, no accessory muscle use Cardiovascular: irregular rhythm, rate controlled, no murmur, no edema Vessels: no JVD or carotid bruit LACW Pacer incision site healing well, steri strips clean and dry Chest: normal inspection of chest Abdomen: normal bowel sounds, soft, nontender, no hepatosplenomegaly Musculoskeletal: no cyanosis or clubbing, extremities motor strength 5/5 Skin: no rashes, warm normal turgor Neurologic: PERRL, EOMI, accommodation nl, no face palsy, no dysarthria CN's II-XI intact bilaterally and moves all extremities Psychiatric: A+Ox3, euthymic affect Lymphatic: no cervical or axillary lymphadenopathy : deferred Principal Diagnosis lightheadedness Atrial flutter with rapid ventricular response Systolic heart failure Tachybradycardia syndrome Discharge Data Allergies Allergy/AdvReac Type Severity Reaction Status Date / Time No Known Allergies Allergy Verified 04/07/19 12:52 Consultations 04/07/19 13:12 ED Decision to Admit Stat 04/07/19 14:32 Consult Cardiology Routine Hospital Course (1) Lightheaded: (2) Atrial fibrillation: (3) Systolic heart failure: (4) Hypertension: He was admitted to the Hospitalist service and Cardiology was consulted. A pacemaker interrogation revealed atrial tachyarrhythmias with rates in to the 180s, consistent with the previous few weeks, including his recent hospitalization. He was recently given a pacemaker and dofetilide load. His lightheadedness was consistent with atrial fibrillation with RVR, which was seen in the ER on arrival. Notably systolic pressure was in the 90s on Losartan. Cardiology increased his metoprolol to 100mg PO BID. He did not have further issues with tachycardia or lightheadedness throughout the remainder of his stay. At time of discharge, he was hemodynamically stable and afebrile. He was mentating and ambulating at baseline and tolerating PO. Physical exam was unremarkable, including a well-healed pacemaker site. Post-operative instructions were again reiterated to him and he verbalized understanding with intent to comply. He was sent home in stable condition with close primary care and Cardiology follow-up. Of note, Losartan was decreased at time of discharge based on Cardiology recommendations in the setting of hypotension on admission. Also, decreased EF noted and he remained compensated. Per Cardiology, rate and rhythm may have something to do with this and hopefully will improve over time with treatment. Total Time Total Time Spent Total Time Spent (In Minutes): 60 Total Time Includes: Examination of the Patient, Discharge Planning, Medication Reconciliation and Communication With Other Providers Discharge Plan Discharge Items Patient Disposition: Home - Self-Care Reason For Visit: RECENT PACEMAKER [employer]ACED,ARRYTHMIA Discharge Diagnosis: lightheadedness Atrial flutter with rapid ventricular response Systolic heart failure Tachybradycardia syndrome Condition on Discharge: Good Activity: Resume your previous activity Lifting: No more than 10 pounds Bathing: Keep incision dry Driving/Machine Use: No limitations Non-emergency contact: Primary Care Provider and [employer] Call non-emergency contact if: you have any medication questions, your symptoms worsen, your pain is not controlled, your pain is worsening, your pain is u nusual for you, your pain is concerning for you and you have a fever Follow-up/Referrals: Pricilla Rojas MD [Primary Care Provider] - Add Attending Provider Instructions: Please take all medications as instructed on discharge list below. Please follow-up with your primary care doctor as previously scheduled: 04/09/2019 10:00 AM Pricilla Rojas MD General Internal Medicine [facility] Please follow-up with your shot man as previously scheduled. It was a pleasure taking care of you! Please call if you have any questions or problems. You can reach a [facility] hospitalist on duty at [facility] 24 hours a day by calling [phone]. Take care of yourself. Rose Elizabeth DO [facility]ist Pending Studies at Discharge: No Stand-Alone Forms: My [facility] Medications and DC Order Prescriptions: New losartan 25 mg tablet 25 mg PO HS Qty: 30 RF: 1 metoprolol tartrate [Lopressor] 100 mg tablet 100 mg PO BID Qty: 60 RF: 1 Continued Eliquis 5 mg Tablet 5 mg PO BID RF: 0 folic acid 400 mcg Tablet 400 mcg PO QAM RF: 0 vitamin A 8,000 unit Capsule 2,400 unit PO QAM RF: 0 cyanocobalamin (vitamin B-12) [Vitamin B-12] 1,000 mcg Tablet 1,000 mcg PO QAM RF: 0 ascorbic acid (vitamin C) [Vitamin C] 500 mg Tablet 500 mg PO HS RF: 0 docusate sodium 100 mg Capsule 100 mg PO BID RF: 0 cholecalciferol (vitamin D3) [Vitamin D3] 1,000 unit Capsule 1,000 unit PO HS RF: 0 coenzyme Q10 [CoQ-10] 100 mg Capsule 100 mg PO BID RF: 0 Probiotic 3 billion cell Capsule PO HS RF: 0 hydralazine 10 mg tablet 10 mg PO QID PRN (Reason: hypertension) Qty: 20 RF: 0 levothyroxine 88 mcg tablet 44 mcg PO QAM RF: 0 Discontinued losartan 50 mg tablet 50 mg PO HS RF: 0 metoprolol tartrate [Lopressor] 50 mg tablet 50 mg PO BID Qty: 60 RF: 1 No Action dofetilide 500 mcg capsule 500 mcg PO BID Qty: 60 RF: 4 Discharge Orders: Discharge Order (Routine); Ordered 04/08/19 Ordered By: Rose Torres/Other Patient Handouts: Syncope, Syncope Causes, Syncope Tx Prevent, Syncope Heart Help, Dehydration Admission Data Admit Date/Time: 04/07/19 13:38 Attending Provider: Rose Elizabeth Admit Provider: Rose Elizabeth Primary Care Provider: Pricilla Rojas Other Providers: Andrew Suarez ; Michi Elizabeth Other Interventions: Discharge Summary Assessment (RN) Last Done: 04/08/19 13:31 DC Date/Time DO NOT enter until pt leaves facility: 04/08/19 13:53
[2019-04-08] MEDS ORDERED: LOSARTAN POTASSIUM 25 MG TAB PO SCH (21:00)
== END 2019-04-08 13:53 | disposition home or self-care (01) | DRG 309 ==
LOC: ED 11:10 → 2E 13:38

== ENCOUNTER 2019-05-08 18:11 | Inpatient (IN) ==
[2019-05-08 19:59] LABS: Basophils # (auto) 0.03 K/uL (0-0.2); Basophils % (auto) 0.7 %; Eosinophils # (auto) 0.05 K/uL (0-0.5); Eosinophils % (auto) 1.2 %; Hemoglobin 15.3 g/dL (14.0-18.0); Immature Granulocytes # (auto) 0.01 K/uL (0.00-0.02); Immature Granulocytes % (auto) 0.2 %; Lymphocytes # (auto) 1.01 K/uL (1.2-3.4); Lymphocytes % (auto) 23.5 %; Mean Corpuscular Hemoglobin 31.9 pg (25-34); Mean Corpuscular Volume 93.8 fL (80-100); Mean Platelet Volume 10.9 fL (7.4-10.4); Monocytes # (auto) 0.38 K/uL (0.11-0.59); Monocytes % (auto) 8.8 %; Neutrophils # (auto) 2.82 K/uL (1.4-6.5); Neutrophils % (auto) 65.6 %; Platelet Count 186 K/uL (130-400); RDW Coefficient of Variation 14.3 % (11.5-14.5); RDW Standard Deviation 48.8 fL (36.4-46.3)
[2019-05-08 20:24] LABS: Albumin Level 3.1 gm/dl (3.4-5.0); BUN Creatinine Ratio 24.7 (10-20); Calcium 8.5 mg/dl (8.5-10.1); Creatinine Clr Calc Pharmacy 57.9 ml/min; Est GFR (African American) 72.5; Est GFR (Non-African American) 62.6; Potassium 4.6 mmol/L (3.5-5.1)
[2019-05-08 20:33] LABS: Bilirubin,Total 0.7 mg/dl (0.2-1); Globulin 3.2 gm/dl (2.5-4.0); Thyroid Stimulating Hormone 3.59 uIu/ml (0.300-4.500); Total Protein 6.3 gm/dl (6.4-8.2); Troponin I 0.022 ng/ml (0-0.045)
[2019-05-08 20:48] LABS: Lyme Ab IgM w/WB Rflx Negative (Negative)
[2019-05-08 20:50] LABS: Lyme Ab IgG w/WB Rflx Positive (Negative)
--- NOTE | 2019-05-08 20:50 | XRay Report ---
XR abdomen 2V w PA chest CLINICAL HISTORY: dizzy, abd pain pain COMPARISON STUDY: 04/07/2019 FINDINGS: The lungs remain clear. Mild stable cardiomegaly. Permanent bipolar cardiac pacemaker with leads in good position. Chronic parenchymal scarring left base laterally. Bowel pattern is nonobstructive. Degenerative changes of the lumbar spine are present. IMPRESSION: 1. No acute process of the chest. 2. Negative abdomen. The above report was generated using voice recognition software. It may contain grammatical, syntax or spelling errors. Electronically signed by: Calderon Cunha M.D. 05/08/2019 8:49 PM
--- NOTE | 2019-05-08 22:27 | Ultrasound Report ---
US abdomen limited HISTORY: Pain abd pain, abn lft's. COMPARISON: CT 03/02/2018 FINDINGS: Pancreas: The pancreas demonstrates a normal echotexture. Liver: 8 cm hemangioma the right hepatic lobe. This is unchanged from the prior study. There is other bo uniform. Gallbladder: Gallstones are present. Moderate edematous change of the gallbladder wall trace perichol ecystic fluid. CBD: 6 mm Right kidney: No hydronephrosis. IMPRESSION: 1. Large pre-existing right hepatic lobe hemangioma. 2. Gallstones with findings suggesting probable acute cholecystitis. 3. Normal caliber bile ducts. The above report was generated using voice recognition software. It may contain grammatical, syntax or spelling errors. Electronically signed by: Calderon Cunha M.D. 05/08/2019 10:25 PM
--- NOTE | 2019-05-09 01:18 | History and Physical Report ---
DATE OF ADMISSION: 05/09/2019 CHIEF COMPLAINT: Near syncope. HISTORY OF PRESENT ILLNESS: This is Dictation Ends Here Duplicate. MORTEZA
[2019-05-09] MEDS ORDERED: POLYETHYLENE (MIRALAX) 17 GM PACK PO PRN (01:35)
[2019-05-09] MEDS ORDERED: ONDANSETRON INJ 2 MG/ML 2 ML VIAL IV PRN (01:35)
[2019-05-09] MEDS ORDERED: NITROGLYCERIN SL 0.4 MG/TAB TAB SL PRN (01:35)
[2019-05-09] MEDS ORDERED: ACETAMINOPHEN 325 MG TAB PO PRN (01:35)
[2019-05-09] MEDS: metroNIDAZOLE 500 MG/100 ML BAG IV SCH ×2 (02:11→12:26)
[2019-05-09] MEDS: METOPROLOL TARTRATE 100 MG TAB PO SCH ×3 (02:13→20:42)
[2019-05-09] MEDS: SODIUM CHLORIDE 0.9% 1000ML 1,000 ML IV SCH ×2 (02:14→15:47)
--- NOTE | 2019-05-09 02:26 | Emergency Department Note ---
Entered by Sherine Cueva acting as a scribe for History of Present Illness General Chief complaint: Syncope Stated complaint: DIZZY Time Seen by Provider: 05/08/19 18:55 History of Present Illness Provider complaint: near syncope Onset (ago): hour(s) 4 Pain Consistency: + other (episode) Quality: + other (near syncope) Relieved By: + rest Associated symptoms: + denies other symptoms (abdominal pain today) and + other (fatigued when walking 1 block, abdominal pain and gas yesterday, face tingling that is sometimes mild but sometimes radiates to her face and tongue that started when he got a pacemaker 1 month ago); no chest pain and no shortness of breath The patient is a 79 year old male who presents to the ED with complaints of a near syncopal episode that occurred 4 hours ago. The patient states that he walked 1 block to his ex-wifes house and he became extremely fatigued and near syncopal. The patient states that he had to sit down once he got to her house which is extremely unusual for him. The patient notes that these same symptoms arose once again when he walked 1 block back to his house. The patient states that rest helped relieve him of these symptoms. The patient states that he was seen in the ED at [facility] yesterday for abdominal pain secondary to gas and lightheadedness. The patient states that he was worried about the gassiness because it felt like it was putting pressure on his heart. The patient notes that he had a pacemaker put in 1 month ago and has had intermittent face tingling since then. The patient states that sometimes it is mild, but when it is severe, the tingling will radiate up his face and to his tongue. The patient denies chest pain, shortness of breath and abdominal pain today. Home Medications Home Medications Medication Instructions Recorded Confirmed Type Eliquis 5 mg PO BID 11/19/18 05/08/19 History folic acid 400 mcg PO QAM 02/21/19 05/08/19 History Probiotic 0 mmu cells PO HS 03/30/19 05/08/19 History ascorbic acid (vitamin C) [Vitamin 500 mg PO HS 03/30/19 05/08/19 History C] cholecalciferol (vitamin D3) 1,000 unit PO HS 03/30/19 05/08/19 History [Vitamin D3] coenzyme Q10 [CoQ-10] 100 mg PO BID 03/30/19 05/08/19 History cyanocobalamin (vitamin B-12) 1,000 mcg PO QAM 03/30/19 05/08/19 History [Vitamin B-12] hydralazine 10 mg PO QID PRN #20 tab 03/30/19 05/08/19 Rx vitamin A 2,400 unit PO QAM 03/30/19 05/08/19 History levothyroxine 44 mcg PO QAM 04/02/19 05/08/19 History losartan 25 mg PO HS #30 tab 04/08/19 05/08/19 Rx dofetilide 500 mcg capsule 500 mcg PO BID #60 cap 04/11/19 05/08/19 Rx metoprolol tartrate 100 mg tablet 100 mg PO BID #60 tab 04/30/19 05/08/19 Rx Allergies Allergy/AdvReac Type Severity Reaction Status Date / Time No Known Allergies Allergy Verified 05/08/19 18:59 Past Med/Surg History Medical History DVT prophylaxis Cardiomyopathy Systolic heart failure (Chronic) Mildly reduced EF of 48% per 01/2019 echo Acute hypotension (Acute) Lyme disease Atrial fibrillation (Chronic) Dyslipidemia (Chronic) BPH (benign prostatic hyperplasia) (Chronic) Hypothyroidism (Chronic) Hernia (Chronic) "LARGE" UMBILICAL/VENTRAL HERNIA PER PT Surgical History S/P cardiac pacemaker procedure H/O cardiac radiofrequency ablation (Resolved) Attempted CTI ablation, 02/2018 BY MAHENDRA History of transurethral resection of prostate (Chronic) 11/06/18 = LMA #5 x 1 attempt, good seal, atraumatic. History of arthroscopy (Chronic) RT KNEE History of tooth extraction (Chronic) Family History Mother Senile Father Pulmonary embolism Social History Preferred Language: Romansh Communication Ability: Effective Wireless Sales Manager Required: No Beliefs That Will Affect Care: None Current Living Situation: Spouse Other Information That Helps Us Care for You: No Feels Safe at Home: Yes Smoking Status: Never smoker Tobacco Type: cigarettes ; Cigarettes Per Day: QUIT 40 YEARS AGO. ; Second Hand Exposure: No ; Hx Alcohol Use: No Hx Substance Use: No Review of Systems See HPI for pertinent positives & negatives. and A total of 10 systems reviewed and were otherwise negative Physical Exam Vital Signs Vital Signs - 24 hr 05/08/19 18:02 05/08/19 18:16 05/08/19 18:19 Temperature 36.5 C Temperature Source Oral Sepsis Recent Fever Within 48 Hours No Sepsis Action Taken by Nursing No Action Required Pulse Rate - Lying Pulse Rate - Sitting Pulse Rate - Standing Pulse Rate 97 H 103 H 119 H Pulse Rate [Right Finger] Pulse Rate from SpO2 Sensor 61 74 Pulse Rhythm Regular Pulse Strength Normal Respiratory Rate 21 23 14 Respiratory Effort / Characteristics Non-Labored Spontaneous Respiratory Depth Normal Respiratory Pattern Regular Blood Pressure - Lying Blood Pressure - Sitting Blood Pressure- Standing Blood Pressure 131/85 131/85 Blood Pressure [Right Arm] Blood Pressure Mean 100 100 Blood Pressure Mean [Right Arm] Blood Pressure Position Sitting Blood Pressure Position [Right Arm] Pulse Oximetry 98 98 98 Oxygen Delivery Method Room Air 05/08/19 18:20 05/08/19 18:25 05/08/19 18:30 Temperature Temperature Source Sepsis Recent Fever Within 48 Hours Sepsis Action Taken by Nursing Pulse Rate - Lying Pulse Rate - Sitting Pulse Rate - Standing Pulse Rate 103 H 94 H 98 H Pulse Rate [Right Finger] Pulse Rate from SpO2 Sensor 59 L Pulse Rhythm Pulse Strength Respiratory Rate 19 18 20 Respiratory Effort / Characteristics Respiratory Depth Respiratory Pattern Blood Pressure - Lying Blood Pressure - Sitting Blood Pressure- Standing Blood Pressure 140/91 143/95 H 129/80 Blood Pressure [Right Arm] Blood Pressure Mean 107 111 96 Blood Pressure Mean [Right Arm] Blood Pressure Position Blood Pressure Position [Right Arm] Pulse Oximetry 98 Oxygen Delivery Method 05/08/19 18:45 05/08/19 19:00 05/08/19 19:15 Temperature Temperature Source Sepsis Recent Fever Within 48 Hours Sepsis Action Taken by Nursing Pulse Rate - Lying Pulse Rate - Sitting Pulse Rate - Standing Pulse Rate 86 95 H 113 H Pulse Rate [Right Finger] Pulse Rate from SpO2 Sensor Pulse Rhythm Pulse Strength Respiratory Rate 15 18 23 Respiratory Effort / Characteristics Respiratory Depth Respiratory Pattern Blood Pressure - Lying Blood Pressure - Sitting Blood Pressure- Standing Blood Pressure 126/91 138/98 152/109 H Blood Pressure [Right Arm] Blood Pressure Mean 102 111 123 Blood Pressure Mean [Right Arm] Blood Pressure Position Blood Pressure Position [Right Arm] Pulse Oximetry Oxygen Delivery Method 05/08/19 19:30 05/08/19 19:40 05/08/19 19:41 Temperature Temperature Source Sepsis Recent Fever Within 48 Hours Sepsis Action Taken by Nursing Pulse Rate - Lying 91 H Pulse Rate - Sitting 88 Pulse Rate - Standing 94 H Pulse Rate 82 98 H 88 Pulse Rate [Right Finger] Pulse Rate from SpO2 Sensor Pulse Rhythm Pulse Strength Respiratory Rate 21 6 L 21 Respiratory Effort / Characteristics Respiratory Depth Respiratory Pattern Blood Pressure - Lying 127/83 Blood Pressure - Sitting 126/93 Blood Pressure- Standing 139/87 Blood Pressure 137/96 127/83 126/93 Blood Pressure [Right Arm] Blood Pressure Mean 109 97 104 Blood Pressure Mean [Right Arm] Blood Pressure Position Blood Pressure Position [Right Arm] Pulse Oximetry Oxygen Delivery Method 05/08/19 19:43 05/08/19 19:48 05/08/19 20:00 Temperature Temperature Source Sepsis Recent Fever Within 48 Hours Sepsis Action Taken by Nursing Pulse Rate - Lying Pulse Rate - Sitting Pulse Rate - Standing Pulse Rate 122 H 111 H Pulse Rate [Right Finger] Pulse Rate from SpO2 Sensor Pulse Rhythm Pulse Strength Respiratory Rate 17 15 Respiratory Effort / Characteristics Respiratory Depth Respiratory Pattern Blood Pressure - Lying Blood Pressure - Sitting Blood Pressure- Standing Blood Pressure 139/87 136/95 Blood Pressure [Right Arm] Blood Pressure Mean 104 108 Blood Pressure Mean [Right Arm] Blood Pressure Position Blood Pressure Position [Right Arm] Pulse Oximetry Oxygen Delivery Method 05/08/19 20:15 05/08/19 20:16 05/08/19 20:17 Temperature Temperature Source Sepsis Recent Fever Within 48 Hours Sepsis Action Taken by Nursing Pulse Rate - Lying Pulse Rate - Sitting Pulse Rate - Standing Pulse Rate 104 H 98 H 84 Pulse Rate [Right Finger] Pulse Rate from SpO2 Sensor Pulse Rhythm Pulse Strength Respiratory Rate 15 15 19 Respiratory Effort / Characteristics Respiratory Depth Respiratory Pattern Blood Pressure - Lying Blood Pressure - Sitting Blood Pressure- Standing Blood Pressure 131/89 Blood Pressure [Right Arm] Blood Pressure Mean 103 Blood Pressure Mean [Right Arm] Blood Pressure Position Blood Pressure Position [Right Arm] Pulse Oximetry Oxygen Delivery Method 05/08/19 20:45 05/08/19 20:47 05/08/19 20:54 Temperature Temperature Source Sepsis Recent Fever Within 48 Hours Sepsis Action Taken by Nursing Pulse Rate - Lying Pulse Rate - Sitting Pulse Rate - Standing Pulse Rate Pulse Rate [Right Finger] Pulse Rate from SpO2 Sensor 84 84 Pulse Rhythm Pulse Strength Respiratory Rate Respiratory Effort / Characteristics Respiratory Depth Respiratory Pattern Blood Pressure - Lying Blood Pressure - Sitting Blood Pressure- Standing Blood Pressure 97/86 L 123/90 Blood Pressure [Right Arm] Blood Pressure Mean 89 101 Blood Pressure Mean [Right Arm] Blood Pressure Position Blood Pressure Position [Right Arm] Pulse Oximetry 95 98 Oxygen Delivery Method 05/08/19 21:00 05/08/19 21:15 05/08/19 22:02 Temperature Temperature Source Sepsis Recent Fever Within 48 Hours Sepsis Action Taken by Nursing Pulse Rate - Lying Pulse Rate - Sitting Pulse Rate - Standing Pulse Rate 86 Pulse Rate [Right Finger] Pulse Rate from SpO2 Sensor 108 H 86 88 Pulse Rhythm Pulse Strength Respiratory Rate 20 Respiratory Effort / Characteristics Respiratory Depth Respiratory Pattern Blood Pressure - Lying Blood Pressure - Sitting Blood Pressure- Standing Blood Pressure 132/95 Blood Pressure [Right Arm] Blood Pressure Mean 107 Blood Pressure Mean [Right Arm] Blood Pressure Position Blood Pressure Position [Right Arm] Pulse Oximetry 96 95 96 Oxygen Delivery Method 05/08/19 22:03 05/08/19 22:15 05/08/19 22:30 Temperature Temperature Source Sepsis Recent Fever Within 48 Hours Sepsis Action Taken by Nursing Pulse Rate - Lying Pulse Rate - Sitting Pulse Rate - Standing Pulse Rate 102 H 87 89 Pulse Rate [Right Finger] Pulse Rate from SpO2 Sensor 103 H 87 89 Pulse Rhythm Pulse Strength Respiratory Rate 27 H 16 25 H Respiratory Effort / Characteristics Respiratory Depth Respiratory Pattern Blood Pressure - Lying Blood Pressure - Sitting Blood Pressure- Standing Blood Pressure 142/86 H 138/103 H Blood Pressure [Right Arm] Blood Pressure Mean 104 114 Blood Pressure Mean [Right Arm] Blood Pressure Position Blood Pressure Position [Right Arm] Pulse Oximetry 94 96 93 Oxygen Delivery Method 05/08/19 23:00 05/08/19 23:01 05/08/19 23:29 Temperature Temperature Source Sepsis Recent Fever Within 48 Hours Sepsis Action Taken by Nursing Pulse Rate - Lying Pulse Rate - Sitting Pulse Rate - Standing Pulse Rate 120 H 107 H Pulse Rate [Right Finger] 86 Pulse Rate from SpO2 Sensor 86 66 Pulse Rhythm Pulse Strength Respiratory Rate 19 8 L 18 Respiratory Effort / Characteristics Non-Labored Spontaneous Respiratory Depth Normal Respiratory Pattern Regular Blood Pressure - Lying Blood Pressure - Sitting Blood Pressure- Standing Blood Pressure 151/101 H Blood Pressure [Right Arm] 138/99 Blood Pressure Mean 117 Blood Pressure Mean [Right Arm] 112 Blood Pressure Position Blood Pressure Position [Right Arm] Lying Pulse Oximetry 95 97 97 Oxygen Delivery Method Room Air 05/08/19 23:30 05/09/19 00:30 Temperature Temperature Source Sepsis Recent Fever Within 48 Hours Sepsis Action Taken by Nursing Pulse Rate - Lying Pulse Rate - Sitting Pulse Rate - Standing Pulse Rate 86 85 Pulse Rate [Right Finger] Pulse Rate from SpO2 Sensor 86 89 Pulse Rhythm Pulse Strength Respiratory Rate 21 11 L Respiratory Effort / Characteristics Respiratory Depth Respiratory Pattern Blood Pressure - Lying Blood Pressure - Sitting Blood Pressure- Standing Blood Pressure 138/99 140/100 Blood Pressure [Right Arm] Blood Pressure Mean 112 113 Blood Pressure Mean [Right Arm] Blood Pressure Position Blood Pressure Position [Right Arm] Pulse Oximetry 97 96 Oxygen Delivery Method GENERAL: alert, well appearing, well nourished, no distress, non-toxic EYE EXAM: normal conjunctiva, PERRL and EOM's grossly intact OROPHARYNX: no exudate, no erythema, lips, buccal mucosa, and tongue normal and mucous membranes are moist NECK: supple, no nuchal rigidity, no adenopathy, non-tender LUNGS: Clear to auscultation. Normal chest wall mechanics, no w/r/r. HEART: no murmurs, S1 normal and S2 normal ABDOMEN: abdomen soft, non-tender, normo-active bowel sounds, no masses, no rebound or guarding. BACK: Back is symmetrical on inspection and there is no deformity, no midline tenderness, no CVA tenderness. SKIN: no rashes and no bruising UPPER EXTREMITIES: upper extremities are grossly normal. FROM, nml pulses b/l. LOWER EXTREMITIES: No pitting edema. FROM, nml pulses b/l. NEURO EXAM: Normal sensorium, cranial nerves II-XII grossly intact, normal speech, no gross weakness of arms, equal strength, no gross weakness of legs. No drift. Finger to nose intact. Gross sensation intact. Course 1900: Past medical records reviewed. The patient was evaluated in room A10. A complete history and physical exam was performed. 8: I reevaluated the patient and discussed the test results with him and his fiance. Patient denies having any lightheadedness or dizziness while resting. Both myself and nursing staff had noticed intermittent episodes of atrial fibr illation with a rapid ventricular response while on the monitor as well as frequent ectopy. Patient's pacemaker was interrogated and [employer] reports were faxed to us. 5: I discussed the patient's case with Dr. Dalila Carpio. He will evaluate the patient for further management. Consultations Consultation #1: I discussed the patient's case with Dr. Dalila Carpio. He will evaluate the patient for further management. Time: 23:25 Administered Medications Metronidazole (Flagyl) 500 mg in 100 mls @ 100 mls/hr IV Q8H [facility] Stop: 05/19/19 01:59 Last Admin: 05/09/19 02:11 Dose: 100 mls/hr Documented by: [id number] Sodium Chloride (Nss 1000ml) 1,000 mls @ 75 mls/hr IV .[id number] [facility] Stop: 06/08/19 01:34 Last Admin: 05/09/19 02:14 Dose: 75 mls/hr Documented by: [id number] Metoprolol Tartrate (Lopressor) 100 mg PO BID [facility] Stop: 06/08/19 01:34 Last Admin: 05/09/19 02:13 Dose: 100 mg Documented by: [id number] Medical Decision Making Differential Diagnosis Differential diagnosis: Etiologies such as benign positional vertigo, labrynthitis, dehydration, hypovolemia, anemia, tumor, infection, hypoglycemia, electrolyte abnormalities, cardiac sources, toxicological sources, central neurologic process, as well as others were entertained. Medical Records Attestation: I reviewed the patient's medical records. Home Medications Current Medication List: was personally reviewed by me Laboratory Data Attestation: I reviewed the patient's lab results. Result diagrams: 05/08/19 19:47 05/08/19 19:47 Lab Results 05/08/19 05/08/19 05/08/19 Range/Units 19:47 19:47 19:47 WBC 4.30 L (4.8-10.8) K/uL RBC 4.80 (4.7-6.1) M/uL Hgb 15.3 (14.0-18.0) g/dL Hct 45.0 (42-52) % MCV 93.8 (80-100) fL MCH 31.9 (25-34) pg MCHC 34.0 (32-36) g/dL RDW Std Deviation 48.8 H (36.4-46.3) fL RDW Coeff of Cheng 14.3 (11.5-14.5) % Plt Count 186 (130-400) K/uL MPV 10.9 H (7.4-10.4) fL Immature Gran % (Auto) 0.2 % Neut % (Auto) 65.6 % Lymph % (Auto) 23.5 % [place] % (Auto) 8.8 % Eos % (Auto) 1.2 % Baso % (Auto) 0.7 % Immature Gran # (Auto) 0.01 (0.00-0.02) K/uL Neut # (Auto) 2.82 (1.4-6.5) K/uL Lymph # (Auto) 1.01 L (1.2-3.4) K/uL [place] # (Auto) 0.38 (0.11-0.59) K/uL Eos # (Auto) 0.05 (0-0.5) K/uL Baso # (Auto) 0.03 (0-0.2) K/uL Sodium 139 (136-145) mmol/L Potassium 4.6 (3.5-5.1) mmol/L Chloride 108 H (98-107) mmol/L Carbon Dioxide 26 (21-32) mmol/L Anion Gap 5.0 (3-11) BUN 28 H (7-18) mg/dl Creatinine 1.12 (0.6-1.4) mg/dl Est Cr Clr Drug Dosing 57.9 ml/min Est GFR ( Amer) 72.5 Est GFR (Non-Af Amer) 62.6 BUN/Creatinine Ratio 24.7 H (10-20) Glucose 89 (70-99) mg/dl Calcium 8.5 (8.5-10.1) mg/dl Magnesium 2.0 (1.8-2.4) mg/dl Total Bilirubin 0.7 (0.2-1) mg/dl AST 126 H (15-37) U/L ALT 198 H (12-78) U/L Alkaline Phosphatase 141 H (45-117) U/L Troponin I 0.022 (0-0.045) ng/ml NT-Pro-B Natriuret Pep 4101 H (0-1800) pg/ml Total Protein 6.3 L (6.4-8.2) gm/dl Albumin 3.1 L (3.4-5.0) gm/dl Globulin 3.2 (2.5-4.0) gm/dl Albumin/Globulin Ratio 1.0 (0.9-2) Lipase 90 (73-393) U/L TSH 3.590 (0.300-4.500) uIu/ml Specimen Hemolysis Lyme Disease IgG Ab Positive A (Negative) Lyme Disease IgM Ab Negative (Negative) Imaging Data Radiologist's Impression: Radiology results as stated below per my review and the radiologist's interpretation: XR abdomen 2V w PA chest CLINICAL HISTORY: dizzy, abd pain pain COMPARISON STUDY: 04/07/2019 FINDINGS: The lungs remain clear. Mild stable cardiomegaly. Permanent bipolar cardiac pacemaker with leads in good position. Chronic parenchymal scarring left base laterally. Bowel pattern is nonobstructive. Degenerative changes of the lumbar spine are present. IMPRESSION: 1. No acute process of the chest. 2. Negative abdomen. The above report was generated using voice recognition software. It may contain grammatical, syntax or spelling errors. Electronically signed by: Calderon Cunha M.D. 05/08/2019 8:49 PM US abdomen limited HISTORY: Pain abd pain, abn lft's. COMPARISON: CT 03/02/2018 FINDINGS: Pancreas: The pancreas demonstrates a normal echotexture. Liver: 8 cm hemangioma the right hepatic lobe. This is unchanged from the prior study. There is otherwise uniform. Gallbladder: Gallstones are present. Moderate edematous change of the gallbladder wall trace pericholecystic fluid. CBD: 6 mm Right kidney: No hydronephrosis. IMPRESSION: 1. Large pre-existing right hepatic lobe hemangioma. 2. Gallstones with findings suggesting probable acute cholecystitis. 3. Normal caliber bile ducts. The above report was generated using voice recognition software. It may contain grammatical, syntax or spelling errors. Electronically signed by: Calderon Cunha M.D. 05/08/2019 10:25 PM ECG Data Attestation: I personally reviewed and interpreted this ECG as follows: Indication: syncope Rate (beats per minute): 98 Rhythm: normal sinus Findings: + 1st degree AV block, + PVC, + RBBB and + prolonged QT; no ST depression, no ST elevation and no acute ischemic change Blood Pressure Blood Pressure Findings: Elevated blood pressure Blood Pressure Disposition: further management by hospitalist MAYE Narrative Patient with complicated recent history and multiple complaints. Patient prese nted tonight however due to concern for near syncopal events x2 during exertion earlier today. I did review records brought with by the patient and his fiance from their evaluation at [facility] last night. CT without contrast of the head as well as CT angiography of the head and neck were reassuring. Patient's other labs are reassuring with the exception of elevated transaminases, and UA unremarkable. Patient denied any recurrent abdominal pain on presentation tonight, and stated the "fuzziness" around his lips is minimal compared to usual. Patient denies any current lightheadedness or dizziness while at rest. Patient with no prior history of vertigo. Patient hemodynamically stable and only mild elevation of his blood pressure was noted. Repeat labs were reassuring, and transaminases were again noted to be elevated. No hyperbilirubinemia was noted. I did discuss with patient all results. Patient denies ever being told that he had any issues with his liver or had ab normal liver numbers. Because of this patient was sent for an ultrasound which revealed acute cholecystitis. While it would appear that the intermittent rapid atrial fibrillation versus atrial flutter noted on telemetry may have been what precipitated the symptoms with exertion earlier today of lightheadedness/near syncope, it is unclear how the acute cholecystitis may have contributed. Patient denies that with any doses of his usual medications including his blood thinner. Likely this would explain the elevated transaminases as well as the recent abdominal pain. At this time I do not suspect ascending cholangitis, no symptoms to suggest accompanying acute pancreatitis or choledocholithiasis. At this time patient's abdomen is soft and nontender. Impression & Plan Dizziness, A-fib, Abnormal LFTs, Acute cholecystitis Discharge Plan Visit Data Chief Complaint: Syncope Stated Complaint: DIZZY ED Provider: Pamela Mobley Discharge Problem: Dizziness, A-fib, Abnormal LFTs, Acute cholecystitis Patient Disposition: Being Evaluated by Hospitalist Discharge Instructions Interventions: ED Discharge Assessment Last Done: 05/09/19 01:23 Discharge Problem: A-fib Qualifiers: Atrial fibrillation type: unspecified Qualified Code(s): I48.91 - Unspecified atrial fibrillation The scribe's documentation has been prepared under my direction and personally reviewed by me in its entirety. I confirm that the note above accurately reflects all work, treatment, procedures, and medical decision making performed by me.
--- NOTE | 2019-05-09 02:54 | History and Physical Report ---
DATE OF ADMISSION: 05/09/2019 CHIEF COMPLAINT: Near syncope. HISTORY OF PRESENT ILLNESS: This is a 79-year-old male with past medical history significant for AFib, atrial flutter on Eliqu, history of ablation in February 2018, status post pacemaker on 04/03/2019, history of systolic CHF secondary to tachycardia induced, EF normal on echo done in February, history of hypothyroidism, hypertension, hyperlipidemia, BPH status post TURP, history of slow transit constipation, history of sepsis in the past, history of wide complex tachycardia in the past, presents with near syncope. The patient was in the [place] ER yesterday because he was feeling dizzy and he also complained of some facial numbness. So CTA of the head and neck was done which was unremarkable. He says that the facial numbness is on and off for last 1 month, but today it is almost 90% resolved. He was also diagnosed with Lyme and was treated for 1 month worth of antibiotics as per patient. He was in [place] overnight and he was discharged home in the morning on 04/28/2019. He says after going home when he was walking from one room to other room he almost passed out, felt dizzy. With ongoing dizziness, he decided to come to the ER. He used to walk 1-2 miles before, now with like walking about half a block he is getting worn out and he has to take rest for a couple of minutes. Denies any chest pain. No headache, no blurred visions, no earache, no runny nose, no sore throat, no difficulty swallowing, no cough. Denies any shortness of breath, no nausea, no vomiting, no abdominal pain. Normal bowel and bladder movements. No blood in the stools or black stools, no hematuria, no burning micturition, no swelling in the legs, no rash. Currently resting comfortably and hemodynamically stable. The patient's pacemaker was interrogated in the ER which showed bursts of AFib and atrial flutter. Last admission also he had similar kind of symptoms and his metoprolol dose was adjusted. ALLERGIES: No known drug allergies. PAST MEDICAL HISTORY: As mentioned above. PAST SURGICAL HISTORY: Ablation of the heart, cystoscopy, knee arthroscopy, pacemaker placement. MEDICATIONS: The patient is currently on Tikosyn 500 mg p.o. b.i.d., hydralazine 10 mg p.o. q.i.d. p.r.n. for hypertension, Cozaar 25 mg p.o. daily, Lopressor 100 mg p.o. b.i.d., levothyroxine 44 mcg p.o. daily, vitamin D 1000 units p.o. daily, vitamin A 2500 units daily, vitamin C 500 mg daily, folic acid 1 mg daily, vitamin B12 1000 mcg daily, Coenzyme Q10 10 mg p.o. b.i.d., probiotic 2 pills daily, Eliquis 5 mg p.o. b.i.d., Colace 100 mg p.o. b.i.d. FAMILY HISTORY: On file. SOCIAL HISTORY: Currently living with his fiance. Quit smoking in 1978. Alcohol occasional. No drug use. REVIEW OF SYSTEMS: As per HPI. Rest of the review of systems negative. PHYSICAL EXAMINATION: GENERAL: The patient is of moderate build, not in acute distress. VITAL SIGNS: Temperature 36.5, pulse 86, respiratory rate 18, blood pressure 138/99, oxygen 97% on room air. HEENT: No pallor, no icterus. Pupils equal, round, reactive to light. Extraocular muscles intact. NECK: No JVD, no neck masses, no carotid bruit. CARDIOVASCULAR: S1, S2 heard, regular rate and rhythm, no murmur. RESPIRATORY SYSTEM: Normal AP diameter. No accessory muscle use. No wheezing, no crackles. ABDOMEN: Soft, bowel sounds present, nontender. No distention. CENTRAL NERVOUS SYSTEM: Cranial nerves II through XII grossly intact, nonfocal. EXTREMITIES: No edema, no erythema. LABORATORY DATA: WBC 4.3, hemoglobin 15.3, hematocrit 45, platelets 186. Sodium 139, potassium 4.6, chloride 108, bicarbonate 26, BUN 28, creatinine 1.1, serum glucose 89, calcium 8.5. Magnesium 2, total bilirubin 0.7, AST 126, ALT 128, alkaline phosphatase is 141. Troponin I 0.022. BNP 4100. Lipase 90. TSH 3.5. Lyme IgG positive. IMAGING DATA: Abdominal ultrasound, large pre-existing right hepatic lobe hemangioma, gallstones with findings suggestive of acute cholecystitis, normal caliber bile duct. Chest and abdominal x-ray, no acute process. EKG: Shows sinus rhythm with marked sinus arrhythmia with first-degree AV block with frequent PVCs at rate of 98., Nonspecific ST changes in the inferior leads, right bundle branch block. ASSESSMENT AND PLAN: This is a 79-year-old male with history of atrial fibrillation, atrial flutter status post history of ablation and is currently status post pacemaker in March 2019, on Eliquis. Presents with near syncope and pacemaker interrogation in the ER showed burst of atrial fibrillation and atrial flutter and also found to have elevated LFTs and gallbladder abdominal ultrasound showed gallstones and possible cholecystitis. 1. Near syncope. The patient has history of atrial fibrillation, atrial flutter. History of ablation in February 2018 and history of status post pacemaker on 04/03/2019, patient's pacemaker interrogation in the ER showed burst of atrial fibrillation and atrial flutter. Possible cause of near syncope and possibly also cause of worn out feeling on exertion. We will also follow echocardiogram, serial cardiac enzymes. His Lopressor dose was increased last admission to 100 mg b.i.d. which will continue. Will monitor in the tele floor. Consult cardiology for further adjustment of his medication. Will continue his Tikosyn. We are holding his Eliquis for possible procedure . 2. Possible acute cholecystitis on abdominal ultrasound. Yesterday he had some abdominal pain in the [facility], but right now he does not have any abdominal pain. No nausea, no vomiting. He has elevated LFTs. We will follow the repeat LFTs in the a.m. We will empirically place him on IV Rocephin and IV Flagyl. We will keep him n.p.o. for now except medicines and gentle fluids and consult surgery in a.m. for further workup and recommendations. 3. Lyme disease. His IgG is positive. The patient's Lyme test was positive in February. However, he said he took 1 month of antibiotics. Currently getting above antibiotics Rocephin as above should also helps with his Lyme disease. He also complains of left facial numbness. It could be from his Lyme disease.He had a workup CTA of the head and neck in the [place] ER which was unremarkable yesterday. We will consider ID consult. The patient says he took one month of antibiotics.. 4. History of systolic congestive heart failure, not on any diuretics, but echo in February showed normal EF. We will follow the current echo. 5. Hypertension. Continue his Lopressor and his losartan. He is on hydralazine p.r.n. Will monitor the blood pressure. 6. History of hypothyroidism. Continue Synthroid. 7. History of benign prostatic hypertrophy, status post transurethral resection of the prostate. Monitor for any urinary retention. 8. Deep venous thrombosis prophylaxis, sequential compression devices for now. 9. Disposition: Admit to tele floor. Expect to discharge home and follow with his family doctor. Level 1 full code. MTDD
[2019-05-09] MEDS ORDERED: cefTRIAXone SODIUM 2,000 MG in DEXTROSE 5% 50 ML IV SCH (04:00)
[2019-05-09 05:33] LABS: Basophils # (auto) 0.05 K/uL (0-0.2); Basophils % (auto) 1.5 %; Eosinophils # (auto) 0.16 K/uL (0-0.5); Eosinophils % (auto) 4.7 %; Hematocrit (blood only) 42.5 % (42-52); Hemoglobin 14.1 g/dL (14.0-18.0); Lymphocytes # (auto) 1.29 K/uL (1.2-3.4); Lymphocytes % (auto) 37.6 %; Mean Corpuscular Hemoglobin 31.1 pg (25-34); Mean Corpuscular Hgb Conc 33.2 g/dL (32-36); Mean Corpuscular Volume 93.6 fL (80-100); Mean Platelet Volume 10.8 fL (7.4-10.4); Monocytes # (auto) 0.28 K/uL (0.11-0.59); Monocytes % (auto) 8.2 %; Neutrophils # (auto) 1.65 K/uL (1.4-6.5); Platelet Count 178 K/uL (130-400); RDW Coefficient of Variation 14.3 % (11.5-14.5); RDW Standard Deviation 48.8 fL (36.4-46.3); Red Blood Count 4.54 M/uL (4.7-6.1); White Blood Count 3.43 K/uL (4.8-10.8)
[2019-05-09] MEDS: LEVOTHYROXINE SODIUM 88 MCG TABLET PO SCH (06:05)
[2019-05-09 06:22] LABS: Albumin Level 2.7 gm/dl (3.4-5.0); BUN Creatinine Ratio 23.9 (10-20); Bilirubin Direct 0.2 mg/dl (0-0.2); Bilirubin,Total 0.5 mg/dl (0.2-1); Calcium 8.4 mg/dl (8.5-10.1); Creatinine Clr Calc Pharmacy 61.1 ml/min; Est GFR (African American) 88.5; Est GFR (Non-African American) 76.4; Magnesium 1.9 mg/dl (1.8-2.4); Potassium 3.8 mmol/L (3.5-5.1); Total Protein 5.6 gm/dl (6.4-8.2)
[2019-05-09] MEDS: FOLIC ACID 400 MCG TAB PO SCH (07:58)
[2019-05-09] MEDS: CYANOCOBALAMIN 500 MCG TABLET (VITAMIN B-12) PO SCH (07:59)
[2019-05-09] MEDS: DOFETILIDE 125 MCG CAPSULE PO SCH ×2 (07:59→20:43)
--- NOTE | 2019-05-09 11:04 | Surgery Consultation ---
Date of Consultation May 09, 2019 Assessment & Plan (1) Dizziness: pt is a 79 year-old male who was admitted to hospital for dizziness. I got a consult for possible acute cholecystitis, IMP: cholelithiasis, Plan, base on pt has no symptoms for cholelithiasis, no surgical indication for cholecystectomy now, possible I will do laparoscopic cholecystectomy on out- patient . Follow up me in 1-2 weeks, , repeat all labs in morning, I will F/U, Thanks, History of Present Illness Attending Physician: Rose Elizabeth DO CHIEF COMPLAINT: Near syncope. HISTORY OF PRESENT ILLNESS: This is a 79-year-old male with past medical history significant for AFib, atrial flutter on , history of ablation in February 2018, status post pacemaker on 04/03/2019, history of systolic CHF secondary to tachycardia induced, EF normal on echo done in February, history of hypothyroidism, hypertension, hyperlipidemia, BPH status post TURP, history of slow transit constipation, history of sepsis in the past, history of wide complex tachycardia in the past, presents with near syncope. The patient was in the [place] ER yesterday because he was feeling dizzy and he also complained of some facial numbness. So CTA of the head and neck was done which was unremarkable. He says that the facial numbness is on and off for last 1 month, but today it is almost 90% resolved. He was also diagnosed with Lyme and was treated for 1 month worth of antibiotics as per patient. He was in [place] overnight and he was discharged home in the morning on 04/28/2019. He says after going home when he was walking from one room to other room he almost passed out, felt dizzy. With ongoing dizziness, he decided to come to the ER. He used to walk 1-2 miles before, now with like walking about half a block he is getting worn out and he has to take rest for a couple of minutes. Denies any chest pain. No headache, no blurred visions, no earache, no runny nose, no sore throat, no difficulty swallowing, no cough. Denies any shortness of breath, no nausea, no vomiting, no abdominal pain. Normal bowel and bladder movements. No blood in the stools or black stools, no hematuria, no burning micturition, no swelling in the legs, no rash. Currently resting comfortably and hemodynamically stable. The patient's pacemaker was interrogated in the ER which showed bursts of AFib and atrial flutter. Last admission also he had similar kind of symptoms and his metoprolol dose was adjusted. I ( Vivi Vazquez MD ) reviewed pt's H/P labs, U/S study with pt and his , pt has no abdominal pain, no nausea, no vomiting, no fever. ALLERGIES: No known drug allergies. PAST MEDICAL HISTORY: As mentioned above. PAST SURGICAL HISTORY: Ablation of the heart, cystoscopy, knee arthroscopy, pacemaker placement. MEDICATIONS: The patient is currently on Tikosyn 500 mg p.o. b.i.d., hydralazine 10 mg p.o. q.i.d. p.r.n. for hypertension, Cozaar 25 mg p.o. daily, Lopressor 100 mg p.o. b.i.d., levothyroxine 44 mcg p.o. daily, vitamin D 1000 units p.o. daily, vitamin A 2500 units daily, vitamin C 500 mg daily, folic acid 1 mg daily, vitamin B12 1000 mcg daily, Coenzyme Q10 10 mg p.o. b.i.d., probiotic 2 pills daily, Eliquis 5 mg p.o. b.i.d., Colace 100 mg p.o. b.i.d. FAMILY HISTORY: On file. SOCIAL HISTORY: Currently living with his fiance. Quit smoking in 1978. Alcohol occasional. No drug use. REVIEW OF SYSTEMS: As per HPI. Rest of the review of systems negative. Allergies Allergy/AdvReac Type Severity Reaction Status Date / Time No Known Allergies Allergy Verified 05/08/19 18:59 Home Medications Home Medications Medication Instructions Recorded Confirmed Type Eliquis 5 mg PO BID 11/19/18 05/08/19 History folic acid 400 mcg PO QAM 02/21/19 05/08/19 History Probiotic 0 mmu cells PO HS 03/30/19 05/08/19 History ascorbic acid (vitamin C) [Vitamin 500 mg PO HS 03/30/19 05/08/19 History C] cholecalciferol (vitamin D3) 1,000 unit PO HS 03/30/19 05/08/19 History [Vitamin D3] coenzyme Q10 [CoQ-10] 100 mg PO BID 03/30/19 05/08/19 History cyanocobalamin (vitamin B-12) 1,000 mcg PO QAM 03/30/19 05/08/19 History [Vitamin B-12] hydralazine 10 mg PO QID PRN #20 tab 03/30/19 05/08/19 Rx vitamin A 2,400 unit PO QAM 03/30/19 05/08/19 History levothyroxine 44 mcg PO QAM 04/02/19 05/08/19 History losartan 25 mg PO HS #30 tab 04/08/19 05/08/19 Rx dofetilide 500 mcg capsule 500 mcg PO BID #60 cap 04/11/19 05/08/19 Rx metoprolol tartrate 100 mg tablet 100 mg PO BID #60 tab 04/30/19 05/08/19 Rx Patient History Medical History Dizziness (Acute) DVT prophylaxis Cardiomyopathy Systolic heart failure (Chronic) Mildly reduced EF of 48% per 01/2019 echo Acute hypotension (Acute) Lyme disease Atrial fibrillation (Chronic) Dyslipidemia (Chronic) BPH (benign prostatic hyperplasia) (Chronic) Hypothyroidism (Chronic) Hernia (Chronic) "LARGE" UMBILICAL/VENTRAL HERNIA PER PT Surgical History S/P cardiac pacemaker procedure H/O cardiac radiofrequency ablation (Resolved) Attempted CTI ablation, 02/2018 BY MAHENDRA History of transurethral resection of prostate (Chronic) 11/06/18 = LMA #5 x 1 attempt, good seal, atraumatic. History of arthroscopy (Chronic) RT KNEE History of tooth extraction (Chronic) Family History Mother Senile Father Pulmonary embolism Social History Preferred Language: Thai Communication Ability: Effective Internal Communications Specialist Required: No Beliefs That Will Affect Care: None Current Living Situation: Spouse Feels Safe at Home: Yes Smoking Status: Never smoker Tobacco Type: cigarettes ; Cigarettes Per Day: QUIT 40 YEARS AGO. ; Second Hand Exposure: No ; Hx Alcohol Use: No Hx Substance Use: No Physical Exam Constitutional: WD/WN, vitals as above well developed and well nourished ENMT: external ear and nose normal, oropharynx normal Neck: trachea midline, no thyromegaly Respiratory: normal respiratory effort, lungs clear to auscultation normal respiratory effort Cardiovascular: A-fib Gastrointestinal (Abdomen): normal bowel sounds, soft, nontender, no hepatosplenomegaly Musculoskeletal: no cyanosis or clubbing, extremities motor strength 5/5 Skin: no rashes, warm and dry Neurologic: patellar DTR's 2+ bilat, sensation intact Psychiatric: A+Ox3, euthymic affect Orientation: alert and oriented x 3 Lymphatic: no cervical or axillary lymphadenopathy Results & Data Vital Signs (Past 12 Hours) Vital Signs Temp Pulse Pulse Resp BP BP BP 05/09/19 07:42 36.4 C L 68 19 138/79 05/09/19 03:54 36.4 C L 70 18 133/82 05/09/19 03:14 90 05/09/19 01:36 36.3 C L 68 148/90 H 05/09/19 01:23 93 H 18 154/103 H 05/09/19 00:30 85 11 L 140/100 05/08/19 23:30 86 21 138/99 05/08/19 23:29 86 18 138/99 Pulse Ox 05/09/19 07:42 92 05/09/19 03:54 97 05/09/19 03:14 05/09/19 01:36 96 05/09/19 01:23 97 05/09/19 00:30 96 05/08/19 23:30 97 05/08/19 23:29 97 Laboratory Results Abnormal lab results 05/08/19 05/08/19 05/08/19 Range/Units 19:47 19:47 19:47 WBC 4.30 L (4.8-10.8) K/uL RBC (4.7-6.1) M/uL RDW Std Deviation 48.8 H (36.4-46.3) fL MPV 10.9 H (7.4-10.4) fL Lymph # (Auto) 1.01 L (1.2-3.4) K/uL Chloride 108 H (98-107) mmol/L BUN 28 H (7-18) mg/dl BUN/Creatinine Ratio 24.7 H (10-20) Calcium (8.5-10.1) mg/dl AST 126 H (15-37) U/L ALT 198 H (12-78) U/L Alkaline Phosphatase 141 H (45-117) U/L NT-Pro-B Natriuret Pep 4101 H (0-1800) pg/ml Total Protein 6.3 L (6.4-8.2) gm/dl Albumin 3.1 L (3.4-5.0) gm/dl Lyme Disease IgG Ab Positive A (Negative) 05/09/19 05/09/19 Range/Units 05:17 05:17 WBC 3.43 L (4.8-10.8) K/uL RBC 4.54 L (4.7-6.1) M/uL RDW Std Deviation 48.8 H (36.4-46.3) fL MPV 10.8 H (7.4-10.4) fL Lymph # (Auto) (1.2-3.4) K/uL Chloride 109 H (98-107) mmol/L BUN 23 H (7-18) mg/dl BUN/Creatinine Ratio 23.9 H (10-20) Calcium 8.4 L (8.5-10.1) mg/dl AST 81 H (15-37) U/L ALT 154 H (12-78) U/L Alkaline Phosphatase 122 H (45-117) U/L NT-Pro-B Natriuret Pep (0-1800) pg/ml Total Protein 5.6 L (6.4-8.2) gm/dl Albumin 2.7 L (3.4-5.0) gm/dl Lyme Disease IgG Ab (Negative) Diagnostic Findings US abdomen limited HISTORY: Pain abd pain, abn lft's. COMPARISON: CT 03/02/2018 FINDINGS: Pancreas: The pancreas demonstrates a normal echotexture. Liver: 8 cm hemangioma the right hepatic lobe. This is unchanged from the prior study. There is otherwise uniform. Gallbladder: Gallstones are present. Moderate edematous change of the gallbladder wall trace pericholecystic fluid. CBD: 6 mm Right kidney: No hydronephrosis. IMPRESSION: 1. Large pre-existing right hepatic lobe hemangioma. 2. Gallstones with findings suggesting probable acute cholecystitis. 3. Normal caliber bile ducts.
--- NOTE | 2019-05-09 11:13 | Infectious Disease Consult ---
Date of Consultation May 09, 2019 Supervising Physician Co-Signing Physician Notes unable to add to assessment and plan because another provider currently using chart as well. Suspect Anaplasmosis, ordered pcr and smear. will change to doxy and suggest 21 days. unclear if related to dizziness. Suspect lyme ab will remain + due to recent infection, however doxy will cover for chance of recurrent infection. Ok for d/c from ID standpoint when otherwise stable. History of Present Illness Attending Physician: Rose Elizabeth DO pt admitted with dizziness and intermittent and resolving facial numbness. was diagnosed with lyme disease this summer, treated with doxy, tolerated well. IGG markedly +. Undergoing cardiac workup, feeling well but states he continues with fatigue. no numbness on my exam. family at bedside. no f/c. no new tick bites. no rash, no myalgias/arthralgias. no baires, no visual changes, no neck stiffness. no chills. no abd pain, no n/v/d, eating well. no cp, sob, cough, dominguez, no gu symptoms. wbc 3.4, platelets 178. LFTS in ER AST 126, now 81, ALT 198, now 154. ultrasound negative, no jaundice. CXR negative, lyme screen + - ID consulted for ? lyme. on flagyl and rocephin, tolerating well. afebrile since admission. no micro to review. Allergies Allergy/AdvReac Type Severity Reaction Status Date / Time No Known Allergies Allergy Verified 05/08/19 18:59 Home Medications Home Medications Medication Instructions Recorded Confirmed Type Eliquis 5 mg PO BID 11/19/18 05/08/19 History folic acid 400 mcg PO QAM 02/21/19 05/08/19 History Probiotic 0 mmu cells PO HS 03/30/19 05/08/19 History ascorbic acid (vitamin C) [Vitamin 500 mg PO HS 03/30/19 05/08/19 History C] cholecalciferol (vitamin D3) 1,000 unit PO HS 03/30/19 05/08/19 History [Vitamin D3] coenzyme Q10 [CoQ-10] 100 mg PO BID 03/30/19 05/08/19 History cyanocobalamin (vitamin B-12) 1,000 mcg PO QAM 03/30/19 05/08/19 History [Vitamin B-12] hydralazine 10 mg PO QID PRN #20 tab 03/30/19 05/08/19 Rx vitamin A 2,400 unit PO QAM 03/30/19 05/08/19 History levothyroxine 44 mcg PO QAM 04/02/19 05/08/19 History losartan 25 mg PO HS #30 tab 04/08/19 05/08/19 Rx dofetilide 500 mcg capsule 500 mcg PO BID #60 cap 04/11/19 05/08/19 Rx metoprolol tartrate 100 mg tablet 100 mg PO BID #60 tab 04/30/19 05/08/19 Rx Patient History Medical History Dizziness (Acute) DVT prophylaxis Cardiomyopathy Systolic heart failure (Chronic) Mildly reduced EF of 48% per 01/2019 echo Acute hypotension (Acute) Lyme disease Atrial fibrillation (Chronic) Dyslipidemia (Chronic) BPH (benign prostatic hyperplasia) (Chronic) Hypothyroidism (Chronic) Hernia (Chronic) "LARGE" UMBILICAL/VENTRAL HERNIA PER PT Surgical History S/P cardiac pacemaker procedure H/O cardiac radiofrequency ablation (Resolved) Attempted CTI ablation, 02/2018 BY MAHENDRA History of transurethral resection of prostate (Chronic) 11/06/18 = LMA #5 x 1 attempt, good seal, atraumatic. History of arthroscopy (Chronic) RT KNEE History of tooth extraction (Chronic) Family History Mother Senile Father Pulmonary embolism Social History Preferred Language: Bhutanese Communication Ability: Effective Staff Command And Control Officer Required: No Beliefs That Will Affect Care: None Current Living Situation: Spouse Feels Safe at Home: Yes Smoking Status: Never smoker Tobacco Type: cigarettes ; Cigarettes Per Day: QUIT 40 YEARS AGO. ; Second Hand Exposure: No ; Hx Alcohol Use: No Hx Substance Use: No Review of Systems Review of Systems: All systems reviewed & are unremarkable except as noted in HPI & below Physical Exam Constitutional: WD/WN, vitals as above Eyes: PERRL, conjunctivae normal, anicteric sclerae ENMT: external ear and nose normal, oropharynx normal Neck: normal visual inspection Respiratory: normal respiratory effort, lungs clear to auscultation Cardiovascular: RRR, no murmur, no edema Gastrointestinal (Abdomen): normal bowel sounds, soft, nontender, no hepatosplenomegaly Musculoskeletal: no cyanosis or clubbing, extremities motor strength 5/5 Skin: no rashes, warm and dry Psychiatric: A+Ox3, euthymic affect Results & Data Vital Signs (Past 12 Hours) Vital Signs Temp Pulse Pulse Resp BP BP BP 05/09/19 07:42 36.4 C L 68 19 138/79 05/09/19 03:54 36.4 C L 70 18 133/82 05/09/19 03:14 90 05/09/19 01:36 36.3 C L 68 148/90 H 05/09/19 01:23 93 H 18 154/103 H 05/09/19 00:30 85 11 L 140/100 05/08/19 23:30 86 21 138/99 05/08/19 23:29 86 18 138/99 Pulse Ox 05/09/19 07:42 92 05/09/19 03:54 97 05/09/19 03:14 05/09/19 01:36 96 05/09/19 01:23 97 05/09/19 00:30 96 05/08/19 23:30 97 05/08/19 23:29 97 PG Care Time/CCT Total # of Minutes Spent Total Time Spent with Patient: Total time spent is greater than 50% in coordination of care (as documented) at patient's floor/unit and/or counseling patient:
--- NOTE | 2019-05-09 11:52 | Hospitalist Progress Note ---
Date of Service May 09, 2019 Assessment & Plan (1) Dizziness: Recent workup at [facility] including CTA head and neck with no evidence of arterial occlusion or other vascular finding that were acute. CT head without contrast revealing no acute intracranial abnormality with findings of chronic small vessel ischemia and no acute territorial infarct. Lightheadedness has improved after IV fluids overnight. Concern for possible orthostatic hypotension per cardiology however, patient's symptoms have been more consistent and not improved with positional change. Will monitor orthostatic vital signs every shift and will hold losartan per cardiology recommendation. Alternatively, the patient feels he may be having an adverse side effect from one or many of his medications including metoprolol and Tikosyn which was recently started status post pacemaker placement for uncontrolled atrial fibrillation with RVR. Appreciate further cardiology recommendations. Recent pacemaker interrogations have reported normal functioning of his pacemaker. Also there was a question of acute cholecystitis on imaging last night. General surgery saw the patient and did not think this is the case. Outpatient general surgery follow-up in 1 to 2 weeks post discharge. Will stop IV fluids at this time as patient is eating and drinking well, and dizziness has subsided for now even with ambulation. (2) A-fib: Status post pacemaker, metoprolol 100 twice daily, Tikosyn in the last several weeks. Pacemaker and medications appear to be functioning as expected. Defer to cardiology for further work-up/investigation with recent symptoms. C urrently stopping losartan as above. Continue Eliquis for anti-coagulation. (3) S/P cardiac pacemaker procedure: (4) Abdominal bloating: Uncertain etiology but has resolved. Continue to monitor for recurrence with food over the next day. Patient currently feels like he is going to have a bowel movement. We will continue to monitor clinical progress. (5) Abnormal LFTs: Acute LFT elevation with uncertain etiology but improving. Initially seem to be AST 313/ALT 245 on 05/08 in the [facility]. Has now trended down to 81/154. As noted above her right upper quadrant ultrasound revealed presence of gallstones. It is possible he had a gallstone pass causing his symptoms and elevated LFTs. It is not clear if any of his medications may have done this although, that is considered less likely. He is a nondrinker of alcohol. He has undergone an acute hepatitis panel yesterday which was negative while at the [facility]. Continue to follow LFTs in a.m. and monitor for clinical symptom reemergence. Currently he is tolerating food, he is not jaundiced or having abnormal bowel movements. Continue to monitor. (6) Hypothyroidism: Stable on current dose of Synthroid. Defer to outpatient PCP for titration/ (7) DVT prophylaxis: Millyqucaroline Full code Disposition-continue monitoring on telemetry. Continue to discuss plan with cardiology. Plan for home when medically stable. Rose Elizabeth, DO [facility] Hospitalist Subjective Feeling better today with resolution of lightheadedness with ambulation. He is tolerating p.o. declines any issues with abdominal bloating although states that he has to use the bathroom for bowel movement. No fevers or chills overnight. Improved overall. Review of Systems Review of Systems: All systems reviewed & are unremarkable except as noted in HPI & below Physical Exam Physical Exam: CONSTITUTIONAL: WNWD, vitals as above, generally well- appearing EYES: normal conjunctivae, no scleral icterus ENT: MMM RESPIRATORY: clear to auscultation bilaterally, no crackles, rales or wheezes, normal respiratory effort CARDIOVASCULAR: regular rate and rhythm, S1 and 2 heard without murmurs, gallops or rubs, no JVD, no peripheral edema GASTROINTESTINAL: normal bowel sounds, soft, nontender, nondistended MUSCULOSKELETAL: strength 5/5 throughout, head is normocephalic and atraumatic SKIN: warm and dry NEUROLOGIC: CN 2-12 grossly intact, no sensory deficit, normal cognition, normal speech, no gross focal deficits. PSYCHIATRIC: alert cooperative and oriented to person, place and time. Results & Data Vital Signs (Past 12 Hours) Vital Signs Temp Pulse Pulse Resp BP BP BP 05/09/19 11:08 36.6 C 109 H 19 133/96 05/09/19 07:42 36.4 C L 68 19 138/79 05/09/19 03:54 36.4 C L 70 18 133/82 05/09/19 03:14 90 05/09/19 01:36 36.3 C L 68 148/90 H 05/09/19 01:23 93 H 18 154/103 H 05/09/19 00:30 85 11 L 140/100 Pulse Ox 05/09/19 11:08 96 05/09/19 07:42 92 05/09/19 03:54 97 05/09/19 03:14 05/09/19 01:36 96 05/09/19 01:23 97 05/09/19 00:30 96 Laboratory Results Short CBC 05/08/19 05/09/19 Range/Units 19:47 05:17 WBC 4.30 L 3.43 L (4.8-10.8) K/uL Hgb 15.3 14.1 (14.0-18.0) g/dL Hct 45.0 42.5 (42-52) % Plt Count 186 178 (130-400) K/uL BMP 05/08/19 05/09/19 19:47 05:17 Sodium 139 142 Potassium 4.6 3.8 D Chloride 108 H 109 H Carbon Dioxide 26 27 BUN 28 H 23 H Creatinine 1.12 0.95 Glucose 89 78 Calcium 8.5 8.4 L Cardiac Enzymes 05/08/19 05/09/19 05/09/19 Range/Units 19:47 05:17 10:32 Troponin I 0.022 0.018 < 0.015 (0-0.045) ng/ml Liver Function 05/08/19 05/09/19 Range/Units 19:47 05:17 Total Bilirubin 0.7 0.5 (0.2-1) mg/dl Direct Bilirubin 0.2 (0-0.2) mg/dl AST 126 H 81 H (15-37) U/L ALT 198 H 154 H (12-78) U/L Alkaline Phosphatase 141 H 122 H (45-117) U/L Albumin 3.1 L 2.7 L (3.4-5.0) gm/dl Medications Administered Current Inpatient Medications Acetaminophen (Tylenol) 650 mg PO Q4H PRN PRN Reason: Pain or Fever Stop: 06/08/19 01:34 Ascorbic Acid (Vitamin C) 500 mg PO HS MIGUEL ANGEL Stop: 06/08/19 20:59 Cyanocobalamin (Vitamin B-12) 1,000 mcg PO QAM MIGUEL ANGEL Stop: 06/08/19 08:59 Last Admin: 05/09/19 07:59 Dose: 1,000 mcg Documented by: Dofetilide (Tikosyn) 500 mcg PO BID MIGUEL ANGEL Stop: 06/08/19 08:59 Last Admin: 05/09/19 07:59 Dose: 500 mcg Documented by: Doxycycline Hyclate (Vibramycin) 100 mg PO BID [facility] Stop: 05/19/19 11:14 Folic Acid (Folvite) 400 mcg PO QAM [facility] Stop: 06/08/19 08:59 Last Admin: 05/09/19 07:58 Dose: 400 mcg Documented by: Hydralazine HCl (Apresoline) 10 mg PO QID PRN PRN Reason: hypertension Stop: 06/08/19 01:34 Sodium Chloride (Nss 1000ml) 1,000 mls @ 75 mls/hr IV .[id number] [facility] Stop: 06/08/19 01:34 Last Admin: 05/09/19 02:14 Dose: 75 mls/hr Documented by: Lactobacillus Acidophilus (Floranex) 4 tab PO HS [facility] Stop: 06/08/19 20:59 Levothyroxine Sodium (Synthroid) 44 mcg PO DAILYBB [facility] Stop: 06/08/19 06:29 Last Admin: 05/09/19 06:05 Dose: 44 mcg Documented by: Losartan Potassium (Cozaar) 25 mg PO HS [facility] Stop: 06/08/19 20:59 Metoprolol Tartrate (Lopressor) 100 mg PO BID [facility] Stop: 06/08/19 01:34 Last Admin: 05/09/19 07:58 Dose: 100 mg Documented by: Nitroglycerin (Nitrostat) 0.4 mg SL UD PRN PRN Reason: Chest Pain Stop: 06/08/19 01:34 Ondansetron HCl (Zofran) 4 mg IV Q6H PRN PRN Reason: Nausea Stop: 06/08/19 01:34 Polyethylene Glycol (Miralax Powder Packet) 17 gm PO DAILY PRN PRN Reason: Constipation Stop: 06/08/19 01:34 Vitamin D (Vitamin D3) 1,000 units PO [facility] Stop: 06/08/19 20:59 (1) A-fib Atrial fibrillation type: unspecified Qualified Code(s): I48.91 - Unspecified atrial fibrillation
[2019-05-09] MEDS: DOXYCYCLINE HYCLATE 100 MG CAP PO SCH ×2 (12:31→20:42)
--- NOTE | 2019-05-09 15:32 | Cardiology Consultation ---
Date of Consultation May 09, 2019 Assessment & Plan (1) Dizziness: The patient has a history of orthostatic dizziness which occasionally is prolonged. Could undertake a trial off of losartan. (2) Tachy-joseph syndrome: The patient is currently in atrial flutter with a controlled ventricular response. Would continue metoprolol tartrate, dofetilide, and Eliquis. Pacemaker is functioning properly. (3) Cardiomyopathy: Fortunately, left ventricular systolic function is normal on today's echocardiogram. His brief and mild cardiomyopathy was felt to be related to his tachycardia. (4) Hypertension: As above, we will undertake a trial off of losartan. (5) S/P cardiac pacemaker procedure: A Medtronic dual-chamber device was placed in late February of this year. Normal function as described above. History of Present Illness Attending Physician: Rose Elizabeth DO History of Present Illness Mr. Weiner is a 79-year-old male admitted yesterday with apparent near-syncope. This consultation was ordered to assist in his management. Of note, patient typically follows with Dr. Raza in the outpatient setting. The patient was in his usual state of health until approximately April 26. He began to note significant dizziness and wooziness when he stood up from a seated position. He presented to [facility] emergency room and was admitted overnight. According to the patient, nothing was done. The patient returned home and continue to note his orthostatics symptoms. However, on occasion, his dizziness would persist for several minutes. On the day of presentation, the patient noticed that he was very tired with minimal exercise. The patient was seen in our emergency room prior to admission. Pacemaker interrogation was unremarkable. He did demonstrate paroxysms of atrial fibrillation and flutter. The patient has not experience exertional chest pain. He further denies syncope, PND, orthopnea, palpitations, lower extremity edema, and claudication. The patient has followed closely with Dr. Raza for his tachycardia/bradycardia syndrome. He had a dual-chamber pacemaker placed on March 20, 2019. He remains on dofetilide as his anti arrhythmic and uses Eliquis for anticoagulation. Currently the patient is resting comfortably in bed without complaints. Past medical and surgical history 1. Hypertension 2. Hypercholesterolemia 3. Left ventricular hypertrophy 4. Transient tachycardic induced cardiomyopathy 5. Tachycardia/bradycardia syndrome 6. Paroxysmal atrial fibrillation 7. Paroxysmal atrial flutter 8. Atrial flutter ablations-February 2018 9. DDD pacemaker-Medtronic, February 2019 10. Hypothyroidism 11. BPH 12. Status post TURP 13. 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 Allergies Allergy/AdvReac Type Severity Reaction Status Date / Time No Known Allergies Allergy Verified 05/08/19 18:59 Home Medications Home Medications Medication Instructions Recorded Confirmed Type Eliquis 5 mg PO BID 11/19/18 05/08/19 History folic acid 400 mcg PO QAM 02/21/19 05/08/19 History Probiotic 0 mmu cells PO HS 03/30/19 05/08/19 History ascorbic acid (vitamin C) [Vitamin 500 mg PO HS 03/30/19 05/08/19 History C] cholecalciferol (vitamin D3) 1,000 unit PO HS 03/30/19 05/08/19 History [Vitamin D3] coenzyme Q10 [CoQ-10] 100 mg PO BID 03/30/19 05/08/19 History cyanocobalamin (vitamin B-12) 1,000 mcg PO QAM 03/30/19 05/08/19 History [Vitamin B-12] hydralazine 10 mg PO QID PRN #20 tab 03/30/19 05/08/19 Rx vitamin A 2,400 unit PO QAM 03/30/19 05/08/19 History levothyroxine 44 mcg PO QAM 04/02/19 05/08/19 History losartan 25 mg PO HS #30 tab 04/08/19 05/08/19 Rx dofetilide 500 mcg capsule 500 mcg PO BID #60 cap 04/11/19 05/08/19 Rx metoprolol tartrate 100 mg tablet 100 mg PO BID #60 tab 04/30/19 05/08/19 Rx Patient History Medical History Dizziness (Acute) DVT prophylaxis Cardiomyopathy Systolic heart failure (Chronic) Mildly reduced EF of 48% per 01/2019 echo Acute hypotension (Acute) Lyme disease Atrial fibrillation (Chronic) Dyslipidemia (Chronic) BPH (benign prostatic hyperplasia) (Chronic) Hypothyroidism (Chronic) Hernia (Chronic) "LARGE" UMBILICAL/VENTRAL HERNIA PER PT Surgical History S/P cardiac pacemaker procedure H/O cardiac radiofrequency ablation (Resolved) Attempted CTI ablation, 02/2018 BY MAHENDRA History of transurethral resection of prostate (Chronic) 11/06/18 = LMA #5 x 1 attempt, good seal, atraumatic. History of arthroscopy (Chronic) RT KNEE History of tooth extraction (Chronic) Family History Mother Senile Father Pulmonary embolism Social History Preferred Language: Indonesian Communication Ability: Effective Group Worker Required: No Beliefs That Will Affect Care: None Current Living Situation: Spouse Feels Safe at Home: Yes Smoking Status: Never smoker Tobacco Type: cigarettes ; Cigarettes Per Day: QUIT 40 YEARS AGO. ; Second Hand Exposure: No ; Hx Alcohol Use: No Hx Substance Use: No Physical Exam Physical Exam: In general this is a well-developed well-nourished white male in no acute distress. HEENT exam is negative. Neck is supple with full carotid upstrokes. There are no carotid bruits. Jugular venous pressure is flat at 90. There is no thyromegaly. Cardiovascular exam reveals a regular rhythm with a normal S1 and S2. No S3, S4, or murmurs are noted. Chest reveals a palpable pacemaker in the left subclavicular region. Lungs are clear without rales, rhonchi, or wheezes. Abdomen is soft and nontender without bruits. Extremities reveal intact radial artery and posterior tibial pulses bilaterally. There is no peripheral edema. Results & Data Vital Signs (Past 12 Hours) Vital Signs Temp Pulse Pulse Resp BP BP Pulse Ox 05/09/19 11:08 36.6 C 109 H 19 133/96 96 05/09/19 07:42 36.4 C L 68 19 138/79 92 05/09/19 07:20 96 H 05/09/19 03:54 36.4 C L 70 18 133/82 97 Laboratory Results CBC notes hemoglobin 14.1, crit 42.5, white count 3.4, platelet count [id number]. Electrolytes note a sodium 142, potassium 3.8, chloride 109, bicarb 27, BUN 23, creatinine is 0.95. Initial troponin was 0.022 with a followed by 0.018. Magnesium level normal 1.9. Diagnostic Findings EKG notes atrial flutter with a variable ventricular response. This is a complete right bundle branch block. Echocardiogram notes normal left ventricular systolic function, moderate tricuspid, and mild mitral regurgitation. Chest x-ray shows no acute disease. PG Care Time/CCT Total # of Minutes Spent Total Time Spent with Patient: Total time spent is greater than 50% in coordination of care (as documented) at patient's floor/unit and/or counseling patient:
[2019-05-09] MEDS: CHOLECALCIFEROL 1,000 UNITS TAB PO SCH (20:42)
[2019-05-09] MEDS: ASCORBIC ACID 500 MG TAB PO SCH (20:42)
[2019-05-09] MEDS: LACTOBACILLUS ACIDOPHILUS (FLORANEX) TAB PO SCH (20:43)
[2019-05-09] MEDS ORDERED: LOSARTAN POTASSIUM 25 MG TAB PO SCH (21:00)
[2019-05-10] MEDS: LEVOTHYROXINE SODIUM 88 MCG TABLET PO SCH (05:55)
[2019-05-10] MEDS: CYANOCOBALAMIN 500 MCG TABLET (VITAMIN B-12) PO SCH (08:23)
[2019-05-10] MEDS: FOLIC ACID 400 MCG TAB PO SCH (08:23)
[2019-05-10] MEDS: HydrALAZINE 10 MG TAB PO PRN ×2 (08:23→23:36)
[2019-05-10] MEDS: DOXYCYCLINE HYCLATE 100 MG CAP PO SCH ×2 (08:24→20:27)
[2019-05-10] MEDS: METOPROLOL TARTRATE 100 MG TAB PO SCH ×2 (08:24→20:27)
[2019-05-10] MEDS: DOFETILIDE 125 MCG CAPSULE PO SCH ×2 (08:24→20:27)
--- NOTE | 2019-05-10 09:02 | Hospitalist Progress Note ---
Date of Service May 10, 2019 Assessment & Plan (1) Dizziness: Recent workup at [facility] including CTA head and neck with no evidence of arterial occlusion or other vascular finding that were acute. CT head without contrast revealing no acute intracranial abnormality with findings of chronic small vessel ischemia and no acute territorial infarct. Lightheadedness has improved after IV fluids overnight. Concern for possible orthostatic hypotension per cardiology however, patient's symptoms have been more consistent and not improved with positional change. Will monitor orthostatic vital signs every shift and will hold losartan per cardiology recommendation. Alternatively, the patient feels he may be having an adverse side effect from one or many of his medications including metoprolol and Tikosyn which was recently started status post pacemaker placement for uncontrolled atrial fibrillation with RVR. Recent pacemaker interrogations have reported normal functioning of his pacemaker. Also there was a question of acute cholecystitis on imaging last night. General surgery saw the patient and did not think this is the case. Outpatient general surgery follow-up in 1 to 2 weeks post discharge. (2) A-fib: Status post pacemaker, metoprolol 100 twice daily, Tikosyn in the last several weeks. Pacemaker and medications appear to be functioning as expected. Defer to cardiology for further work-up/investigation with recent symptoms. Currently stopping losartan as above. Continue Eliquis for anti-coagulation. (3) S/P cardiac pacemaker procedure: (4) Abdominal bloating: Uncertain etiology but has resolved. Continue to monitor for recurrence with food over the next day. Patient currently feels like he is going to have a bowel movement. We will continue to monitor clinical progress. (5) Abnormal LFTs: Acute LFT elevation with uncertain etiology but improving. Initially seem to be AST 313/ALT 245 on 05/08 in the [facility]. Has now trended down. As noted above her right upper quadrant ultrasound revealed presence of gallstones. It is possible he had a gallstone pass causing his symptoms and elevated LFTs. It is not clear if any of his medications may have done this although, that is considered less likely. He is a nondrinker of alcohol. He has undergone an acute hepatitis panel yesterday which was negative while at the [facility]. Continue to follow LFTs in a.m. and monitor for clinical symptom reemergence. Currently he is tolerating food, he is not jaundiced or having abnormal bowel movements. Continue to monitor. (6) Hypothyroidism: Stable on current dose of Synthroid. Defer to outpatient PCP for titration (7) DVT prophylaxis: Eliquis Full code Disposition-continue monitoring on telemetry. Continue to discuss plan with cardiology. Plan for home when medically stable. BP up today, add back Losartan ROS-No Headache, No Visual Changes, No Nausea, No Vomiting, No Fever, No Chills, No Neck Pain or Stiffness, No Chest Pain, No Palpitations, No SOB, No MCCABE, No Cough, No Sputum, No Wheezing, No Abdominal Pain, No Diarrhea, No Hematemesis, No Hemoptysis, No Unexpected Weight Loss, No Flank pain, No Melena, No Hematochezia, No Frequency, No Urgency, No Burning, No Hematuria, No Rashes, No Diaphoresis. Appetite is Normal Physical Exam Gen-AAO x 3, NAD, Afebrile Head-NCAT, EOMI, PERRLA, Anicteric Sclera, No Posterior Pharyngeal Erythema Neck-Supple, No JVD, No Thyromegaly, No Masses, No LAD, No Bruits Lungs-Clear to Auscultation Bilaterally, No Rales, No Rhonchi, No Wheezing, No Crepitus Chest-No S4, +S1, +S2, No S3, No Murmurs, No Rubs, No Gallops, No Ectopy Abdomen-Soft, Bowel Sounds Present, Non Tender, Non Distended, No Hepatomegaly, No Splenomegaly, No Palpable Masses, No Rebound, No Rigidity, No Guarding Musculoskeletal-Full Range of Motion Bilaterally, No CVAT Extremities-No Cyanosis, No Clubbing, No Edema Nuero-Cranial Nerves II-XII grossly intact, Motor WNL, DTRs WNL, Strength WNL, Non Focal Psych-Normal Mood labs checked Results & Data Vital Signs (Past 12 Hours) Vital Signs Temp Pulse Resp BP Pulse Ox 05/10/19 08:03 36.4 C L 70 19 169/101 H 97 05/10/19 04:00 36.5 C 76 18 161/98 H 97 05/09/19 23:31 36.8 C 69 18 141/93 H 93 (1) A-fib Atrial fibrillation type: unspecified Qualified Code(s): I48.91 - Unspecified atrial fibrillation
--- NOTE | 2019-05-10 09:52 | Surgery Progress Note ---
Date of Service no abdominal pain, no nausea, no vomiting, he tolerated diet, May 10, 2019 Assessment & Plan (1) Dizziness: pt is a 79 year-old male who was admitted to hospital for dizziness. I got a consult for possible acute cholecystitis, IMP: cholelithiasis, Plan, base on pt has no symptoms for cholelithiasis, no surgical indication for cholecystectomy now, possible I will do laparoscopic cholecystectomy on out- patient . Follow up me in 1-2 weeks, , repeat all labs in morning, I will F/U, Thanks, 9:51am doing fine, F/U out-patient, sign off today, please call with questions, Thanks Subjective Feeling better today with resolution of lightheadedness with ambulation. He is tolerating p.o. declines any issues with abdominal bloating although states that he has to use the bathroom for bowel movement. No fevers or chills overnight. Improved overall. Physical Exam Constitutional: WD/WN, vitals as above well developed and well nourished ENMT: external ear and nose normal, oropharynx normal Neck: trachea midline, no thyromegaly Respiratory: normal respiratory effort, lungs clear to auscultation normal respiratory effort Gastrointestinal (Abdomen): normal bowel sounds, soft, nontender, no hepatosplenomegaly Musculoskeletal: no cyanosis or clubbing, extremities motor strength 5/5 Skin: no rashes, warm and dry Neurologic: patellar DTR's 2+ bilat, sensation intact Psychiatric: A+Ox3, euthymic affect Orientation: alert and oriented x 3 Lymphatic: no cervical or axillary lymphadenopathy Results & Data Vital Signs (Past 12 Hours) Vital Signs Temp Pulse Resp BP Pulse Ox 05/10/19 08:03 36.4 C L 70 19 169/101 H 97 05/10/19 04:00 36.5 C 76 18 161/98 H 97 05/09/19 23:31 36.8 C 69 18 141/93 H 93
[2019-05-10] MEDS: ASCORBIC ACID 500 MG TAB PO SCH (20:27)
[2019-05-10] MEDS: CHOLECALCIFEROL 1,000 UNITS TAB PO SCH (20:27)
[2019-05-10] MEDS: LACTOBACILLUS ACIDOPHILUS (FLORANEX) TAB PO SCH (20:28)
[2019-05-11 05:32] VITALS: TEMP 97.7
[2019-05-11] MEDS: LEVOTHYROXINE SODIUM 88 MCG TABLET PO SCH (05:49)
[2019-05-11] MEDS: HydrALAZINE 10 MG TAB PO PRN ×2 (05:49→07:49)
[2019-05-11 06:40] LABS: Hematocrit (blood only) 42.7 % (42-52); Hemoglobin 14.2 g/dL (14.0-18.0); Mean Corpuscular Hemoglobin 30.8 pg (25-34); Mean Corpuscular Hgb Conc 33.3 g/dL (32-36); Mean Corpuscular Volume 92.6 fL (80-100); Mean Platelet Volume 10.9 fL (7.4-10.4); Platelet Count 185 K/uL (130-400); RDW Coefficient of Variation 13.8 % (11.5-14.5); RDW Standard Deviation 46.8 fL (36.4-46.3); Red Blood Count 4.61 M/uL (4.7-6.1); White Blood Count 3.28 K/uL (4.8-10.8)
[2019-05-11 07:17] LABS: BUN Creatinine Ratio 20.2 (10-20); Calcium 8.7 mg/dl (8.5-10.1); Creatinine Clr Calc Pharmacy 70.9 ml/min; Est GFR (African American) 99.2; Est GFR (Non-African American) 85.6; Potassium 3.5 mmol/L (3.5-5.1)
[2019-05-11 07:20] LABS: Bilirubin,Total 0.7 mg/dl (0.2-1)
[2019-05-11] MEDS: DOXYCYCLINE HYCLATE 100 MG CAP PO SCH (07:49)
[2019-05-11] MEDS: CYANOCOBALAMIN 500 MCG TABLET (VITAMIN B-12) PO SCH (07:49)
[2019-05-11] MEDS: METOPROLOL TARTRATE 100 MG TAB PO SCH (07:50)
[2019-05-11] MEDS: FOLIC ACID 400 MCG TAB PO SCH (07:50)
[2019-05-11] MEDS: DOFETILIDE 125 MCG CAPSULE PO SCH (07:50)
--- NOTE | 2019-05-11 08:50 | Discharge Summary ---
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 The patient was in the [place] ER yesterday because he was feeling dizzy and he also complained of some facial numbness. So CTA of the head and neck was done which was unremarkable. He says that the facial numbness is on and off for last 1 month, but today it is almost 90% resolved. He was also diagnosed with Lyme and was treated for 1 month worth of antibiotics as per patient. He was in [place] overnight and he was discharged home in the morning on 04/28/2019. He says after going home when he was walking from one room to other room he almost passed out, felt dizzy. With ongoing dizziness, he decided to come to the ER. He used to walk 1-2 miles before, now with like walking about half a block he is getting worn out and he has to take rest for a couple of minutes. Denies any chest pain. No headache, no blurred visions, no earache, no runny nose, no sore throat, no difficulty swallowing, no cough. Denies any shortness of breath, no nausea, no vomiting, no abdominal pain. Normal bowel and bladder movements. No blood in the stools or black stools, no hematuria, no burning micturition, no swelling in the legs, no rash. Currently resting comfortably and hemodynamically stable. The patient's pacemaker was interrogated in the ER which showed bursts of AFib and atrial flutter. Last admission also he had similar kind of symptoms and his metoprolol dose was adjusted. Admission Exam Per Admitting Provider GENERAL: The patient is of moderate build, not in acute distress. VITAL SIGNS: Temperature 36.5, pulse 86, respiratory rate 18, blood pressure 138/99, oxygen 97% on room air. HEENT: No pallor, no icterus. Pupils equal, round, reactive to light. Extraocular muscles intact. NECK: No JVD, no neck masses, no carotid bruit. CARDIOVASCULAR: S1, S2 heard, regular rate and rhythm, no murmur. RESPIRATORY SYSTEM: Normal AP diameter. No accessory muscle use. No wheezing, no crackles. ABDOMEN: Soft, bowel sounds present, nontender. No distention. CENTRAL NERVOUS SYSTEM: Cranial nerves II through XII grossly intact, nonfocal. EXTREMITIES: No edema, no erythema Principal Diagnosis (1) Dizziness: (2) A-fib: (3) S/P cardiac pacemaker procedure: (4) Abdominal bloating: (5) Abnormal LFTs: (6) Hypothyroidism: HTN Lyme +- Anaplasmosis Discharge Exam ROS-No Headache, No Visual Changes, No Nausea, No Vomiting, No Fever, No Chills, No Neck Pain or Stiffness, No Chest Pain, No Palpitations, No SOB, No MCCABE, No Cough, No Sputum, No Wheezing, No Abdominal Pain, No Diarrhea, No Hematemesis, No Hemoptysis, No Unexpected Weight Loss, No Flank pain, No Melena, No Hematochezia, No Frequency, No Urgency, No Burning, No Hematuria, No Rashes, No Diaphoresis. Appetite is Normal Physical Exam Gen-AAO x 3, NAD, Afebrile Head-NCAT, EOMI, PERRLA, Anicteric Sclera, No Posterior Pharyngeal Erythema Neck-Supple, No JVD, No Thyromegaly, No Masses, No LAD, No Bruits Lungs-Clear to Auscultation Bilaterally, No Rales, No Rhonchi, No Wheezing, No Crepitus Chest-No S4, +S1, +S2, No S3, No Murmurs, No Rubs, No Gallops, No Ectopy Abdomen-Soft, Bowel Sounds Present, Non Tender, Non Distended, No Hepatomegaly, No Splenomegaly, No Palpable Masses, No Rebound, No Rigidity, No Guarding Musculoskeletal-Full Range of Motion Bilaterally, No CVAT Extremities-No Cyanosis, No Clubbing, No Edema Nuero-Cranial Nerves II-XII grossly intact, Motor WNL, DTRs WNL, Strength WNL, Non Focal Psych-Normal Mood Discharge Data Allergies Allergy/AdvReac Type Severity Reaction Status Date / Time No Known Allergies Allergy Verified 05/08/19 18:59 Consultations 05/08/19 23:29 ED Decision to Admit Stat 05/09/19 01:35 Consult Case Management - Discharge Planning Routine 05/09/19 07:24 Consult Infectious Diseases Routine 05/09/19 08:00 Consult Cardiology Routine Consult General Surgery Routine Ordered Studies 05/08/19 20:50 US abdomen limited Stat Current Diagnoses Hypothyroidism, unspecified (05/09/19) Essential (primary) hypertension (05/09/19) Cardiomyopathy, unspecified (05/09/19) Unspecified atrial fibrillation (05/09/19) Sick sinus syndrome (05/09/19) Abdominal distension (gaseous) (05/09/19) Dizziness and giddiness (05/09/19) Abnormal results of liver function studies (05/09/19) Encounter for prophylactic measures, unspecified (05/09/19) Presence of cardiac pacemaker (05/09/19) Allergies No Known Allergies Allergy (Verified 05/08/19 18:59) Height/Weight/Isolation Height 6 ft Weight 65.9 kg Chemistry 05/11/19 06:04 Sodium 142 Potassium 3.5 Chloride 111 H Carbon Dioxide 25 Anion Gap 6.0 BUN 16 Creatinine 0.80 Glucose 90 Hospital Course (1) Dizziness: Recent workup at [facility] ER including CTA head and neck with no evidence of arterial occlusion or other vascular finding that were acute. CT head without contrast revealing no acute intracranial abnormality with findings of chronic small vessel ischemia and no acute territorial infarct. Lightheadedness has improved after IV fluids overnight. Concern for possible orthostatic hypotension per cardiology however, patient's symptoms have been more consistent and not improved with positional change. Will monitor orthostatic vital signs every shift and will hold losartan per cardiology recommendation. Alternatively, the patient feels he may be having an adverse side effect from one or many of his medications including metoprolol and Tikosyn which was recently started status post pacemaker placement for uncontrolled atrial fibrillation with RVR. Recent pacemaker interrogations have reported normal functioning of his pacemaker. Also there was a question of acute cholecystitis on imaging last night. General surgery saw the patient and did not think this is the case. Outpatient general surgery follow-up in 1 to 2 weeks post discharge. (2) A-fib: Status post pacemaker, metoprolol 100 twice daily, Tikosyn in the last several weeks. Pacemaker and medications appear to be functioning as expected. Resume losartan. Continue Eliquis for anti-coagulation. (3) S/P cardiac pacemaker procedure: (4) Abdominal bloating: Uncertain etiology but has resolved. (5) Abnormal LFTs: Acute LFT elevation with uncertain etiology but improving. He is a nondrinker of alcohol. He has undergone an acute hepatitis panel which was negative while at the [facility] ER. (6) Hypothyroidism: Stable on current dose of Synthroid. (7) DVT prophylaxis: DC home on 21 days of Doxy to cover Lyme and Anaplasmosis. F/U c Dr Gutiérrez in the office. Total Time Total Time Spent Total Time Spent (In Minutes): 50 mins Total Time Includes: Examination of the Patient, Discharge Planning, Medication Reconciliation and Communication With Other Providers Discharge Plan Discharge Items Patient Disposition: Home - Self-Care Reason For Visit: NEAR SYNCOPE Discharge Diagnosis: (1) Dizziness: (2) A-fib: (3) S/P cardiac pacemaker procedure: (4) Abdominal bloating: (5) Abnormal LFTs: (6) Hypothyroidism: HTN Lyme +- Anaplasmosis Condition on Discharge: Good Activity: Resume your previous activity Lifting: Gradually increase as tolerated Bathing: No limitations Sexual Activity: When tolerated Exercise/Sports: Gradually increase as tolerated Driving/Machine Use: No limitations Weightbearing: Full weightbearing Non-emergency contact: Primary Care Provider, Specialist and Ingot Passer Call non-emergency contact if: you have any medication questions and your symptoms worsen Follow-up/Referrals: Michi Elizabeth MD [Physician] - (Call for first opening) Armida Gutiérrez DO [Physician] - (Call for first opening) Mathew Raza MD [Physician] - (Follow up with Dr Elizabeth) Pricilla Rojas MD [Primary Care Provider] - (Call for first opening on Sunday) Vivi Vazquez MD [Physician] - (1-2 weeks for the Gall Bladder) Diet: Heart Healthy Addtl Attending Provider Instructions: Monitor BP Pending Studies at Discharge: No Stand-Alone Forms: My [facility] Medications and DC Order Prescriptions: New doxycycline hyclate 100 mg Capsule 100 mg PO BID Qty: 40 RF: 0 Continued dofetilide 500 mcg capsule 500 mcg PO BID Qty: 60 RF: 4 metoprolol tartrate [Lopressor] 100 mg tablet 100 mg PO BID Qty: 60 RF: 11 Eliquis 5 mg Tablet 5 mg PO BID RF: 0 folic acid 400 mcg Tablet 400 mcg PO QAM RF: 0 vitamin A 8,000 unit Capsule 2,400 unit PO QAM RF: 0 cyanocobalamin (vitamin B-12) [Vitamin B-12] 1,000 mcg Tablet 1,000 mcg PO QAM RF: 0 ascorbic acid (vitamin C) [Vitamin C] 500 mg Tablet 500 mg PO HS RF: 0 cholecalciferol (vitamin D3) [Vitamin D3] 1,000 unit Capsule 1,000 unit PO HS RF: 0 coenzyme Q10 [CoQ-10] 100 mg Capsule 100 mg PO BID RF: 0 Probiotic 3 billion cell Capsule PO HS RF: 0 hydralazine 10 mg tablet 10 mg PO QID PRN (Reason: hypertension) Qty: 20 RF: 0 levothyroxine 88 mcg tablet 44 mcg PO QAM RF: 0 losartan 25 mg tablet 25 mg PO HS Qty: 30 RF: 1 Discharge Orders: Discharge Order (Routine); Ordered 05/11/19 Ordered By: Chris Singh Admission Data Admit Date/Time: 05/09/19 00:47 Attending Provider: Chrsi Singh Admit Provider: Andres Stiles Primary Care Provider: Pricilla Rojas Other Providers: Andres Stiles ; Mathew Raza ; Calderon Kirk ; Magalys Gonzalez ; Meliton Samson ; Amie Adams ; Andrea Morgan ; James Cazares ; Shantel Botello ; Nils Robertson ; Paloma Mcgrath ; Mike Alicea Jr ; Vivi Vazquez ; Mayra Nobles ; Andrea Davidson
[2019-05-11 10:44] VITALS: O2SAT 95
[2019-05-11 11:12] VITALS: BP 141/89; PULSE 104
--- NOTE | 2019-05-14 08:02 | Coding Query ---
CODING QUERY To promote full compliance with coding requirements relating to patient care, provider participation is requested in all cases of remote inpatient coder uncertainty. Please assist us with the question(s) below: Coding Question(s): Patient admitted with dizziness. Pacer interrogation/work-up negative . Underlying atrial fibrillation and flutter. Please document, if known or suspeted , the etiology of the dizziness. Thank you ! Antwon Aguilar AMMONIA DISTILLER [facility] Physician's Response(s): No idea the reason for dizziness Principal Diagnosis: "that condition established after study, to be chiefly responsible for occasioning the admission of the patient to the hospital for care." Co-Existing Principal Diagnosis: "when two or more diagnoses equally meet the criteria for principal diagnosis as determined by the circumstances of admission, diagnostic work up, and/or therapy provided, and the Alphabetic Index, Tabular List, or another coding guideline does not provide sequencing direction, any one of the diagnoses may be sequenced first." "When the physician has documented what appears to be a current diagnosis in the body of the record, but has not included the diagnosis in the final diagnostic statement, the physician should be asked whether the diagnosis should be added." (Source Coding [facility] 2 QTR90. p3-4) MORTEZA
[2019-05-14 09:36] LABS: 18KDIGG Band NONREACTIVE (NONREACTIVE); 23KDIGG Band NONREACTIVE (NONREACTIVE); 23KDIGM Band NONREACTIVE (NONREACTIVE); 28KDIGG Band NONREACTIVE (NONREACTIVE); 30KDIGG Band NONREACTIVE (NONREACTIVE); 39KDIGG Band NONREACTIVE (NONREACTIVE); 39KDIGM Band NONREACTIVE (NONREACTIVE); 41KDIGG Band REACTIVE (NONREACTIVE); 41KDIGM Band NONREACTIVE (NONREACTIVE); 45KDIGG Band NONREACTIVE (NONREACTIVE); 58KDIGG Band REACTIVE (NONREACTIVE); 66KDIGG Band REACTIVE (NONREACTIVE); 93KDIGG Band NONREACTIVE (NONREACTIVE); Lyme Antibodies, WB IgG NEGATIVE (NEGATIVE); Lyme Antibodies, WB IgM NEGATIVE (NEGATIVE)
== END 2019-05-11 12:24 | disposition home or self-care (01) | DRG 149 ==
LOC: ED 18:11 → 2S 05-09 00:47 → SUATTDRO 05-09 00:47 → 2S 05-09 01:23

== ENCOUNTER 2019-05-11 17:37 | Inpatient (IN) ==
[2019-05-11] MEDS ORDERED: DOXYCYCLINE HYCLATE 100 MG CAP PO STA (18:38)
[2019-05-11] MEDS ORDERED: DOFETILIDE 125 MCG CAPSULE PO STA (18:43)
[2019-05-11] MEDS ORDERED: SODIUM CHLORIDE 0.9% 500 ML IV SCH (18:45)
[2019-05-11] MEDS ORDERED: METOPROLOL TARTRATE 1 MG/ML VIAL IV STA (18:49)
[2019-05-11 19:12] LABS: Basophils # (auto) 0.04 K/uL (0-0.2); Basophils % (auto) 0.8 %; Eosinophils # (auto) 0.04 K/uL (0-0.5); Eosinophils % (auto) 0.8 %; Hematocrit (blood only) 42.3 % (42-52); Hemoglobin 14.7 g/dL (14.0-18.0); Immature Granulocytes # (auto) 0.01 K/uL (0.00-0.02); Immature Granulocytes % (auto) 0.2 %; Lymphocytes # (auto) 0.91 K/uL (1.2-3.4); Lymphocytes % (auto) 19.3 %; Mean Corpuscular Hemoglobin 32.1 pg (25-34); Mean Corpuscular Hgb Conc 34.8 g/dL (32-36); Mean Corpuscular Volume 92.4 fL (80-100); Mean Platelet Volume 10.1 fL (7.4-10.4); Monocytes # (auto) 0.45 K/uL (0.11-0.59); Monocytes % (auto) 9.5 %; Neutrophils # (auto) 3.27 K/uL (1.4-6.5); Neutrophils % (auto) 69.4 %; Platelet Count 199 K/uL (130-400); RDW Coefficient of Variation 13.9 % (11.5-14.5); RDW Standard Deviation 46.9 fL (36.4-46.3); Red Blood Count 4.58 M/uL (4.7-6.1); White Blood Count 4.72 K/uL (4.8-10.8)
[2019-05-11 19:21] LABS: INR 1.2 (0.9-1.1); Prothrombin Time 11.9 Seconds (9.0-12.0)
[2019-05-11 19:33] LABS: Alanine Aminotransferase 158 U/L (12-78); Aspartate Aminotransferase 131 U/L (15-37); BUN Creatinine Ratio 18.8 (10-20); Blood Urea Nitrogen 21 mg/dl (7-18); Calcium 8.6 mg/dl (8.5-10.1); Carbon Dioxide 27 mmol/L (21-32); Chloride 111 mmol/L (98-107); Est GFR (African American) 71.8; Est GFR (Non-African American) 61.9; Glucose 104 mg/dl (70-99); Magnesium 1.9 mg/dl (1.8-2.4); Sodium 141 mmol/L (136-145)
[2019-05-11 19:41] LABS: Alkaline Phosphatase 117 U/L (45-117); Bilirubin,Total 0.4 mg/dl (0.2-1); Troponin I < 0.015 ng/ml (0-0.045)
[2019-05-11 19:42] LABS: Potassium 4.4 mmol/L (3.5-5.1)
[2019-05-11] MEDS ORDERED: METOPROLOL TARTRATE 100 MG TAB PO STA (19:55)
[2019-05-11 19:56] LABS: T4 Free Thyroxine 1.17 ng/dl (0.8-1.6)
[2019-05-11] MEDS ORDERED: METOPROLOL TARTRATE 50 MG TAB ONE ×2 (20:19→20:20)
--- NOTE | 2019-05-11 20:26 | CT Scan Report ---
HEAD CT NONCONTRAST CT DOSE: 537.48 mGy.cm HISTORY: dizzy, on eliqus TECHNIQUE: Multiaxial CT images of the head were performed without the use of intravenous contrast. A utomated exposure control was utilized for this study. A dose lowering technique was utilized adheri ng to the principles of ALARA. Comparison: Head CT 02/22/2019. Findings: The paranasal sinuses and mastoid air cells are clear. The calvarium and skull base are int act. There is no mass, hematoma, midline shift, acute infarct. White matter hypodensity is nonspecifi c but suggestive of microvascular ischemic change. The ventricles and sulci demonstrate mild age-rela mateus involutional changes. Impression: No significant change compared to the prior study. No acute intracranial abnormality. Electronically signed by: Abdoul Tucker M.D. 05/11/2019 8:25 PM
[2019-05-11] MEDS ORDERED: ACETAMINOPHEN 325 MG TAB PO PRN (22:31)
[2019-05-11] MEDS ORDERED: NITROGLYCERIN SL 0.4 MG/TAB TAB SL PRN (22:31)
[2019-05-11] MEDS: SODIUM CHLORIDE 0.9% 1000ML 1,000 ML IV SCH (23:14)
[2019-05-11] MEDS: DOXYCYCLINE HYCLATE 100 MG CAP PO SCH (23:25)
--- NOTE | 2019-05-12 00:48 | Emergency Department Note ---
Entered by Nanette Figueroa acting as a scribe for Cleveland Wright M.D. History of Present Illness General Chief complaint: Cardiac Assessment Stated complaint: DIZZINESS Time Seen by Provider: 05/11/19 17:56 Source: patient and family History of Present Illness Onset (ago): hour(s) (this afternoon) Location: head Pain Consistency: + intermittent Quality: + other (dizziness) Exacerbated By: + other (standing) Associated symptoms: + denies other symptoms (loss of consciousness, ) and + other (cold hands and arm, high blood pressure); no fever/chills The patient is a 79 year old male who presents to the Emergency Room with complaints of intermittent dizziness beginning this afternoon. He notes the dizziness is worse while standing. The patient denies loss of consciousness, pain with the dizziness, fevers, and chills. He reports a mild headache. The patient's family member states the patient's arms and hands were icy cold, and that the patient had a very high blood pressure prior to arrival. The patient states he was discharged from the hospital earlier today after spending several days in the hospital for dizziness and numbness. The patient's family member n shaina he was started on antibiotics for Lyme's disease. She also notes the patient had gallstones. She states the patient has not taken his evening medication yet. The patient's family member notes the patient is on Losartan, but was not taking it while in the hospital. She states the patient is on E liquis. She notes he was seeing Dr. Elizabeth while in the hospital. She notes the patient had a pacemaker placed one month ago, and has a history of a-fib. The patient's family member reports the patient was in the hospital last year for sepsis. Home Medications Home Medications Medication Instructions Recorded Confirmed Type Eliquis 5 mg PO BID 11/19/18 05/11/19 History folic acid 400 mcg PO QAM 02/21/19 05/11/19 History Probiotic 0 mmu cells PO HS 03/30/19 05/11/19 History ascorbic acid (vitamin C) [Vitamin 500 mg PO HS 03/30/19 05/11/19 History C] cholecalciferol (vitamin D3) 1,000 unit PO HS 03/30/19 05/11/19 History [Vitamin D3] coenzyme Q10 [CoQ-10] 100 mg PO BID 03/30/19 05/11/19 History cyanocobalamin (vitamin B-12) 1,000 mcg PO QAM 03/30/19 05/11/19 History [Vitamin B-12] vitamin A 2,400 unit PO QAM 03/30/19 05/11/19 History levothyroxine 44 mcg PO QAM 04/02/19 05/11/19 History losartan 25 mg PO HS #30 tab 04/08/19 05/11/19 Rx dofetilide 500 mcg capsule 500 mcg PO BID #60 cap 04/11/19 05/11/19 Rx metoprolol tartrate 100 mg tablet 100 mg PO BID #60 tab 04/30/19 05/11/19 Rx docusate sodium [Colace] 100 mg PO BID 05/11/19 05/11/19 History doxycycline hyclate 100 mg PO BID #40 cap 05/11/19 05/11/19 Rx hydralazine 10 mg PO QID PRN 05/11/19 05/11/19 History Allergies Allergy/AdvReac Type Severity Reaction Status Date / Time No Known Allergies Allergy Verified 05/11/19 18:37 Past Med/Surg History Medical History Dizziness (Acute) DVT prophylaxis Cardiomyopathy Systolic heart failure (Chronic) Mildly reduced EF of 48% per 01/2019 echo Acute hypotension (Acute) Lyme disease Atrial fibrillation (Chronic) Dyslipidemia (Chronic) BPH (benign prostatic hyperplasia) (Chronic) Hypothyroidism (Chronic) Hernia (Chronic) "LARGE" UMBILICAL/VENTRAL HERNIA PER PT Surgical History S/P cardiac pacemaker procedure H/O cardiac radiofrequency ablation (Resolved) Attempted CTI ablation, 02/2018 BY MAHENDRA History of transurethral resection of prostate (Chronic) 11/06/18 = LMA #5 x 1 attempt, good seal, atraumatic. History of arthroscopy (Chronic) RT KNEE History of tooth extraction (Chronic) Family History Mother Senile Father Pulmonary embolism Social History Preferred Language: Polish Communication Ability: Effective Calciminer Required: No Beliefs That Will Affect Care: None marital status: Life Partner Current Living Situation: Spouse Other Information That Helps Us Care for You: No Feels Safe at Home: Yes Safety Concerns: Feels Safe At This Time Smoking Status: Former smoker Tobacco Type: cigarettes ; Cigarettes Per Day: Q UIT 40 YEARS AGO. ; Smoking End Date: 30 years ago ; Second Hand Exposure: No ; Hx Alcohol Use: Yes Alcohol type: beer Hx Substance Use: No Review of Systems See HPI for pertinent positives & negatives. and A total of 10 systems reviewed and were otherwise negative Physical Exam Vital Signs Vital Signs - 24 hr 05/11/19 17:19 05/11/19 17:49 05/11/19 19:30 Temperature 36.7 C Temperature Source Oral Oral Sepsis Recent Fever Within 48 Hours No Sepsis Action Taken by Nursing No Action Required Pulse Rate 112 H Pulse Rate [Right] 110 H Pulse Rhythm Irregular Pulse Rhythm [Right] Irregular Pulse Strength Normal Pulse Strength [Right] Normal Respiratory Rate 14 16 Respiratory Effort / Characteristics Non-Labored Non-Labored Spontaneous Respiratory Depth Normal Normal Respiratory Pattern Regular Blood Pressure 131/62 Blood Pressure [Right Arm] 107/76 Blood Pressure Mean 85 Blood Pressure Mean [Right Arm] 86 Blood Pressure Position Lying Blood Pressure Position [Right Arm] Lying Pulse Oximetry 98 98 Oxygen Delivery Method Room Air Room Air Room Air 05/11/19 20:23 05/11/19 20:55 Temperature Temperature Source Sepsis Recent Fever Within 48 Hours Sepsis Action Taken by Nursing Pulse Rate Pulse Rate [Right] 103 H 85 Pulse Rhythm Pulse Rhythm [Right] Irregular Pulse Strength Pulse Strength [Right] Normal Normal Respiratory Rate 16 16 Respiratory Effort / Characteristics Non-Labored Non-Labored Spontaneous Respiratory Depth Normal Normal Respiratory Pattern Regular Blood Pressure Blood Pressure [Right Arm] 126/89 120/86 Blood Pressure Mean Blood Pressure Mean [Right Arm] 101 97 Blood Pressure Position Blood Pressure Position [Right Arm] Lying Pulse Oximetry 96 98 Oxygen Delivery Method Room Air Room Air GENERAL: Awake, alert, fatigued-appearing, in no distress HENT: Normocephalic, atraumatic. EYES: Normal conjunctiva. Sclera non-icteric. NECK: Supple. No nuchal rigidity. RESPIRATORY: Clear to auscultation. No wheezes. Normal respiratory effort. CARDIAC: Irregular tachycardic rate and rhythm. Extremities warm and well perfused. Pacemaker located in left upper chest. GI: Soft, non-distended. No tenderness to palpation. No rebound or guarding. No masses. RECTAL: Deferred. MUSCULOSKELETAL: Atraumatic. Chest examination reveals no tenderness. LOWER EXTREMITIES: Calves are equal size bilaterally and non-tender. No edema NEURO: Normal sensorium. No sensory or motor deficits noted. No facial droop. No slurred speech. SKIN: Warm and dry. No rash or jaundice noted. Course 1830: Past medical records reviewed. The patient was evaluated in room C05. A complete history and physical exam was performed. 2030: Upon reevaluation, I discussed findings and results with the patient. He verbalized agreement of the treatment plan. I spoke with Dr. Stiles of the [facility]. The patient will be evaluated for further management and care. Administered Medications Doxycycline Hyclate (Vibramycin) 100 mg PO BID MIGUEL ANGEL Stop: 05/21/19 22:30 Last Admin: 05/11/19 23:25 Dose: Not Given Documented by: [id number] Sodium Chloride (Nss 1000ml) 1,000 mls @ 75 mls/hr IV .[id number] MIGUEL ANGEL Stop: 05/12/19 13:00 Last Admin: 05/11/19 23:14 Dose: 75 mls/hr Documented by: [id number] Discontinued Medications Dofetilide (Tikosyn) 500 mcg PO NOW STA Stop: 05/11/19 18:44 Last Admin: 05/11/19 19:19 Dose: 500 mcg Documented by: [id number] Doxycycline Hyclate (Vibramycin) 100 mg PO NOW STA Stop: 05/11/19 18:39 Last Admin: 05/11/19 19:19 Dose: 100 mg Documented by: [id number] Sodium Chloride (Nss) 500 mls @ 999 mls/hr IV .Q31M MIGUEL ANGEL Stop: 05/11/19 19:15 Last Infusion: 05/11/19 19:59 Dose: 0 mls/hr Documented by: [id number] Admin: 05/11/19 19:20 Dose: 999 mls/hr Documented by: [id number] Metoprolol Tartrate (Lopressor) 5 mg IV NOW STA Stop: 05/11/19 18:50 Last Admin: 05/11/19 19:19 Dose: Not Given Documented by: [id number] Metoprolol Tartrate (Lopressor) 100 mg PO ONE STA Stop: 05/11/19 19:56 Last Admin: 05/11/19 20:22 Dose: Not Given Documented by: [id number] Metoprolol Tartrate (Lopressor) Confirm Administered Dose 50 mg .ROUTE .STK-MED ONE Stop: 05/11/19 20:20 Last Admin: 05/11/19 20:22 Dose: 50 mg Documented by: [id number] Metoprolol Tartrate (Lopressor) Confirm Administered Dose 50 mg .ROUTE .STK-MED ONE Stop: 05/11/19 20:21 Last Admin: 05/11/19 20:22 Dose: 50 mg Documented by: [id number] Medical Decision Making Differential Diagnosis Differential diagnosis includes etiologies such as benign positional vertigo, dehydration, hypovolemia, anemia, tumor, infection, hypoglycemia, electrolyte abnormalities, cardiac sources, intracerebral event, toxicologic, neurologic, as well as others were entertained. Medical Records Attestation: I reviewed the patient's medical records. Home Medications Current Medication List: was personally reviewed by me Laboratory Data Attestation: I reviewed the patient's lab results. Result diagrams: 05/11/19 18:59 05/11/19 18:59 Lab Results 05/11/19 05/11/19 05/11/19 Range/Units 18:59 18:59 18:59 WBC 4.72 L (4.8-10.8) K/uL RBC 4.58 L (4.7-6.1) M/uL Hgb 14.7 (14.0-18.0) g/dL Hct 42.3 (42-52) % MCV 92.4 (80-100) fL MCH 32.1 (25-34) pg MCHC 34.8 (32-36) g/dL RDW Std Deviation 46.9 H (36.4-46.3) fL RDW Coeff of Cheng 13.9 (11.5-14.5) % Plt Count 199 (130-400) K/uL MPV 10.1 (7.4-10.4) fL Immature Gran % (Auto) 0.2 % Neut % (Auto) 69.4 % Lymph % (Auto) 19.3 % [place] % (Auto) 9.5 % Eos % (Auto) 0.8 % Baso % (Auto) 0.8 % Immature Gran # (Auto) 0.01 (0.00-0.02) K/uL Neut # (Auto) 3.27 (1.4-6.5) K/uL Lymph # (Auto) 0.91 L (1.2-3.4) K/uL [place] # (Auto) 0.45 (0.11-0.59) K/uL Eos # (Auto) 0.04 (0-0.5) K/uL Baso # (Auto) 0.04 (0-0.2) K/uL PT 11.9 (9.0-12.0) Seconds INR 1.2 H (0.9-1.1) Sodium 141 (136-145) mmol/L Potassium 4.4 D (3.5-5.1) mmol/L Chloride 111 H (98-107) mmol/L Carbon Dioxide 27 (21-32) mmol/L Anion Gap 3.0 (3-11) BUN 21 H (7-18) mg/dl Creatinine 1.13 D (0.6-1.4) mg/dl Est Cr Clr Drug Dosing Not Reportable Est GFR ( Amer) 71.8 Est GFR (Non-Af Amer) 61.9 BUN/Creatinine Ratio 18.8 (10-20) Glucose 104 H (70-99) mg/dl Calcium 8.6 (8.5-10.1) mg/dl Magnesium 1.9 (1.8-2.4) mg/dl Total Bilirubin 0.4 (0.2-1) mg/dl AST 131 H (15-37) U/L ALT 158 H (12-78) U/L Alkaline Phosphatase 117 (45-117) U/L Troponin I < 0.015 (0-0.045) ng/ml Total Protein 6.0 L (6.4-8.2) gm/dl Albumin 3.0 L (3.4-5.0) gm/dl Globulin 3.0 (2.5-4.0) gm/dl Albumin/Globulin Ratio 1.0 (0.9-2) TSH 5.940 H (0.300-4.500) uIu/ml Free T4 1.17 (0.8-1.6) ng/dl Imaging Data Radiologist's Impression: Radiology results as stated below per my review and the radiologist's interpretation: HEAD CT NONCONTRAST CT DOSE: 537.48 mGy.cm HISTORY: dizzy, on eliqus TECHNIQUE: Multiaxial CT images of the head were performed without the use of intravenous contrast. Automated exposure control was utilized for this study. A dose lowering technique was utilized adhering to the principles of ALARA. Comparison: Head CT 02/22/2019. Findings: The paranasal sinuses and mastoid air cells are clear. The calvarium and skull base are intact. There is no mass, hematoma, midline shift, acute infarct. White matter hypodensity is nonspecific but suggestive of microvascular ischemic change. The ventricles and sulci demonstrate mild age-related involutional changes. Impression: No significant change compared to the prior study. No acute intracranial abnormality. Electronically signed by: Abdoul Tucker M.D. 05/11/2019 8:25 PM ECG Data Attestation: I personally reviewed and interpreted this ECG as follows: Indication: other (dizziness) Rate (beats per minute): 143 Rhythm: atrial fibrillation (RVR) Findings: + RBBB Comparison ECG Date: from (earlier today (05/11/2019)) Change: the following changes noted (a-fib RVR is new) Blood Pressure Blood Pressure Findings: Elevated blood pressure Blood Pressure Disposition: further management by hospitalist [facility] Narrative Patient is a 79-year-old gentleman with history of A. fib/atrial flutter on Eliquis status post pacemaker placement with history of CHF, hypothyroidism, hypertension, BPH, sepsis, dizziness presenting today with complaint of dizziness with movement and exertion. Patient was admitted here for the last 4 days and discharged this afternoon for similar complaints. Evaluation at that time included review of recent head and neck imaging without acute findings. There is a question of possible cholecystitis based on imaging although evaluated by general surgery do not believe this was the case. There is some question as if he had anaplasmosis and outpatient testing sent and doxycycline was initiated. Previous treatment for Lyme disease. Patient noted to have slight pulse elevation here but afebrile and normotensive. Patient states that when he got home and was moving around his house he can feel dizzy. Difficulty obtaining his blood pressure. He intimately noted to have A. fib RVR here. Pacemaker interrogated. Basic labs obtained. A CT the head was completed given his anticoagulation use complained of slight headache today to exclude intracranial abnormality at this time. Doubt pneumonia pneumothorax or dissection at this point. Seems atypical also given his Eliquis usage for PE and we need further testing here. Soft benign abdomen. Given his evening dose of doxycycline and Tikosyn. Patient does report that he received several dose of hydralazine before leaving query if this may have exacerbated his symptoms. EKG from this morning shows no evidence of atrial fibrillation and rate was much improved. Did plan to give small amount of IV Toprol however the patient's heart rate improved spontaneously. Did give a small fluid bolus. Ordered home evening metoprolol. Leukopenia improving other LFTs appear slightly worse without obstructive symptomatologies. Again doubt acute intraabdominal pathology at this time. Pacemaker with evidence of multiple episodes of A. fib RVR. Him of the head unremarkable. Discussed with the patient and the [facility] hospitalist for readmission. Have concerns his tachycardia may be promoting at least some of his symptoms in conjunction with labile BP. Impression & Plan Atrial fibrillation with RVR, Light headed, Dizziness Discharge Plan Visit Data *Final* Discharge Date/Time: 05/11/19 22:02 Chief Complaint: Cardiac Assessment Stated Complaint: DIZZINESS ED Provider: Cleveland Wright Discharge Problem: Atrial fibrillation with RVR, Light headed, Dizziness Patient Disposition: Being Evaluated by Hospitalist Discharge Instructions Interventions: ED Discharge Assessment Last Done: 05/11/19 22:02 The karlibe's documentation has been prepared under my direction and personally reviewed by me in its entirety. I confirm that the note above accurately reflects all work, treatment, procedures, and medical decision making performed by me.
--- NOTE | 2019-05-12 01:37 | History and Physical Report ---
DATE OF ADMISSION: 05/11/2019 CHIEF COMPLAINT: Severe dizziness and near syncope. HISTORY OF PRESENT ILLNESS: This is a 79-year-old male with past medical history significant for AFib and atrial flutter on Eliquis, history of ablation in 02/2018, status post pacemaker on 04/03/2019, history of systolic CHF secondary tachycardia induced, EF normal on recent echo, history of hypothyroidism, hypertension, hyperlipidemia, BPH status post TURP, history of slow transit constipation, history of sepsis in the past, history of wide complex tachycardia in the past. The patient was recently in the hospital with near syncope. He was also in [facility] before coming to the [facility] where his CTA of the head and neck was negative. On last admission, there was a question of cholecystitis on imaging, but there were no symptoms,and Surgery advised to follow as outpatient for possible elective cholecystectomy. His LFTs were elevated, but trended down and his losartan was held, thought it was possibly causing hypotension, but today on discharge, his blood pressures was running high, so he was given hydralazine and was told to take losartan 25 mg daily, but did not start it yet. As he was feeling better, he was discharged today, but after going home, he had 2 episodes of severe dizziness, once he went to open his window and he went outside and he felt severe dizzy, felt like almost passing out and after coming home, he had another episode and his checked him, he was very cold. His arms were very cold and she tried to check the blood pressure and he could not read the blood pressure. EMS was called in and the EMS also could not read the blood pressures, so for that reason the patient was brought in here and here he is hemodynamics stable. He is back to his usual self. The blood pressure was running high, so he was given his evening dose of his Tikosyn and his metoprolol and also he was given a dose of IV Lopressor. Currently resting comfortably and hemodynamically stable. Denies any headache, no blurred vision, no earache, no runny nose, no sore throat, no difficulty swallowing. Appetite is okay. No chest pain, no shortness of breath, no cough, no fever, no chills, no nausea, no abdominal pain. Normal bowel and bladder movements. No swelling in the legs. No rash. The patient is worried about having worms in his stomach, he says he passed them 3-4 times in the past. He wants to check for them. His is also concerned about TIA. When he was in [facility] recently it was thought he might have had TIA but they could not do the MRI because of pacemaker. She was worried about it and she wanted to evaluate for it. ALLERGIES: No known drug allergies. PAST MEDICAL HISTORY: As mentioned above. PAST SURGICAL HISTORY: Ablation of heart, cystoscopy, knee arthroscopy, pacemaker placement. MEDICATIONS: Currently, the patient is on ascorbic acid 500 mg at bedtime, vitamin D 1000 units at bedtime, Coenzyme Q10 100 mg p.o. b.i.d., vitamin B12 1000 mcg daily, Colace 100?mg b.i.d., Tikosyn 500 mg p.o. b.i.d., doxycycline 100 mg p.o. b.i.d., Eliquis 5 mg p.o. b.i.d., folic acid 400 mcg p.o. daily, hydralazine 10 mg p.o. q.i.d. p.r.n .HTN, levothyroxine 44?mcg daily, losartan 25 mg p.o. at bedtime, metoprolol tartrate 100 mg p.o. b.i.d., probiotic 1 tablet at bedtime, vitamin A 2400 units p.o. a.m. FAMILY HISTORY: No family history on file. SOCIAL HISTORY: Currently living with his fiancee. Quit smoking in 1978. Alcohol occasional. No drug use. REVIEW OF SYMPTOMS: As per HPI. Rest of the systems negative. PHYSICAL EXAMINATION: GENERAL: The patient is of moderate build, not in acute distress. VITAL SIGNS: Temperature 36.7, pulse 84, respiratory rate 16, blood pressure 120/86, oxygen 98% room air. HEENT: No pallor, no icterus. Pupils equal, round, reactive to light. Extraocular muscles intact. NECK: No JVD, no neck masses, no carotid bruits. CARDIOVASCULAR: S1, S2 heard, regular rate and rhythm, no murmur, no gallop. RESPIRATORY SYSTEM: Normal AP diameter. No accessory muscle use. No wheezing, no crackles. ABDOMEN: Soft, bowel sounds present, nontender. No distention. CENTRAL NERVOUS SYSTEM: Cranial nerves II-XII grossly intact. Power 5/5 in all extremities. Coordination of movements normal. [id number] test normal. No pronator drift. EXTREMITIES: No edema, no erythema. LABORATORY DATA: WBC 4.7, hemoglobin 14.7, hematocrit 42.3, platelets 199. PT 11.9, INR 1.2. Sodium 141, potassium 4.4, chloride 111, CO2 27, BUN 21, creatinine 1.1, serum glucose 104, calcium 8.6, magnesium 1.9, total bilirubin 0.4, AST 131, ALT 158, alkaline phosphatase 117. Troponin I less than 0.015. TSH 5.9, free T4 1.17. CT of the head, no acute findings seen. EKG wide QRS tachycardia with PVCs at rate of 143.RBBB.Left anterior fascicular block ASSESSMENT AND PLAN: This 79-year-old male presents with dizziness and near syncope. 1. Dizziness and near syncope. This is recurrent. The patient has a history of atrial fibrillation, atrial flutter status post ablation, status post pacemaker placement. Pacemaker interrogation shows rapid atrial fibrillation. He had similar kind of episodes. Currently, he is on 100 mg p.o. b.i.d. metoprolol and Tikosyn. Recent echo couple of days ago was unremarkable. Ejection fraction was normal. Maybe, he needs more adjustment of medications or possible hypotensive. We will closely monitor in tele floor. Gentle fluids. He received his night dose of Tikosyn and metoprolol in the Emergency Room. We will consult again cardiology in morning for further recommendations and further evaluation. The patient's is also worried about transient ischemic attacks. CT of head is unremarkable, but could not do MRI because of the pacemaker. The patient is already on Eliquis. We will consult neurology for further recommendations and opinion in question of adding aspirin. 2. Elevated liver function tests. On his last admission he was found to have cholelithiasis and there was a plan to follow outpatient for elective cholecystectomy. Elevated again today. We will trend liver enzymes. It could be possibly from hypotension that he had at home today. 3. Lyme disease. He is treating Lyme disease with doxycycline. He needs to follow up with final confirmation studies, follow with Infectious Disease. 4. Hypertension. Continue his Lopressor for now. We will hold his losartan. We will monitor the blood pressure. 5. History of hypothyroidism. Continue Synthroid. 6. History of benign prostatic hypertrophy, status post transurethral resection of the prostate. We will monitor for any urinary retention. 7. Possible abdominal parasites. We will check the stool samples 8. Deep venous thrombosis prophylaxis, on Eliquis. DISPOSITION: Observe in the tele floor. PT and OT prior to discharge. Social Service to help with discharge planning. Expected to discharge home and follow with his PCP and cardiology. CODE STATUS: Full code. MTDD
[2019-05-12 05:56] LABS: Basophils # (auto) 0.03 K/uL (0-0.2); Basophils % (auto) 0.8 %; Eosinophils # (auto) 0.12 K/uL (0-0.5); Eosinophils % (auto) 3.4 %; Hematocrit (blood only) 43.6 % (42-52); Hemoglobin 14.6 g/dL (14.0-18.0); Immature Granulocytes # (auto) 0.01 K/uL (0.00-0.02); Immature Granulocytes % (auto) 0.3 %; Lymphocytes # (auto) 1.31 K/uL (1.2-3.4); Lymphocytes % (auto) 37.1 %; Mean Corpuscular Hemoglobin 31.1 pg (25-34); Mean Corpuscular Hgb Conc 33.5 g/dL (32-36); Mean Platelet Volume 10.6 fL (7.4-10.4); Monocytes # (auto) 0.34 K/uL (0.11-0.59); Monocytes % (auto) 9.6 %; Neutrophils # (auto) 1.72 K/uL (1.4-6.5); Neutrophils % (auto) 48.8 %; Platelet Count 202 K/uL (130-400); RDW Coefficient of Variation 14.1 % (11.5-14.5); RDW Standard Deviation 47.7 fL (36.4-46.3); Red Blood Count 4.69 M/uL (4.7-6.1); White Blood Count 3.53 K/uL (4.8-10.8)
[2019-05-12] MEDS: LEVOTHYROXINE SODIUM 88 MCG TABLET PO SCH (06:11)
[2019-05-12 06:38] LABS: BUN Creatinine Ratio 22.3 (10-20); Calcium 8.6 mg/dl (8.5-10.1); Creatinine Clr Calc Pharmacy 58.9 ml/min; Est GFR (African American) 86.3; Est GFR (Non-African American) 74.5; Magnesium 1.8 mg/dl (1.8-2.4); Potassium 3.5 mmol/L (3.5-5.1)
--- NOTE | 2019-05-12 07:23 | Hospitalist Progress Note ---
Date of Service May 12, 2019 Assessment & Plan (1) Atrial fibrillation with RVR: (2) Light headed: (3) Dizziness: (1) Dizziness: Recent workup at [facility] ER including CTA head and neck with no evidence of arterial occlusion or other vascular finding that were acute. CT head without contrast revealing no acute intracranial abnormality with findings of chronic small vessel ischemia and no acute territorial infarct. Lightheadedness has improved after IV fluids overnight. Concern for possible orthostatic hypotension per cardiology however, patient's symptoms have been more consistent and not improved with positional change. Will monitor orthostatic vital signs every shift and will hold losartan per cardiology recommendation. Alternatively, the patient feels he may be having an adverse side effect from one or many of his medications including metoprolol and Tikosyn which was recently started status post pacemaker placement for uncontrolled atrial fibrillation with RVR. Recent pacemaker interrogations have reported normal functioning of his pacemaker. Also there was a question of acute cholecystitis on imaging last night. General surgery saw the patient and did not think this is the case. Outpatient general surgery follow-up in 1 to 2 weeks post discharge. (2) A-fib: Status post pacemaker, metoprolol 100 twice daily, Tikosyn in the last several weeks. Pacemaker and medications appear to be functioning as expected. (3) S/P cardiac pacemaker procedure: (4) Abdominal bloating: Uncertain etiology but has resolved. (5) Abnormal LFTs: Resolved (6) Hypothyroidism: Stable on current dose of Synthroid. (7) DVT prophylaxis: Eliquis Full code Disposition-Plan for home when medically stable. BP normal today, on Losartan, Neuro and cards to see ROS-No Headache, No Visual Changes, No Nausea, No Vomiting, No Fever, No Chills, No Neck Pain or Stiffness, No Chest Pain, No Palpitations, No SOB, No MCCABE, No Cough, No Sputum, No Wheezing, No Abdominal Pain, No Diarrhea, No Hematemesis, No Hemoptysis, No Unexpected Weight Loss, No Flank pain, No Melena, No Hematochezia, No Frequency, No Urgency, No Burning, No Hematuria, No Rashes, No Diaphoresis. Appetite is Normal Physical Exam Gen-AAO x 3, NAD, Afebrile Head-NCAT, EOMI, PERRLA, Anicteric Sclera, No Posterior Pharyngeal Erythema Neck-Supple, No JVD, No Thyromegaly, No Masses, No LAD, No Bruits Lungs-Clear to Auscultation Bilaterally, No Rales, No Rhonchi, No Wheezing, No Crepitus Chest-No S4, +S1, +S2, No S3, No Murmurs, No Rubs, No Gallops, No Ectopy Abdomen-Soft, Bowel Sounds Present, Non Tender, Non Distended, No Hepatomegaly, No Splenomegaly, No Palpable Masses, No Rebound, No Rigidity, No Guarding Musculoskeletal-Full Range of Motion Bilaterally, No CVAT Extremities-No Cyanosis, No Clubbing, No Edema Nuero-Cranial Nerves II-XII grossly intact, Motor WNL, DTRs WNL, Strength WNL, Non Focal Psych-Normal Mood labs checked Results & Data Vital Signs (Past 12 Hours) Vital Signs Temp Pulse Pulse Resp BP BP BP 05/12/19 07:04 36.5 C 77 17 137/86 05/12/19 02:31 36.7 C 97 H 16 136/96 05/11/19 22:52 36.4 C L 70 16 116/72 05/11/19 22:23 36.7 C 80 18 135/79 05/11/19 22:02 102 H 18 138/74 05/11/19 20:55 85 16 120/86 05/11/19 20:23 103 H 16 126/89 05/11/19 19:30 110 H 16 107/76 Pulse Ox 05/12/19 07:04 95 05/12/19 02:31 97 05/11/19 22:52 97 05/11/19 22:23 99 05/11/19 22:02 95 05/11/19 20:55 98 05/11/19 20:23 96 05/11/19 19:30 98
[2019-05-12] MEDS: APIXABAN 5 MG TABLET PO SCH ×2 (08:52→20:17)
[2019-05-12] MEDS: METOPROLOL TARTRATE 100 MG TAB PO SCH ×2 (08:52→20:17)
[2019-05-12] MEDS: DOCUSATE SODIUM 100 MG CAP PO SCH ×2 (08:53→20:17)
[2019-05-12] MEDS: DOFETILIDE 125 MCG CAPSULE PO SCH ×2 (08:53→20:17)
[2019-05-12] MEDS: DOXYCYCLINE HYCLATE 100 MG CAP PO SCH ×2 (08:53→20:17)
[2019-05-12] MEDS: FOLIC ACID 400 MCG TAB PO SCH (08:53)
[2019-05-12] MEDS: CYANOCOBALAMIN 500 MCG TABLET (VITAMIN B-12) PO SCH (08:53)
[2019-05-12] MEDS ORDERED: NON-FORMULARY MEDICATION (Coenzyme Q10 [Coq-10] 100 MG) PO SCH (09:00)
[2019-05-12] MEDS ORDERED: VITAMIN A 2400 UNIT PO SCH (09:00)
[2019-05-12] MEDS: SODIUM CHLORIDE 0.9% 1000ML 1,000 ML IV SCH (12:07)
--- NOTE | 2019-05-12 14:08 | Neurology Consultation ---
Date of Consultation May 12, 2019 Assessment & Plan (1) Light headed: 1. MRI brain with and without- pacemaker needs verified by cards -compatible- ordered 2. orthostatic blood pressures if not already done- needs to be done q shift - ordered. 3. cardiology for recommendations 4. pacemaker interrogation done previous admission 5. ID for treatment of lyme 6. PT/OT speech for any discharge needs 7. optimize HTN, HLD, LDL<70 -consider patient age. further recommendations once MRI is resulted. Supervising Physician Co-Signing Physician Notes I have seen and discussed above patient with Dr Annalisa Chua, neurology. pt seen and examined. Has had episodes of perioral numbness. Over last several weeks c/o vision dimming and genl weakness without diplopia, vertigo. Have mostly been while standing. PPM placed 1 month ago, then new afib. indicates rate control issues. CTA head and neck at [facility] did not show significant vascular narrowing in anterior or post circulation. exam nml EOM, no nystagm, nml facial symm. Full strngth, nml FNF, HS. GAit, tandem nml neg Romberg. provocative head manuevers neg. Episodes of primarily lightheadedness primarily with standing and walking, suspicious for global hypoperfusion rather than transient ischemia. P, check orthostatics. Rec MRI brain. Will follow with you. DEBBY Chua MD History of Present Illness Reason for Consultation: TIA? / family concerned Requesting Physician: Chris Singh DO Attending Physician: Chris Singh DO History of Present Illness Bradford is a 79 year old male with PMH AFib and atrial flutter on Eliquis, history of ablation in 02/2018, status post pacemaker on 04/03/2019, history of systolic CHF secondary tachycardia induced, EF normal on recent echo, hypothyroidism, HTN, HLD, BPH status post TURP, history of slow transit constipation, history of sepsis 1 year ago, complex tachycardia in the past. He was in the hospital with near syncope and discharged 05/11/2019 . He was also in [facility] prior to [facility] where his CTA of the head and neck was negative. On last admission, there was a question of cholecystitis on imaging, but there were no symptoms,and Surgery advised to follow as outpatient for possible elective cholecystectomy. His LFTs were elevated, but trended down and his losartan was held, thought it was possibly causing hypotension, his blood pressures was running high, so he was given hydralazine and was told to take losartan 25 mg daily, but did not start it yet. He was feeling better and discharged to home but had 2 episodes of severe dizziness, once he went to open his window and he went outside and he felt severe dizzy, felt like almost passing out and was very cold. His arms were very cold and she tried to check the blood pressure and he could not read the blood pressure. EMS was not able read the blood pressure and brought him to [facility] to be evaluated and he was hemodynamics stable. He had a past episode of worms in his stomach, he says he passed them 3-4 times in the past. He wants to check for them. His is also concerned about TIA because the [facility] thought he may have had TIA but they could not do the MRI because of pacemaker. His director organizational came in the am and stated that the pacemaker is MRI compatible. denies CP, SOB, abdominal pain, one sided weakness, numbness tingling, N, V, He states currently he is not light headed with standing. Allergies Allergy/AdvReac Type Severity Reaction Status Date / Time No Known Allergies Allergy Verified 05/11/19 18:37 Home Medications Home Medications Medication Instructions Recorded Confirmed Type Eliquis 5 mg PO BID 11/19/18 05/11/19 History folic acid 400 mcg PO QAM 02/21/19 05/11/19 History Probiotic 0 mmu cells PO HS 03/30/19 05/11/19 History ascorbic acid (vitamin C) [Vitamin 500 mg PO HS 03/30/19 05/11/19 History C] cholecalciferol (vitamin D3) 1,000 unit PO HS 03/30/19 05/11/19 History [Vitamin D3] coenzyme Q10 [CoQ-10] 100 mg PO BID 03/30/19 05/11/19 History cyanocobalamin (vitamin B-12) 1,000 mcg PO QAM 03/30/19 05/11/19 History [Vitamin B-12] vitamin A 2,400 unit PO QAM 03/30/19 05/11/19 History levothyroxine 44 mcg PO QAM 04/02/19 05/11/19 History losartan 25 mg PO HS #30 tab 04/08/19 05/11/19 Rx dofetilide 500 mcg capsule 500 mcg PO BID #60 cap 04/11/19 05/11/19 Rx metoprolol tartrate 100 mg tablet 100 mg PO BID #60 tab 04/30/19 05/11/19 Rx docusate sodium [Colace] 100 mg PO BID 05/11/19 05/11/19 History doxycycline hyclate 100 mg PO BID #40 cap 05/11/19 05/11/19 Rx hydralazine 10 mg PO QID PRN 05/11/19 05/11/19 History Patient History Medical History Dizziness (Acute) DVT prophylaxis Cardiomyopathy Systolic heart failure (Chronic) Mildly reduced EF of 48% per 01/2019 echo Acute hypotension (Acute) Lyme disease Atrial fibrillation (Chronic) Dyslipidemia (Chronic) BPH (benign prostatic hyperplasia) (Chronic) Hypothyroidism (Chronic) Hernia (Chronic) "LARGE" UMBILICAL/VENTRAL HERNIA PER PT Surgical History S/P cardiac pacemaker procedure H/O cardiac radiofrequency ablation (Resolved) Attempted CTI ablation, 02/2018 BY MAHENDRA History of transurethral resection of prostate (Chronic) 11/06/18 = LMA #5 x 1 attempt, good seal, atraumatic. History of arthroscopy (Chronic) RT KNEE History of tooth extraction (Chronic) Family History Mother Senile Father Pulmonary embolism Social History Preferred Language: Korean Communication Ability: Effective Jelly Maker Required: No Beliefs That Will Affect Care: None marital status: Life Partner Current Living Situation: Spouse Other Information That Helps Us Care for You: No Feels Safe at Home: Yes Safety Concerns: Feels Safe At This Time Smoking Status: Former smoker Tobacco Type: cigarettes ; Cigarettes Per Day: QUIT 40 YEARS AGO. ; Smoking End Date: 30 years ago ; Second Hand Exposure: No ; Hx Alcohol Use: Yes Alcohol type: beer Hx Substance Use: No Physical Exam Physical Exam: Physical Exam: Constitutional: appearance nourished, healthy and normal Ears, Nose, Mouth and Throat: mucous membranes moist, no injection and skin normal, eyes normal Cardiovascular: irregular Respiratory: course breath sounds Musculoskeletal: slight edema at ankles and good distal pulses Skin: no stigmata of neurocutaneous disease noted and normal and intact Eyes: extraocular muscles intact (EOMI) and pupils equal, round and reactive to light (PERRL) NEUROLOGIC EXAMINATION: Mental status: Alert and interactive Oriented to full date and location Oriented to person Speech fluent with no evidence of aphasia Cranial Nerves smile eye brow raise symmetric Reflexes: Deep tendon reflexes were symmetrical and graded 2/5. down going toes Sensory: sensation with vibration R>L at ankles Coordination: finger to nose no bipass, heel to fernandez and rapid hand movements intact Gait/Stance: Posture normal. Gait normal: with steady with steps, base, turning, tandem gait. Motor: Negative for pronator drift of out stretched arms with eyes closed. Strength: hand radio repairer biceps triceps 5/5 bilaterally, hip flex patellar plantar flex ext 5/5 Results & Data Vital Signs (Past 12 Hours) Vital Signs Temp Pulse Pulse Resp BP Pulse Ox 05/12/19 11:34 36.2 C L 80 17 134/93 98 05/12/19 08:00 70 05/12/19 07:04 36.5 C 77 17 137/86 95 05/12/19 02:31 36.7 C 97 H 16 136/96 97 Laboratory Results Abnormal lab results 05/11/19 05/11/19 05/11/19 Range/Units 18:59 18:59 18:59 WBC 4.72 L (4.8-10.8) K/uL RBC 4.58 L (4.7-6.1) M/uL RDW Std Deviation 46.9 H (36.4-46.3) fL MPV (7.4-10.4) fL Lymph # (Auto) 0.91 L (1.2-3.4) K/uL INR 1.2 H (0.9-1.1) Chloride 111 H (98-107) mmol/L BUN 21 H (7-18) mg/dl BUN/Creatinine Ratio (10-20) Glucose 104 H (70-99) mg/dl AST 131 H (15-37) U/L ALT 158 H (12-78) U/L Total Protein 6.0 L (6.4-8.2) gm/dl Albumin 3.0 L (3.4-5.0) gm/dl TSH 5.940 H (0.300-4.500) uIu/ml 05/12/19 05/12/19 Range/Units 05:39 05:39 WBC 3.53 L (4.8-10.8) K/uL RBC 4.69 L (4.7-6.1) M/uL RDW Std Deviation 47.7 H (36.4-46.3) fL MPV 10.6 H (7.4-10.4) fL Lymph # (Auto) (1.2-3.4) K/uL INR (0.9-1.1) Chloride 111 H (98-107) mmol/L BUN 22 H (7-18) mg/dl BUN/Creatinine Ratio 22.3 H (10-20) Glucose (70-99) mg/dl AST (15-37) U/L ALT (12-78) U/L Total Protein (6.4-8.2) gm/dl Albumin (3.4-5.0) gm/dl TSH (0.300-4.500) uIu/ml Diagnostic Findings CT head-No significant change compared to the prior study. No acute intracranial abnormality.
--- NOTE | 2019-05-12 17:30 | Cardiology Progress Note ---
Date of Service May 12, 2019 Assessment & Plan (1) Atrial fibrillation with RVR: He continues to have episodes of atrial fibrillation and associated high rates. Interrogation of his device suggests that his atrial arrhythmias include atrial flutter, atrial fibrillation and atrial tachycardias. He may have some efficacy from the dofetilide. He does have atrial tachycardia therapies activated and I did activate preference pacing today all in an attempt to limit his atrial arrhythmias. He is appropriately anticoagulated. He is not appear to be overtly symptomatic from the arrhythmia although he and his partner to check his pulse regularly and will notice elevated heart rate readings at times. His device interrogation with suggested overall heart rates appear adequately controlled. (2) Dizziness: Unclear etiology. He was thought to be volume depleted but there is some debate in his chart regarding the true nature of his dizziness. Did not have symptoms of orthostatic hypotension today. During his last admission, there was some concern regarding and a plasma Carmel and perhaps this could produce some of the diffuse symptoms of which she has been complaining. It seems that the Neurology service is interested in obtaining an MRI. His pacemaker is MRI compatible and this examination could be performed at any time with the appropriate precautions. During the time frame of his dizziness yesterday he did have some high ve ntricular rates. The device recorded this as ventricular tachycardia, but an evaluation of the intracardiac electrograms would suggest this is more likely an atrial tachycardia and associated high ventricular rates. Whether this was a response to the symptoms that he described or the etiology of his symptoms is unclear. We will continue him on his dofetilide and metoprolol. (3) Cardiomyopathy: This appears to have been related to high ventricular rates over time. During his last admission echocardiogram suggested resolution of his cardiomyopathy and preserved LV systolic function. He is not appear to have symptoms at this time of congestive heart failure. 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 His pacemaker appears to be functioning normally. Subjective Patient is a 71-year-old gentleman with a history of a nonischemic cardiomyopathy and paroxysmal atrial fibrillation who was recently admitted to our facility with symptoms dizziness. He had been previously evaluated at [facility] with imaging of his brain. This was unrevealing. He subsequently was admitted to our facility for similar symptoms and felt to possibly have orthostatic hypotension. His medications were adjusted and he underwent volume resuscitation with resolution of his symptoms. However, on the day of discharge the patient had another episode of severe dizziness and as sociated coldness in his arms. He was transported back to our facility for evaluation. He states that those symptoms appear to have resolved. He has been ambulatory around his room this morning without recurrence of dizziness or lightheadedness. He is not appear to have been aware of any palpitations or racing heartbeats. He did not have associated chest pain. He may have had an element of anorexia recently but according to his significant other who was present for today's interview he did eat and drink normally during his recent hospitalization. He does complain of some gastrointestinal symptoms. He is worried that he may have a gastrointestinal parasite and appears to have past several worse over the years. Review of Systems Review of Systems: Per HPI Physical Exam Physical Exam: The patient is alert and oriented. Mood and affect appeared normal. He answered all questions appropriately. HEENT: Pupils are equal and reactive to light and accommodation. Extraocular movements are intact. The sclerae are anicteric. Neuro: Cranial nerves intact Neck: Patient's neck is supple. He has palpable carotid pulses bilaterally without bruits on auscultation. There is no evidence of jugular venous distention. The thyroid is not enlarged. Lungs: Clear to auscultation bilaterally. He has good air movement without use of accessory muscles. No rales wheezes or rhonchi. Cardiac: Heart demonstrates an irregular rate and rhythm. Normal S1 and S2. No murmurs on examination. Pulses: The patient has palpable radial pulses bilaterally that are equal in intensity Extremities: There was no evidence of hypoperfusion. There is no cyanosis or clubbing. There is no edema. Skin: I did not appreciate any rashes on examination today. Results & Data Vital Signs (Past 12 Hours) Vital Signs Temp Pulse Pulse Resp BP Pulse Ox 05/12/19 17:04 88 05/12/19 15:25 36.8 C 84 18 145/99 H 94 05/12/19 11:34 36.2 C L 80 17 134/93 98 05/12/19 08:00 70 05/12/19 07:04 36.5 C 77 17 137/86 95 Laboratory Results Abnormal Lab Results 05/11/19 05/11/19 05/11/19 18:59 18:59 18:59 WBC 4.72 L RBC 4.58 L Hgb 14.7 Hct 42.3 MCV 92.4 MCH 32.1 MCHC 34.8 RDW Std Deviation 46.9 H RDW Coeff of Cheng 13.9 Plt Count 199 MPV 10.1 Immature Gran % (Auto) 0.2 Neut % (Auto) 69.4 Lymph % (Auto) 19.3 Sumner % (Auto) 9.5 Eos % (Auto) 0.8 Baso % (Auto) 0.8 Immature Gran # (Auto) 0.01 Neut # (Auto) 3.27 Lymph # (Auto) 0.91 L Sumner # (Auto) 0.45 Eos # (Auto) 0.04 Baso # (Auto) 0.04 PT 11.9 INR 1.2 H Sodium 141 Potassium 4.4 D Chloride 111 H Carbon Dioxide 27 Anion Gap 3.0 BUN 21 H Creatinine 1.13 D Est Cr Clr Drug Dosing Not Reportable Est GFR ( Amer) 71.8 Est GFR (Non-Af Amer) 61.9 BUN/Creatinine Ratio 18.8 Glucose 104 H Calcium 8.6 Magnesium 1.9 Total Bilirubin 0.4 AST 131 H ALT 158 H Alkaline Phosphatase 117 Troponin I < 0.015 Total Protein 6.0 L Albumin 3.0 L Globulin 3.0 Albumin/Globulin Ratio 1.0 TSH 5.940 H Free T4 1.17 05/12/19 05/12/19 05:39 05:39 WBC 3.53 L RBC 4.69 L Hgb 14.6 Hct 43.6 MCV 93.0 MCH 31.1 MCHC 33.5 RDW Std Deviation 47.7 H RDW Coeff of Cheng 14.1 Plt Count 202 MPV 10.6 H Immature Gran % (Auto) 0.3 Neut % (Auto) 48.8 Lymph % (Auto) 37.1 Sumner % (Auto) 9.6 Eos % (Auto) 3.4 Baso % (Auto) 0.8 Immature Gran # (Auto) 0.01 Neut # (Auto) 1.72 Lymph # (Auto) 1.31 Sumner # (Auto) 0.34 Eos # (Auto) 0.12 Baso # (Auto) 0.03 PT INR Sodium 142 Potassium 3.5 D Chloride 111 H Carbon Dioxide 25 Anion Gap 6.0 BUN 22 H Creatinine 0.97 Est Cr Clr Drug Dosing 58.9 Est GFR ( Amer) 86.3 Est GFR (Non-Af Amer) 74.5 BUN/Creatinine Ratio 22.3 H Glucose 82 Calcium 8.6 Magnesium 1.8 Total Bilirubin AST ALT Alkaline Phosphatase Troponin I Total Protein Albumin Globulin Albumin/Globulin Ratio TSH Free T4 PG Care Time/CCT Total # of Minutes Spent Total Time Spent with Patient: Total time spent is greater than 50% in coordina tion of care (as documented) at patient's floor/unit and/or counseling patient:
[2019-05-12] MEDS: CHOLECALCIFEROL 1,000 UNITS TAB PO SCH (20:16)
[2019-05-12] MEDS: ASCORBIC ACID 500 MG TAB PO SCH (20:17)
[2019-05-12] MEDS: LACTOBACILLUS ACIDOPHILUS (FLORANEX) TAB PO SCH (20:17)
[2019-05-13] MEDS: LOSARTAN POTASSIUM 25 MG TAB PO SCH ×2 (00:05→19:50)
[2019-05-13] MEDS: LEVOTHYROXINE SODIUM 88 MCG TABLET PO SCH (06:13)
--- NOTE | 2019-05-13 06:19 | Hospitalist Progress Note ---
Date of Service May 13, 2019 Subjective Made aware by RN of uncontrolled blood pressure. SBP 140-160s since from afternoon to late last night Patient asymptomatic as per RN. AP Hypertension, uncontrolled Initiate Losartan home Rx Will relay to AM provider. Results & Data Vital Signs (Past 12 Hours) Vital Signs Temp Pulse Resp BP BP Pulse Ox 05/13/19 03:15 36.4 C L 64 18 150/93 H 97 05/12/19 23:23 36.4 C L 82 18 164/113 H 97 05/12/19 20:12 159/105 H 155/102 H 05/12/19 18:51 36.4 C L 87 19 156/107 H 97
[2019-05-13 06:46] LABS: Hematocrit (blood only) 43.2 % (42-52); Hemoglobin 14.6 g/dL (14.0-18.0); Mean Corpuscular Hemoglobin 31.3 pg (25-34); Mean Corpuscular Hgb Conc 33.8 g/dL (32-36); Mean Corpuscular Volume 92.5 fL (80-100); Mean Platelet Volume 10.5 fL (7.4-10.4); Platelet Count 192 K/uL (130-400); RDW Coefficient of Variation 13.8 % (11.5-14.5); RDW Standard Deviation 46.5 fL (36.4-46.3); Red Blood Count 4.67 M/uL (4.7-6.1); White Blood Count 3.41 K/uL (4.8-10.8)
--- NOTE | 2019-05-13 07:06 | Hospitalist Progress Note ---
Date of Service May 13, 2019 Assessment & Plan (1) Atrial fibrillation with RVR: (2) Light headed: (3) Dizziness: (1) Dizziness: Recent workup at [facility] including CTA head and neck with no evidence of arterial occlusion or other vascular finding that were acute. CT head without contrast revealing no acute intracranial abnormality with findings of chronic small vessel ischemia and no acute territorial infarct. Lightheadedness has improved after IV fluids overnight. Concern for possible orthostatic hypotension per cardiology however, patient's symptoms have been more consistent and not improved with positional change. Will monitor orthostatic vital signs every shift and will hold losartan per cardiology recommendation. Alternatively, the patient feels he may be having an adverse side effect from one or many of his medications including metoprolol and Tikosyn which was recently started status post pacemaker placement for uncontrolled atrial fibrillation with RVR. Recent pacemaker interrogations have reported normal functioning of his pacemaker. Also there was a question of acute cholecystitis on imaging last night. General surgery saw the patient and did not think this is the case. Outpatient general surgery follow-up in 1 to 2 weeks post discharge. Pacer is MRI compatible per Dr Raza which was relayed to PT and his (2) A-fib: Status post pacemaker, metoprolol 100 twice daily, Tikosyn in the last several weeks. Pacemaker and medications appear to be functioning as expected. (3) S/P cardiac pacemaker procedure: (4) Abdominal bloating: Uncertain etiology but has resolved. (5) Abnormal LFTs: Resolved (6) Hypothyroidism: Stable on current dose of Synthroid. (7) DVT prophylaxis: Eliquis Full code Disposition-Plan for home when medically stable. ROS-No Headache, No Visual Changes, No Nausea, No Vomiting, No Fever, No Chills, No Neck Pain or Stiffness, No Chest Pain, No Palpitations, No SOB, No MCCABE, No Cough, No Sputum, No Wheezing, No Abdominal Pain, No Diarrhea, No Hematemesis, No Hemoptysis, No Unexpected Weight Loss, No Flank pain, No Melena, No Hematochezia, No Frequency, No Urgency, No Burning, No Hematuria, No Rashes, No Diaphoresis. Appetite is Normal Physical Exam Gen-AAO x 3, NAD, Afebrile Head-NCAT, EOMI, PERRLA, Anicteric Sclera, No Posterior Pharyngeal Erythema Neck-Supple, No JVD, No Thyromegaly, No Masses, No LAD, No Bruits Lungs-Clear to Auscultation Bilaterally, No Rales, No Rhonchi, No Wheezing, No Crepitus Chest-No S4, +S1, +S2, No S3, No Murmurs, No Rubs, No Gallops, No Ectopy Abdomen-Soft, Bowel Sounds Present, Non Tender, Non Distended, No Hepatomegaly, No Splenomegaly, No Palpable Masses, No Rebound, No Rigidity, No Guarding Musculoskeletal-Full Range of Motion Bilaterally, No CVAT Extremities-No Cyanosis, No Clubbing, No Edema Nuero-Cranial Nerves II-XII grossly intact, Motor WNL, DTRs WNL, Strength WNL, Non Focal Psych-Normal Mood labs checked Results & Data Vital Signs (Past 12 Hours) Vital Signs Temp Pulse Resp BP BP Pulse Ox 05/13/19 03:15 36.4 C L 64 18 150/93 H 97 05/12/19 23:23 36.4 C L 82 18 164/113 H 97 05/12/19 20:12 159/105 H 155/102 H
[2019-05-13 07:18] LABS: BUN Creatinine Ratio 23.8 (10-20); Calcium 8.7 mg/dl (8.5-10.1); Creatinine Clr Calc Pharmacy 69.1 ml/min; Est GFR (African American) 98.2; Est GFR (Non-African American) 84.7; Potassium 3.5 mmol/L (3.5-5.1)
[2019-05-13] MEDS: CYANOCOBALAMIN 500 MCG TABLET (VITAMIN B-12) PO SCH (08:09)
[2019-05-13] MEDS: DOCUSATE SODIUM 100 MG CAP PO SCH ×2 (08:09→19:47)
[2019-05-13] MEDS: METOPROLOL TARTRATE 100 MG TAB PO SCH ×2 (08:09→19:49)
[2019-05-13] MEDS: DOXYCYCLINE HYCLATE 100 MG CAP PO SCH ×2 (08:09→19:50)
[2019-05-13] MEDS: FOLIC ACID 400 MCG TAB PO SCH (08:09)
[2019-05-13] MEDS: APIXABAN 5 MG TABLET PO SCH ×2 (08:09→19:48)
[2019-05-13] MEDS: DOFETILIDE 125 MCG CAPSULE PO SCH ×2 (11:13→19:49)
--- NOTE | 2019-05-13 14:24 | Neurology Progress Note ---
Date of Service May 13, 2019 Assessment & Plan (1) Light headed: 1. MRI brain with and without- pacemaker needs verified by cards -compatible- ordered- if re dye hand does not sign off could order as outpatient 2. orthostatic blood pressures if not already done- needs to be done q shift - ordered. 3. cardiology for recommendations 4. pacemaker interrogation done previous admission 5. ID for treatment of lyme 6. PT/OT speech for any discharge needs 7. optimize HTN, HLD, LDL<70 -consider patient age. discharge when medically appropriate Supervising Physician Co-Signing Physician Notes I have seen and discussed above patient with Dr Annalisa Chua, neurology. MRI brain nml for age. Suspect pt sx are related are related to hypotension or orthostatic hypotension. Will sign off. Pt does not need neurologic follow-up. DEBBY Chua MD Balaji Felder is a 79 year old male with PMH AFib and atrial flutter on Eliquis, history of ablation in 02/2018, status post pacemaker on 04/03/2019, history of systolic CHF secondary tachycardia induced, EF normal on recent echo, hypothyroidism, HTN, HLD, BPH status post TURP, history of slow transit constipa tion, history of sepsis 1 year ago, complex tachycardia in the past. He was in the hospital with near syncope and discharged 05/11/2019 . He was also in [facility] prior to [facility] where his CTA of the head and neck was negative. On last admission, there was a question of cholecystitis on imaging, but there were no symptoms,and Surgery advised to follow as outpatient for possible elective cholecystectomy. His LFTs were elevated, but trended down and his losartan was held, thought it was possibly causing hypotension, his blood pressures was running high, so he was given hydralazine and was told to take losartan 25 mg daily, but did not start it yet. He was feeling better and discharged to home but had 2 episodes of severe dizziness, once he went to open his window and he went outside and he felt severe dizzy, felt like almost passing out and was very cold. His arms were very cold and she tried to check the blood pressure and he could not read the blood pressure. EMS was not able read the blood pressure and brought him to [facility] to be evaluated and he was hemodynamics stable. He had a past episode of worms in his stomach, he says he passed them 3-4 times in the past. He wants to check for them. His is also concerned about TIA because the [facility] thought he may have had TIA but they could not do the MRI because of pacemaker. His re dye hand came in the am and stated that the pacemaker is MRI compatible. Today he states he is doing well no further lightheaded episodes. He has been up to the bathroom without issues. His re dye hand has not commended on whether MRI can be done at this point. Radiology contacted last night indicating he was 2 days short of the normal wait period after transplant is done. 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
[2019-05-13] MEDS ORDERED: GADOBUTROL 65ML VIAL IV PRN (16:25)
--- NOTE | 2019-05-13 16:35 | Magnetic Resonance Report ---
Brain MRI WITH AND WITHOUT CONTRAST HISTORY: Syncopal episodes. neurologic symptoms s/p pacemaker placement TECHNIQUE: Multiplanar multisequence MRI of the brain was performed both before and after the intrave nous administration of contrast. COMPARISON STUDY: Head CT 05/11/2019. FINDINGS: There is no mass, hematoma, midline shift, or acute infarct. The mastoid air cells are hellen r. The ventricles and sulci demonstrate mild age-related involutional changes. Scattered foci of T2 h yperintensity seen within the periventricular and subcortical white matter are nonspecific but sugges tive of mild microvascular ischemic changes. The major vascular flow voids at the skull base are well -maintained. Small retention cyst within the left maxillary sinus. The remaining paranasal sinuses ar e clear. No abnormal enhancement. IMPRESSION: No acute intracranial abnormality. Scattered foci of T2 hyperintensity seen within the periventricula r and subcortical white matter are nonspecific but favor mild microvascular ischemic change. Electronically signed by: Abdoul Tucker M.D. 05/13/2019 4:34 PM
[2019-05-13] MEDS: LACTOBACILLUS ACIDOPHILUS (FLORANEX) TAB PO SCH (19:47)
[2019-05-13] MEDS: CHOLECALCIFEROL 1,000 UNITS TAB PO SCH (19:48)
[2019-05-13] MEDS: ASCORBIC ACID 500 MG TAB PO SCH (19:49)
[2019-05-14 00:31] LABS: Appearance Urine Clear (Clear); Bilirubin Urine Negative (Negative); Blood Urine Negative (Negative); Color Urine Yellow; Glucose Urine UA Negative (Negative); Ketones Urine Negative (Negative); Leukocyte Esterase Urine Negative (Negative); Nitrite Urine Negative (Negative); Protein Urine Negative (Negative); Specific Gravity Urine 1.013 (1.000-1.030); Urobilinogen Urine Negative (Negative); pH Urine 6.5 (4.5-7.5)
[2019-05-14] MEDS: LEVOTHYROXINE SODIUM 88 MCG TABLET PO SCH (06:10)
[2019-05-14] MEDS: FOLIC ACID 400 MCG TAB PO SCH (09:10)
[2019-05-14] MEDS: DOXYCYCLINE HYCLATE 100 MG CAP PO SCH (09:10)
[2019-05-14] MEDS: DOCUSATE SODIUM 100 MG CAP PO SCH (09:10)
[2019-05-14] MEDS: CYANOCOBALAMIN 500 MCG TABLET (VITAMIN B-12) PO SCH (09:10)
[2019-05-14] MEDS: METOPROLOL TARTRATE 100 MG TAB PO SCH (09:10)
[2019-05-14] MEDS: APIXABAN 5 MG TABLET PO SCH (09:10)
[2019-05-14] MEDS: DOFETILIDE 125 MCG CAPSULE PO SCH (09:10)
[2019-05-14 12:21] VITALS: PULSE 102; TEMP 97.5; O2SAT 95
--- NOTE | 2019-05-14 14:17 | Discharge Summary ---
Date of Service May 14, 2019 Admission HPI Per Admitting Provider CHIEF COMPLAINT: Severe dizziness and near syncope. HISTORY OF PRESENT ILLNESS: This is a 79-year-old male with past medical history significant for AFib and atrial flutter on Eliquis, history of ablation in 02/2018, status post pacemaker on 04/03/2019, history of systolic CHF secondary tachycardia induced, EF normal on recent echo, history of hypothyroidism, hypertension, hyperlipidemia, BPH status post TURP, history of slow transit constipation, history of sepsis in the past, history of wide complex tachycardia in the past. The patient was recently in the hospital with near syncope. He was also in [facility] before coming to the [facility] where his CTA of the head and neck was negative. On last admission, there was a question of cholecystitis on imaging, but there were no symptoms,and Surgery advised to follow as outpatient for possible elective cholecystectomy. His LFTs were elevated, but trended down and his losartan was held, thought it was possibly causing hypotension, but today on discharge, his blood pressures was running high, so he was given hydralazine and was told to take losartan 25 mg daily, but did not start it yet. As he was feeling better, he was discharged today, but after going home, he had 2 episodes of severe dizziness, once he went to open his window and he went outside and he felt severe dizzy, felt like almost passing out and after coming home, he had another episode and his checked him, he was very cold. His arms were very cold and she tried to check the blood pressure and he could not read the blood pressure. EMS was called in and the EMS also could not read the blood pressures, so for that reason the patient was brought in here and here he is hemodynamics stable. He is back to his usual self. The blood pressure was running high, so he was given his evening dose of his Tikosyn and his metoprolol and also he was given a dose of IV Lopressor. Currently resting comfortably and hemodynamically stable. Denies any headache, no blurred vision, no earache, no runny nose, no sore throat, no difficulty swallowing. Appetite is okay. No chest pain, no shortness of breath, no cough, no fever, no chills, no nausea, no abdominal pain. Normal bowel and bladder movements. No swelling in the legs. No rash. The patient is worried about having worms in his stomach, he says he passed them 3-4 times in the past. He wants to check for them. His is also concerned about TIA. When he was in [facility] recently it was thought he might have had TIA but they could not do the MRI because of pacemaker. She was worried about it and she wanted to evaluate for it. Admission Exam Per Admitting Provider GENERAL: The patient is of moderate build, not in acute distress. VITAL SIGNS: Temperature 36.7, pulse 84, respiratory rate 16, blood pressure 120/86, oxygen 98% room air. HEENT: No pallor, no icterus. Pupils equal, round, reactive to light. Extraocular muscles intact. NECK: No JVD, no neck masses, no carotid bruits. CARDIOVASCULAR: S1, S2 heard, regular rate and rhythm, no murmur, no gallop. RESPIRATORY SYSTEM: Normal AP diameter. No accessory muscle use. No wheezing, no crackles. ABDOMEN: Soft, bowel sounds present, nontender. No distention. CENTRAL NERVOUS SYSTEM: Cranial nerves II-XII grossly intact. Power 5/5 in all extremities. Coordination of movements normal. [id number] test normal. No pronator drift. EXTREMITIES: No edema, no erythema. Principal Diagnosis (1) Atrial fibrillation with RVR (2) Light headed: (3) Dizziness Discharge Exam General- No acute distress Head- atraumatic Eyes- PERRL, EOMI, ENT- oropharynx clear Neck- supple, no JVD Lungs- clear to auscultation Heart- regular rhythm; no murmur Abdomen- normal bowel sounds, soft, nontender Extremities- no calf tenderness Neuro- alert, oriented x 3; PERRL, EOMI; no facial palsy; no dysarthria Skin- warm & dry Discharge Data Allergies Allergy/AdvReac Type Severity Reaction Status Date / Time No Known Allergies Allergy Verified 05/11/19 18:37 Consultations 05/11/19 20:36 ED Decision to Admit Stat 05/11/19 22:31 Consult Case Management - Discharge Planning Routine 05/12/19 08:00 Consult Cardiology Routine Consult Neurology Routine Ordered Studies 05/11/19 18:40 CT head/brain wo con Stat 05/13/19 07:42 MR brain wo/w con Routine Brain MRI WITH AND WITHOUT CONTRAST HISTORY: Syncopal episodes. neurologic symptoms s/p pacemaker placement TECHNIQUE: Multiplanar multisequence MRI of the brain was performed both before and after the intravenous administration of contrast. COMPARISON STUDY: Head CT 05/11/2019. FINDINGS: There is no mass, hematoma, midline shift, or acute infarct. The mastoid air cells are clear. The ventricles and sulci demonstrate mild age- related involutional changes. Scattered foci of T2 hyperintensity seen within the periventricular and subcortical white matter are nonspecific but suggestive of mild microvascular ischemic changes. The major vascular flow voids at the skull base are well-maintained. Small retention cyst within the left maxillary sinus. The remaining paranasal sinuses are clear. No abnormal enhancement. IMPRESSION: No acute intracranial abnormality. Scattered foci of T2 hyperintensity seen within the periventricular and subcortical white matter are nonspecific but favor mild microvascular ischemic change. Electronically signed by: Abdoul Tucker M.D. 05/13/2019 4:34 PM Dictated: 05/13/191628 Transcribed: 05/13/191628 HEAD CT NONCONTRAST CT DOSE: 537.48 mGy.cm HISTORY: dizzy, on eliqus TECHNIQUE: Multiaxial CT images of the head were performed without the use of intravenous contrast. Automated exposure control was utilized for this study. A dose lowering technique was utilized adhering to the principles of ALARA. Comparison: Head CT 02/22/2019. Findings: The paranasal sinuses and mastoid air cells are clear. The calvarium and skull base are intact. There is no mass, hematoma, midline shift, acute infarct. White matter hypodensity is nonspecific but suggestive of microvascular ischemic change. The ventricles and sulci demonstrate mild age-related involutional changes. Impression: No significant change compared to the prior study. No acute intracranial abnormality. Electronically signed by: Abdoul Tucker M.D. 05/11/2019 8:25 PM Dictated: 05/11/192020 Transcribed: 05/11/192020 Hospital Course (1) Atrial fibrillation with RVR: (2) Light headed: (3) Dizziness: (1) Dizziness Recent workup at [facility] ER including CTA head and neck with no evidence of arterial occlusion or other vascular finding that were acute. CT head without contrast revealing no acute intracranial abnormality with findings of chronic small vessel ischemia and no acute territorial infarct. Concern for possible orthostatic hypotension per cardiology however, patient's symptoms have been more consistent and not improved with positional change. Will monitor orthostatic vital signs every shift and will hold losartan per cardiology recommendation. Alternatively, the patient feels he may be having an adverse side effect from one or many of his medications including metoprolol and Tikosyn which was recently started status post pacemaker placement for uncontrolled atrial fibrillation with RVR. Recent pacemaker interrogations have reported normal functioning of his pacemaker. A MRI showed no acute intracranial finding Case discuss with neurology and no need to be seen (2) A-fib: Status post pacemaker, metoprolol 100 twice daily, Tikosyn in the last several weeks. Pacemaker and medications appear to be functioning as expected. Follow up with cardiology Dr. Raza (3) S/P cardiac pacemaker procedure: (4) Abdominal bloating Resolved (5) Abnormal LFTs Check LFT in 1 week (6) Hypothyroidism TSH 5.9 Will increase levothyroxine to 75mcg Check TSH in 6 to 8 week (7) Gallstone U/S showed Gallstones with findings suggesting probable acute cholecystitis. Outpatient follow up with surgery in 1 to 2 weeks Liver hemangioma U/S showed Large pre-existing right hepatic lobe hemangioma. Outpatient follow up (8) DVT prophylaxis Eliquis Full code Disposition-Plan for home when medically stable. 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 Rojas on 05/19 @ 10:45 AM Follow up with your cardiology Dr. Raza on 05/26 @ 3:30 PM Address: [address] [place] [id number] Outpatient Follow up with surgery for elective gallbladder removal Check LFT in 1 week to monitor liver enzymes Monitor your blood pressure and bring your blood pressure log at your next appointment with your physician Check TSH in 6-8 week to monitor your thyroid function Fall precaution (Do not stand up too quick) Pending Studies at Discharge: Yes Studies:: Follow parasites result Stand-Alone Forms: My [facility], Smoking Cessation Medications and DC Order Prescriptions: New levothyroxine 75 mcg capsule 75 mcg PO DAILY Qty: 30 RF: 0 dofetilide 500 mcg Capsule 500 mcg PO BID 90 Days Qty: 180 RF: 0 Continued metoprolol tartrate [Lopressor] 100 mg tablet 100 mg PO BID Qty: 60 RF: 11 Eliquis 5 mg Tablet 5 mg PO BID RF: 0 folic acid 400 mcg Tablet 400 mcg PO QAM RF: 0 vitamin A 8,000 unit Capsule 2,400 unit PO QAM RF: 0 cyanocobalamin (vitamin B-12) [Vitamin B-12] 1,000 mcg Tablet 1,000 mcg PO QAM RF: 0 ascorbic acid (vitamin C) [Vitamin C] 500 mg Tablet 500 mg PO HS RF: 0 cholecalciferol (vitamin D3) [Vitamin D3] 1,000 unit Capsule 1,000 unit PO HS RF: 0 coenzyme Q10 [CoQ-10] 100 mg Capsule 100 mg PO BID RF: 0 Probiotic 3 billion cell Capsule PO HS RF: 0 losartan 25 mg tablet 25 mg PO HS Qty: 30 RF: 1 docusate sodium [Colace] 100 mg Capsule 100 mg PO BID RF: 0 hydralazine 10 mg tablet 10 mg PO QID PRN (Reason: ONLY TAKES IF SBP>150) RF: 0 Discontinued levothyroxine 88 mcg tablet 44 mcg PO QAM RF: 0 doxycycline hyclate 100 mg Capsule 100 mg PO BID Qty: 40 RF: 0 Discharge Orders: Discharge Order (Routine); Ordered 05/14/19 Ordered By: Loretta Mccoy Admission Data Admit Date/Time: 05/14/19 08:27 Attending Provider: Loretta Mccoy Admit Provider: Andres Stiles Primary Care Provider: Pricilla Rojas Other Providers: Andres Stiles ; Mathew Raza ; Annalisa Rivera ; Andrew De ; Annalisa Chua ; Siddhartha Pineda ; Ivette Jones ; Chris Singh
[2019-05-14 14:31] VITALS: BP 155/102
== END 2019-05-14 17:20 | disposition home or self-care (01) | DRG 309 ==
LOC: ED 17:37 → 2S 17:37 → SUATTDRO 21:36 → 2S 22:02